=== PATIENT | male | born 1940 | race Caucasian/White ===

== ENCOUNTER 2022-01-24 13:57 | Emergency (ER) | payer MEDICARE, SELFPAY ==
--- NOTE | ~2022-01-24 | XR_ITS ---
X EXAM: XR finger 2nd LT min 2V DATE: 01/24/2022 14:45 HISTORY: infection, SWELLING . COMPARISON: None available. FINDINGS: Decreased mineralization. No fracture or dislocation. No lytic or blastic lesion. Osteoart hritis. No erosion or periosteal change. Soft tissue swelling over the proximal second digit, with po ssible extension to dorsum of the hand. IMPRESSION: No radiographic evidence of osteomyelitis. Soft tissue swelling of the hand/fingers. Reviewed, dictated and finalized at location K.
[2022-01-24 14:15] VITALS: BP 115/60; PULSE 67; RESP 18; O2SAT 98
--- NOTE | 2022-01-24 14:36 | ED.WOUNDLAC ---
HPI - Wound/Laceration General Chief Complaint: Wound/Laceration Stated Complaint: Infection to finger Time Seen by Provider: 01/24/22 14:17 History of Present Illness HPI narrative: Patient is an 81-year-old male who presents ER with concerns for finger infection. Patient had a fall at his intermediate about a week ago. Developed cellulitis of his hand and forearm. He has been on oral antibiotics. Took his last antibiotics today. He has been taking Keflex. No fevers or chills or sweats. He went from being unable to make a fist or close his hand due to swelling and redness to now he can make a full fist with the exception of his second digit but she is able to slightly flex at the MCP/DIP and PIP. The index finger is swollen and red and continues. Proximally there is some skin sloughing off. There are 2 areas where it appears there may have been purulent discharge earlier that now only serous fluid can be expressed from. Related Data Allergies Allergy/AdvReac Type Severity Reaction Status Date / Time No Known Drug Allergies Allergy Other Verified 01/24/22 14:21 [facility] Past Medical History Medical History (Updated 01/24/22 @ 21:51 by Luis Arndt MD) Diabetes Hypertension Surgical History Surgical History (Updated 01/24/22 @ 21:51 by Luis Arndt MD) Fingertip amputation Social History Social History (Updated 01/24/22 @ 21:51 by Luis Arndt MD) Social History: Lives in [place]. Exam Narrative: GENERAL: Well-appearing, well-nourished, and in no acute distress. HEAD: Normocephalic, atraumatic. EYES: PERRL and EOMI. EXTREMITIES: Focused exam left hand shows a swollen index finger from the MCP to the tip. Mainly over the proximal middle phalanx. There is some sloughing of the skin. There is minimal warmth. No purulent drainage but there are 2 circular areas about 5 mm in width with serous fluid coming out. There are some areas of contusion noted. The other digits in the hand and forearm are without any swelling or tenderness or cellulitis. SKIN: Warm, dry. NEURO: No focal deficits. Alert and oriented x3. PSYCH: Normal mood and affect. Course Course Emergency Course: Patient's history consistent with improving infection. We will continue antibiotics. Recommend follow-up with hand surgery for further evaluation. Wound culture sent. Vital Signs Vital signs: Vital Signs Pulse Rate 67 01/24/22 14:15 Respiratory Rate 18 01/24/22 14:15 Blood Pressure 115/60 01/24/22 14:15 Pulse Oximetry 98 01/24/22 14:15 Pulse Rate 67 01/24/22 14:15 Respiratory Rate 18 01/24/22 14:15 Blood Pressure 115/60 01/24/22 14:15 Pulse Oximetry 98 01/24/22 14:15 MDM - Wound/Laceration Lab Data Result diagrams: 01/24/22 16:04 01/24/22 15:14 Labs: Lab Results 01/24/22 01/24/22 01/24/22 Range/Units 15:14 16:04 17:21 WBC 8.8 (4.5-10.0) K/mm3 RBC 2.62 L (4.6-6.20) M/mm3 Hgb 8.9 L (14.0-18.0) g/dL Hct 28.0 L (42.0-52.0) % MCV 106.9 H (80-100) fl MCH 34.0 (26-34) pg MCHC 31.8 L (32-36) g/dl RDW 13.0 (11.5-14.5) % Plt Count 190 (150-375) k/mm3 MPV 9.1 (7.4-10.4) fl Immature Gran % (Auto) 1.0 H (0-0.5) % Neut % (Auto) 62.8 (45.5-73.1) % Lymph % (Auto) 27.7 (18.3-44.2) % [place] % (Auto) 6.4 (2.6-8.5) % Eos % (Auto) 1.6 (0-4.4) % Baso % (Auto) 0.5 (0.2-1.2) % Lymph # (Auto) 2.45 (0.9-3.2) K/mm3 [place] # (Auto) 0.6 (0.1-0.6) K/mm3 Eos # (Auto) 0.1 (0-0.3) K/mm3 Baso # (Auto) 0.0 (0.0-0.1) K/mm3 Abs Immat Gran (auto) 0.09 H (0.00-0.031) K/mm3 Absolute Neuts (auto) 5.6 (1.3-6.7) K/mm3 Absolute Nucleated RBC 0.0 (0.0-0.012) K/mm3 Nucleated RBC % 0.0 (0.0-0.2) % Sodium 136 L (137-145) mmol/L Potassium 5.1 H (3.4-5.0) mmol/L Chloride 105 (98-107) mmol/L Carbon Dioxide 22 (22-30) mmol/L Anion Gap 9 (
[2022-01-24 15:40] LABS: Anion Gap 9 mmol/L (8-16); Blood Urea Nitrogen 43 mg/dL (9-20); Calcium 8.3 mg/dL (8.4-10.2); Carbon Dioxide 22 mmol/L (22-30); Chloride 105 mmol/L (98-107); Estimated CRCL calculation 49 ml/min; Estimated Glomerular Filt Rate 53; Glucose 85 mg/dL (65-110); Potassium 5.1 mmol/L (3.4-5.0); Sodium 136 mmol/L (137-145)
[2022-01-24 16:09] LABS: Basophils Percent Auto 0.5 % (0.2-1.2); Eosinophils Absolute Auto 0.1 K/mm3 (0-0.3); Eosinophils Percent Auto 1.6 % (0-4.4); Hemoglobin 8.9 g/dL (14.0-18.0); Immature Granulocyte Absolute 0.09 K/mm3 (0.00-0.031); Lymphocytes Absolute Auto 2.45 K/mm3 (0.9-3.2); Lymphocytes Percent Auto 27.7 % (18.3-44.2); Mean Corpuscular HGB Conc 31.8 g/dl (32-36); Mean Corpuscular Volume 106.9 fl (80-100); Mean Platelet Volume 9.1 fl (7.4-10.4); Monocytes Absolute Auto 0.6 K/mm3 (0.1-0.6); Monocytes Percent Auto 6.4 % (2.6-8.5); Neutrophils Absolute Auto 5.6 K/mm3 (1.3-6.7); Neutrophils Percent Auto 62.8 % (45.5-73.1); Platelet Count Result 190 k/mm3 (150-375); Red Blood Count 2.62 M/mm3 (4.6-6.20); White Blood Count 8.8 K/mm3 (4.5-10.0)
[2022-01-24 17:24] LABS: Glucose Point of Care 113 mg/dl (65-105)
== END 2022-01-24 17:51 ==
PROVIDERS: Emergency Provider Emergency Medicine; PCP Family Medicine
DX: L03.012 Cellulitis of left finger (principal); E11.9 Type 2 diabetes mellitus without complications; I10 Essential (primary) hypertension
CPT/HCPCS: 36415; 73140; 80048; 82948; 85025; 87070; 87205; 99283

== ENCOUNTER 2022-02-03 13:18 | Inpatient (IN) | payer MEDICARE, SELFPAY ==
[2022-02-03] VITALS (24 sets, daily range): BP systolic 108–134; BP diastolic 42–87; PULSE 33–47; RESP 11–20; TEMP 36.2–36.4; O2SAT 96–98; BMI 32.3
--- NOTE | ~2022-02-03 | XR_ITS ---
EXAMINATION: XR chest 1V portable DATE: 02/03/2022 13:49 INDICATION: Weakness. TECHNIQUE: A single frontal view of the chest was obtained. COMPARISON: None. FINDINGS: There is mild atelectasis in right lower lung zone. No pleural effusion or pneumothorax. Th e heart size is normal. IMPRESSION: 1. Mild atelectasis in right lower lung zone. Reviewed, dictated and finalized at location B.
--- NOTE | 2022-02-03 13:30 | ECG_ITS ---
Measurements Intervals Dexter Rate: 43 P: WV: 0 QRS: -17 QRSD: 104 T: 68 QT: 427 QTc: 361 Interpretive Statements JUNCTIONAL BRADYCARDIA ABNORMAL ECG NO PREVIOUS ECG AVAILABLE FOR COMPARISON Electronically Signed On 02-03-2022 14:50:43 CDT by Dean Walters M.D.
--- NOTE | 2022-02-03 13:43 | ED.RECABL ---
HPI - Recheck/Abnormal Lab/Rx General Chief Complaint: Recheck/Abnormal Lab/Rx Stated Complaint: low heart rate Time Seen by Provider: 02/03/22 13:21 Source: patient History of Present Illness HPI narrative: Patient presents with bradycardia. Patient ports he is feeling weaker than usual today and his breakfast was going about his usual routine. He has had physical therapy for lower extremity weakness but is having more difficult time than usual so they did a set of vital signs and noted his heart rate was in the 30s. EMS was called and patient was transferred to the ER for further evaluation. Patient's heart rate was in the 30s half a milligram of atropine and his heart rate up to the 50s. Patient reports he just feels weak denies any lightheadedness dizziness denies any chest pain recent cough, congestion, fevers. Related Data Home Medications Medication Instructions Recorded Confirmed amlodipine 10 mg-benazepril 40 mg cap 02/03/22 02/03/22 capsule ferrous sulfate 325 mg (65 mg tablet 02/03/22 02/03/22 iron) tablet (FeroSul) furosemide 20 mg tablet tablet 02/03/22 gabapentin 100 mg capsule cap 02/03/22 metformin 500 mg tablet tablet 02/03/22 sertraline 25 mg tablet tablet 02/03/22 simvastatin 5 mg tablet tablet 02/03/22 tramadol 50 mg tablet 50 mg PO Q6H PRN Pain 02/03/22 02/03/22 Allergies Allergy/AdvReac Type Severity Reaction Status Date / Time No Known Drug Allergies Allergy Other Verified 02/03/22 13:24 Review of Systems Review of Systems: CONSTITUTIONAL: Denies fever, chills, or sweats. EYES: Denies visual changes, redness, or discharge. ENT: Denies rhinorrhea, congestion, sore throat, or otalgia. CARDIOVASCULAR: Denies chest pain, palpitations, or edema. RESPIRATORY: Denies cough or dyspnea. GASTROINTESTINAL: Denies abdominal pain, nausea, vomiting, or diarrhea. GENITOURINARY: Denies dysuria or hematuria. SKIN: Denies rash or itching. MUSCULOSKELETAL: Denies back pain, joint pain, or myalgia. NEUROLOGIC: Denies headache, numbness, dizziness, or focal weakness. PSYCHIATRIC: Denies anxiety or depression. All systems reviewed & are unremarkable except as noted in HPI and below PMFSH Past Medical History Medical History Diabetes Hypertension Surgical History Surgical History Fingertip amputation Social History Social History Social History: Lives in [place]. Exam Narrative: GENERAL: Well-appearing, well-nourished, and in no acute distress. HEAD: Normocephalic, atraumatic. EYES: PERRLA and EOMI. ENT: Nares clear, no rhinorrhea or epistaxis. Mucous membranes moist. NECK: Supple. No masses. No JVD CHEST: Clear to auscultation. No respiratory distress. No wheezes rales or rhonchi HEART: Regular bradycardia. No murmur heard. Normal peripheral pulses. ABDOMEN: Soft, nontender, nondistended, normal active bowel sounds. EXTREMITIES: Normal range of motion. No edema. SKIN: Warm, dry, no rash. NEURO: No focal deficits. Alert and oriented x3. PSYCH: Normal mood and affect. Course Reevaluation(s) Reevaluation #1: Patient resting comfortably work-up thus far reviewed with patient. Patient is comfortable with the inpatient plan. Date: 02/03/22 Time: 14:57 Vital Signs Vital signs: Vital Signs Temperature 36.2 C L 02/03/22 13:17 Pulse Rate 43 L 02/03/22 13:17 Respiratory Rate 18 02/03/22 13:17 Blood Pressure 134/59 L 02/03/22 13:17 Pulse Oximetry 98 02/03/22 13:17 Temperature 36.2 C L 02/03/22 13:17 Pulse Rate 33 L 02/03/22 16:53 Respiratory Rate 16 02/03/22 16:53 Blood Pressure 113/53 L 02/03/22 16:53 Pulse Oximetry 98 02/03/22 16:53 MDM - Recheck/Abnormal Lab/Rx MDM Narrative Medical decision making narrative: Patient presents with bradycardia. Patient overall looks cl
[2022-02-03 13:52] LABS: Basophils Percent Auto 0.3 % (0.2-1.2); Eosinophils Absolute Auto 0.1 K/mm3 (0-0.3); Eosinophils Percent Auto 1.5 % (0-4.4); Hematocrit 30.7 % (42.0-52.0); Hemoglobin 9.6 g/dL (14.0-18.0); Immature Granulocyte Absolute 0.06 K/mm3 (0.00-0.031); Immature Granulocyte Percent A 0.8 % (0-0.5); Lymphocytes Absolute Auto 1.97 K/mm3 (0.9-3.2); Lymphocytes Percent Auto 26.6 % (18.3-44.2); Mean Corpuscular HGB Conc 31.3 g/dl (32-36); Mean Corpuscular Hemoglobin 33.7 pg (26-34); Mean Corpuscular Volume 107.7 fl (80-100); Mean Platelet Volume 9.3 fl (7.4-10.4); Monocytes Absolute Auto 0.5 K/mm3 (0.1-0.6); Monocytes Percent Auto 6.1 % (2.6-8.5); Neutrophils Absolute Auto 4.8 K/mm3 (1.3-6.7); Neutrophils Percent Auto 64.7 % (45.5-73.1); Platelet Count Result 261 k/mm3 (150-375); Red Blood Count 2.85 M/mm3 (4.6-6.20); Red Cell Distribution Width 13.6 % (11.5-14.5); White Blood Count 7.4 K/mm3 (4.5-10.0)
[2022-02-03 14:01] LABS: INR 1.1; Prothrombin Time 13.4 Seconds (11.1-14.7)
[2022-02-03 14:02] LABS: Partial Thromboplastin Time 26.7 SECONDS (22.3-36.8)
[2022-02-03 14:11] LABS: Alanine Aminotransferase 16 U/L (6-50); Albumin Level 4.1 g/dL (3.5-5.1); Alkaline Phosphatase 98 U/L (38-126); Anion Gap 9 mmol/L (8-16); Aspartate Amino Transferase 19 U/L (17-59); Bilirubin,Total 0.2 mg/dL (0.2-1.3); Blood Urea Nitrogen 63 mg/dL (9-20); Calcium 8.7 mg/dL (8.4-10.2); Carbon Dioxide 20 mmol/L (22-30); Chloride 104 mmol/L (98-107); Estimated CRCL calculation 52 ml/min; Estimated Glomerular Filt Rate 58; Glucose 86 mg/dL (65-110); Potassium 5.6 mmol/L (3.4-5.0); Sodium 133 mmol/L (137-145)
[2022-02-03 14:20] LABS: Troponin I 0.012 ng/mL (0.000-0.034)
--- NOTE | 2022-02-03 15:12 | PC.NURSE ---
called lab and added MG, TSH order to blood in lab. Spoke to Sue in lab.
[2022-02-03 15:19] LABS: Magnesium 2.2 mg/dL (1.6-2.3)
[2022-02-03 16:10] LABS: SARS-CoV-2 RNA PCR Negative
[2022-02-03 16:56] LABS: Anion Gap 7 mmol/L (8-16); Blood Urea Nitrogen 58 mg/dL (9-20); Calcium 8.5 mg/dL (8.4-10.2); Carbon Dioxide 20 mmol/L (22-30); Chloride 104 mmol/L (98-107); Estimated CRCL calculation 48 ml/min; Estimated Glomerular Filt Rate 53; Glucose 105 mg/dL (65-110); Potassium 5.5 mmol/L (3.4-5.0); Sodium 131 mmol/L (137-145)
[2022-02-03 17:07] LABS: Troponin I < 0.012 ng/mL (0.000-0.034)
--- NOTE | 2022-02-03 17:24 | ADMGEN ---
This patient, Dick Bobo, was admitted to IMU Room 206-01 at 1711 from the ED. Patient/family oriented to hospital policies and general routines including ID bracelet, bed and alarms, visiting hours, pain management, procedures, bathroom and other care routines, personal items, smoking policy, room service/diet, and visiting hours. Information on how to activate the Rapid Response Team has been discussed. Patient/Family are encouraged to report perceived risks to care and to ask questions if they do not understand what they are told or what they should do.
--- NOTE | 2022-02-03 19:53 | PM.IMHP ---
H&P: HPI History of Present Illness Date/Time: Patient was placed observation status for expected length of stay less than 23 hours for management, will plan to re-evaluate tomorrow for improvement. 02/03/22 19:53 Chief Complaint: Bradycardia Narrative: Mr. Bobo is an 81-year-old gentleman who presented to the emergency room for bradycardia. Patient states he woke up this morning he was feeling the same that he does every day and he went and got his hair cut and then went to physical therapy. Patient states that during physical therapy he told them he was not feeling very well at that point time and they took his vital signs and his heart rate was noted to be in the 30s. Patient states he did feel mildly lightheaded and dizzy off and on today with activity. Patient denies any chest pain, shortness a breath, palpitations, or syncopal episodes. Patient states he was recently diagnosed with cellulitis of his left 1st finger and was placed on Keflex. Patient was transferred to the emergency room via EMS and while patient was being transported he was given 0.5mg of atropine and his heart rate did go up to the 50s. Patient states he has a known history of hypertension and diabetes mellitus. Patient denies any history of cardiac issues and states that he has never seen a owner manager. Review of Systems Review of Systems: A 12 point review of systems was completed patient all pertinent positive and negative per HPI the remainder are unremarkable. [facility] Past Medical History Medical History (Updated 02/03/22 @ 20:15 by Yanci Guajardo APRN) Diabetes Hypertension Surgical History Surgical History Fingertip amputation Social History Social History Social History: Lives in [place]. Smoking status: Never smoker Second hand tobacco smoke exposure: No Alcohol intake: never Substance use: never Substance use type: does not use Spiritual care concerns: No Meds Home Medications and Allergies Home Medications Medication Instructions Recorded Confirmed Type B6 35 mg-B9 3 mg-B12 2 mg-D3 62.5 1 cap PO DAILY 02/03/22 02/03/22 History mcg-ALA 300 mg capsule,delay release (EB-N5 ) Eucerin See Rx Instructions .Route .COMPLEX 02/03/22 02/03/22 History acetaminophen 500 mg tablet 500 mg PO Q6H PRN Pain 02/03/22 02/03/22 History amino ac-protein hydro-whey 1 ea PO DAILY 02/03/22 02/03/22 History protein 10 gram-100 kcal/30 mL oral liquid (ProSource) amlodipine 10 mg-benazepril 40 mg 1 cap PO DAILY 02/03/22 02/03/22 History capsule arginine-vitamin C-vitamin E oral 4.5 g PO DAILY 02/03/22 02/03/22 History 4.5 gram-156 mg/9.2 gram powder pkt (Arginaid) aspirin 81 mg chewable tablet 81 mg PO DAILY 02/03/22 02/03/22 History cephalexin 500 mg capsule 500 mg PO QID 02/03/22 02/03/22 History collagenase clostridium histo. 250 1 applic topical DAILY 02/03/22 02/03/22 History unit/gram topical ointment (Santyl) ferrous sulfate 325 mg (65 mg 325 tablet PO DAILY 02/03/22 02/03/22 History iron) tablet (FeroSul) furosemide 20 mg tablet 20 tablet PO DAILY 02/03/22 02/03/22 History gabapentin 100 mg capsule 100 cap PO DAILY 02/03/22 02/03/22 History metformin 500 mg tablet 500 tablet PO DAILY 02/03/22 02/03/22 History sertraline 25 mg tablet 25 tablet PO DAILY 02/03/22 02/03/22 History simvastatin 5 mg tablet 5 tablet PO DAILY 02/03/22 02/03/22 History tramadol 50 mg tablet 50 mg PO Q6H PRN Pain 02/03/22 02/03/22 History Allergies Allergy/AdvReac Type Severity Reaction Status Date / Time No Known Drug Allergies Allergy Other Verified 02/03/22 13:24 Vital Signs Vital Signs - 24 hr 02/03/22 13:17 02/03/22 14:15 02/03/22 13:42 Temperature 36.2 C L Pulse Rate 43 L 39 L 40 L Respiratory Rate 18 16 18 Blood Pressure 134/59 L 125/51 L Pulse Oximetry 98 98 98
[2022-02-03 20:07] LABS: Troponin I < 0.012 ng/mL (0.000-0.034)
[2022-02-03] MEDS: CEPHALEXIN 500 MG CAPSULE PO (20:47)
[2022-02-03] MEDS: SODIUM CHLORIDE 0.9% IV 1,000 ML 100 ML IV CONT (20:47)
[2022-02-04] VITALS (18 sets, daily range): BP systolic 112–143; BP diastolic 46–76; PULSE 32–39; RESP 18–28; TEMP 36.7–37.8; O2SAT 97–100
--- NOTE | 2022-02-04 | ECHO_ITS ---
Patient Info Name: Dick Bobo Age: 81 years : 1940 Gender: Male Ht: 72 in Wt: 238 lbs BSA: 2.37 m2 HR: 37 bpm BP: 119 / 46 mmHg Heart Rhythm: Bradycardia Technical Quality: Good Exam Date: 02/04/2022 2:17 PM Exam Location: [facility] Patient Status: Inpatient Admit Date: 02/04/2022 Staff Ordering Physician: Dean Walters MD Payroll Secretary: Flor Gamez RDCS Attending Provider: Vijay Zarate MD Referring Physician: Romeo ROY; Exam Type: CA echo doppler color flow Study Info Indications - JUNCTIONAL BRADYCARDIA R00.1 - Bradycardia, unspecified Complete two-dimensional, color flow and Doppler transthoracic echocardiogram is performed. Summary 1. Complete two-dimensional, color flow and Doppler transthoracic echocardiogram is performed. 2. Left ventricular chamber dimension is normal. 3. Left ventricular systolic function is normal, estimated at 60-65%. 4. There is mildly increased left ventricular wall thickness. 5. The left ventricular diastolic function is indeterminate. 6. Right atrial chamber dimension is mildly enlarged. 7. Left atrial chamber dimension is mildly enlarged. 8. There is moderate aortic valve sclerosis. 9. There is mild aortic valve calcification. 10. There is mild mitral valve regurgitation. 11. There is mild tricuspid valve regurgitation. 12. Moderate pulmonary hypertension, estimated pulmonary arterial systolic pressure is 49 mmHg. 13. There is mild pulmonic regurgitation. Left Ventricle Left ventricular chamber dimension is normal. Left ventricular systolic function is normal, estimated at 60-65%. There is mildly increased left ventricular wall thickness. The left ventricular diastolic function is indeterminate. Right Ventricle Right ventricular chamber dimension is normal. Right ventricular systolic function is normal. Left Atria Left atrial chamber dimension is mildly enlarged. Right Atria Right atrial chamber dimension is mildly enlarged. Atrial Septum Intact interatrial septum visualized by color flow imaging. Aortic Valve The aortic valve is trileaflet. There is moderate aortic valve sclerosis. There is no aortic valve stenosis. There is trace aortic valve regurgitation. There is mild aortic valve calcification. Pulmonic Valve The pulmonic valve is normal. There is no pulmonic valve stenosis. There is mild pulmonic regurgitation. Mitral Valve The mitral valve has calcified annulus. There is no mitral valve stenosis. There is mild mitral valve regurgitation. Tricuspid Valve The tricuspid valve leaflets are normal. There is no significant tricuspid valve stenosis. There is mild tricuspid valve regurgitation. Moderate pulmonary hypertension, estimated pulmonary arterial systolic pressure is 49 mmHg. Pericardium/Pleural The pericardium appears normal. There is no pericardial effusion. Inferior Vena Cava Normal inferior vena cava with <50% collapse upon inspiration consistent with elevated right atrial pressure, 10 mmHg. Aorta The aortic root size at the sinus of Valsalva is normal. Left Ventricular Outflow Tract Name Value Normal LVOT 2D LVOT Diameter 2.0 cm
[2022-02-04 05:09] LABS: Basophils Percent Auto 0.3 % (0.2-1.2); Eosinophils Absolute Auto 0.1 K/mm3 (0-0.3); Eosinophils Percent Auto 1.6 % (0-4.4); Hematocrit 27.7 % (42.0-52.0); Hemoglobin 8.9 g/dL (14.0-18.0); Immature Granulocyte Absolute 0.02 K/mm3 (0.00-0.031); Immature Granulocyte Percent A 0.3 % (0-0.5); Lymphocytes Absolute Auto 1.98 K/mm3 (0.9-3.2); Lymphocytes Percent Auto 31.9 % (18.3-44.2); Mean Corpuscular HGB Conc 32.1 g/dl (32-36); Mean Corpuscular Hemoglobin 34.1 pg (26-34); Mean Corpuscular Volume 106.1 fl (80-100); Mean Platelet Volume 9.6 fl (7.4-10.4); Monocytes Absolute Auto 0.4 K/mm3 (0.1-0.6); Neutrophils Absolute Auto 3.7 K/mm3 (1.3-6.7); Neutrophils Percent Auto 59.9 % (45.5-73.1); Platelet Count Result 216 k/mm3 (150-375); Red Blood Count 2.61 M/mm3 (4.6-6.20); Red Cell Distribution Width 13.7 % (11.5-14.5); White Blood Count 6.2 K/mm3 (4.5-10.0)
[2022-02-04 05:33] LABS: Anion Gap 4 mmol/L (8-16); Blood Urea Nitrogen 55 mg/dL (9-20); Calcium 8.3 mg/dL (8.4-10.2); Carbon Dioxide 23 mmol/L (22-30); Chloride 108 mmol/L (98-107); Estimated CRCL calculation 53 ml/min; Estimated Glomerular Filt Rate 58; Glucose 98 mg/dL (65-110); Magnesium 2.2 mg/dL (1.6-2.3); Potassium 5.3 mmol/L (3.4-5.0); Sodium 135 mmol/L (137-145)
[2022-02-04] MEDS: SODIUM CHLORIDE 0.9% IV 1,000 ML 100 ML IV CONT ×2 (05:40→16:39)
[2022-02-04] MEDS: FERROUS SULFATE 324 MG TABLET PO (08:26)
[2022-02-04] MEDS: amLODIPine BESYLATE 5 MG TABLET 10 MG BY MOUTH (08:26)
[2022-02-04] MEDS: GABAPENTIN 100 MG CAPSULE PO (08:26)
[2022-02-04] MEDS: FUROSEMIDE 20 MG TABLET PO (08:26)
[2022-02-04] MEDS: COLLAGENASE OINT 30 GM TUBE 1 APPLIC TOPICAL (08:27)
[2022-02-04] MEDS: SERTRALINE HCL 25 MG TABLET PO (08:27)
[2022-02-04] MEDS: SIMVASTATIN 5 MG TABLET PO (08:27)
[2022-02-04] MEDS: ENOXAPARIN 40 MG/0.4 ML SYRINGE SUB-Q (08:27)
[2022-02-04] MEDS: lisinopriL 20 MG TABLET 40 MG PO (08:27)
[2022-02-04] MEDS: ASPIRIN 81 MG CHEWABLE TABLET PO (08:27)
--- NOTE | 2022-02-04 10:52 | PM.CNCAR ---
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 He is symptomatic with fatigue, tiredness and decreased exercise tolerance. He will be kept NPO after midnight for dual chamber permanent pacemaker tomorrow. This is assuming there is no contraindication given his recent infection involving his left index finger. Will check a free T4 level. Will also check a 2D echo echocardiogram with Doppler. Avoid AV liss agents. He did receive enoxaparin today but will DC enoxaparin as he should not receive a tomorrow. (2) Hypertension: Code(s): I10 - Essential (primary) hypertension Status: Acute Assessment and Plan: At goal (3) Diabetes: Code(s): E11.9 - Type 2 diabetes mellitus without complications Status: Acute Assessment and Plan: Per hospitalist (4) Cellulitis: Code(s): L03.90 - Cellulitis, unspecified Status: Acute Assessment and Plan: Patient has completed a course of antibiotics for cellulitis involving left index finger. He had an appointment Dr. Larson Tuesday. I will consult Dr. Larson for an opinion regarding ? Active infection given need for dual chamber pacemaker History of Present Illness History of Present Illness Consult date/time: 02/04/22 10:52 Requesting physician: Efe Rudolph MD Consult reason: Other (Bradycardia) Reason For Visit: Bradycardia Narrative: Date of service 02/04/2022 Reason for consultation: Bradycardia History patient is an 81-year-old male. He states that he did see Dr. Huddleston remotely because of ?neuropathy?. He denies any cardiac issues. He currently resides at [facility]. He is an active man who participates in physical therapy routinely. He had some vitals drawn yesterday he was noted to be hypotensive and bradycardic. He did feel a lot more tired yesterday and during physical therapy his activity level is diminished and he did not have the energy that he typically does during that activity. He denies any chest pain, syncope, presyncope, paroxysmal nocturnal dyspnea, orthopnea, palpitations. He had been having this a little bit of swelling in his ankles following a hospitalization earlier this year but that swelling did improve. He was also recently diagnosed with cellulitis involving the 1st left index finger and was placed on Keflex which has greatly improved his symptoms. He is now off of antibiotics. EMS was called because his heart rate was in the 30s and he was given atropine. Heart rate did go up into the 50s with atropine but is now back down to the 30s. EKG shows a junctional bradycardia. Review of Systems Review of Systems: All systems reviewed & are unremarkable except as noted in HPI and below Constitutional: Constitutional: Denies body ache(s), Reports fatigue and Reports lethargy Eyes: Eyes: Denies blurry vision ENT: Denies epistaxis Cardiovascular: Cardiovascular: Denies chest pain and Denies diaphoresis Respiratory: Respiratory: Denies chest congestion and Denies cough Gastrointestinal: Gastrointestinal: Denies abdominal pain Genitourinary: Genitourinary: Denies hematuria Musculoskeletal: Musculoskeletal: Denies back pain Integumentary/Breasts: Skin/Breast: Denies breast pain and Denies dry skin Comments: Left index finger is wrapped Neurologic: Denies Abnormal speech present and Denies confusion Psychiatric: Psychiatric: Denies anxiety Endocrine: Endocrine: Reports fatigue Hematologic/Lymphatic: Hematologic/Lymphatic: Denies easy bleeding Allergic/Immunologic: Allergic/Immunologic: Denies GI upset with certain foods PMFSH Past Medical History Medical History Diabetes Hypertension Surgical History Surgical History (Reviewed 02/04/22 @ 10:55 by Sary
--- NOTE | 2022-02-04 13:10 | PCCCNOTE ---
On 02/04/22, the student, [Marjan Apodaca], provided care and completed [facility] documentation on this patient. I have reviewed the student's documentation and agree with the findings.
--- NOTE | 2022-02-04 16:09 | WPDCN ---
Assessment and Plan Assessment and plan (1) Cellulitis: Code(s): L03.90 - Cellulitis, unspecified Status: Acute Plan Patient's cellulitis has responded well to Cephalexin. There remains non viable tissue at the wound site in the subcutaneous tissue causing the serous drainage and swelling. Culture results do not indicate an causative organism. His clinical response indicates appropriate antibiotic choice. His diabetic status and the persistent induration suggests viable organisms may be present in the wound. Additional Plan If not urgent, I would suggest two more weeks of cephalexin with close follow up in my office and delaying the pacemaker decision until then. If urgent, the local site could be surgically debrided today or tomorrow and the pacemaker could be done sooner. Please don't hesitate to contact me directly. HPI Data of Consult Date/Time: 02/04/22 16:09 Requesting Physician: Vijay Zarate MD Primary Care Provider: Nick Guajardo MD Consult Narrative Narrative: Dick Bobo is a 81 year old male diabetic who lives in the [place]. He has been through our ER here on January 24 for for cellulitis of his left index finger and again on February 03 for symptoms of weakness with a heart rate of 30. He is diagnosed with the need for a pacemaker. I am consulting for evaluation of the cellulitis in the left index finger and whether his pacemaker placement should be delayed due to risk of seeding the pacemaker from his finger. The patient was apparently injured in his al[place] in a mechanical trauma related to a wheelchair. He is a poor historian. It seems that he had lacerated the finger and shortly thereafter developed evidence of cellulitis with swelling redness and local streaking. Seems that he was started on cephalexin 500 mg b.i.d. perhaps by his primary care physician. Apparently the cellulitis began to improve.. On his January 24 visit about 1 week post injury he was evaluated for the finger infection. x-ray was taken that showed no foreign material no fracture or dislocation. His WBC remained below 10. The finger was still quite swollen and he had trouble flexing it but the erythema apparently had diminished and there was serous drainage but no purulence. A surface swab was taken and this has grown skin samantha only. He was discharged on that visit to continue cephalexin 500 mg t.i.d. I believe . [facility] Past Medical History Medical History Diabetes Hypertension Surgical History Surgical History Fingertip amputation Family History Family History (Updated 02/04/22 @ 10:55 by Dean Walters MD) Father Heart disease Social History Social History Social History: Lives in [place]. Smoking status: Never smoker Second hand tobacco smoke exposure: No Alcohol intake: never Substance use: never Substance use type: does not use Spiritual care concerns: No Meds Home Medications and Allergies Home Medications Medication Instructions Recorded Confirmed Type B6 35 mg-B9 3 mg-B12 2 mg-D3 62.5 1 cap PO DAILY 02/03/22 02/03/22 History mcg-ALA 300 mg capsule,delay release (EB-N5 ) Eucerin See Rx Instructions .Route .COMPLEX 02/03/22 02/03/22 History acetaminophen 500 mg tablet 500 mg PO Q6H PRN Pain 02/03/22 02/03/22 History amino ac-protein hydro-whey 1 ea PO DAILY 02/03/22 02/03/22 History protein 10 gram-100 kcal/30 mL oral liquid (ProSource) amlodipine 10 mg-benazepril 40 mg 1 cap PO DAILY 02/03/22 02/03/22 History capsule arginine-vitamin C-vitamin E oral 4.5 g PO DAILY 02/03/22 02/03/22 History 4.5 gram-156 mg/9.2 gram powder pkt (Arginaid) aspirin 81 mg chewable tablet 81 mg PO DAILY 02/03/22 02/03/22 History cephalexin 500 mg capsule 500 mg PO QID 0
--- NOTE | 2022-02-04 16:23 | PM.IMPN ---
Progress Note: A&P Assessment and Plan (1) Bradycardia: Code(s): R00.1 - Bradycardia, unspecified Status: Acute Assessment and Plan: Patient's heart rate has remained in the 30s. Patient's blood pressure stable. Patient is not on any beta sebastián or rate lowering medications at home. TSH is within normal limits. It was discussed with patient that he may need a pacemaker. Patient states that he is willing to have this procedure done. Cardiology has been consult and do appreciate further recommendations. 02/04/2022 interval history: patient with weakness and fatigue is found to have symptomatic bradycardia seen by Cardiology recommended patient will need biventricular pacemaker is scheduled for tomorrow however patient has a infection left index finger will be seen by surgery service and further recommendation to follow, currently patient is feeling better while at rest, will continue to monitor and further recommendation to follow. (2) Hypertension: Code(s): I10 - Essential (primary) hypertension Status: Acute Assessment and Plan: Will resume patient's home medications once verified home medication list and adjust medications accordingly for optimal blood pressure control. Subjective Date/time seen: 02/04/22 16:23 Bradycardia Narrative: HPI-Mr. Bobo is an 81-year-old gentleman who presented to the emergency room for bradycardia.? Patient states he woke up this morning he was feeling the same that he does every day and he went and got his hair cut and then went to physical therapy.? Patient states that during physical therapy he told them he was not feeling very well at that point time and they took his vital signs and his heart rate was noted to be in the 30s.? Patient states he did feel mildly lightheaded and dizzy off and on today with activity.? Patient denies any chest pain, shortness a breath, palpitations, or syncopal episodes.? Patient states he was recently diagnosed with cellulitis of his left 1st finger and was placed on Keflex.? Patient was transferred to the emergency room via EMS and while patient was being transported he was given 0.5mg of atropine and his heart rate did go up to the 50s. Patient states he has a known history of hypertension and diabetes mellitus.? Patient denies any history of cardiac issues and states that he has never seen a photo journalist. 02/04/2022 interval history: patient with weakness and fatigue is found to have symptomatic bradycardia seen by Cardiology recommended patient will need biventricular pacemaker is scheduled for tomorrow however patient has a infection left index finger will be seen by surgery service and further recommendation to follow, currently patient is feeling better while at rest, will continue to monitor and further recommendation to follow. Review of Systems Review of Systems: All systems reviewed & are unremarkable except as noted in HPI and below Exam Narrative: Patient is comfortable, NAD HEENT: eyes are clear and none icteric LUNGS: normal respiratory effort ABD: distended Lower extremities: no edema SKIN: nonjaundiced Neuro: grossly intact. Objective Data Vital Signs Vital Signs: Vital Signs - 24 hr 02/03/22 16:53 02/03/22 16:34 02/03/22 17:23 Temperature Pulse Rate 33 L 34 L 39 L Respiratory Rate 16 20 Blood Pressure 113/53 L Pulse Oximetry 98 97 Oxygen Delivery 02/03/22 18:00 02/03/22 17:25 02/03/22 19:58 Temperature 97.6 F Pulse Rate 47 L 38 L Respiratory Rate 19 Blood Pressure 124/68 Pulse Oximetry 98 Oxygen Delivery Room Air 02/03/22 20:27 02/03/22 20:00 02/03/22 20:00 Temperature Pulse Rate 39 L 39 L Respiratory Rate 19 Blood Pressure Pulse Oximetry 97 97 Oxygen Delivery Room Air Room Air 02/03/22 22:00 02/03/22 23:49 02/04/22 00:00 Temperature 97.6 F Pulse Rate 37 L 40 L 35 L Respiratory Rate 18 Blood Pressure 108/42 L Pulse Oximetry 97 O
[2022-02-04] MEDS: CEPHALEXIN 500 MG CAPSULE PO (18:46)
[2022-02-05] VITALS: PULSE 32
[2022-02-05] MEDS: CEPHALEXIN 500 MG CAPSULE PO ×3 (00:17→12:07)
[2022-02-05 02:00] VITALS: PULSE 53
[2022-02-05] MEDS: SODIUM CHLORIDE 0.9% IV 1,000 ML 100 ML IV CONT (03:00)
[2022-02-05 04:00] VITALS: BP 148/59; PULSE 51; PULSE 55; RESP 18; TEMP 36.5; O2SAT 98
[2022-02-05 06:00] VITALS: PULSE 49
[2022-02-05 08:00] VITALS: BP 149/50; PULSE 54; PULSE 58; RESP 18; TEMP 36.4; O2SAT 99
[2022-02-05] MEDS: lisinopriL 20 MG TABLET 40 MG PO (08:46)
[2022-02-05] MEDS: SIMVASTATIN 5 MG TABLET PO (08:46)
[2022-02-05] MEDS: ASPIRIN 81 MG CHEWABLE TABLET PO (08:46)
[2022-02-05] MEDS: FUROSEMIDE 20 MG TABLET PO (08:46)
[2022-02-05] MEDS: amLODIPine BESYLATE 5 MG TABLET 10 MG BY MOUTH (08:46)
[2022-02-05] MEDS: SERTRALINE HCL 25 MG TABLET PO (08:46)
[2022-02-05] MEDS: FERROUS SULFATE 324 MG TABLET PO (08:47)
[2022-02-05] MEDS: ENOXAPARIN 40 MG/0.4 ML SYRINGE SUB-Q (08:47)
[2022-02-05] MEDS: GABAPENTIN 100 MG CAPSULE PO (08:47)
[2022-02-05] MEDS: COLLAGENASE OINT 30 GM TUBE 1 APPLIC TOPICAL (08:51)
[2022-02-05 10:00] VITALS: PULSE 55
--- NOTE | 2022-02-05 10:05 | PM.DS ---
DS: Admitting Diagnosis Discharge Date 02/05/2022 Admitting Diagnosis bradycardia DS: Discharge Diagnosis Discharge Diagnosis (1) Bradycardia: Code(s): R00.1 - Bradycardia, unspecified Status: Acute Assessment and Plan: Patient's heart rate has remained in the 30s. Patient's blood pressure stable. Patient is not on any beta sebastián or rate lowering medications at home. TSH is within normal limits. It was discussed with patient that he may need a pacemaker. Patient states that he is willing to have this procedure done. Cardiology has been consult and do appreciate further recommendations. 02/04/2022 interval history: patient with weakness and fatigue is found to have symptomatic bradycardia seen by Cardiology recommended patient will need biventricular pacemaker is scheduled for tomorrow however patient has a infection left index finger will be seen by surgery service and further recommendation to follow, currently patient is feeling better while at rest, will continue to monitor and further recommendation to follow. (2) Hypertension: Code(s): I10 - Essential (primary) hypertension Status: Acute Assessment and Plan: Will resume patient's home medications once verified home medication list and adjust medications accordingly for optimal blood pressure control. DS: Summary Hospital Course Reason for hospitalization: Chief Complaint: Bradycardia Narrative: Mr. Bobo is an 81-year-old gentleman who presented to the emergency room for bradycardia.? Patient states he woke up this morning he was feeling the same that he does every day and he went and got his hair cut and then went to physical therapy.? Patient states that during physical therapy he told them he was not feeling very well at that point time and they took his vital signs and his heart rate was noted to be in the 30s.? Patient states he did feel mildly lightheaded and dizzy off and on today with activity.? Patient denies any chest pain, shortness a breath, palpitations, or syncopal episodes.? Patient states he was recently diagnosed with cellulitis of his left 1st finger and was placed on Keflex.? Patient was transferred to the emergency room via EMS and while patient was being transported he was given 0.5mg of atropine and his heart rate did go up to the 50s. Patient states he has a known history of hypertension and diabetes mellitus.? Patient denies any history of cardiac issues and states that he has never seen a sed middle school teacher. Hospital Course: patient with? weakness and fatigue is found to have symptomatic bradycardia seen by Cardiology recommended patient will need biventricular pacemaker is scheduled for tomorrow however patient has a infection left index finger will be seen by surgery service and further recommendation to follow, currently patient is feeling better while at rest, will continue to monitor and further recommendation to follow. patient was seen by hand surgeon and stated patient does have infection on left index finger will require 2 weeks of antibiotic, and he cannot have surgery until after 2 weeks, patient remains clinically stable patient is a wheelchair-bound, will discharge the patient home today with Keflex 500 mg q.6 for 2 weeks, patient will follow-up with sed middle school teacher as scheduled. Time Spent with Patient Time attestation: Total time spent providing and/or coordinating discharge services: Exam Narrative: Patient is comfortable, NAD HEENT: eyes are clear and none icteric LUNGS: normal respiratory effort ABD: distended Lower extremities: no edema SKIN: nonjaundiced Neuro: grossly intact. DS: Data Data Completed and Pending Labs on day of discharge: Labs from last 24 hours 02/03/22 13:40 Thyroxine (T4) 6.90 Discharge Plan Discharge Attending physician on discharge: Dee Hernandez Consulting providers: Dean Walters ; Frank Peacock Discharging Clinician: Dee Hernandez
--- NOTE | 2022-02-05 11:00 | ECG_ITS ---
Measurements Intervals [place] Rate: 49 P: 191 MN: 243 QRS: -15 QRSD: 106 T: 87 QT: 466 QTc: 422 Interpretive Statements SINUS BRADYCARDIA WITH SINUS ARRHYTHMIA WITH FIRST DEGREE AV BLOCK NONSPECIFIC T-WAVE ABNORMALITY COMPARED TO ECG 02/03/2022 13:25:09 SINUS RHYTHM REPLACES JUNCTIONAL RHYTHM T Electronically Signed On 02-05-2022 14:42:14 CDT by Osmani Jimenez M.D.
--- NOTE | 2022-02-05 11:11 | PM.PNCARD ---
Progress Note: A&P Assessment and Plan (1) Bradycardia: Code(s): R00.1 - Bradycardia, unspecified Status: Acute Plan 81-year-old man with intermittent junctional bradycardia appears to be symptomatic of this with generalized weakness. His escape rhythm was a stable narrow QRS rhythm and pacemaker implantation while reasonable is certainly not urgent. As I mentioned in my addendum you to Dr. Walters is note yesterday this procedure should be delayed until we are absolutely certain that he we are done treating his infection in his finger to minimize any risk of pacemaker device infection. Wall this represents a low risk of seeding the pacemaker pocket pacemaker infection is a disastrous complication with high morbidity and needs to be avoided. I will see this patient in my office within several weeks after discharge and determine together with him when it is prudent/appropriate to schedule his device implantation. Disposition from this hospitalization is deferred to the primary team Osmani Jimenez MD [facility] Subjective Date/time seen: Date of service: 02/05/22 11:11 Interval history: Follow-up visit in this 81-year-old man with: Symptoms of generalized weakness and bradycardia found to be in a junctional rhythm the 1st couple of days he was in the hospital. Pacemaker implantation was recommended by my partner who saw the patient in consultation. He has no history of syncope and a stable narrow QRS junctional rhythm. This morning's telemetry appears to show sinus rhythm with heart rate 50-60. Patient is comfortable and asymptomatic this morning. Described to the patient the situation in detail and the recommendation to delay pacemaker implantation since he has an infection in his finger that could potentially increase infectious risks of device implantation. Exam Const: General: comfortable and no acute distress Other: Pleasant elderly man appears his stated age no distress HENMT: Mouth: Yes moist mucous membranes Eyes: Sclera: sclerae normal Pupils: Equal, round and reactive pupils present Neck: Neck: supple and no JVD Resp: Effort & Inspection: normal respiratory effort Auscultation: clear to auscultation bilaterally Cardio: Rate: regular rate Rhythm: regular rhythm GI: GI Palp: Yes Soft to palpation Auscultation: normal bowel sounds Skin: General skin exam: normal color Neuro: Other: Normal cognition Extrem: Other: No evidence of edema adequate perfusion Objective Data Vital Signs Vital Signs: Vital Signs - 24 hr 02/04/22 11:52 02/04/22 13:59 02/04/22 14:00 Temperature 36.7 C Pulse Rate 39 L 35 L Respiratory Rate 20 Blood Pressure 119/46 L Pulse Oximetry 97 97 Oxygen Delivery Room Air 02/04/22 12:00 02/04/22 12:00 02/04/22 15:45 Temperature Pulse Rate 36 L Respiratory Rate Blood Pressure Pulse Oximetry Oxygen Delivery Room Air Room Air 02/04/22 16:45 02/04/22 16:00 02/04/22 18:00 Temperature 37.8 C H 36.8 C Pulse Rate 38 L 38 L Respiratory Rate 28 H Blood Pressure 143/48 H Pulse Oximetry 98 Oxygen Delivery 02/04/22 18:00 02/04/22 20:00 02/04/22 20:00 Temperature 36.9 C Pulse Rate 34 L 35 L 36 L Respiratory Rate 20 Blood Pressure 112/48 L Pulse Oximetry 100 Oxygen Delivery 02/04/22 22:00 02/04/22 23:58 02/05/22 00:00 Temperature 37.3 C Pulse Rate 38 L 32 L 32 L Respiratory Rate 20 Blood Pressure 118/71 Pulse Oximetry 99 Oxygen Delivery 02/05/22 02:00 02/05/22 04:00 02/05/22 04:00 Temperature 36.5 C Pulse Rate 53 L 55 L 51 L Respiratory Rate 18 Blood Pressure 148/59 H Pulse Oximetry 98 Oxygen Delivery 02/05/22 06:00 02/05/22 04:00 02/05/22 08:00 Temperature 36.4 C L Pulse Rate 49 L 58 L Respiratory Rate 18 Blood Pressure 149/50 H Pulse Oximetry 99 Oxygen Delivery Room Air Intake/Output Intake/Output: Intake & Output 02/02/22 02/03/22
[2022-02-05 11:22] LABS: EDCOVIDSCREEN Negative (Negative)
== END 2022-02-05 12:41 | DRG 310 ==
LOC: ANHED 14:59 → ANHIMU 16:25
PROVIDERS: Internal Medicine Cardiovascular Disease; Nurse Practitioner Adult Health; Admitting Provider Internal Medicine; Emergency Provider Emergency Medicine; PCP Family Medicine; Visit Provider Family Medicine
DX: R00.1 Bradycardia, unspecified (principal); Z20.822 Contact with and (suspected) exposure to COVID-19; I95.9 Hypotension, unspecified; I10 Essential (primary) hypertension; E11.9 Type 2 diabetes mellitus without complications
CPT/HCPCS: 36415; 71045; 80048; 80053; 83735; 84436; 84443; 84484; 85025; 85610; 85730; 87426; 93005; 93306; 96360; 96361; 96372; 99285; A9270; C9803; G0378; J1650; J7030; U0003; U0005

== ENCOUNTER 2022-03-15 00:46 | Day surgery (SDC) | payer MEDICARE, SELFPAY ==
[2022-03-12 14:19] VITALS: BMI 31.1
[2022-03-15] VITALS (18 sets, daily range): BP systolic 105–154; BP diastolic 47–71; PULSE 36–64; RESP 12–22; TEMP 35.9–37; O2SAT 63–99; BMI 32.2
--- NOTE | ~2022-03-15 | XR_ITS ---
EXAMINATION: XR chest 1V portable 03/15/2022 13:46 INDICATION: Shortness of breath PROCEDURE: AP portable chest COMPARISON: 02/03/2022 FINDINGS: The lungs are clear. The cardiomediastinal silhouette is within normal limits. There are no pleural effusions. There is no pneumothorax suspected. Pacemaker leads are in expected position. IMPRESSION: 1: NO ACUTE CARDIOPULMONARY DISEASE. Reviewed, dictated and finalized at location A.
--- NOTE | ~2022-03-15 | XR_ITS ---
EXAMINATION: XR chest 2V Exam Date/Time: 03/16/2022 13:25 CDT HISTORY: 24 hours post pacemaker insertion Comparison: 03/15/2022. RESULT: Lines, tubes, and devices: Left chest pacer with intact leads. Lungs and pleura: Clear. Cardiomediastinal silhouette: Stable. Other: No acute osseous or upper abdominal finding. IMPRESSION: No acute cardiopulmonary process. Reviewed, dictated and finalized at location K.
--- NOTE | 2022-03-15 08:52 | ECG_ITS ---
Measurements Intervals [place] Rate: 39 P: [place]: 0 QRS: -24 QRSD: 114 T: 64 QT: 477 QTc: 386 Interpretive Statements SLOW JUNCTIONAL RHYTHM ATRIAL PREMATURE COMPLEX INTRAVENTRICULAR CONDUCTION DELAY BORDERLINE R WAVE PROGRESSION, ANTERIOR LEADS BASELINE ARTIFACT- I, III, AVL ABNORMAL ECG Electronically Signed On 03-15-2022 9:57:57 CDT by Keyshawn Coelho D.O.
--- NOTE | 2022-03-15 09:06 | WPDMODSED ---
Moderate Sedation Note-Pt Data Patient Data Diagnosis: Sick sinus syndrome with junctional escape rhythm and symptomatic bradycardia Present Complaint: No complaints today Procedure to be performed/Plan: Permanent pacemaker implantation Allergies Allergy/AdvReac Type Severity Reaction Status Date / Time No Known Drug Allergies Allergy Other Verified 03/12/22 14:44 Home Medications Medication Instructions Recorded Confirmed Type B6 35 mg-B9 3 mg-B12 2 mg-D3 62.5 2 cap PO DAILY 02/03/22 03/12/22 History mcg-ALA 300 mg capsule,delay release (EB-N5 ) Sarah See Rx Instructions .Route .COMPLEX 02/03/22 03/12/22 History acetaminophen 500 mg tablet 500 mg PO Q6H PRN Pain 02/03/22 03/12/22 History amino ac-protein hydro-whey 1 ea PO DAILY 02/03/22 03/12/22 History protein 10 gram-100 kcal/30 mL oral liquid (ProSource) amlodipine 10 mg-benazepril 40 mg 1 cap PO DAILY 02/03/22 03/12/22 History capsule ferrous sulfate 325 mg (65 mg 325 tablet PO DAILY 02/03/22 03/12/22 History iron) tablet (FeroSul) furosemide 20 mg tablet 20 tablet PO DAILY 02/03/22 03/12/22 History gabapentin 100 mg capsule 200 cap PO DAILY 02/03/22 03/12/22 History metformin 500 mg tablet 500 tablet PO DAILY 02/03/22 03/12/22 History sertraline 25 mg tablet 25 tablet PO DAILY 02/03/22 03/12/22 History simvastatin 5 mg tablet 5 tablet PO DAILY 02/03/22 03/12/22 History tramadol 50 mg tablet 50 mg PO Q6H PRN Pain 02/03/22 03/12/22 History Sedation/Anesthesia: No previous sedation/anesthesia problems (including family history). [facility] Past Medical History Medical History Diabetes Hypertension Surgical History Surgical History Fingertip amputation Family History Family History (Updated 02/04/22 @ 10:55 by Dean Walters MD) Father Heart disease Social History Social History Social History: Lives in [place]. Smoking status: Never smoker Second hand tobacco smoke exposure: No Alcohol intake: never Substance use: current Substance use type: does not use Living arrangements: [facility] Spiritual care concerns: No Mod Sed Physical Exam Physical Exam Pre Procedural Exam: Normal: Appearance, Nose, Neck, Throat, Airway, Lungs, Heart Size, Heart Rate, Heart Rhythm, Neuro Exam and Extremities Hours since solid foods: 12 Hours since liquid intake: 12 Mallampati Classification: class II ASA Classification/Sedation ASA Classification/Sedation ASA Class: II Emergent: No Risks: Risks, benefits and alternatives explained and patient/family accepted plan for sedation. Patient re-evaluated immediately prior to sedation.
[2022-03-15 09:24] LABS: Basophils Percent Auto 0.3 % (0.2-1.2); Eosinophils Absolute Auto 0.2 K/mm3 (0-0.3); Eosinophils Percent Auto 2.5 % (0-4.4); Hematocrit 32.4 % (42.0-52.0); Immature Granulocyte Absolute 0.05 K/mm3 (0.00-0.031); Immature Granulocyte Percent A 0.6 % (0-0.5); Lymphocytes Absolute Auto 2.67 K/mm3 (0.9-3.2); Lymphocytes Percent Auto 30.5 % (18.3-44.2); Mean Corpuscular Hemoglobin 34.3 pg (26-34); Mean Corpuscular Volume 100.9 fl (80-100); Mean Platelet Volume 10.6 fl (7.4-10.4); Monocytes Absolute Auto 0.5 K/mm3 (0.1-0.6); Monocytes Percent Auto 5.6 % (2.6-8.5); Neutrophils Absolute Auto 5.3 K/mm3 (1.3-6.7); Neutrophils Percent Auto 60.5 % (45.5-73.1); Platelet Count Result 271 k/mm3 (150-375); Red Blood Count 3.21 M/mm3 (4.6-6.20); Red Cell Distribution Width 13.6 % (11.5-14.5); White Blood Count 8.8 K/mm3 (4.5-10.0)
[2022-03-15 09:33] LABS: INR 1.1; Prothrombin Time 13.7 Seconds (11.1-14.7)
--- NOTE | 2022-03-15 13:11 | WPDCARDPROC ---
Cardiac Cath Procedure Note Date of procedure:: 03/15/22 Performing physician:: Osmani Jimenez MD Indication:: symptomatic bradycardia with sick sinus syndrome/junctional rhythm Brief clinical history:: this is an 81-year-old man without previous cardiac history who presented recently with symptomatic bradycardia he appears to have sick sinus syndrome with primarily a junctional escape rhythm with heart rate in the mid 30s. For treatment of this and implantation of a dual-chamber pacemaker has been recommended and scheduled for today. Procedure Procedure performed:: Permanent dual-chamber pacemaker implantation Sedation/Medication given:: fentanyl 25 mg Versed 1 mg Access site:: left subclavian vein Estimated blood loss:: 10 cc Procedure note:: patient was brought to the cardiac catheterization lab in the postabsorptive state where the left anterior chest wall was prepped and draped in the usual fashion. Anesthesia was given with 20 cc of lidocaine inferior to the clavicle. An incision was then made from the mid clavicular line to the deltopectoral groove. Following this sharp and blunt dissection was used to dissect the subcutaneous tissue down to the level of the prepectoral fascia. Electrocautery was used to provide hemostasis. Using blunt dissection pacemaker pocket was then created inferior to the incision. This was packed with an antibiotic soaked 4 x 4. Following this attention was turned to venous access using 2 separate punctures the left subclavian vein was punctured and J wires were advanced under fluoroscopic visualization to the level of the right atrium. Using 2 6 Wolof pacemaker safe sheaths the leads described below were placed into the venous circulation and advanced into the level of the right atrium. Following this attention was turned to the ventricular lead. The stylet was withdrawn and a 3 cc syringe was used to fashion a J-tip stylet which was used to steer the lead through the RV. This stylet was then removed and a straight stylet was placed into the lead lead was withdrawn and placed into the right ventricular apex. It under fluoroscopic dilatation the fixation Screw was deployed and the stylet was removed. The lead tested dialyzed with good pacing and for for Mets and with a 10 volts stimulus there was no sign of extracardiac stimulation. attention was then turned to the atrial lead. The straight stylet was removed the lead a preformed atrial J stylet was placed into the lead and it was positioned into the right atrial appendage. The fixation screw was then deployed and following this the pacing and sensing performance was demonstrated to be favorable. A again a 10 volts stimulation showed no evidence of extracardiac stimulation. Following this the leads were secured to the base of the pocket using the suture sleeves and 2-0 silk ties. The retained sponge was removed and the pocket was irrigated with Ancef infused saline. After this the pacemaker generator detailed below was connected to the leads using the torque wrench and the entire assembly was placed into the newly created pocket. The pocket was then closed in layers using 3-0 Vicryl in interrupted fashion for the subcutaneous tissue and 4-0 Vicryl in a running subcuticular fashion for the skin. Dressed with an Aquacel dressing the patient was take to the holding area in stable convert. The procedure was well to elevated there were no apparent complications. Postop x-ray ECG and antibiotics were ordered. Findings:: Patient received a Biotronik dual-chamber pacing system model Edora 8 [id number]. serial number [id number]. device is programmed in the DDDR mode lower rate in the 60 upper limit 120. The atrial is a Biotronik screw-in bipolar lead model Solia S53 serial number [id number]. the P-waves are sensed at 2.3 mV threshold 0 volt at 0.4 milliseconds impedance 448 Ohms. Ventricular lead is a Biotronik screw-in bipolar lead
--- NOTE | 2022-03-15 14:10 | SUR.PHASEII ---
covid swab obtained for imu transfer
[2022-03-15 14:31] LABS: EDCOVIDSCREEN Negative (Negative)
--- NOTE | 2022-03-15 14:43 | PC.NURSE ---
patient charting in estefania tracker phase two complete and will continue charting on patient in extended care
--- NOTE | 2022-03-15 14:44 | SUR.PHASEII ---
switching patient to extended care and will chart on patient as in law examiner room 4 until imu bed available
--- NOTE | 2022-03-15 15:25 | PC.NURSE ---
sbar sent to imu at 1503. patient resting with eyes close, does not wish to eat at this time. Daughter had me order him a dinner tray to be delivered to new room at 5pm. vss will continue to monitor
--- NOTE | 2022-03-15 15:32 | PC.NURSE ---
sbar faxes at [phone] attempted to call report at [phone], nurse on break. will call back in 10 min
--- NOTE | 2022-03-15 15:46 | PC.NURSE ---
attempted again to call report to nurse, shes on break, will try again in 10 min
--- NOTE | 2022-03-15 16:01 | PC.NURSE ---
attempted to call report again, nurse was busy, farzad moncada took report. Patient transferred on monitor. vss. c/o pain in left shoulder. Ice pack applied. daughter followed us to room 205. patient placed on tele box. Farzad moncada at bedside.
--- NOTE | 2022-03-15 16:16 | PC.NURSE ---
This patient, Dick Bobo, was received from [ ] on 03/15/22 at 1634. Patient/family oriented to unit policies and routines
--- NOTE | 2022-03-15 16:35 | PC.NURSE ---
This patient, Dick Bobo, was received from [facility] on 03/15/22 at 1616. Patient/family oriented to unit policies and routines.
[2022-03-15 19:09] LABS: Anion Gap 11 mmol/L (8-16); Blood Urea Nitrogen 26 mg/dL (9-20); Calcium 8.7 mg/dL (8.4-10.2); Carbon Dioxide 25 mmol/L (22-30); Chloride 104 mmol/L (98-107); Estimated CRCL calculation 69 ml/min; Estimated Glomerular Filt Rate > 60; Glucose 160 mg/dL (65-110); Potassium 4.9 mmol/L (3.4-5.0); Sodium 140 mmol/L (137-145)
[2022-03-15] MEDS: SODIUM CHLORIDE 0.9% IV 1,000 ML 50 ML IV CONT (19:56)
[2022-03-16] VITALS (10 sets, daily range): BP systolic 122–154; BP diastolic 46–75; PULSE 60–61; RESP 14–20; TEMP 36.2–36.6; O2SAT 98–99
[2022-03-16] MEDS: SIMVASTATIN 5 MG TABLET PO (09:16)
[2022-03-16] MEDS: GABAPENTIN 100 MG CAPSULE 200 MG PO (09:16)
[2022-03-16] MEDS: FERROUS SULFATE 324 MG TABLET PO (09:17)
[2022-03-16] MEDS: FUROSEMIDE 20 MG TABLET PO (09:17)
[2022-03-16] MEDS: metFORMIN HCL 500 MG TABLET PO (09:17)
[2022-03-16] MEDS: SERTRALINE HCL 25 MG TABLET PO (09:17)
[2022-03-16] MEDS: amLODIPine BESYLATE 5 MG TABLET 10 MG PO (09:18)
[2022-03-16] MEDS: lisinopriL 20 MG TABLET 40 MG PO (09:18)
--- NOTE | 2022-03-16 09:20 | PM.DS ---
DS: Admitting Diagnosis Discharge Date 03/16/2022 Admitting Diagnosis Junctional bradycardia s/p PPM implantation DS: Discharge Diagnosis Discharge Diagnosis (1) Bradycardia: Code(s): R00.1 - Bradycardia, unspecified Status: Acute Assessment and Plan: 81-year-old man without previous cardiac history who presented recently with symptomatic bradycardia he appears to have sick sinus syndrome with primarily a junctional escape rhythm with heart rate in the mid 30s. Underwent dual chamber PPM placement yesterday. 24 hour CXR stable, no pneumothorax. VSS overnight. DS: Summary Hospital Course Hospital Course: Presented with symptomatic bradycardia he appears to have sick sinus syndrome with primarily a junctional escape rhythm with heart rate in the mid 30s.? For treatment of this and implantation of a dual-chamber pacemaker has been recommended and was implanted on 03/15/2022. He was admitted overnight for observation. Stable overnight, chest xray does not show any pneumothorax. Feeling well this morning, mild tenderness at the site alleviated by application of ice. Stable and appropriate for discharge home today. Time Spent with Patient Time attestation: Total time spent providing and/or coordinating discharge services: Exam Const: General: comfortable, no acute distress, alert and awake Orientation/consciousness: patient oriented x3 HENMT: Head: normal to inspection Eyes: General: appearance normal, both eyes and all related structures Pupils: Equal, round and reactive pupils present Neck: Neck: normal visual inspection, supple and no JVD Carotids: normal carotid upstroke Resp: Effort & Inspection: normal respiratory effort Auscultation: clear to auscultation bilaterally Cardio: Rate: regular rate Rhythm: regular rhythm Heart sounds: S1 normal heart sound present, S2 normal heart sound present and no murmurs Other: Left upper chest PPM dressing clean, dry, intact. Mild ecchymosis surrounding dressing. Skin soft, nontender GI: Auscultation: normal bowel sounds Skin: General skin exam: normal color Neuro: General: patient oriented x3 Cranial nerves: Yes Equal, round and reactive pupils present Extrem: General: normal to inspection Psych: Appearance: grossly normal Mental Status: mental status grossly normal DS: Data Data Completed and Pending Labs on day of discharge: Labs from last 24 hours 03/15/22 03/15/22 03/15/22 18:55 14:14 09:17 WBC RBC Hgb Hct MCV MCH MCHC RDW Plt Count MPV Immature Gran % (Auto) Neut % (Auto) Lymph % (Auto) Parmer % (Auto) Eos % (Auto) Baso % (Auto) Lymph # (Auto) Parmer # (Auto) Eos # (Auto) Baso # (Auto) Abs Immat Gran (auto) Absolute Neuts (auto) Absolute Nucleated RBC Nucleated RBC % PT 13.7 INR 1.1 Sodium 140 Potassium 4.9 Chloride 104 Carbon Dioxide 25 Anion Gap 11 BUN 26 H D Creatinine 0.90 Estim Creat Clear Calc 69 Estimated GFR > 60 Glucose 160 H Calcium 8.7 SARS-CoV-2 IgG/IgM Ag?Rapid Negative 03/15/22 09:17 WBC 8.8 RBC 3.21 L Hgb 11.0 L Hct 32.4 L MCV 100.9 H MCH 34.3 H MCHC 34.0 RDW 13.6 Plt Count 271 MPV 10.6 H Immature Gran % (Auto) 0.6 H Neut % (Auto) 60.5 Lymph % (Auto) 30.5 Parmer % (Auto) 5.6 Eos % (Auto) 2.5 Baso % (Auto) 0.3 Lymph # (Auto) 2.67 Parmer # (Auto) 0.5 Eos # (Auto) 0.2 Baso # (Auto) 0.0 Abs Immat Gran (auto) 0.05 H Absolute Neuts (auto) 5.3 Absolute Nucleated RBC 0.0 Nucleated RBC % 0.0 PT INR Sodium Potassium Chloride Carbon Dioxide Anion Gap BUN Creatinine Estim Creat Clear Calc Estimated GFR Glucose Calcium SARS-CoV-2 IgG/IgM Ag?Rapid Discharge Plan Discharge Patient Disposition: NH Correction/Asst Living Discharge Instructions:
== END 2022-03-16 15:38 ==
LOC: ANHCATHLAB 08:33 → ANHCPC 14:39 → ANHIMU 16:19
PROVIDERS: PCP Family Medicine; Visit Provider Specialist
PROC: 0JH606Z Insertion of Pacemaker, Dual Chamber into Chest Subcutaneous Tissue and Fascia, Open Approach (ICD-10-PCS; CPT 33208; principal; 2022-03-15 10:00)
DX: I49.5 Sick sinus syndrome (principal); E11.9 Type 2 diabetes mellitus without complications; I10 Essential (primary) hypertension; Z79.84 Long term (current) use of oral hypoglycemic drugs; Z20.822 Contact with and (suspected) exposure to COVID-19
CPT/HCPCS: 33208; 36415; 71045; 71046; 80048; 85025; 85610; 87426; 93005; A9270; C1779; C1785; C9803; J0690; J2250; J3010; J7030; J7040

== ENCOUNTER 2024-04-01 13:19 | Emergency (ER) | payer MEDICARE, SELFPAY ==
--- NOTE | ~2024-04-01 | XR_ITS ---
EXAMINATION: XR foot LT min 3V DATE: 04/01/2024 17:06 INDICATION: Left great toe diabetic ulcer. TECHNIQUE: 3 views of left foot were obtained. COMPARISON: None. FINDINGS: There is mild hallux valgus. No fracture. There is severe osteoarthritis of first metatarso phalangeal joint and mild osteoarthritis of some of the midfoot joints and interphalangeal joints. Th ere are enthesophytes at the posterior and plantar aspects of calcaneal tuberosity. IMPRESSION: 1. No evidence of osteomyelitis. 2. Polyarticular osteoarthritis. 3. Mild hallux valgus. Reviewed, dictated and finalized at location E.
[2024-04-01 13:20] VITALS: BP 155/52; PULSE 68; RESP 18; TEMP 36.4; O2SAT 99
[2024-04-01 17:05] LABS: Basophils Percent Auto 0.3 % (0.2-1.2); Eosinophils Absolute Auto 0.1 K/mm3 (0-0.3); Eosinophils Percent Auto 1.4 % (0-4.4); Hematocrit 34.7 % (42.0-52.0); Hemoglobin 11.5 g/dL (14.0-18.0); Immature Granulocyte Absolute 0.03 K/mm3 (0.00-0.031); Immature Granulocyte Percent A 0.4 % (0-0.5); Lymphocytes Absolute Auto 1.74 K/mm3 (0.9-3.2); Lymphocytes Percent Auto 22.4 % (18.3-44.2); Mean Corpuscular HGB Conc 33.1 g/dl (32-36); Mean Corpuscular Hemoglobin 36.1 pg (26-34); Mean Corpuscular Volume 108.8 fl (80-100); Mean Platelet Volume 9.3 fl (7.4-10.4); Monocytes Absolute Auto 0.4 K/mm3 (0.1-0.6); Neutrophils Absolute Auto 5.5 K/mm3 (1.3-6.7); Neutrophils Percent Auto 70.5 % (45.5-73.1); Platelet Count Result 207 k/mm3 (150-375); Red Blood Count 3.19 M/mm3 (4.6-6.20); White Blood Count 7.8 K/mm3 (4.5-10.0)
[2024-04-01 17:12] VITALS: BP 129/49; PULSE 60; RESP 20; O2SAT 99
--- NOTE | 2024-04-01 17:17 | ED.EXTPRO ---
HPI - Extremity Problem General Chief complaint: Extremity Problem,Nontraumatic Stated complaint: Bun on my foot Time Seen by Provider: 04/01/24 16:38 History of Present Illness HPI Narrative: This is an 83-year-old male with a past medical history significant for diabetes, hypertension, previous symptomatic bradycardia status post pacemaker. 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 Patient states he has been having an ulceration on the top of his left foot near the great toe. He has knows that on Tuesday and denies any trauma, injuries, bug bites or any other potential source of the injury. Patient states there was some drainage from that site. He denies any pain, new or worsening swelling, fever, chills, systemic features of infection. He states this feels similar to the last time he had a diabetic foot infection that required amputation. He was referred to us for x-ray and wound culture on the transfer documentation. Patient was otherwise in his normal state of health. Patient was started on Bactrim yesterday and has only had 1 dose so far. Related Data Home Medications Medication Instructions Recorded Confirmed B6 35 mg-B9 3 mg-B12 2 mg-D3 62.5 2 cap PO DAILY 02/03/22 03/15/22 mcg-ALA 300 mg capsule,delay release (EB-N5 ) Sarah See Rx Instructions .Route .COMPLEX 02/03/22 03/12/22 acetaminophen 500 mg tablet 500 mg PO Q6H PRN Pain 02/03/22 03/12/22 amino ac-protein hydro-whey 1 ea PO DAILY 02/03/22 03/12/22 protein 10 gram-100 kcal/30 mL oral liquid (ProSource) amlodipine 10 mg-benazepril 40 mg 1 cap PO DAILY 02/03/22 03/15/22 capsule ferrous sulfate 325 mg (65 mg 325 tablet PO DAILY 02/03/22 03/15/22 iron) tablet (FeroSul) furosemide 20 mg tablet 20 tablet PO DAILY 02/03/22 03/15/22 gabapentin 100 mg capsule 200 cap PO DAILY 02/03/22 03/12/22 metformin 500 mg tablet 500 tablet PO DAILY 02/03/22 03/15/22 sertraline 25 mg tablet 25 tablet PO DAILY 02/03/22 03/15/22 simvastatin 5 mg tablet 5 tablet PO DAILY 02/03/22 03/12/22 tramadol 50 mg tablet 50 mg PO Q6H PRN Pain 02/03/22 03/12/22 Allergies Allergy/AdvReac Type Severity Reaction Status Date / Time No Known Drug Allergies Allergy Other Verified 04/01/24 17:12 Review of Systems Review of Systems: As reviewed above in the [facility] Past Medical History Medical History Diabetes Hypertension Surgical History Surgical History Fingertip amputation Family History Family History Father Heart disease Social History Social History Social History: Lives in [place]. Smoking status: Never smoker Second hand tobacco smoke exposure: No Alcohol intake: never Substance use: current Substance use type: does not use Living arrangements: [facility] Spiritual care concerns: No Exam Narrative: GENERAL: [Well-appearing, well-nourished, and in no acute distress.] HEAD: [Normocephalic, atraumatic.] EYES: [PERRLA and EOMI.] ENT: Nares clear, no rhinorrhea or epistaxis. Mucous membranes moist. NECK: Supple. CHEST: [Clear to auscultation. No respiratory distress.] HEART: [Regular rate and rhythm]. No murmur heard. [Normal peripheral pulses.] ABDOMEN: [Soft, nondistended], [nontender], [No rigidity or guarding] EXTREMITIES: Normal range of motion. 2+ pitting edema that is chronic per patient. On the dorsal aspect of the left foot at the hallux there is a 1 x 1 cm ulceration without any purulent drainage. There is surrounding erythema and edema with warmth, but no tenderness or discharge. Nothing on the plantar surface or between the toes. Able to plantar and dorsiflex and moves extremities equally. SKIN: Warm, dry
[2024-04-01 17:28] LABS: Anion Gap 11 mmol/L (4-12); Blood Urea Nitrogen 20 mg/dL (9-20); CRP 2.4 mg/dL (<1.0); Carbon Dioxide 29 mmol/L (22-30); Chloride 97 mmol/L (98-107); Estimated CRCL calculation 62 ml/min; Estimated Glomerular Filt Rate > 60; Glucose 195 mg/dL (65-110); Potassium 4.7 mmol/L (3.4-5.0); Sodium 137 mmol/L (137-145)
[2024-04-01 17:30] LABS: Platelet Estimate Adequate (Adequate)
[2024-04-01 17:31] LABS: Macrocytosis 1+ (NORMAL); Schistocytes None Seen
[2024-04-01 17:39] LABS: Erythrocyte Sedimentation Rate 79 mm/hr (0-20)
[2024-04-01 17:45] VITALS: BP 132/59; PULSE 62; RESP 20; O2SAT 100
== END 2024-04-01 18:42 | disposition home or self-care (01) ==
PROVIDERS: Emergency Provider Student in an Organized Health Care Education/Training Program; PCP Family Medicine
DX: E11.621 Type 2 diabetes mellitus with foot ulcer (principal); L97.529 Non-pressure chronic ulcer of other part of left foot with unspecified severity; I10 Essential (primary) hypertension; Z89.421 Acquired absence of other right toe(s); Z79.84 Long term (current) use of oral hypoglycemic drugs; Z79.899 Other long term (current) drug therapy
CPT/HCPCS: 36415; 73630; 80048; 85025; 85652; 86140; 87070; 87081; 87181; 87205; 96365; 99284; J0696

== ENCOUNTER 2024-10-03 11:06 | Emergency (ER) | payer MEDICARE, SELFPAY ==
--- NOTE | ~2024-10-03 | US_ITS ---
EXAMINATION: US venous doppler LE RT DATE: 10/03/2024 12:59 INDICATION: Right calf pain. TECHNIQUE: Grayscale ultrasound images without and with compression and Doppler ultrasound images of the right lower extremity veins were obtained. COMPARISON: None. FINDINGS: The visualized portions of right common femoral vein, profunda (deep) femoral vein, femoral vein, pop liteal vein, peroneal veins, posterior tibial veins, and greater saphenous vein outflow are patent. IMPRESSION: 1. No deep venous thrombosis. Reviewed, dictated and finalized at location A. T CLERK
[2024-10-03 11:10] VITALS: BP 127/52; PULSE 66; RESP 20; TEMP 36.8; O2SAT 97
--- OUTSIDE RECORDS SUMMARY | 2024-10-03 11:57 | XMS_ITS | Clinical Summary ---
Author Organization [facility] Address [address] [place] [address] Care Team Providers Care Uptwist Spinner Name Role Phone Srini Portillo MD Unavailable [phone] Zafar Alejo MD Unavailable Gabe Schneider MD Unavailable [phone] Beny Jc DPM Unavailable [phone] Nick Guajardo MD Primary Care Provider [phone] Allergies No known active allergies Medications simvastatin (ZOCOR) 5 mg tablet TAKE ONE BY MOUTH ONE TIME PER DAY AT BEDTIME 30 0 0 Active Additional Information Patient not taking.Reported on 08/24/2022 metFORMIN XR (GLUCOPHAGE XR) 500 mg 24 hr tabletIndicatio ns:Multiple myeloma not having achieved remission (CMS/HCC) (HCC) TK 1 T PO D 1 8 Active acetaminophen (TYLENOL) 500 mg tablet Take 500 mg by mouth every 6 (six) hours as needed 6 Active amlodipine-israel zepril (LOTREL) 10-40 mg per capsule Take 1 capsule by mouth daily 6 Active furosemide (LASIX) 20 mg tablet Take 1 tablet (20 mg total) by mouth daily 6 Active B6/levomefolate /B12/D3/ALA (EB-N5 DR ORAL) Take 2 tablets by mouth daily Active ferrous sulfate ER 324 mg (65 mg iron) EC tabletIndicatio ns:Iron Deficiency Anemia Take 65 mg by mouth daily Active sertraline (ZOLOFT) 25 mg tablet Take 1 tablet (25 mg total) by mouth nightly Active gabapentin (NEURONTIN) 100 mg capsule 2 Active traMADoL (ULTRAM) 50 mg tablet 2 Active nystatin powder 2 Active white petrolatum-mine ral oiL (EUCERIN) creamIndication s:skin irritation Active pravastatin (PRAVACHOL) 10 mg tablet 2 Active [id number]-idcq -Lmfolate-algal 27 mg iron-1.13 mg-581.92 mg capsule Take by mouth Active mecobal-levomef olat Ca-B6 phos (FOLTANX) 3-35-2 mg tablet 1 tablet Active peg 400-propylene glycol, PF, (Systane Hydration, PF,) 0.4-0.3 % drops Administer into affected eye(s) Active Active Problems Problem Noted Date Diagnosed Date Cardiac pacemaker in situ 03/16/2022 Overview (03/16/2022): Biotronik Edora Dual Pacemaker. Dx; Bradycardia, Junctional. DOI 03/15/2022- Tony. Biotronik remote home monitoring. 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 Multiple myeloma not having achieved remission ( CMS/HCC) 07/19/2018 Hypertension Type 2 diabetes mellitus, wi out long-term current use of insulin Encounters Date Type Department Care Team Description 08/31/2024 Orders Only [facility] Cardiology [address] [place] [address] MARTINA Solares [phone] Osmani Jimenez MD Cardiac pacemaker in situ (Primary Dx); Junctional bradycardia 08/27/2024 7:30 AM YEAST PUMPER Ancillary Procedure [facility] Cardiology [address] [place] [address] MARTINA Solares [phone] Status post placement of implantable loop recorder (Primary Dx); Junctional bradycardia from Last 3 Months Immunizations Name Administration Dates Next Due Influenza, Unspecified 05/27/2020 Surgical History Surgery Date Site/Laterality Comments OTHER SURGICAL HISTORY HTN, DM, DLD, vit D deficiency: OTHER SURGICAL HISTORY Vasectomy, lumbar diskectomy COLONOSCOPY BACK SURGERY CARPAL TUNNEL RELEASE Medical History Medical History Date Comments Hx Other Medical HTN, DM, DLD, v it D deficiency Calculus of kidney 2011 Kidney Stones Diabetes mellitus (HCC) Hypertension Family History Medical History Relation Name Comments Coronary artery disease Father Tyesha nary Artery Disease; Cause of : Coronary Artery Disease Leukemia Mother Leukemia; Cause of : Leukemia Relation Name Status Comments Father (Age 76) Mother (Age 73) Social History Tobacco Use Types Packs/Day Years Used Date Smoking Tobacco: Never Smokeless Tobacco: Never Tobacco Cessation:Counseling Given: Not Answered Alcohol Use Standard Drinks/Week Comments Yes 0 (1 standard drink = 0.6 oz pur e alcohol) AUDIT-C Answer Date Recorded Q1: How often do you have a drink containing alc ohol? Never 12/20/2021 Average Number of Drinks Not on file 022 Frequency of Binge Drinking Not on file 08/2021 PHQ-2 Answer Date Recorded PHQ-2 Total Score (If total score is 3 or more points, staff should administer the PHQ-9) 1 12/20/2021 Sex and Gender Information Value Date Recorded Sex Assigned at Not on file Legal Sex Male 11:01 AM YEAST PUMPER Gender Identity Not on file Sexual Orientation Not on file Obstetrics History Last Filed Vital Signs Vital Sign Reading Time Taken Comments Blood Pressure 160/66 10/19/2023 10:21 AM YEAST PUMPER Pulse 73 10/19/2023 10:21 AM YEAST PUMPER Temperature 36.7 C (98.1 F) 12/24/2021 3:04 PM CDT Respiratory Rate 22 12/24/2021 3:04 PM CDT Oxygen Saturation 95% 10/19/2023 10:21 AM YEAST PUMPER Inhaled Oxygen Concentration - - Weight 136.1 kg (300 lb) 10/19/2023 10:21 AM YEAST PUMPER per pt Height 182.9 cm (6') 10/19/2023 10:21 AM YEAST PUMPER Body Mass Index 40.69 10/19/2023 10:21 AM YEAST PUMPER Plan of Treatment Health Maintenance Due Date Last Done Comments Albumin Creatinine Ratio, Urine 1938 Hemoglobin A1C 1938 Dilated Eye Exam 1938 Foot Exam 1938 Lipid Panel 1938 Hepatitis B Screening 1956 Well Visit 65+ 2003 Zoster Vaccine (1 of 2) 02/17/2015 12/23/2014 Pneumococcal vaccine 65+ (2 of 2 - PPSV23 or PCV20) 07/28/2020 06/02/2020, 09/15/2010 Covid-19 Vaccine (3 - Modern a risk series) 11/28/2020 10/31/2020, 10/03/2020 Depression Screening 12/20/2022 12/20/2021 Fall Risk Assessment 12/24/2022 12/24/2021 eGFR 01/18/2023 01/18/2022, 12/2021, 12/23/2021, Additional history exists DTaP/Tdap/Td Vaccine (2 - Tdap) 01/28/2024 4 Influenza Vaccine (#1) 2024 , 06/02/2020, 05/27/2020, Additional history exists Procedures Procedure Name Priority Date/Time Associated Diagnosis Comments DEVICE CHECK - REMOTE Routine 08/31/2024 11:03 AM YEAST PUMPER Junctional bradycardia EGFR STAT 01/18/2022 1:37 PM CDT from Last 3 Months or Most Recently Relevant to Health Maintenance Results * DEVICE CHECK - REMOTE (08/31/2024 11:03 AM YEAST PUMPER) Anatomical Region Laterality Modality Other Narrative 09/21/2024 11:17 AM YEAST PUMPER Biotronik lllm implanted on March 15, 2022 for bradycardia and junctional. Patient had a routine remote transmission on August 27 2024 Medications: None Interrogation of the patients device demonstrates appropriate loop function (0) Symptom events Auto Device detected events of, (0)Pause, (0)Bradycardia, (0)Tachy, (0)AT, (0)AF, Presenting Rhythm: Sinus bradycardia Battery: OK at 85% Plan: 1) Scheduled routine remote with no new episode. 2) Continue to monitor remotely. Gonzalo McAlexnder Device Bicycle Ii Assembler [phone] us Osmani Jimenez MD [facility] Final Result * eGFR (01/18/2022 1:37 PM CDT) eGFR 58 mL/min/1. 73 m2 MICHEAL GARRETT Comment: Interpretive Data Reference Interval Normal >/= 90 mL/min/1.73m2 Mildly decreased* 60 - 89 mL/min/1.73m2 Mildly to moderately decreased 45 - 59 mL/min/1.73m2 Moderately to severely decreased 30 - 44 mL/min/1.73m2 Severely decreased 15 - 29 mL/min/1.73m2 Kidney Failure < 15 mL/min/1.73m2 *Relative to young adult level Estimated glomerular filtration rate is determined by the 2020 CKD-EPI equation recommended by the National Kidney Foundation (A Unifying Approach to GFR Estimation: Recommendations of the NKF-ASK Task Force on Reassessing the Inclusion of Race in Diagnosing Kidney Disease, JASN 2020). The CKD-EPI equation should not be used for patients with unstable renal function and has not been validated in children and those over 70. Current interpretive data was last reviewed 2021. Blood 01/18/2022 1:37 PM CDT 01/18/2022 2:40 PM CDT us Notinfile Unknown LAB BLOOD ORDERABLES Final Res ult MICHEAL [address] Far[address] Bradley Department of Laboratories [place], [place] [id number] from Last 3 Months or Most Recently Relevant to Health Maintenance Insurance [employer] MEDICARE [facility] MEDICARE Address: [address] [address] [place] [address] [employer] MEDICARE Advance Directives For more information, please contact: [phone] * Full Code (Latest Code Status on File) Date Activated Date Inactivated Comments 12/20/2021 9:55 PM 12/24/2021 8:10 PM Healthcare Agents on File Name Relationship Healthcare Agent [facility] Communication Fadumo Randolph Daughter First Alternate Health Car e Agent Care Teams Uptwist Spinner Relationship Specialty Start Date End Date Nick Guajardo MD [address] [place] [address] PCP - General Family Medicine 10/19/23 Srini Portillo MD Consulting Physician Medical Oncology 10/16/20 Zafar Alejo MD [address] [place] [address] Referring Physician Family Practice 12/24/21 Gabe Schneider MD [address] [place] [address] Consulting Physician Infectious Diseases 12/24/21 Beny Jc DPM [facility] [place] [address] Consulting Physician Foot and Ankle Surg 12/24/21
--- OUTSIDE RECORDS SUMMARY | 2024-10-03 11:57 | XMS_ITS | Referral Summary ---
Author Organization [facility] Address [address] [place] [address] Care Team Providers Care Replenishment Analyst Name Role Phone Srini Portillo MD Unavailable [phone] Zafar Alejo MD Unavailable Gabe Schneider MD Unavailable [phone] Beny Jc DPM Unavailable [phone] Nick Guajardo MD Primary Care Provider Encounters Date Type Department Care Team Description 08/31/2024 Orders Only [facility] Cardiology [address] [place] [phone] Osmani Jimenez MD Cardiac pacemaker in situ (Primary Dx); Junctional bradycardia 08/27/2024 7: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 Ancillary Procedure [facility] Cardiology [address] [place] [phone] Status post placement of implantable loop recorder (Primary Dx); Junctional bradycardia from Last 3 Months Allergies No known active allergies Medications simvastatin (ZOCOR) 5 mg tablet TAKE ONE BY MOUTH ONE TIME PER DAY AT BEDTIME 30 0 0 Active Additional Information Patient not taking.Reported on 08/24/2022 metFORMIN XR (GLUCOPHAGE XR) 500 mg 24 hr tabletIndicatio ns:Multiple myeloma not having achieved remission (CMS/HCC) ([facility]) TK 1 T PO D 1 8 [...] pravastatin (PRAVACHOL) 10 mg tablet 2 Active hmusrafc58-knzb -Lmfolate-algal 27 mg iron-1.13 mg-581.92 mg capsule Take by mouth Active mecobal-levomef olat Ca-B6 phos (FOLTANX) 3-35-2 mg tablet 1 tablet Active peg 400-propylene glycol, PF, (Systane Hydration, PF,) 0.4-0.3 % drops Administer into affected eye(s) Active Active Problems Problem Noted Date Diagnosed Date Cardiac pacemaker in situ 03/16/2022 Overview (03/16/2022): Biotronik Edora Dual Pacemaker. Dx; Bradycardia, Junctional. DOI 03/15/2022- Biotronik remote home monitoring. 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 Gender Identity Not on file Sexual Orientation Not on file Last Filed Vital Signs Vital Sign Reading Time Taken Comments Blood Pressure 160/66 10/19/2023 10:21 AM MECHANIC WELDER TRUCK DRIVER Pulse 73 10/19/2023 10:21 AM MECHANIC WELDER TRUCK DRIVER Temperature 36.7 C (98.1 F) 12/24/2021 3:04 PM CDT Respiratory Rate 22 12/24/2021 3:04 PM CDT Oxygen Saturation 95% 10/19/2023 10:21 AM MECHANIC WELDER TRUCK DRIVER Inhaled Oxygen Concentration - - Weight 136.1 kg (300 lb) 10/19/2023 10:21 AM MECHANIC WELDER TRUCK DRIVER per pt Height 182.9 cm (6') 10/19/2023 10:21 AM MECHANIC WELDER TRUCK DRIVER Body Mass Index 40.69 10/19/2023 10:21 AM MECHANIC WELDER TRUCK DRIVER Plan of Treatment Not on file Procedures Procedure Name Priority Date/Time Associated Diagnosis Comments DEVICE CHECK - REMOTE Routine 08/31/2024 11:03 AM MECHANIC WELDER TRUCK DRIVER Junctional bradycardia EGFR STAT 01/18/2022 1:37 PM CDT from Last 3 Months or Most Recently Relevant to Health Maintenance Results * DEVICE CHECK - REMOTE (08/31/2024 11:03 AM MECHANIC WELDER TRUCK DRIVER) Anatomical Region Laterality Modality Other Narrative 09/21/2024 11:17 AM MECHANIC WELDER TRUCK DRIVER Biotronik lllm implanted on March 15, 2022 [...] episode. 2) Continue to monitor remotely. Gonzalo Byrne Device Manager [employer] [phone] us Osmani Jimenez MD CV CARDIAC SERVICES PROC EDURES Final Result * eGFR (01/18/2022 1:37 PM [...] LAB BLOOD ORDERABLES Final Res ult MICHEAL GARRETT [address] [address] [place] [address] from Last 3 Months or Most Recently Relevant to Health Maintenance Insurance [facility] MEDICARE [facility] MEDICARE [facility] Address: [address] [place] [address] Advance Directives For more information, please contact: [phone] * Full Code (Latest Code Status on File) Date Activated Date Inactivated Comments 12/20/2021 9:55 PM 12/24/2021 8:10 PM Healthcare Agents on File Name Relationship Healthcare Agent Meme menendez Communication Fadumo Randolph Daughter First Alternate Health Car e Agent Care Teams Replenishment Analyst Relationship Specialty Start Date End Date Nick Guajardo MD [address] [place] [address] PCP - General Family Medicine 10/19/23 Srini Portillo MD Consulting Physician Medical Oncology 10/16/20 Zafar Alejo MD [address] [place] [address] Referring Physician Family Practice 12/24/21 Gabe Schneider MD [address] [place] [address] Consulting Physician Infectious Diseases 12/24/21 Beny Jc DPM [address] [place] [address] Consulting Physician Foot and Ankle Surg 12/24/21
--- OUTSIDE RECORDS SUMMARY | 2024-10-03 12:29 | XMS_ITS | Referral Summary ---
Author Organization [facility] Address [address] [place] [address] Care Team Providers Care Envelope Maker Name Role Phone Srini Portillo MD Unavailable [phone] Zafar Alejo MD Unavailable [phone] Gabe Schneider MD Unavailable [phone] Beny Jc DPM Unavailable [phone] Nick Guajardo MD Primary Care Provider [phone] Encounters Date Type Department Care Team Description 08/31/2024 Orders Only [facility] Cardiology [address] [place] [phone] Osmani Jimenez MD Cardiac pacemaker in situ (Primary Dx); Junctional bradycardia 08/27/2024 7:30 AM NURSE CLINICAL Ancillary Procedure [facility] Card[facility] [address] [place] [phone] Status post placement of implantable loop [...] ns:Multiple myeloma not having achieved remission (CMS/HCC) ([facility]) TK 1 T PO D 1 8 [...] pravastatin (PRAVACHOL) 10 mg tablet 2 Active [id number] -Lmfolate-algal 27 mg iron-1.13 mg-581.92 mg capsule [...] on file Legal Sex Male 11:01 AM NURSE CLINICAL Gender Identity Not on file Sexual Orientation Not on file Last Filed Vital Signs Vital Sign Reading Time Taken Comments Blood Pressure 160/66 10/19/2023 10:21 AM NURSE CLINICAL Pulse 73 10/19/2023 10:21 AM NURSE CLINICAL Temperature 36.7 C (98.1 F) 12/24/2021 3:04 PM CDT Respiratory Rate 22 12/24/2021 3:04 PM CDT Oxygen Saturation 95% 10/19/2023 10:21 AM NURSE CLINICAL Inhaled Oxygen Concentration - - Weight 136.1 kg (300 lb) 10/19/2023 10:21 AM NURSE CLINICAL per pt Height 182.9 cm (6') 10/19/2023 10:21 AM NURSE CLINICAL Body Mass Index 40.69 10/19/2023 10:21 AM NURSE CLINICAL Plan of Treatment Not on file Procedures Procedure Name Priority Date/Time Associated Diagnosis Comments DEVICE CHECK - REMOTE Routine 08/31/2024 11:03 AM NURSE CLINICAL Junctional bradycardia EGFR STAT 01/18/2022 1:37 PM CDT from Last 3 Months or Most Recently Relevant to Health Maintenance Results * DEVICE CHECK - REMOTE (08/31/2024 11:03 AM NURSE CLINICAL) Anatomical Region Laterality Modality Other Narrative 09/21/2024 11:17 AM NURSE CLINICAL Biotronik lllm implanted on March 15, 2022 [...] Continue to monitor remotely. Gonzalo Byrne Device Dog Warden [phone] us Osmani Jimenez MD CV CARDIAC SERVICES [...] BLOOD ORDERABLES Final Res ult MICHEAL GARRETT [address] [address] [place] [address] from Last 3 Months or Most Recently Relevant to Health Maintenance Insurance [facility] MEDICARE [facility] MEDICARE Address: [address] [address] [place] [address] [facility] MEDICARE [facility] Address: [address] [place] [address] Advance Directives For more information, please contact: [phone] * Full Code (Latest Code Status on File) Date Activated Date Inactivated Comments 12/20/2021 9:55 PM 12/24/2021 8:10 PM Healthcare Agents on File Name Relationship Healthcare Agent Meme menendez Communication Fadumo Randolph Daughter First Alternate Health Car e Agent Care Teams Envelope Maker Relationship Specialty Start Date End Date Nick Guajardo MD [address] [place] [address] PCP - General Family Medicine 10/19/23 Srini Portillo MD Consulting Physician Medical Oncology 10/16/20 Zafar Alejo MD [address] [place] [address] Referring Physician Family Practice 12/24/21 Gabe Schneider MD [address] [place] [address] Consulting Physician Infectious Diseases 12/24/21 Beny Jc DPM [address] [place] [address] Consulting Physician Foot and Ankle Surg 12/24/21
--- OUTSIDE RECORDS SUMMARY | 2024-10-03 12:29 | XMS_ITS | Clinical Summary ---
Author Organization [facility] Address [address] [place] [address] Care Team Providers Care Traffic Control Officer Name Role Phone Srini Portillo MD Unavailable [phone] Zafar Alejo MD Unavailable Gabe Schneider MD Unavailable [phone] Beny Jc DPM Unavailable [phone] Nick Guajardo MD Primary Care Provider [phone] Allergies No known active allergies Medications simvastatin [...] pravastatin (PRAVACHOL) 10 mg tablet 2 Active [id number]-dwst -Lmfolate-algal 27 mg iron-1.13 mg-581.92 mg capsule [...] Department Care Team Description 08/31/2024 Orders Only [facility] [address] [place] [address] MARTINA Solares [phone] Osmani Jimenez MD Cardiac pacemaker in situ (Primary Dx); Junctional bradycardia 08/27/2024 7:30 AM E COMMERCE DIRECTOR Ancillary Procedure [facility] [address] [place] [address] MARTINA Solares [phone] Status post placement of implantable loop recorder [...] on file Legal Sex Male 11:01 AM E COMMERCE DIRECTOR Gender Identity Not on file Sexual Orientation Not on file Obstetrics History Last Filed Vital Signs Vital Sign Reading Time Taken Comments Blood Pressure 160/66 10/19/2023 10:21 AM E COMMERCE DIRECTOR Pulse 73 10/19/2023 10:21 AM E COMMERCE DIRECTOR Temperature 36.7 C (98.1 F) 12/24/2021 3:04 PM CDT Respiratory Rate 22 12/24/2021 3:04 PM CDT Oxygen Saturation 95% 10/19/2023 10:21 AM E COMMERCE DIRECTOR Inhaled Oxygen Concentration - - Weight 136.1 kg (300 lb) 10/19/2023 10:21 AM E COMMERCE DIRECTOR per pt Height 182.9 cm (6') 10/19/2023 10:21 AM E COMMERCE DIRECTOR Body Mass Index 40.69 10/19/2023 10:21 AM E COMMERCE DIRECTOR Plan of Treatment Health Maintenance Due Date [...] CHECK - REMOTE Routine 08/31/2024 11:03 AM E COMMERCE DIRECTOR Junctional bradycardia EGFR STAT 01/18/2022 1:37 PM CDT from Last 3 Months or Most Recently Relevant to Health Maintenance Results * DEVICE CHECK - REMOTE (08/31/2024 11:03 AM E COMMERCE DIRECTOR) Anatomical Region Laterality Modality Other Narrative 09/21/2024 11:17 AM E COMMERCE DIRECTOR Biotronik lllm implanted on March 15, 2022 [...] Continue to monitor remotely. Gonzalo McAlexnder Device Switch Repairer [phone] us Osmani Jimenez MD CV CARDIAC SERVICES [facility] Final Result * eGFR (01/18/2022 1:37 PM [...] LAB BLOOD ORDERABLES Final Res ult MICHEAL [address] [address] Department of Laboratories [place], [place] [id number] from Last 3 Months or Most Recently Relevant to Health Maintenance Insurance [employer] MEDICARE [employer] MEDICARE Advance Directives For more information, please contact: [phone] * Full Code (Latest Code Status on File) Date Activated Date Inactivated Comments 12/20/2021 9:55 PM 12/24/2021 8:10 PM Healthcare Agents on File Name Relationship Healthcare Agent [facility] Communication Fadumo Randolph Daughter First Alternate Health Car e Agent Care Teams Traffic Control Officer Relationship Specialty Start Date End Date Nick Guajardo MD [address] [place] [address] PCP - General Family Medicine 10/19/23 Srini Portillo MD Consulting Physician Medical Oncology 10/16/20 Zafar Alejo MD [address] [place] [address] Referring Physician Family Practice 12/24/21 Gabe Schneider MD [address] [place] [address] Consulting Physician Infectious Diseases 12/24/21 Beny Jc DPM [facility] [address] Consulting Physician Foot and Ankle Surg 12/24/21
--- NOTE | 2024-10-03 12:42 | ED.LOWEXIN ---
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 He does also have neuropathy Related Data Home Medications ?Medication ?Instructions ?Recorded ?Confirmed ?Last Taken ?Type B6 35 mg-B9 3 mg-B12 2 mg-D3 62.5 2 cap PO DAILY 02/03/22 03/15/22 03/15/22 07:00 History mcg-ALA 300 mg capsule,delay release (EB-N5 ) Sarah See Rx Instructions .Route .COMPLEX 02/03/22 03/12/22 03/12/22 History acetaminophen 500 mg tablet 500 mg PO Q6H PRN Pain 02/03/22 03/12/22 Unknown History amino ac-protein hydro-whey 1 ea PO DAILY 02/03/22 03/12/22 03/12/22 History protein 10 gram-100 kcal/30 mL oral liquid (ProSource) amlodipine 10 mg-benazepril 40 mg 1 cap PO DAILY 02/03/22 03/15/22 03/15/22 07:00 History capsule ferrous sulfate 325 mg (65 mg 325 tablet PO DAILY 02/03/22 03/15/22 03/15/22 07:00 History iron) tablet (FeroSul) furosemide 20 mg tablet 20 tablet PO DAILY 02/03/22 03/15/22 03/14/22 07:00 History gabapentin 100 mg capsule 200 cap PO DAILY 02/03/22 03/12/22 03/12/22 History metformin 500 mg tablet 500 tablet PO DAILY 02/03/22 03/15/22 03/14/22 07:00 History sertraline 25 mg tablet 25 tablet PO DAILY 02/03/22 03/15/22 03/15/22 07:00 History simvastatin 5 mg tablet 5 tablet PO DAILY 02/03/22 03/12/22 03/12/22 History tramadol 50 mg tablet 50 mg PO Q6H PRN Pain 02/03/22 03/12/22 Unknown History Allergies Allergy/AdvReac Type Severity Reaction Status Date / Time No Known Drug Allergies Allergy Other Verified 04/01/24 17:12 Review of Systems Review of Systems: All systems reviewed & are unremarkable except as noted in HPI and below PMFSH Past Medical History Medical History Diabetes Hypertension Surgical History Surgical History Fingertip amputation Family History Family History Father Heart disease Social History Social History Social History: Lives in [place]. Smoking status: Never smoker Second hand tobacco smoke exposure: No Alcohol intake: never Substance use: current Substance use type: does not use Living arrangements: [facility] Spiritual care concerns: No Exam Narrative: EXAMINATION OF ORGAN SYSTEMS/BODY AREAS: Constitutional: Vital signs per nursing GENERAL:[No acute distress, non-toxic appearing.] HEAD: Normal with no signs of head trauma. EYES: EOMI, conjunctiva normal ENT: Hearing grossly intact LUNGS: Nonlabored breathing. HEART: [Regular rate and rhythm]; warm well-perfused foot, normal DP pulse ABD: [Soft], [nontender to palpation] EXT: Normal range of motion; no significant tenderness to either leg, chronic deformity to ankle and foot SKIN: Some excoriations over the lower leg, deep bruising to posterior R thigh NEURO: [Alert and oriented x 3. No gross focal sensory or strength deficits.] PSYCH: Normal affect Course Vital Signs Vital signs: Vital Signs Temperature 98.2 F 10/03/24 11:10 Pulse Rate 66 10/03/24 11:10 Respiratory Rate 20 10/03/24 11:10 Blood Pressure 127/52 L 10/03/24 11:10 Pulse Oximetry 97 10/03/24 11:10 Oxygen Delivery Room Air 10/03/24 11:10 Temperature 98.1 F 10/03/24 13:56 Pulse Rate 84 10/03/24 13:56 Respiratory Rate 20 10/03/24 13:56 Blood Pressure 146/76 H 10/03/24 13:56 Pulse Oximetry 96 10/03/24 13:56 Oxygen Delivery Room Air 10/03/24 11:10 MDM - Extremity Injury (Lower) MDM Narrative Medical decision making narrative: Patient presents with pain to his right lower leg, on evaluation he has no obvious deformity other than chronic deformity to his right ankle/foot, the missing toe, he does have normal perfusion and good pulses, and bruising to his legs, denies any recent injury so I did not feel was necessary to obtain x-rays since there is low concern for acute fracture without deformity or injury, I did obtain a DVT ultrasound to rule out DVT in this was thankfully negative. Discussed with patient he should follow up with Podiatry for further evaluation as needed. Patient agreeable to plan with return precautions Discharge Plan Discharge Clinical Impression: Leg pain Patient Disposition: Home, Self-Care Condition: Stable Instructions: Leg Pain (ED) Additional Instructions: Please follow up with the ankle surgeon. You can continue the tylenol as needed for pain and come back if symptoms get worse. Patient Language: Citizen Of [place] Prescriptions: No Action metformin 500 mg tablet 500 tablet PO DAILY tramadol 50 mg Tablet 50 mg PO Q6H PRN (Reason: Pain) simvastatin 5 mg tablet 5 tablet PO DAILY ferrous sulfate [FeroSul] 325 mg (65 mg iron) tablet 325 tablet PO DAILY sertraline 25 mg tablet 25 tablet PO DAILY furosemide 20 mg tablet 20 tablet PO DAILY gabapentin 100 mg capsule 200 cap PO DAILY amlodipine-benazepril 10-40 mg capsule 1 cap PO DAILY acetaminophen 500 mg Tablet 500 mg PO Q6H PRN (Reason: Pain) ProSource 10-100 gram-kcal/30 mL Liquid 1 ea PO DAILY EB-N5 DR 35 mg-3 mg- 2 mg-62.5 mcg Capsule,Delayed Release(Dr/Ec) 2 cap PO DAILY Eucerin See Rx Instructions .ROUTE .COMPLEX Rx Instructions: Apply two times daily Follow-up/Referrals: Wally Swartz Jr., DPM [Physician] - 2 Days Nick Guajardo MD [Primary Care Provider] -
--- NOTE | 2024-10-03 13:30 | PC.NURSE ---
Attempted to call report back to [place] [place], unable to reach the nurse.
--- NOTE | 2024-10-03 13:40 | PC.NURSE ---
Spoke with pt daughter and Casie at [facility] about d/c & f/u instructions.
[2024-10-03 13:56] VITALS: BP 146/76; PULSE 84; RESP 20; TEMP 36.7; O2SAT 96
== END 2024-10-03 13:58 ==
PROVIDERS: Emergency Provider Emergency Medicine; PCP Family Medicine
DX: M79.661 Pain in right lower leg (principal); I10 Essential (primary) hypertension; E11.40 Type 2 diabetes mellitus with diabetic neuropathy, unspecified; Z89.421 Acquired absence of other right toe(s); Z79.84 Long term (current) use of oral hypoglycemic drugs; Z79.899 Other long term (current) drug therapy; Z99.3 Dependence on wheelchair
CPT/HCPCS: 93971; 99284

== ENCOUNTER 2025-05-18 11:44 | Inpatient (IN) | payer MEDICARE, SELFPAY ==
[2025-05-18] VITALS (13 sets, daily range): BP systolic 102–125; BP diastolic 54–78; PULSE 60–91; RESP 16–20; TEMP 36.4–37; O2SAT 94–100; BMI 33.5
--- NOTE | ~2025-05-18 | XR_ITS ---
Examination: XR chest 1V portable Clinical History: Pneumonia? Comparison: 1 day prior Technique: Portable AP Findings: Left pacemaker. Cardiomegaly. Persistent diffuse interstitial markings, slightly worsened. Pleural effusions. No acute bony abnormality. IMPRESSION: 1. Worsening interstitial pulmonary edema and/or multifocal airspace disease, with pleural effusions. Reviewed, dictated and finalized at location R.
--- NOTE | ~2025-05-18 | XR_ITS ---
Examination: XR chest 1V portable Clinical History: hypoxia Comparison: 05/19/2025 Technique: Portable AP Findings: Left pacemaker. Cardiomegaly. Worsening right and persistent left pleural effusions. Persistent diffuse interstitial markings. No acute bony abnormality. IMPRESSION: 1. Enlarging right and persistent left pleural effusions, with associated basilar atelectasis and/or airspace disease. 2. Persistent interstitial pulmonary edema and/or pneumonitis. Reviewed, dictated and finalized at location R. IMPRESSION: 1. Enlarging right and persistent left pleural effusions, with associated basi lar atelectasis and/or airspace disease. 2. Persistent interstitial pulmonary edema and/or pneumonitis.
--- NOTE | ~2025-05-18 | XR_ITS ---
EXAMINATION: XR chest 1V portable COMPARISON: No comparisons available. HISTORY: Shortness of breath FINDINGS: Moderate pulmonary venous congestion. Small basilar infiltrates and effusions. No pneumothorax. Moderate cardiomegaly. Mediastinal and hilar contours are within normal limits. Bony thorax no acute abnormality. Miscellaneous: Left pacemaker. Impression: CHF. Superimposed probable pneumonia Reviewed, dictated and finalized at location P. Impression: CHF. Superimposed probable pneumonia
--- NOTE | ~2025-05-18 | US_ITS ---
EXAMINATION: US renal BI, 05/19/2025 16:03 CDT HISTORY: MOHSEN Comparison: None Technique: Hammonds-scale and color Doppler images were obtained. Findings: KIDNEYS: The renal cortices are intact with no solid masses, cysts or calculi, no hydronephrosis. Right Kidney: Right kidney 11.5 x 5.9 x 4.6 cm. Left Kidney: Left kidney 10.1 x 5.4 x 4.7 cm. Bladder: The bladder is unremarkable. .Incidental small left pleural effusion. Impression: No acute abnormality. Reviewed, dictated and finalized at location P. Impression: No acute abnormality.
--- NOTE | 2025-05-18 13:46 | ECG_ITS ---
Test Date: 2025-05-18 14:51:08 Measurements Intervals [place] Rate: 60 P: 0 MO: 278 QRS: -40 QRSD: 137 T: 135 QT: 440 QTc: 440 Interpretive Statements ??ATRIAL PACED RHYTHM LEFT BUNDLE BRANCH BLOCK Electronically Signed On 05-19-2025 20:43:33 CDT by Brian Brandon D.O
--- NOTE | 2025-05-18 13:46 | ED.GENADULT ---
HPI - General Adult General Chief complaint: Weakness Stated complaint: weakness Time Seen by Provider: 05/18/25 13:24 Source: patient, family and EMS Mode of arrival: EMS Limitations: no limitations History of Present Illness HPI narrative: 85 years old white male came from assisting living by ambulance with chief complaint of general weakness for the last few days got worse today. Patient was treated with antibiotic for pneumonia, for 10 days. Last antibiotic use 4 days ago Patient denies any fever, chills, nausea, vomiting, Patient reports intermittent dry coughing. Related Data Home Medications ?Medication ?Instructions ?Recorded ?Confirmed ?Last Taken ?Type B6 35 mg-B9 3 mg-B12 2 mg-D3 62.5 2 cap PO DAILY 02/03/22 03/15/22 03/15/22 07:00 History mcg-ALA 300 mg capsule,delay release (EB-N5 ) Eucerin See Rx Instructions .Route .COMPLEX 02/03/22 03/12/22 03/12/22 History acetaminophen 500 mg tablet 500 mg PO Q6H PRN Pain 02/03/22 03/12/22 Unknown History amino ac-protein hydro-whey 1 ea PO DAILY 02/03/22 03/12/22 03/12/22 History protein 10 gram-100 kcal/30 mL oral liquid (ProSource) amlodipine 10 mg-benazepril 40 mg 1 cap PO DAILY 02/03/22 03/15/22 03/15/22 07:00 History capsule ferrous sulfate 325 mg (65 mg 325 tablet PO DAILY 02/03/22 03/15/22 03/15/22 07:00 History iron) tablet (FeroSul) furosemide 20 mg tablet 20 tablet PO DAILY 02/03/22 03/15/22 03/14/22 07:00 History gabapentin 100 mg capsule 200 cap PO DAILY 02/03/22 03/12/22 03/12/22 History metformin 500 mg tablet 500 tablet PO DAILY 02/03/22 03/15/22 03/14/22 07:00 History sertraline 25 mg tablet 25 tablet PO DAILY 02/03/22 03/15/22 03/15/22 07:00 History simvastatin 5 mg tablet 5 tablet PO DAILY 02/03/22 03/12/22 03/12/22 History tramadol 50 mg tablet 50 mg PO Q6H PRN Pain 02/03/22 03/12/22 Unknown History Allergies Allergy/AdvReac Type Severity Reaction Status Date / Time No Known Drug Allergies Allergy Other Verified 05/18/25 14:54 Review of Systems Review of Systems: All systems reviewed & are unremarkable except as noted in HPI and below PMFSH Past Medical History Medical History Hypertension Diabetes Surgical History Surgical History Fingertip amputation Family History Family History Father Heart disease Social History Social History Social History: Lives in [place]. Smoking status: Never smoker Second hand tobacco smoke exposure: No Alcohol intake: never Substance use: current Substance use type: does not use Living arrangements: senior living Spiritual care concerns: No Exam Narrative: General appearance: Well-developed, well-nourished, mild upper breathing Skin: Normal color, 3+ edema lower extremity bilaterally Head: Normocephalic, nontraumatic Eyes: Clear conjunctiva ENT: Oropharynx normal, ears normal, nose normal Neck: Supple, nontender Chest and respiratory: Airway patent, no respiratory distress, no accessory muscle use diminution of air entry bilaterally mainly at the bases bilaterally Heart: Regular rate/rhythm Abdomen: Soft, nontender, no organomegaly, quiet bowel sounds Vascular: Normal peripheral pulses, normal capillary refill. Musculoskeletal: Normal range of motion, nontender back Neurologic: Alert and oriented ?3, CLINICAL TEAM LEAD is normal as tested, no gross motor deficit Course Vital Signs Vital signs: Vital Signs Temperature 37.0 C 05/18/25 11:47 Pulse Rate 87 05/18/25 11:47 Respiratory Rate 16 05/18/25 11:47 Blood Pressure 105/77 05/18/25 11:47 Pulse Oximetry 95 05/18/25 11:47 Temperature 37.0 C 05/18/25 11:47 Pulse Rate 60 05/18/25 14:54 Respiratory Rate 20 05/18/25 14:54 Blood Pressure 116/72 05/18/25 14:54 Pulse Oximetry 94 05/18/25 14:54 Medical Decision Making MDM Narrative Medical decision making narrative: Patient came with weakness Vital signs are stable Physical examination showing mild liver breathing, diminution of air entry bilaterally at the bases, 3+ edema lower extremity up to the knees bilaterally Differential diagnosis: Pneumonia, CHF, coronary artery disease, urinary tract infection, electrolyte imbalance, dehydration Blood workup includes CBC, CMP, blood culture normal, lactic acid, CRP, troponin showed hemoglobin 9.4, BUN 50, creatinine 1.4, troponin 0.106 C-reactive protein 2.4 Chest x-ray showed CHF probably superimposed with pneumonia ABG on room air showed Admit to hospitalist, Diagnosis: CHF, pneumonia, MOHSEN, elevated troponin Differential Diagnosis Differential Diagnosis: As above Vital Signs Vital Signs: Vital Signs Temperature 37.0 C 05/18/25 11:47 Pulse Rate 87 05/18/25 11:47 Respiratory Rate 16 05/18/25 11:47 Blood Pressure 105/77 05/18/25 11:47 Pulse Oximetry 95 05/18/25 11:47 Temperature 37.0 C 05/18/25 11:47 Pulse Rate 60 05/18/25 14:54 Respiratory Rate 20 05/18/25 14:54 Blood Pressure 116/72 05/18/25 14:54 Pulse Oximetry 94 05/18/25 14:54 Lab Data 05/18/25 14:16 05/18/25 14:16 Labs: Lab Results 05/18/25 05/18/25 Range/Units 14:16 14:16 WBC 7.3 (4.5-10.0) K/mm3 RBC 2.71 L (4.6-6.20) M/mm3 Hgb 9.4 L (14.0-18.0) g/dL Hct 30.7 L (42.0-52.0) % MCV 113.3 H (80-100) fl MCH 34.7 H (26-34) pg MCHC 30.6 L (32-36) g/dl RDW 14.5 (11.5-14.5) % Plt Count 260 (150-375) k/mm3 MPV 9.9 (7.4-10.4) fl Immature Gran % (Auto) Not Reportable Neut % (Auto) Not Reportable Lymph % (Auto) Not Reportable [place] % (Auto) Not Reportable Eos % (Auto) Not Reportable Baso % (Auto) Not Reportable Lymph # (Auto) Not Reportable [place] # (Auto) Not Reportable Eos # (Auto) Not Reportable Baso # (Auto) Not Reportable Abs Immat Gran (auto) Not Reportable Absolute Neuts (auto) Not Reportable Absolute Nucleated RBC Not Reportable Total Counted 100 Neutrophils % (Manual) 82 H (46-73) % Band Neutrophils % 3 (0-6) % Lymphocytes % (Manual) 9.0 L (18-44) % Monocytes % (Manual) 6 (3-9) % Nucleated RBC % Not Reportable Abs Neuts (Manual) 6.20 (1.3-6.7) K/mm3 Abs Lymphs (Manual) 0.65 L (1.1-4.5) K/mm3 Abs Monocytes (Manual) 0.43 (0.1-0.90) K/mm3 Platelet Estimate Adequate (Adequate) Hypochromasia 1+ Anisocytosis 1+ Macrocytosis 1+ (NORMAL) Schistocytes None seen PT 14.4 (11.1-14.7) Seconds INR 1.1 APTT 30.9 (22.3-36.8) Seconds Sodium 136 L (137-145) mmol/L Potassium 5.0 (3.4-5.0) mmol/L Chloride 105 (98-107) mmol/L Carbon Dioxide 23 (22-30) mmol/L Anion Gap 8 (4-12) mmol/L BUN 50 H D (9-20) mg/dL Creatinine 1.45 H (0.7-1.3) mg/dL Estim Creat Clear Calc 42 ml/min Estimated GFR 46 L (59 - ) Glucose 124 H (65-110) mg/dL Lactic Acid 1.6 (0.7-2.0) mmol/L Calcium 8.6 (8.4-10.2) mg/dL Total Bilirubin 0.6 (0.2-1.3) mg/dL AST 24 (17-59) U/L ALT 44 (6-50) U/L Alkaline Phosphatase 93 (38-126) U/L Troponin I 0.106 H* Cancelled (0.000-0.034) ng/mL C-Reactive Protein 2.4 H (<1.0) mg/dL Total Protein 7.7 (6.3-8.2) g/dL Albumin 4.0 (3.5-5.1) g/dL ABG Data ABG results: 05/18/25 14:22 Puncture Site Left radial ABG pH 7.358 ABG pCO2 37.9 ABG pO2 65.0 L ABG PO2/FiO2 Ratio 3.10 ABG HCO3 20.8 L ABG O2 Saturation 92.1 L ABG O2 Content 12.5 L ABG Base Excess -4.2 A-a Gradient 39.3 Oxyhemoglobin 89.7 L Total Hemoglobin 9.9 L O2 Delivery Device Room air O2 Liters/Min 0.0 FiO2 21 Imaging Data Radiologist's impression: Impressions Chest X-Ray 05/18/25 14:22 Impression: CHF. Superimposed probable pneumonia ECG Data EKG #1: Attestation: I personally reviewed and interpreted this ECG as follows: ECG completion date: 05/18/25 Prior ECG tracings: available for review Interpretation: Normal sinus rhythm with first-degree heart block at 60 beats per minute, left axis deviation, poor R-wave progression, left bundle-branch block, no previous EKG available for comparison Critical Care Time Critical Care Time Critical Care Time: Yes Total Critical Care Time: 30 Discharge Plan Discharge Clinical Impression: MOHSEN (acute kidney injury), Pneumonia, CHF (congestive heart failure), Elevated troponin Patient Disposition: Still a Patient Condition: Guarded Prognosis Patient Language: Rw[place] Prescriptions: No Action metformin 500 mg tablet 500 tablet PO DAILY tramadol 50 mg Tablet 50 mg PO Q6H PRN (Reason: Pain) simvastatin 5 mg tablet 5 tablet PO DAILY ferrous sulfate [FeroSul] 325 mg (65 mg iron) tablet 325 tablet PO DAILY sertraline 25 mg tablet 25 tablet PO DAILY furosemide 20 mg tablet 20 tablet PO DAILY gabapentin 100 mg capsule 200 cap PO DAILY amlodipine-benazepril 10-40 mg capsule 1 cap PO DAILY acetaminophen 500 mg Tablet 500 mg PO Q6H PRN (Reason: Pain) ProSource 10-100 gram-kcal/30 mL Liquid 1 ea PO DAILY EB-N5 DR 35 mg-3 mg- 2 mg-62.5 mcg Capsule,Delayed Release(Dr/Ec) 2 cap PO DAILY Eucerin See Rx Instructions .ROUTE .COMPLEX Rx Instructions: Apply two times daily Follow-up/Referrals: Nick Guajardo MD [Primary Care Provider, [facility]]
--- OUTSIDE RECORDS SUMMARY | 2025-05-18 13:50 | XMS_ITS | Clinical Summary ---
Author Organization [facility] Address [address] [place] [address] Care Team Providers Care Hoisting Engineer Pile Driving Name Role Phone Srini Portillo MD Unavailable Zafar Alejo MD Unavailable Gabe Schneider MD Unavailable [phone] Beny Jc DPM Unavailable [phone] Nick Guajardo MD Primary Care Provider Allergies No known active allergies Medications metFORMIN XR (GLUCOPHAGE XR) 500 mg 24 hr tabletIndicatio ns:Multiple myeloma not having achieved remission (HCC) TK 1 T PO D 1 8 Active acetaminophen (TYLENOL) 500 mg tablet Take 1 tablet (500 mg total) by mouth every 6 (six) hours as needed 6 Active amlodipine-israel zepril (LOTREL) 10-40 mg per capsule Take 1 capsule by mouth daily 6 Active FUROSEMIDE ORAL Take 40 mg by mouth daily 6 Active ferrous sulfate ER 324 mg (65 mg iron) EC tabletIndicatio ns:Iron Deficiency Anemia Take 65 mg by mouth daily Active sertraline (ZOLOFT) 25 mg tablet Take 1 tablet (25 mg total) by mouth nightly Active gabapentin (NEURONTIN) 100 mg capsule 2 Active traMADoL (ULTRAM) 50 mg tablet 2 Active white petrolatum-mine ral oiL (EUCERIN) creamIndication s:skin irritation Active mexehjyu20-thte -Lmfolate-algal 27 mg iron-1.13 mg-581.92 mg capsule [...] monitoring. 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 Multiple myeloma not having achieved remission 1 09/18/2017 Hypertension Type 2 diabetes mellitus, wi thout long-term current use of insulin Encounters Date Type Department Care Team Description 03/05/2025 8:30 AM CDT Ancillary Procedure [facility] Card[facility] [address] [place] [id number] Cardiac pacemaker in situ [Z95.0] (Primary Dx); Junctional bradycardia from Last 3 Months Immunizations Immunization Administration Dates Next Due Influenza, Unspecified 05/27/2020 Surgical History Surgery Date Site/Laterality Comments OTHER SURGICAL HISTORY HTN, DM, DLD, vit D deficiency: OTHER SURGICAL HISTORY Vasectomy, lumbar diskectomy COLONOSCOPY BACK SURGERY CARPAL TUNNEL RELEASE Medical History Medical History Date Comments Hx Other Medical HTN, DM, DLD, v it D deficiency Calculus of kidney 2011 Kidney Stones Diabetes mellitus Hypertension Family History Medical History Relation Name [...] on file 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 Gender Identity Not on file Sexual Orientation Not on file Obstetrics History Last Filed Vital Signs Vital Sign Reading Time Taken Comments Blood Pressure 112/50 12/19/2024 8:22 AM CDT Pulse 70 12/19/2024 8:22 AM CDT Temperature 36.7 C (98.1 F) 12/24/2021 3:04 PM CDT Respiratory Rate 22 12/24/2021 3:04 PM CDT Oxygen Saturation 95% 12/19/2024 8:22 AM CDT Inhaled Oxygen Concentration - - Weight 117.9 kg (260 lb) 12/19/2024 8:22 AM CDT per pt Height 182.9 cm (6') 12/19/2024 8:22 AM CDT Body Mass Index 35.26 12/19/2024 8:22 AM CDT Plan of Treatment Health Maintenance Due Date Last Done Comments Albumin Creatinine Ratio, Urine 1938 Hemoglobin A1C 1938 Dilated Eye Exam 1938 Foot Exam 1938 Lipid Panel 1938 Hepatitis B Screening 1956 Well Visit 65+ 2003 Zoster Vaccine (1 of 2) 02/17/2015 12/23/2014 Pneumococcal vaccine 65+ (2 of 2 - PPSV23, PCV20, or PCV21) 07/28/2020 06/02/2020, 09/15/2010 Depression Screening 12/20/2022 12/20/2021 Fall Risk Assessment 12/24/2022 12/24/2021 eGFR 01/18/2023 01/18/2022, 05/0 12/2021, 12/23/2021, Additional history exists DTaP/Tdap/Td Vaccine (2 - Tdap) 01/28/2024 4 Covid-19 Vaccine (3 - 2024-2 6 season) 2025 10/31/2020, 10/03/2020 Influenza Vaccine (#1) 2025 4, 05/26/2021, 06/02/2020, Additional history exists Procedures Procedure Name Priority Date/Time Associated Diagnosis Comments DEVICE CHECK - REMOTE Routine 03/05/2025 8:43 AM CDT Junctional bradycardia EGFR STAT 01/18/2022 1:37 PM CDT from Last 3 Months or Most Recently Relevant to Health Maintenance Results * DEVICE CHECK - REMOTE (03/05/2025 8:43 AM CDT) Anatomical Region Laterality Modality Other Narrative 03/15/2025 12:17 PM CDT Biotronik Edora Dual Pacemaker. Dx; Bradycardia, Junctional. DOI 03/15/2022-Tony. Biotronik remote home monitoring. Routine DDDR Pacemaker remote. Normal device function. Battery function-Ok, 80% remaining battery life to STACY. Appropriate lead measurements noted. Presenting rhythm: -REGIONAL WILDLIFE AGENT. AP-65%, REGIONAL WILDLIFE AGENT-6%. No Atrial high rate episode noted. 1 Ventricular high rate episode noted, iegm suggestive of SVT @ 160 bpm for 22 seconds. Medications; Pravastatin, Lasix. See scanned report. Office pacemaker f/u 08/28/2025. Biotronik remote f/u 06/11/2025. Trisha Robin, NIMA Osmani Jimenez MD [facility] PROC [...] Unknown LAB BLOOD ORDERABLES Final Res ult [facility] [address] [place] [address] from Last 3 Months or Most Recently Relevant to Health Maintenance Insurance [facility], [facility] MEDICARE [facility] MEDICARE ADVANTAGE [employer] MEDICARE Advance Directives For more information, please contact: [phone] * Full Code (Latest Code Status on File) Date Activated Date Inactivated Comments 12/20/2021 9:55 PM 12/24/2021 8:10 PM Healthcare Agents on File Name Relationship Healthcare Agent Relationshi p Communication Fadumo Randolph Daughter First Alternate Health Car e Agent Care Teams Hoisting Engineer Pile Driving Relationship Specialty Start Date End Date Nick Guajardo MD [address] [place] [id number] PCP - General Family Medicine 10/19/23 Srini Portillo MD Consulting Physician Medical Oncology 10/16/20 Zafar Alejo MD [address] [address] Referring Physician Family Practice 12/24/21 Gabe Schneider MD [address] [address] Consulting Physician Infectious Diseases 12/24/21 Beny Jc DPM [address] [place] [address] Consulting Physician Foot and Ankle Surg 12/24/21
[2025-05-18 14:24] LABS: Hematocrit 30.7 % (42.0-52.0); Hemoglobin 9.4 g/dL (14.0-18.0); Mean Corpuscular HGB Conc 30.6 g/dl (32-36); Mean Corpuscular Hemoglobin 34.7 pg (26-34); Mean Corpuscular Volume 113.3 fl (80-100); Platelet Count Result 260 k/mm3 (150-375); Red Blood Count 2.71 M/mm3 (4.6-6.20); White Blood Count 7.3 K/mm3 (4.5-10.0)
[2025-05-18 14:35] LABS: INR 1.1; Partial Thromboplastin Time 30.9 Seconds (22.3-36.8); Prothrombin Time 14.4 Seconds (11.1-14.7)
[2025-05-18 14:43] LABS: Alanine Aminotransferase 44 U/L (6-50); Albumin Level 4.0 g/dL (3.5-5.1); Alkaline Phosphatase 93 U/L (38-126); Anion Gap 8 mmol/L (4-12); Aspartate Amino Transferase 24 U/L (17-59); Bilirubin,Total 0.6 mg/dL (0.2-1.3); Blood Urea Nitrogen 50 mg/dL (9-20); CRP 2.4 mg/dL (<1.0); Calcium 8.6 mg/dL (8.4-10.2); Carbon Dioxide 23 mmol/L (22-30); Chloride 105 mmol/L (98-107); Estimated CRCL calculation 42 ml/min; Estimated Glomerular Filt Rate 46; Glucose 124 mg/dL (65-110); Potassium 5.0 mmol/L (3.4-5.0); Sodium 136 mmol/L (137-145); Total Protein 7.7 g/dL (6.3-8.2)
[2025-05-18 14:54] LABS: Band Neutrophils Percent 3 % (0-6); Lymphocytes Absolute Manual 0.65 K/mm3 (1.1-4.5); Lymphocytes Percent Manual 9.0 % (18-44); Monocytes Absolute Manual 0.43 K/mm3 (0.1-0.90); Monocytes Percent Manual 6 % (3-9); Neutrophils Absolute Manual 6.20 K/mm3 (1.3-6.7); Neutrophils Percent Manual 82 % (46-73); Total Cells Counted 100; Troponin I 0.106 ng/mL (0.000-0.034)
[2025-05-18 14:56] LABS: Anisocytosis 1+; Macrocytosis 1+ (NORMAL); Schistocytes None Seen
[2025-05-18 14:57] LABS: Hypochromasia 1+
[2025-05-18 15:11] LABS: Alveolar/Arterial O2 Gradient 39.3 mmHg; Fractional Inspired Oxygen 21 %; HCO3 ABG 20.8 mEq/l (22.0-26.0); Oxygen Content ABG 12.5 %vol (16.0-22.0); Oxygen Saturation ABG 92.1 % (95.0-100.0); PCO2 ABG 37.9 mmHg (35.0-45.0); PO2 ABG 65.0 mmHg (80.0-100.0); PO2 FiO2 Ratio Arterial Blood 3.10 %
[2025-05-18 15:12] LABS: Modified Allen's Test Pass; Site Drawn LEFT RADIAL
[2025-05-18 15:13] LABS: Liters per Minute 0.0 LPM
[2025-05-18] MEDS: levoFLOXacin 750 MG/D5W 150 ML 750 MG/150 ML BAG 100 MG IVPB (15:54)
--- NOTE | 2025-05-18 16:37 | P.HP_ITS ---
H&P: HPI History of Present Illness Date/Time: 05/18/25 16:37 Chief Complaint: Weakness and Shortness of breath Narrative: 85-year-old male with past medical history of pacemaker, hypertension and diabetes presents the hospital with weakness and increased shortness of breath. He states that he was diagnosed with pneumonia and was 10 days worth of oral antibiotics. However today he states that he gets severely worse causing acute shortness of breath so he presented to the emergency room. Patient denies history of CHF, he also does not know why he is on Lasix. Patient is on 3 L nasal cannula. Patient states that over the last month or so he has noticed his activity tolerance is gotten less and he is more short of breath. He has also noticed edema in his legs and his arms increasing. Patient has an indention from his watch on his wrist. Patient denies fevers chills. Lab work in the ED shows anemia of 9.4, ABG 7.35, pCO2 37, PO2 65, bicarb 20, sodium 136, BUN 50, creatinine 1.5 no history of CKD, glucose 124, 1st troponin 0.106, CRP 2.4, x-ray shows CHF superimposed with probable pneumonia. EKG shows sinus rhythm with first-degree AV block. Patient was started on Levaquin in the emergency room. [facility] Past Medical History Medical History Hypertension Diabetes Surgical History Surgical History Fingertip amputation Family History Family History Father Heart disease Social History Social History Social History: Lives in [place]. Smoking status: Never smoker Second hand tobacco smoke exposure: No Alcohol intake: never Substance use: current Substance use type: does not use Lack of Transportation: No Lack of Food: Never True Current Housing: I Have Housing Concerned About Future Housing: No Difficulty Paying Gas/Electric Bills: No Difficulty Paying for Meds: No Currently Unemployed: No Education: Decline to Answer Difficulty w/ Childcare or Family Care: No Living arrangements: longterm Spiritual care concerns: No Meds Home Medications and Allergies Home Medications ?Medication ?Instructions ?Recorded ?Confirmed ?Type B6 35 mg-B9 3 mg-B12 2 mg-D3 62.5 2 cap PO DAILY 02/0305/18/25 History mcg-ALA 300 mg capsule,delay release (EB-N5 ) Sarah See Rx Instructions .Route . COMPLEX 02/03/22 05/18/25 History acetaminophen 500 mg tablet 500 mg PO .q12hr Pain 01/2005/18/25 History amino ac-protein hydro-whey 1 ea PO DAILY 02/03/22 History protein 10 gram-100 kcal/30 mL oral liquid (ProSource) amlodipine 10 mg-benazepril 40 mg 1 cap PO DAILY 02/0305/18/25 History capsule ferrous sulfate 325 mg (65 mg 325 tablet PO DAILY 01/2005/18/25 History iron) tablet (FeroSul) furosemide 20 mg tablet 40 mg PO DAILY 02/03/2204/23 History gabapentin 100 mg capsule 100 mg PO Q12H 02/03/2204/23 History metformin 500 mg tablet 500 tablet PO DAILY 02/03/22 05/18/25 History sertraline 25 mg tablet 25 tablet PO DAILY 02/03/22 05/18/25 History tramadol 50 mg tablet 50 mg PO Q6H PRN Pain 05/18/25 History Lactobacillus acidophilus 1 cap PO BID 05/18/25 History ibuprofen 200 mg capsule 400 mg PO Q6H PRN fever or p ain 05/18/25 05/18/25 History mecobalamin-levomefolate 2 tablet PO DAILY 05/18/25 0 05/18/25 History calcium-pyridoxal phos 2 mg-3 mg-35 mg tablet (Foltanx) multivitamin (Daily Multi-Vitamin 1 tablet PO DAILY 05/18/25 History tablet) peg 400-propylene glycol 0.4 %-0.3 1 drp EACH EYE BID 05/18/25 05/18/25 History % eye drops tacrolimus 0.1 % topical ointment 1 applic topical .CO MPLEX 05/18/25 05/18/25 History (Protopic) Allergies Allergy/AdvReac Type Severity Reaction Status Date / Time No Known Drug Allergies Allergy Other Verified 05/18/25 14:54 Vital Signs Vital Signs - 24 hr 05/18/25 11:47 05/18/25 14:53 05/18/25 14:54 Temperature 98.6 F Pulse Rate 87 61 60 Respiratory Rate 16 20 Blood Pressure 105/77 116/72 Pulse Oximetry 95 94 05/18/25 15:56 Temperature Pulse Rate 60 Respiratory Rate 20 Blood Pressure 125/72 Pulse Oximetry 100 Exam Narrative: General: well appearing, appears stated age. No acute distress HEENT: normocephalic, atraumatic. Mucous membranes moist. EOMI, PERRLA, bilateral sclera anicteric, no conjunctival injection. Neck supple without JVD, lymphadenopathy, or bruit. Respiratory: Diminished and coarse Cardiovascular: Regular rate and rhythm, normal S1-S2 upon ascultation. No murmurs, rubs, or clicks. PMI is nondisplaced, capillary refill less than 3 second. Abdomen: Soft, round, no pulsatile masses, nondistended and nontender. No rebound, no guarding. No CVA tenderness, no hepatosplenomegaly. Bowel sounds present to all four quadrants. No high pitch or tinkling sounds, resonant to p ercussion. Extremities: No cyanosis, clubbing, . Pulses are palpable 2/2. Active ROM to all four extremities. Plus three edema to the shins, +1 edema to the arms Neuro: Alert and orientated x 4. PERRLA. Cranial nerves 2-12 intact without focal deficit. Skin: Warm, dry, and intact, without rash, erythema, or lesion. Psych: pleasant, cooperative, normal speech, normal affect, no hallucinations, no dysarthia H&P: Results Labs Labs: Short CBC 05/18/25 Range/Units 14:16 WBC 7.3 (4.5-10.0) K/mm3 Hgb 9.4 L (14.0-18.0) g/dL Hct 30.7 L (42.0-52.0) % Plt Count 260 (150-375) k/mm3 [facility] 05/18/25 14:16 Sodium 136 L Potassium 5.0 Chloride 105 Carbon Dioxide 23 BUN 50 H D Creatinine 1.45 H Glucose 124 H Calcium 8.6 Cardiac Enzymes 05/18/25 05/18/25 Range/Units 14:16 14:16 Troponin I 0.106 H* Cancelled (0.000-0.034) ng/mL Liver Function 05/18/25 Range/Units 14:16 Total Bilirubin 0.6 (0.2-1.3) mg/dL AST 24 (17-59) U/L ALT 44 (6-50) U/L Alkaline Phosphatase 93 (38-126) U/L Albumin 4.0 (3.5-5.1) g/dL Assessment and Plan Assessment and plan (1) Pneumonia: Code(s): J18.9 - Pneumonia, unspecified organism Status: Acute Assessment and Plan: Levofloxacin Guaifenesin DuoNebs Repeat chest x-ray in the morning (2) CHF (congestive heart failure): Code(s): I50.9 - Heart failure, unspecified Status: Acute Assessment and Plan: B.i.d. Lasix Echocardiogram pending Cardiology cardiology Daily weights (3) Elevated troponin: Code(s): R79.89 - Other specified abnormal findings of blood chemistry Status: Acute Assessment and Plan: Could be from hypoxia versus cardiac Troponins flat EKG p.r.n. Aspirin ordered Denies chest pain (4) Hypertension: Code(s): I10 - Essential (primary) hypertension Status: Acute Assessment and Plan: Hold antihypertensive while diuresing patient (5) MOHSEN (acute kidney injury): Code(s): N17.9 - Acute kidney failure, unspecified Status: Acute Assessment and Plan: No IV fluids due to severe CHF Patient being aggressively diuresed at this time BMP in the morning (6) Diabetes: Code(s): E11.9 - Type 2 diabetes mellitus without complications Status: Acute Assessment and Plan: Inga MALLOY SSI Hold metformin while in hospital Quality VTE Prophylaxis VTE prophylaxis: mechanical ordered and pharmacologic ordered Hospitalist [facility] Advance Care Plan I have confirmed that the patient's Advanced Care Plan is present, code status is documented, or surrogate decision maker is listed in patient medical record.: Yes Medication Reconciliation I have utilized all available resources to obtain, update and review the patients current medications (includes all prescriptions, OTC, herbals, cannabis, and nutritional supplements).: Yes
--- NOTE | 2025-05-18 17:09 | ADMGEN ---
This patient, Dick Bobo, was admitted to IMU Room 202-01 @ 1709. Patient/family oriented to hospital policies and general routines including ID bracelet, bed and alarms, visiting hours, pain management, procedures, bathroom and other care routines, personal items, smoking policy, room service/diet, and visiting hours. Information on how to activate the Rapid Response Team has been discussed. Patient/Family are encouraged to report perceived risks to care and to ask questions if they do not understand what they are told or what they should do.
--- NOTE | 2025-05-18 17:31 | WNDPHOTO ---
PHOTO ONLY - See Nursing Notes and/ or assessments for documentation.
--- NOTE | 2025-05-18 17:33 | WNDPHOTO ---
PHOTO ONLY - See Nursing Notes and/ or assessments for documentation.
[2025-05-18 18:17] LABS: NT Pro B Type Natriuretic Pept 11500 pg/mL (19.9-100)
[2025-05-18 19:00] LABS: Add Urine Microscopic? YES; Appearance Urine Clear (Clear); Glucose Urine UA Negative (Negative); Leukocyte Esterase Ur Negative LEU/UL (Negative); Nitrate Urine Negative (Negative); Specific Grav Ur 1.017 (1.001-1.035)
[2025-05-18 19:51] LABS: Troponin I 0.107 ng/mL (0.000-0.034)
[2025-05-18] MEDS: FUROSEMIDE INJ 40 MG/4 ML VIAL 20 MG IV PUSH ×2 (21:00)
[2025-05-18] MEDS: ASPIRIN 81 MG CHEWABLE TABLET 324 MG PO (21:01)
[2025-05-18] MEDS: GABAPENTIN 100 MG CAPSULE PO (21:02)
[2025-05-18] MEDS: ALBUMIN HUMAN 25% 25 GM/100 ML 200 ML IVPB (23:14)
[2025-05-18 23:56] LABS: Troponin I 0.103 ng/mL (0.000-0.034)
[2025-05-19] VITALS (24 sets, daily range): BP systolic 99–119; BP diastolic 53–61; PULSE 60–82; RESP 15–22; TEMP 36.4–36.9; O2SAT 91–100
[2025-05-19] MEDS: IPRATROPIUM 0.5 MG/ALBUTEROL SULFATE 2.5 MG AMPUL.NEB 3 ML INHALATION ×4 (02:02→18:10)
[2025-05-19 04:53] LABS: Hematocrit 27.2 % (42.0-52.0); Hemoglobin 8.3 g/dL (14.0-18.0); Immature Granulocyte Percent A 0.5 % (0-0.5); Lymphocytes Absolute Auto 0.85 K/mm3 (0.9-3.2); Mean Corpuscular HGB Conc 30.5 g/dl (32-36); Mean Corpuscular Hemoglobin 35.5 pg (26-34); Mean Corpuscular Volume 116.2 fl (80-100); Nucleated Red Blood Cells Absolute Auto 0.000 K/mm3 (0.0-0.012); Nucleated Red Blood Cells Perc 0.0 % (0.0-0.2); Platelet Count Result 183 k/mm3 (150-375); Red Blood Count 2.34 M/mm3 (4.6-6.20); White Blood Count 4.3 K/mm3 (4.5-10.0)
[2025-05-19 05:13] LABS: Anion Gap 8 mmol/L (4-12); Blood Urea Nitrogen 53 mg/dL (9-20); Calcium 8.2 mg/dL (8.4-10.2); Carbon Dioxide 24 mmol/L (22-30); Chloride 104 mmol/L (98-107); Estimated CRCL calculation 42 ml/min; Estimated Glomerular Filt Rate 46; Glucose 109 mg/dL (65-110); Potassium 5.1 mmol/L (3.4-5.0); Sodium 136 mmol/L (137-145)
[2025-05-19 05:18] LABS: Anisocytosis 1+
[2025-05-19 05:23] LABS: Schistocytes None Seen
[2025-05-19] MEDS: DOCUSATE SODIUM 100 MG CAPSULE PO ×2 (09:33→17:01)
[2025-05-19] MEDS: SERTRALINE HCL 25 MG TABLET PO (09:33)
[2025-05-19] MEDS: GABAPENTIN 100 MG CAPSULE PO (09:33)
[2025-05-19] MEDS: FUROSEMIDE INJ 40 MG/4 ML VIAL IV PUSH ×2 (09:33→16:59)
[2025-05-19] MEDS: ACETAMINOPHEN 325 MG TABLET 650 MG PO ×2 (09:33→17:01)
--- NOTE | 2025-05-19 11:56 | PM.CNCAR ---
Assessment and Plan Assessment and plan (1) CHF (congestive heart failure): Code(s): I50.9 - Heart failure, unspecified Status: Acute Plan Acute on chronic diastolic heart failure Elevated troponin likely demand ischemia setting of CHF and Teddy Acute hypoxemic respiratory failure Pneumonia TEDDY Diabetes mellitus type 2 Hypertension controlled Plan Lasix 40 mg IV b.i.d. new Watch for kidney function electrolytes Aspirin 81 mg daily Treatment of pneumonia per primary team History of Present Illness History of Present Illness Consult date/time: 05/19/25 11:56 Reason For Visit: CHF Pneumonia, elevaed troponin TEDDY Narrative: 85-year-old male patient presents to the hospital with weakness. He has been complaining of shortness of breath since yesterday. Shortness of breath severe present at rest worse with mild activity. Patient has been having bilateral extremity swelling. Patient has been on diuretic before and has been on hold in the custodial because of his recent worsening kidney function. Patient was recently diagnosed with pneumonia started on antibiotic therapy. Review of Systems Review of Systems: All systems reviewed & are unremarkable except as noted in HPI and below PMFSH Past Medical History Medical History Hypertension Diabetes Surgical History Surgical History Fingertip amputation Family History Family History Father Heart disease Social History Social History Social History: Lives in [place]. Smoking status: Never smoker Second hand tobacco smoke exposure: No Alcohol intake: never Substance use: current Substance use type: does not use Lack of Transportation: No Lack of Food: Never True Current Housing: I Have Housing Concerned About Future Housing: No Difficulty Paying Gas/Electric Bills: No Difficulty Paying for Meds: No Currently Unemployed: No Education: Decline to Answer Difficulty w/ Childcare or Family Care: No Living arrangements: custodial Spiritual care concerns: No Meds Home Medications and Allergies Home Medications ?Medication ?Instructions ?Recorded ?Confirmed ?Type B6 35 mg-B9 3 mg-B12 2 mg-D3 62.5 2 cap PO DAILY 02/03/22 05/18/25 History mcg-ALA 300 mg capsule,delay release (EB-N5 ) Eucerin See Rx Instructions .Route .COMPLEX 02/03/22 05/18/25 History acetaminophen 500 mg tablet 500 mg PO .q12hr Pain 02/03/22 05/18/25 History amino ac-protein hydro-whey 1 ea PO DAILY 02/03/22 05/18/25 History protein 10 gram-100 kcal/30 mL oral liquid (ProSource) amlodipine 10 mg-benazepril 40 mg 1 cap PO DAILY 02/03/22 05/18/25 History capsule ferrous sulfate 325 mg (65 mg 325 tablet PO DAILY 02/03/22 05/18/25 History iron) tablet (FeroSul) furosemide 20 mg tablet 40 mg PO DAILY 02/03/22 05/18/25 History gabapentin 100 mg capsule 100 mg PO Q12H 02/03/22 05/18/25 History metformin 500 mg tablet 500 tablet PO DAILY 02/03/22 05/18/25 History sertraline 25 mg tablet 25 tablet PO DAILY 02/03/22 05/18/25 History tramadol 50 mg tablet 50 mg PO Q6H PRN Pain 02/03/22 05/18/25 History Lactobacillus acidophilus 1 cap PO BID 05/18/25 05/18/25 History ibuprofen 200 mg capsule 400 mg PO Q6H PRN fever or pain 05/18/25 05/18/25 History mecobalamin-levomefolate 2 tablet PO DAILY 05/18/25 05/18/25 History calcium-pyridoxal phos 2 mg-3 mg-35 mg tablet (Foltanx) multivitamin (Daily Multi-Vitamin 1 tablet PO DAILY 05/18/25 05/18/25 History tablet) peg 400-propylene glycol 0.4 %-0.3 1 drp EACH EYE BID 05/18/25 05/18/25 History % eye drops tacrolimus 0.1 % topical ointment 1 applic topical .COMPLEX 05/18/25 05/18/25 History (Protopic) Allergies Allergy/AdvReac Type Severity Reaction Status Date / Time No Known Drug Allergies Allergy Other Verified 05/18/25 14:54 Vital Signs Vital Signs - 24 hr 05/18/25 14:53 05/18/25 14:54 05/18/25 15:56 Temperature Pulse Rate 61 60 60 Respiratory Rate 20 20 Blood Pressure 116/72 125/72 Pulse Oximetry 94 100 Oxygen Delivery Oxygen Flow Rate 05/18/25 16:59 05/18/25 17:10 05/18/25 18:00 Temperature 36.6 C Pulse Rate 91 69 64 Respiratory Rate 20 18 Blood Pressure 110/66 115/78 Pulse Oximetry 100 96 Oxygen Delivery Oxygen Flow Rate 05/18/25 20:00 05/18/25 20:00 05/18/25 20:14 Temperature 36.4 C L Pulse Rate 72 72 72 Respiratory Rate 20 20 Blood Pressure 103/55 L Pulse Oximetry 95 95 Oxygen Delivery Room Air Oxygen Flow Rate 05/18/25 21:21 05/18/25 22:00 05/18/25 23:12 Temperature Pulse Rate 60 60 Respiratory Rate 20 Blood Pressure Pulse Oximetry 95 97 Oxygen Delivery Room Air Nasal Cannula Oxygen Flow Rate 2 05/18/25 23:34 05/19/25 00:00 05/19/25 02:00 Temperature 36.4 C L Pulse Rate 60 67 74 Respiratory Rate 20 Blood Pressure 102/54 L Pulse Oximetry 97 Oxygen Delivery Oxygen Flow Rate 05/19/25 02:05 05/19/25 02:08 05/19/25 04:00 Temperature 36.7 C Pulse Rate 68 68 60 Respiratory Rate 20 20 20 Blood Pressure 104/57 L Pulse Oximetry 96 Oxygen Delivery Oxygen Flow Rate 05/19/25 04:00 05/19/25 04:06 05/19/25 06:00 Temperature Pulse Rate 75 60 65 Respiratory Rate 20 Blood Pressure Pulse Oximetry 96 Oxygen Delivery Nasal Cannula Oxygen Flow Rate 2 05/19/25 07:45 05/19/25 07:45 05/19/25 07:53 Temperature Pulse Rate 70 76 Respiratory Rate 20 20 Blood Pressure Pulse Oximetry 92 Oxygen Delivery Nasal Cannula Oxygen Flow Rate 2 05/19/25 07:57 05/19/25 11:52 Temperature 36.4 C 36.4 C Pulse Rate 60 72 Respiratory Rate 20 22 H Blood Pressure 119/61 99/55 L Pulse Oximetry 91 96 Oxygen Delivery Oxygen Flow Rate Exam Const: General: comfortable and no acute distress Other: Able to lie flat HENMT: Face/Nose/Sinus: Normal nares present and no epistaxis Mouth: Yes moist mucous membranes Eyes: Sclera: sclerae normal Pupils: Equal, round and reactive pupils present Neck: Neck: supple and no JVD Carotids: no bruits Resp: Auscultation: rales bilateral and lung sounds not diminished Other: No chest wall tenderness Cardio: Rate: regular rate Rhythm: regular rhythm Heart sounds: no gallops, no murmurs and no rubs GI: GI Palp: Yes Soft to palpation and No Tenderness to palpation present (GI) Auscultation: normal bowel sounds Skin: General skin exam: normal color, rashes and/or lesions noted and no erythema Other: Warm Neuro: Cranial nerves: Yes Equal, round and reactive pupils present Speech: normal speech Other: No obvious focal deficit or facial asymmetry Extrem: General: edema bilateral Other: Normal capillary refills Intact distal pulses. Results Labs and Meds 05/19/25 04:39 05/19/25 04:39 Lab results: Cardiac Enzymes 05/18/25 05/18/25 05/18/25 Range/Units 14:16 14:16 19:02 AST 24 (17-59) U/L Troponin I 0.106 H* Cancelled 0.107 H* (0.000-0.034) ng/mL 05/18/25 Range/Units 22:44 AST (17-59) U/L Troponin I 0.103 H* (0.000-0.034) ng/mL Coagulation 05/18/25 Range/Units 14:16 PT 14.4 (11.1-14.7) Seconds APTT 30.9 (22.3-36.8) Seconds CBC 05/18/25 05/19/25 Range/Units 14:16 04:39 WBC 7.3 4.3 L (4.5-10.0) K/mm3 RBC 2.71 L 2.34 L (4.6-6.20) M/mm3 Hgb 9.4 L 8.3 L (14.0-18.0) g/dL Hct 30.7 L 27.2 L (42.0-52.0) % Plt Count 260 183 (150-375) k/mm3 Lymph # (Auto) Not Reportable 0.85 L Saline # (Auto) Not Reportable 0.3 Eos # (Auto) Not Reportable 0.1 Baso # (Auto) Not Reportable 0.0 Comprehensive Metabolic Panel 05/18/25 05/19/25 Range/Units 14:16 04:39 Sodium 136 L 136 L (137-145) mmol/L Potassium 5.0 5.1 H (3.4-5.0) mmol/L Chloride 105 104 (98-107) mmol/L Carbon Dioxide 23 24 (22-30) mmol/L BUN 50 H D 53 H (9-20) mg/dL Creatinine 1.45 H 1.44 H (0.7-1.3) mg/dL Glucose 124 H 109 (65-110) mg/dL Calcium 8.6 8.2 L (8.4-10.2) mg/dL AST 24 (17-59) U/L ALT 44 (6-50) U/L Alkaline Phosphatase 93 (38-126) U/L Total Protein 7.7 (6.3-8.2) g/dL Albumin 4.0 (3.5-5.1) g/dL Intake and Output 05/18/25 05/19/25 05/19/25 23:59 07:59 15:59 Intake Total 510 650 240 Output Total 100 500 Balance 410 150 240 Intake: IV 150 200 Albumin Human 25% 25 gm/100 ml 200 200 ml @ 60 mls/hr IVPB ONCE ONE Rx#:[id number] levoFLOXacin 750 MG/D5W 150 ML 150 750 mg In 150 ml @ 100 mls/hr IVPB Q48H [facility] Rx#:[id number] Oral 360 450 240 Output: Urine 100 500 Catheter Urine 0 External/Condom 0 Other: Number of Bowel Movements Today 0 0 Patient Weight 05/19/25 23:59 Weight 113.3 kg
--- NOTE | 2025-05-19 15:31 | PM.IMPN ---
Progress Note: A&P Assessment and Plan (1) CHF (congestive heart failure): Code(s): I50.9 - Heart failure, unspecified Status: Acute Assessment and Plan: Patient presents with SOB. Was on diuretics but held recently due to renal insufficiency. CXR showing CHF with possible superimposed PNA. WBC normal. BNP 03683. Troponin elevated to 0.107 EKG personally reviewed showing atrial sensed with LAD and Lt BBB. Lasix IV 40mg Q12h started. Echo ordered. Cardiology consulted Monitor daily weights, fluid balance, I/Os and renal function (2) Pneumonia: Code(s): J18.9 - Pneumonia, unspecified organism Status: Acute Assessment and Plan: As above. Levofloxacin started BCx pending Continue Duonebs. Add Mucinex Wean O2 as toelrated (3) Elevated troponin: Code(s): R79.89 - Other specified abnormal findings of blood chemistry Status: Acute Assessment and Plan: Troponins elevated but flat EKG as above Probably demand ischemia Schedule ASA (4) MOHSEN (acute kidney injury): Code(s): N17.9 - Acute kidney failure, unspecified Status: Acute Assessment and Plan: Cr 1.45 on admission. Baseline Cr 1.1. No IV fluids due to severe CHF Started on IV Lasix Cr unchanged today. Noted to have urine retention of at least 800mL. Villegas was placed. Cr may improve with resolution of retention Potasium mildly elevated. Repeat to ensure this trends down Continue to monitor. Hold off on Flomax since BP soft Monitor renal function, electrlytes and UOP. Check renal US (5) Hypertension: Code(s): I10 - Essential (primary) hypertension Status: Acute Assessment and Plan: Patient's blood pressure was reviewed on 05/19 Blood pressure soft at times. Will continue to monitor (6) Diabetes: Code(s): E11.9 - Type 2 diabetes mellitus without complications Status: Acute Assessment and Plan: The patient's blood glucose was reviewed on 05/19 Glucose remains well controlled. Metformin on hold Continue AccuCheks covering with sliding scale. Hypoglycemia protocol available as needed. Continue to monitor Subjective Date/time seen: 05/19/25 15:31 Interval history: 85yo male with pacemaker, hypertension and diabetes presents the hospital with weakness and increased shortness of breath. Still feels SOB. Hx of urine retention many years ago. No hx of BPH. He was found to have 600+mL urine retnetion. Cough is nonproductive. Not on oxygen at home. Mostly in wheelchair at the facilty. Flu going around [place]. He has not had his flu vaccine. Exam Narrative: AF 97.6 99/55 72 20 96% 2L Gen - NARD Chest - decrease BS in the left mid and lower lung field and right base. nml RR. PM in the left upper chest CV - RRR S1/S2; Tele showing first degree AVB Abd - soft, NT/ND - Villegas secured and already had 800mL from recent placement. Ext - 1+ pedal edema. Upper extremity edema noted Neuro - alert and appropriate Psych - pleasant and cooperative. Skin - warm and dry Objective Data Vital Signs Vital Signs: Vital Signs - 24 hr 05/18/25 15:56 05/18/25 16:59 05/18/25 17:10 Temperature 97.9 F Pulse Rate 60 91 69 Respiratory Rate 20 20 18 Blood Pressure 125/72 110/66 115/78 Pulse Oximetry 100 100 96 Oxygen Delivery Oxygen Flow Rate 05/18/25 18:00 05/18/25 20:00 05/18/25 20:00 Temperature 97.5 F L Pulse Rate 64 72 72 Respiratory Rate 20 Blood Pressure 103/55 L Pulse Oximetry 95 Oxygen Delivery Oxygen Flow Rate 05/18/25 20:14 05/18/25 21:21 05/18/25 22:00 Temperature Pulse Rate 72 60 Respiratory Rate 20 Blood Pressure Pulse Oximetry 95 95 Oxygen Delivery Room Air Room Air Oxygen Flow Rate 05/18/25 23:12 05/18/25 23:34 05/19/25 00:00 Temperature 97.5 F L Pulse Rate 60 60 67 Respiratory Rate 20 20 Blood Pressure 102/54 L Pulse Oximetry 97 97 Oxygen Delivery Nasal Cannula Oxygen Flow Rate 2 05/19/25 02:00 05/19/25 02:05 05/19/25 02:08 Temperature Pulse Rate 74 68 68 Respiratory Rate 20 20 Blood Pressure Pulse Oximetry Oxygen Delivery Oxygen Flow Rate 05/19/25 04:00 05/19/25 04:00 05/19/25 04:06 Temperature 98.1 F Pulse Rate 60 75 60 Respiratory Rate 20 20 Blood Pressure 104/57 L Pulse Oximetry 96 96 Oxygen Delivery Nasal Cannula Oxygen Flow Rate 2 05/19/25 06:00 05/19/25 07:45 05/19/25 07:45 Temperature Pulse Rate 65 70 Respiratory Rate 20 Blood Pressure Pulse Oximetry 92 Oxygen Delivery Nasal Cannula Oxygen Flow Rate 2 05/19/25 07:53 05/19/25 07:57 05/19/25 08:00 Temperature 97.6 F Pulse Rate 76 60 75 Respiratory Rate 20 20 Blood Pressure 119/61 Pulse Oximetry 91 Oxygen Delivery Oxygen Flow Rate 05/19/25 10:00 05/19/25 11:52 05/19/25 12:00 Temperature 97.6 F Pulse Rate 79 72 79 Respiratory Rate 22 H Blood Pressure 99/55 L Pulse Oximetry 96 Oxygen Delivery Oxygen Flow Rate 05/19/25 13:53 05/19/25 14:00 05/19/25 14:00 Temperature Pulse Rate 60 72 72 Respiratory Rate 20 20 Blood Pressure Pulse Oximetry Oxygen Delivery Oxygen Flow Rate Intake/Output Intake/Output: Intake & Output 05/16/25 05/17/25 05/18/25 05/19/25 23:59 23:59 23:59 23:59 Intake Total 510 1130 Output Total 100 750 Balance 410 380 Meds/Results Medications: Active Medications Generic Name Dose Route Start Last Admin Trade Name Freq PRN Reason Stop Dose Admin Acetaminophen 650 mg 05/18/25 15:40 05/19/25 09:33 Acetaminophen 325 Mg Tablet PO 650 mg Q4H PRN Administration Mild Pain (1-3) or Fever Albuterol/Ipratropium 3 ml 05/19/25 02:00 05/19/25 13:50 Ipratropium 0.5 Mg/Albuterol Sulfate 2.5 Mg Ampul.Neb 3 Ml INHALATION 3 ml Q6HRT ENID Administration Dextrose 12.5 gm 05/18/25 19:52 Dextrose 50% 25 Gm/50 Ml Syringe IV PUSH PRN PRN Hypoglycemia Protocol Docusate Sodium 100 mg 05/18/25 19:50 05/19/25 09:33 Docusate Sodium 100 Mg Capsule PO 100 mg BID PRN Administration Constipation Furosemide 40 mg 05/19/25 09:00 05/19/25 09:33 Furosemide Inj 40 Mg/4 Ml Vial IV PUSH 40 mg BID ENID Administration Gabapentin 100 mg 05/18/25 21:00 05/19/25 09:33 Gabapentin 100 Mg Capsule PO 100 mg Q12HR ENID Administration Glucagon 1 mg 05/18/25 19:52 Glucagon For Inj 1 Mg Vial IM PRN PRN Hypoglycemia Protocol Glucose 15 gm 05/18/25 19:52 Glucose Oral Gel 15 Gm Of Glucse In 37.5 Gm Tube PO PRN PRN Hypoglycemia Protocol Guaifenesin/Dextromethorphan 10 ml 05/18/25 21:00 05/19/25 12:39 Guaifenesin/Dextromethorphan 10 Ml Udc PO 10 ml Q4HR ENID Administration Levofloxacin/Dextrose 750 mg in 150 mls @ 100 mls/hr 05/18/25 15:00 05/18/25 17:25 Levaquin 750 Mg/D5w 150 Ml IVPB Infused Q48H ENID Infusion Dextrose 1,000 mls @ 100 mls/hr 05/18/25 19:52 Dextrose 5% 1,000 Ml IVPB PRN PRN Hypoglycemia Protocol Insulin Aspart 2 - 5 units 05/19/25 08:00 05/19/25 12:22 Insulin Aspart (*Bkc) 100 Units/Ml SUB-Q Not Given TIDWM ENID Protocol Insulin Aspart 1 - 2 units 05/18/25 21:00 05/18/25 21:09 Insulin Aspart (*Bkc) 100 Units/Ml SUB-Q Not Given HS ENID Protocol Perflutren Lipid Microsphere 0 ml 05/18/25 19:54 Perflutren Lipid Microspheres 1.5 Ml Vial Diluted To 10 Ml Total Volume IV PUSH 05/21/25 19:54 ONCE PRN adequate visualization Protocol Sertraline HCl 25 mg 05/19/25 09:00 05/19/25 09:33 Sertraline Hcl 25 Mg Tablet PO 25 mg DAILY ENID Administration Tramadol HCl 50 mg 05/18/25 19:51 Tramadol Hcl (*Crx) 50 Mg Tablet PO Q6H PRN PAIN RATED 4-6 Radiology Results: ITS Impressions Chest X-Ray 05/19/25 10:23 IMPRESSION: 1. Worsening interstitial pulmonary edema and/or multifocal airspace disease, with pleural effusions. Labs Labs: Laboratory Results - last 24 hr 05/18/25 05/18/25 05/18/25 14:16 18:14 19:02 WBC RBC Hgb Hct MCV MCH MCHC RDW Plt Count MPV Immature Gran % (Auto) Neut % (Auto) Lymph % (Auto) Andrews % (Auto) Eos % (Auto) Baso % (Auto) Lymph # (Auto) Andrews # (Auto) Eos # (Auto) Baso # (Auto) Abs Immat Gran (auto) Absolute Neuts (auto) Absolute Nucleated RBC Band Neutrophils % Nucleated RBC % Platelet Estimate Anisocytosis Schistocytes Sodium Potassium Chloride Carbon Dioxide Anion Gap BUN Creatinine Estim Creat Clear Calc Estimated GFR Glucose POC Capillary Glucose Calcium Troponin I 0.107 H* NT-Pro-B Natriuret Pep 87004 H Urine Color Yellow Urine Appearance Clear Urine pH 5.0 Ur Specific [place] 1.017 Urine Protein Trace Urine Glucose (UA) Negative Urine Ketones Negative Ur Blood (Man) Negative Urine Nitrate Negative Urine Bilirubin Negative Urine Urobilinogen 0.2 Leukocyte Esterase Rfl Negative Urine RBC 0-2 Urine WBC 0-5 Ur Squamous Epith Cells None seen Urine Bacteria None seen Urine Casts 3-5 05/18/25 05/18/25 05/19/25 20:57 22:44 04:39 WBC 4.3 L RBC 2.34 L Hgb 8.3 L Hct 27.2 L MCV 116.2 H MCH 35.5 H MCHC 30.5 L RDW 14.5 Plt Count 183 MPV 10.1 Immature Gran % (Auto) 0.5 Neut % (Auto) 71.7 Lymph % (Auto) 19.9 Andrews % (Auto) 6.3 Eos % (Auto) 1.4 Baso % (Auto) 0.2 Lymph # (Auto) 0.85 L Andrews # (Auto) 0.3 Eos # (Auto) 0.1 Baso # (Auto) 0.0 Abs Immat Gran (auto) 0.02 Absolute Neuts (auto) 3.1 Absolute Nucleated RBC 0.000 Band Neutrophils % Not Reportable Nucleated RBC % 0.0 Platelet Estimate Adequate Anisocytosis 1+ Schistocytes None seen Sodium 136 L Potassium 5.1 H Chloride 104 Carbon Dioxide 24 Anion Gap 8 BUN 53 H Creatinine 1.44 H Estim Creat Clear Calc 42 Estimated GFR 46 L Glucose 109 POC Capillary Glucose 103 Calcium 8.2 L Troponin I 0.103 H* NT-Pro-B Natriuret Pep Urine Color Urine Appearance Urine pH Ur Specific [place] Urine Protein Urine Glucose (UA) Urine Ketones Ur Blood (Man) Urine Nitrate Urine Bilirubin Urine Urobilinogen Leukocyte Esterase Rfl Urine RBC Urine WBC Ur Squamous Epith Cells Urine Bacteria Urine Casts 05/19/25 05/19/25 07:17 11:23 WBC RBC Hgb Hct MCV MCH MCHC RDW Plt Count MPV Immature Gran % (Auto) Neut % (Auto) Lymph % (Auto) Andrews % (Auto) Eos % (Auto) Baso % (Auto) Lymph # (Auto) Andrews # (Auto) Eos # (Auto) Baso # (Auto) Abs Immat Gran (auto) Absolute Neuts (auto) Absolute Nucleated RBC Band Neutrophils % Nucleated RBC % Platelet Estimate Anisocytosis Schistocytes Sodium Potassium Chloride Carbon Dioxide Anion Gap BUN Creatinine Estim Creat Clear Calc Estimated GFR Glucose POC Capillary Glucose 108 H 139 H Calcium Troponin I NT-Pro-B Natriuret Pep Urine Color Urine Appearance Urine pH Ur Specific [place] Urine Protein Urine Glucose (UA) Urine Ketones Ur Blood (Man) Urine Nitrate Urine Bilirubin Urine Urobilinogen Leukocyte Esterase Rfl Urine RBC Urine WBC Ur Squamous Epith Cells Urine Bacteria Urine Casts
[2025-05-19 16:54] LABS: Anion Gap 9 mmol/L (4-12); Blood Urea Nitrogen 54 mg/dL (9-20); Calcium 8.4 mg/dL (8.4-10.2); Carbon Dioxide 23 mmol/L (22-30); Chloride 102 mmol/L (98-107); Creatine Kinase < 20 U/L (55-170); Estimated CRCL calculation 40 ml/min; Estimated Glomerular Filt Rate 44; Glucose 114 mg/dL (65-110); Potassium 5.3 mmol/L (3.4-5.0); Sodium 134 mmol/L (137-145)
[2025-05-19] MEDS: ASPIRIN 81 MG CHEWABLE TABLET PO (17:01)
[2025-05-19] MEDS: SALINE 0.65% NAS SOLN 44 ML BTL 1 SPRAY NASAL (17:02)
[2025-05-19 18:33] LABS: Alveolar/Arterial O2 Gradient 188.6 mmHg; Fractional Inspired Oxygen 40 %; HCO3 ABG 21.3 mEq/l (22.0-26.0); Oxygen Content ABG 11.5 %vol (16.0-22.0); PCO2 ABG 45.0 mmHg (35.0-45.0); PO2 FiO2 Ratio Arterial Blood 1.12 %
[2025-05-19 18:36] LABS: PO2 ABG 44.9 mmHg (80.0-100.0)
[2025-05-19 18:37] LABS: Oxygen Saturation ABG 75.8 % (95.0-100.0)
[2025-05-19 18:38] LABS: Modified Allen's Test Pass; Site Drawn RIGHT RADIAL
[2025-05-19 20:23] LABS: Alveolar/Arterial O2 Gradient 369.0 mmHg; Fractional Inspired Oxygen 100 %; HCO3 ABG 21.9 mEq/l (22.0-26.0); Oxygen Content ABG 13.7 %vol (16.0-22.0); Oxygen Saturation ABG 99.6 % (95.0-100.0); PCO2 ABG 47.3 mmHg (35.0-45.0); PO2 ABG 296.7 mmHg (80.0-100.0); PO2 FiO2 Ratio Arterial Blood 2.97 %
[2025-05-19 20:30] LABS: Modified Allen's Test Pass; Site Drawn RIGHT RADIAL
[2025-05-19 21:08] LABS: Influenza A QL RT-PCR Negative (Negative); Influenza B QL RT-PCR Negative (Negative); RSV RNA, RT-PCR Negative (Negative); SARS-CoV-2 RNA PCR Negative (Negative)
[2025-05-20] VITALS (27 sets, daily range): BP systolic 90–125; BP diastolic 58–74; PULSE 60–85; RESP 16–22; TEMP 36.3–36.8; O2SAT 94–100
--- NOTE | 2025-05-20 | ECHO_ITS ---
Patient Info Name: Dikc Bobo Age: 85 years : 1940 Gender: Male Ht: 72 in Wt: 247 lbs BSA: 2.42 m2 HR: 77 bpm BP: 112 / 58 mmHg Heart Rhythm: Sinus Rhythm Technical Quality: Fair Exam Date: 05/20/2025 9:06 AM Patient Status: I Admit Date: 05/19/2025 Exam Type: CA echo dop color flow w con Complete two-dimensional, color flow and Doppler transthoracic echocardiogram is performed with contrast to opacify the left ventricle and to improve the deliniation of the left ventricle endocardial borders. Staff Referring Physician: Justus Page MD Special Events Director: Ellie Gilbert Attending Provider: Justus Page MD Contrast/Agitated Saline Contrast/Ag. Saline: Definity Amount: 2.00 ml Administered By: Ellie Gilbert Existing IV Access: Yes IV Access Condition: patent with no signs of infiltration Summary 1. Left ventricular chamber dimension is moderately enlarged. 2. Left ventricular systolic function is normal, estimated at 25-30. 3. Right ventricular chamber dimension is mildly enlarged. 4. Right ventricular systolic function is normal. 5. Linear artifact in right ventricle suggestive of catheter(s), pacemaker lead(s), or ICD lead(s). 6. Left atrial chamber dimension is mildly enlarged. 7. There is mild to moderate mitral valve regurgitation. 8. There is mild tricuspid valve regurgitation. 9. Severe pulmonary hypertension, estimated pulmonary arterial systolic pressure is 71 mmHg. 10. There is mild pulmonic regurgitation. 11. Pleural effusion. Left Ventricle Left ventricular chamber dimension is moderately enlarged. Left ventricular systolic function is normal, estimated at 25-30. There is no increased left ventricular wall thickness. The left ventricular diastolic function is abnormal. Right Ventricle Right ventricular chamber dimension is mildly enlarged. Right ventricular systolic function is normal. Linear artifact in right ventricle suggestive of catheter(s), pacemaker lead(s), or ICD lead(s). Left Atria Left atrial chamber dimension is mildly enlarged. Right Atria Right atrial chamber dimension is normal. Aortic Valve The aortic valve is trileaflet. There is no aortic valve sclerosis. There is no aortic valve stenosis. There is no aortic valve regurgitation. There is mild aortic valve calcification. Pulmonic Valve The pulmonic valve is normal. There is no pulmonic valve stenosis. There is mild pulmonic regurgitation. Mitral Valve The mitral valve has normal leaflets. There is no mitral valve stenosis. There is mild to moderate mitral valve regurgitation. Tricuspid Valve The tricuspid valve leaflets are normal. There is no significant tricuspid valve stenosis. There is mild tricuspid valve regurgitation. Severe pulmonary hypertension, estimated pulmonary arterial systolic pressure is 71 mmHg. Pericardium/Pleural The pericardium appears normal. There is no pericardial effusion. Inferior Vena Cava Normal inferior vena cava with <50% collapse upon inspiration consistent with elevated right atrial pressure, 10 mmHg. Aorta The aortic root size at the sinus of Valsalva is normal. The prox ascending aorta size is normal. Left Ventricular Outflow Tract Name Value Normal LVOT 2D LVOT Diameter 2.0 cm LVOT Doppler LVOT Peak Velocity 94 cm/s LVOT Peak Gradient 4 mmHg LVOT Mean Gradient 2 mmHg LVOT VTI 15 cm LVOT VTI/AV VTI Ratio 0.7 LVOT Stroke Volume 49 ml LVOT CO 4.0 l/min LVOT CI 1.7 l/min/m2 Pulmonic Valve Name Value Normal RVOT Doppler RVOT Peak Velocity 79 cm/s RVOT Peak Gradient 2 mmHg PV Doppler PV Peak Velocity 116 cm/s PV Peak Gradient 5 mmHg Mitral Valve Name Value Normal MV Doppler MV Peak Gradient 7 mmHg MV Mean Gradient 3 mmHg MV Area (Cont Eq VTI) 3.0 cm2 MV Regurgitation Doppler MR Peak Gradient 64 mmHg MV Diastolic Function MV E Peak Velocity 113 cm/s MV A Peak Velocity 74 cm/s MV E/A 1.5 MV Decel Time (PW) 116 ms MV Annular TDI MV E/e' (Septal) 31.7 MV E/e' (Lateral) 9.2 MV E/e' (Average) 20.4 Tricuspid Valve Name Value Normal TV Regurgitation Doppler TR Peak Velocity 392 cm/s TR Peak Gradient 61 mmHg Estimated PAP/RSVP RA Pressure 10 mmHg <=5 PA Systolic Pressure 71 mmHg <36 RV Systolic Pressure 71 mmHg <36 TV Annular TDI TV Lateral Lucero s' Velocity 14.2 cm/s >=9.5 Aorta Name Value Normal Ascending Aorta Ao Root Diameter (MM) 3.8 cm Ao Root Diam Index (MM) 1.6 cm/m2 Aortic Valve Name Value Normal AV Doppler AV Peak Velocity 132 cm/s AV Peak Gradient 7 mmHg AV Mean Gradient 3 mmHg AV VTI 23 cm AV Area (Cont Eq VTI) 2.1 cm2 >=3.0 AV Area (Cont Eq Matt) 2.3 cm2 AV DI (Matt) 0.71 AV Regurgitation 2D LVOT Area 3.2 cm2 Ventricles Name Value Normal LV Dimensions 2D/MM IVS Diastolic Thickness (2D) 1.0 cm 0.6-1.0 LVID Diastole (2D) 5.8 cm 4.2-5.8 LVIW Diastolic Thickness (2D) 1.0 cm 0.6-1.0 LVID Systole (2D) 5.3 cm 2.5-4.0 LVOT Diameter 2.0 cm LV Mass (2D Cubed) 230.32 g 88.00-224.00 LV Mass Index (2D Cubed) 95 g/m2 49-115 Relative Wall Thickness (2D) 0.33 <=0.42 LV Fractional Shortening/Ejection Fraction 2D/MM LV Fractional Shortening (2D) 10 % 25-43 LV EF (2D Teichholz) 21 % LV Diastolic Volume (4C MOD) 203 ml LV EF (4C MOD) 23 % LV Diastolic Volume (2C MOD) 208 ml LV EF (2C MOD) 16 % LV Diastolic Volume (BP MOD) 207 ml 62-150 LV Diastolic Volume Index (BP MOD) 86 ml/m2 34-74 LV Systolic Volume (BP MOD) 166 ml 21-61 LV Systolic Volume Index (BP MOD) 69 ml/m2 11-31 LV EF (BP MOD) 20 % 52-72 LV Diastolic Length (4C) 9.6 cm LV Systolic Length (4C) 8.7 cm LV Stroke Volume (4C MOD) 46 ml Atria Name Value Normal LA Dimensions LA Dimension (MM) 4.9 cm 3.0-4.0 LA Volume (4C A-L) 114 ml LA Volume (BP A-L) 111 ml Report Signatures
[2025-05-20 01:41] LABS: MRSA (PCR) NOT DETECTED (NOT DETECTE)
[2025-05-20] MEDS: IPRATROPIUM 0.5 MG/ALBUTEROL SULFATE 2.5 MG AMPUL.NEB 3 ML INHALATION ×4 (02:16→20:45)
[2025-05-20 04:17] LABS: Hematocrit 28.5 % (42.0-52.0); Hemoglobin 8.6 g/dL (14.0-18.0); Immature Granulocyte Percent A 0.6 % (0-0.5); Lymphocytes Absolute Auto 1.21 K/mm3 (0.9-3.2); Mean Corpuscular HGB Conc 30.2 g/dl (32-36); Mean Corpuscular Hemoglobin 35.4 pg (26-34); Mean Corpuscular Volume 117.3 fl (80-100); Nucleated Red Blood Cells Absolute Auto 0.000 K/mm3 (0.0-0.012); Nucleated Red Blood Cells Perc 0.0 % (0.0-0.2); Platelet Count Result 202 k/mm3 (150-375); Red Blood Count 2.43 M/mm3 (4.6-6.20); White Blood Count 5.1 K/mm3 (4.5-10.0)
[2025-05-20 04:34] LABS: Albumin Level 4.0 g/dL (3.5-5.1); Anion Gap 10 mmol/L (4-12); Blood Urea Nitrogen 56 mg/dL (9-20); Calcium 8.3 mg/dL (8.4-10.2); Carbon Dioxide 22 mmol/L (22-30); Chloride 103 mmol/L (98-107); Cholesterol 71 mg/dL (0-200); Estimated CRCL calculation 40 ml/min; Estimated Glomerular Filt Rate 44; Glucose 117 mg/dL (65-110); HDL Direct 30 mg/dL; Magnesium 2.4 mg/dL (1.6-2.3); Potassium 5.1 mmol/L (3.4-5.0); Sodium 135 mmol/L (137-145); Triglycerides 51 mg/dL (<150)
[2025-05-20 05:24] LABS: Alveolar/Arterial O2 Gradient 141.5 mmHg; HCO3 ABG 22.6 mEq/l (22.0-26.0); Oxygen Saturation ABG 96.6 % (95.0-100.0); PCO2 ABG 43.8 mmHg (35.0-45.0); PO2 ABG 93.3 mmHg (80.0-100.0)
[2025-05-20 05:26] LABS: Fractional Inspired Oxygen 40 %; Modified Allen's Test Pass; PO2 FiO2 Ratio Arterial Blood 2.33 %; Site Drawn RIGHT RADIAL
[2025-05-20] MEDS: guaiFENesin 12 HR 600 MG TABCR PO ×2 (08:33→20:15)
[2025-05-20] MEDS: GABAPENTIN 100 MG CAPSULE PO ×2 (08:33→20:15)
[2025-05-20] MEDS: FUROSEMIDE INJ 40 MG/4 ML VIAL IV PUSH ×2 (08:33→18:18)
[2025-05-20] MEDS: SERTRALINE HCL 25 MG TABLET PO (08:33)
[2025-05-20] MEDS: ASPIRIN 81 MG CHEWABLE TABLET PO (08:34)
--- NOTE | 2025-05-20 09:18 | P.PNCA_ITS ---
Progress Note: A&P Assessment and Plan (1) CHF (congestive heart failure): Code(s): I50.9 - Heart failure, unspecified Status: Acute Plan Acute on chronic diastolic heart failure Elevated troponin likely demand ischemia setting of CHF and Teddy Acute hypoxemic respiratory failure Pneumonia TEDDY Diabetes mellitus type 2 Hypertension controlled Plan Lasix 40 mg IV b.i.d. for today - perhaps shift to p.o. tomorrow Renal function stable today. Continue with daily BMP Aspirin 81 mg daily Treatment of pneumonia per primary team Subjective Date/time seen: 05/20/25 09:18 Interval history: Cardiology follow-up visit Date of service 05/20/2025: States his breathing is 100% better compared to yesterday. Swelling is improving. No chest pain. Review of Systems Review of Systems: All systems reviewed & are unremarkable except as noted in HPI and below Exam Const: General: comfortable and no acute distress Other: Able to lie flat HENMT: Face/Nose/Sinus: Normal nares present and no epistaxis Mouth: Yes moist mucous membranes Eyes: Sclera: sclerae normal Pupils: Equal, round and reactive pupils p resent Neck: Neck: supple and no JVD Carotids: no bruits Resp: Auscultation: rales bilateral and lung sounds not diminished Other: No chest wall tenderness Cardio: Rate: regular rate Rhythm: regular rhythm Heart sounds: no gallops, no murmurs and no rubs GI: Auscultation: normal bowel sounds Skin: General skin exam: normal color, rashes and/or lesions noted and no erythema Other: Warm Neuro: Cranial nerves: Yes Equal, round and reactive pupils present Speech: normal speech Other: No obvious focal deficit or facial asymmetry Extrem: General: edema bilateral Other: Normal capillary refills Intact distal pulses. Objective Data Vital Signs Vital Signs: Vital Signs - 24 hr 05/19/25 10:00 05/19/25 11:52 05/19/25 12:00 Temperature 36.4 C Pulse Rate 79 72 79 Respiratory Rate 22 H Blood Pressure 99/55 L Pulse Oximetry 96 Oxygen Delivery Oxygen Flow Rate Fraction of Inspired Oxygen 05/19/25 12:00 05/19/25 13:53 05/19/25 14:00 Temperature Pulse Rate 60 72 Respiratory Rate 20 20 Blood Pressure Pulse Oximetry 96 Oxygen Delivery Nasal Cannula Oxygen Flow Rate 2 Fraction of Inspired Oxygen 05/19/25 14:00 05/19/25 16:00 05/19/25 16:00 Temperature Pulse Rate 72 67 Respiratory Rate Blood Pressure Pulse Oximetry 94 Oxygen Delivery Nasal Cannula Oxygen Flow Rate 4 Fraction of Inspired Oxygen 05/19/25 16:00 05/19/25 18:00 05/19/25 18:10 Temperature 36.4 C Pulse Rate 76 80 82 Respiratory Rate 20 22 H Blood Pressure 104/53 L Pulse Oximetry 94 Oxygen Delivery Oxygen Flow Rate Fraction of Inspired Oxygen 05/19/25 18:16 05/19/25 19:04 05/19/25 20:00 Temperature 36.9 C Pulse Rate 81 72 75 Respiratory Rate 22 H 15 16 Blood Pressure 108/53 L Pulse Oximetry 100 100 Oxygen Delivery BiPAP Oxygen Flow Rate Fraction of Inspired Oxygen 05/19/25 20:00 05/19/25 20:00 05/19/25 22:00 Temperature Pulse Rate 60 60 Respiratory Rate Blood Pressure Pulse Oximetry 98 Oxygen Delivery BiPAP Oxygen Flow Rate Fraction of Inspired Oxygen 50 05/19/25 22:09 05/20/25 00:00 05/20/25 00:00 Temperature Pulse Rate 77 60 Respiratory Rate 20 Blood Pressure Pulse Oximetry 98 99 Oxygen Delivery BiPAP BiPAP Oxygen Flow Rate Fraction of Inspired Oxygen 40 05/20/25 00:00 05/20/25 02:00 05/20/25 02:17 Temperature 36.5 C Pulse Rate 60 60 68 Respiratory Rate 16 17 Blood Pressure 97/64 L Pulse Oximetry 99 Oxygen Delivery Oxygen Flow Rate Fraction of Inspired Oxygen 05/20/25 02:18 05/20/25 04:00 05/20/25 04:00 Temperature Pulse Rate 68 72 Respiratory Rate 18 Blood Pressure Pulse Oximetry 98 96 Oxygen Delivery BiPAP BiPAP Oxygen Flow Rate Fraction of Inspired Oxygen 40 05/20/25 04:00 05/20/25 06:00 05/20/25 07:37 Temperature 36.6 C Pulse Rate 71 77 74 Respiratory Rate 18 17 Blood Pressure 112/58 L Pulse Oximetry 100 Oxygen Delivery Oxygen Flow Rate Fraction of Inspired Oxygen 05/20/25 07:39 05/20/25 07:42 05/20/25 08:00 Temperature 36.3 C L Pulse Rate 64 70 Respiratory Rate 19 16 Blood Pressure 108/59 L Pulse Oximetry 99 98 99 Oxygen Delivery BiPAP BiPAP Oxygen Flow Rate Fraction of Inspired Oxygen Intake/Output Intake/Output: Intake & Output 05/17/25 05/18/25 05/19/25 05/20/25 23:59 23:59 23:59 23:59 Intake Total 510 1870 240 Output Total 100 1750 800 Balance 410 120 -560 Meds/Results Medications: Active Medications Generic Name Dose Route Start Last Admin Trade Name Freq PRN Reason Stop Dose Admin Acetaminophen 650 mg 05/18/25 15:40 05/19/25 17:01 Acetaminophen 325 Mg Tablet PO 650 mg Q4H PRN Administration Mild Pain (1-3) or Fever Albuterol/Ipratropium 3 ml 05/19/25 02:00 05/20/25 07:37 Ipratropium 0.5 Mg/Albuterol Sulfate 2.5 Mg Ampul.Neb 3 Ml INHALATION 3 ml Q6HRT ENID Administration Aspirin 81 mg 05/19/25 16:00 05/20/25 08:34 Aspirin 81 Mg Chewable Tablet PO 81 mg DAILY@0800 ENID Administration Dextrose 12.5 gm 05/18/25 19:52 Dextrose 50% 25 Gm/50 Ml Syringe IV PUSH PRN PRN Hypoglycemia Protocol Docusate Sodium 100 mg 05/18/25 19:50 05/19/25 17:01 Docusate Sodium 100 Mg Capsule PO 100 mg BID PRN Administration Constipation Furosemide 40 mg 05/19/25 09:00 05/20/25 08:33 Furosemide Inj 40 Mg/4 Ml Vial IV PUSH 40 mg BID ENID Administration Gabapentin 100 mg 05/18/25 21:00 05/20/25 08:33 Gabapentin 100 Mg Capsule PO 100 mg Q12HR ENID Administration Glucagon 1 mg 05/18/25 19:52 Glucagon For Inj 1 Mg Vial IM PRN PRN Hypoglycemia Protocol Glucose 15 gm 05/18/25 19:52 Glucose Oral Gel 15 Gm Of Glucse In 37.5 Gm Tube PO PRN PRN Hypoglycemia Protocol Guaifenesin 600 mg 05/19/25 21:00 05/20/25 08:33 Guaifenesin 12 Hr 600 Mg Tabcr PO 600 mg Q12HR ENID Administration Guaifenesin/Dextromethorphan 10 ml 05/19/25 16:01 Guaifenesin/Dextromethorphan 10 Ml Udc PO Q4HR PRN Cough Levofloxacin/Dextrose 750 mg in 150 mls @ 100 mls/hr 05/18/25 15:00 05/18/25 17:25 Levaquin 750 Mg/D5w 150 Ml IVPB Infused Q48H ENID Infusion Dextrose 1,000 mls @ 100 mls/hr 05/18/25 19:52 Dextrose 5% 1,000 Ml IVPB PRN PRN Hypoglycemia Protocol Insulin Aspart 2 - 5 units 05/19/25 08:00 05/20/25 08:35 Insulin Aspart (*Bkc) 100 Units/Ml SUB-Q Not Given TIDWM ENID Protocol Insulin Aspart 1 - 2 units 05/18/25 21:00 05/19/25 21:00 Insulin Aspart (*Bkc) 100 Units/Ml SUB-Q Not Given HS ENID Protocol Perflutren Lipid Microsphere 0 ml 05/18/25 19:54 Perflutren Lipid Microspheres 1.5 Ml Vial Diluted To 10 Ml Total Volume IV PUSH 05/21/25 19:54 ONCE PRN adequate visualization Protocol Sertraline HCl 25 mg 05/19/25 09:00 05/20/25 08:33 Sertraline Hcl 25 Mg Tablet PO 25 mg DAILY ENID Administration Sodium Chloride 1 spray 05/19/25 15:57 05/19/25 17:02 Saline 0.65% Bora Soln 44 Ml Btl NASAL 1 spray Q6HR PRN Administration Congestion Tramadol HCl 50 mg 05/18/25 19:51 Tramadol Hcl (*Crx) 50 Mg Tablet PO Q6H PRN PAIN RATED 4-6 Radiology Results: ITS Impressions Chest X-Ray 05/19/25 10:23 IMPRESSION: 1. Worsening interstitial pulmonary edema and/or multifocal airspace disease, with pleural effusions. Renal Ultrasound 05/19/25 17:43 Impression: No acute abnormality. Labs Labs: Laboratory Results - last 24 hr 05/19/25 05/19/25 05/19/25 11:23 15:44 16:09 WBC RBC Hgb Hct MCV MCH MCHC RDW Plt Count MPV Immature Gran % (Auto) Neut % (Auto) Lymph % (Auto) Nicholas % (Auto) Eos % (Auto) Baso % (Auto) Lymph # (Auto) Nicholas # (Auto) Eos # (Auto) Baso # (Auto) Abs Immat Gran (auto) Absolute Neuts (auto) Absolute Nucleated RBC Nucleated RBC % Puncture Site ABG pH ABG pCO2 ABG pO2 ABG PO2/FiO2 Ratio ABG HCO3 ABG O2 Saturation ABG O2 Content ABG Base Excess A-a Gradient Oxyhemoglobin Total Hemoglobin O2 Delivery Device O2 Liters/Min FiO2 Expiratory Pressure Inspiratory Pressure Sodium 134 L Potassium 5.3 H Chloride 102 Carbon Dioxide 23 Anion Gap 9 BUN 54 H Creatinine 1.51 H Estim Creat Clear Calc 40 Estimated GFR 44 L Glucose 114 H POC Capillary Glucose 139 H 120 H Calcium 8.4 Phosphorus Magnesium Total Creatine Kinase < 20 L Albumin Triglycerides Cholesterol LDL Cholesterol Direct HDL Direct Nasal MRSA (PCR) Influenza A (RT-PCR) Influenza B (RT-PCR) RSV (RT-PCR) SARS-CoV-2 RNA (RT-PCR) 05/19/25 05/19/25 05/19/25 18:14 18:17 20:11 WBC RBC Hgb Hct MCV MCH MCHC RDW Plt Count MPV Immature Gran % (Auto) Neut % (Auto) Lymph % (Auto) Nicholas % (Auto) Eos % (Auto) Baso % (Auto) Lymph # (Auto) Nicholas # (Auto) Eos # (Auto) Baso # (Auto) Abs Immat Gran (auto) Absolute Neuts (auto) Absolute Nucleated RBC Nucleated RBC % Puncture Site Right radial Right radial ABG pH 7.293 L* 7.283 L* ABG pCO2 45.0 47.3 H ABG pO2 44.9 L* 296.7 H ABG PO2/FiO2 Ratio 1.12 2.97 ABG HCO3 21.3 L 21.9 L ABG O2 Saturation 75.8 L* 99.6 ABG O2 Content 11.5 L 13.7 L ABG Base Excess -5.1 -4.7 A-a Gradient 188.6 369.0 Oxyhemoglobin 73.8 L* 98.9 Total Hemoglobin 11.1 L 9.3 L O2 Delivery Device Nasal cannula Bipap O2 Liters/Min Not Reportable Not Reportable FiO2 40 100 Expiratory Pressure 5 Inspiratory Pressure 12 Sodium Potassium Chloride Carbon Dioxide Anion Gap BUN Creatinine Estim Creat Clear Calc Estimated GFR Glucose POC Capillary Glucose Calcium Phosphorus Magnesium Total Creatine Kinase Albumin Triglycerides Cholesterol LDL Cholesterol Direct HDL Direct Nasal MRSA (PCR) Influenza A (RT-PCR) Negative Influenza B (RT-PCR) Negative RSV (RT-PCR) Negative SARS-CoV-2 RNA (RT-PCR) Negative 09/28/25 09/29/25 09/29/25 20:30 00:20 03:56 WBC 5.1 RBC 2.43 L Hgb 8.6 L Hct 28.5 L MCV 117.3 H MCH 35.4 H MCHC 30.2 L RDW 14.2 Plt Count 202 MPV 10.2 Immature Gran % (Auto) 0.6 H Neut % (Auto) 67.3 Lymph % (Auto) 23.7 Nicholas % (Auto) 7.6 Eos % (Auto) 0.6 Baso % (Auto) 0.2 Lymph # (Auto) 1.21 Nicholas # (Auto) 0.4 Eos # (Auto) 0.0 Baso # (Auto) 0.0 Abs Immat Gran (auto) 0.03 Absolute Neuts (auto) 3.4 Absolute Nucleated RBC 0.000 Nucleated RBC % 0.0 Puncture Site ABG pH ABG pCO2 ABG pO2 ABG PO2/FiO2 Ratio ABG HCO3 ABG O2 Saturation ABG O2 Content ABG Base Excess A-a Gradient Oxyhemoglobin Total Hemoglobin O2 Delivery Device O2 Liters/Min FiO2 Expiratory Pressure Inspiratory Pressure Sodium 135 L Potassium 5.1 H Chloride 103 Carbon Dioxide 22 Anion Gap 10 BUN 56 H Creatinine 1.52 H Estim Creat Clear Calc 40 Estimated GFR 44 L Glucose 117 H POC Capillary Glucose 132 H Calcium 8.3 L Phosphorus 5.1 H Magnesium 2.4 H Total Creatine Kinase Albumin 4.0 Triglycerides 51 Cholesterol 71 LDL Cholesterol Direct < 30 HDL Direct 30 Nasal MRSA (PCR) Not detected Influenza A (RT-PCR) Influenza B (RT-PCR) RSV (RT-PCR) SARS-CoV-2 RNA (RT-PCR) 05/20/25 05/20/25 05:01 07:17 WBC RBC Hgb Hct MCV MCH MCHC RDW Plt Count MPV Immature Gran % (Auto) Neut % (Auto) Lymph % (Auto) Nicholas % (Auto) Eos % (Auto) Baso % (Auto) Lymph # (Auto) Nicholas # (Auto) Eos # (Auto) Baso # (Auto) Abs Immat Gran (auto) Absolute Neuts (auto) Absolute Nucleated RBC Nucleated RBC % Puncture Site Right radial ABG pH 7.331 L ABG pCO2 43.8 ABG pO2 93.3 ABG PO2/FiO2 Ratio 2.33 ABG HCO3 22.6 ABG O2 Saturation 96.6 ABG O2 Content ABG Base Excess -3.2 A-a Gradient 141.5 Oxyhemoglobin 95.1 Total Hemoglobin 9.8 L O2 Delivery Device Bipap O2 Liters/Min Not Reportable FiO2 40 Expiratory Pressure 5 Inspiratory Pressure 12 Sodium Potassium Chloride Carbon Dioxide Anion Gap BUN Creatinine Estim Creat Clear Calc Estimated GFR Glucose POC Capillary Glucose 114 H Calcium Phosphorus Magnesium Total Creatine Kinase Albumin Triglycerides Cholesterol LDL Cholesterol Direct HDL Direct Nasal MRSA (PCR) Influenza A (RT-PCR) Influenza B (RT-PCR) RSV (RT-PCR) SARS-CoV-2 RNA (RT-PCR) Quality VTE Prophylaxis VTE prophylaxis: mechanical ordered and pharmacologic ordered
[2025-05-20] MEDS: PERFLUTREN LIPID MICROSPHERES 1.5 ML VIAL DILUTED TO 10 ML TOTAL VOLUME IV PUSH (09:40)
--- NOTE | 2025-05-20 12:45 | IVDEFINITY ---
Prior to administration of IV Definity the patient was educated on the risks and benefits of the imaging enhancing agent including potential adverse side effects. The patient verbalized understanding. Allergies were verified. No exclusion criteria were identified and at least one of the following inclusion criteria were met: 1) physician request, 2) patient technically difficult to image (per the [place] [employer] guidelines of two or more segments not discernable within the apical view), or 3) questionable left ventricular function. ?
--- NOTE | 2025-05-20 13:14 | P.PNIM_ITS ---
Progress Note: A&P Assessment and Plan (1) Acute respiratory failure: Code(s): J96.00 - Acute respiratory failure, unspecified whether with hypoxia or hypercapnia Status: Acute Assessment and Plan: Patient had increasing WOB in the evening of 05/19. Audible wheezing with grunting respirations, tachypneic and hypoxic. AB.29/45/45 but may be a mixed gas. BiPAP started. ABG this morning 7.33/44/93 on bipap Able to come off bipap. Continue Neb treatments Wean O2 as tolerated. (2) CHF (congestive heart failure): Code(s): I50.9 - Heart failure, unspecified Status: Acute Assessment and Plan: Patient presents with SOB. Was on diuretics but held recently due to renal insufficiency. CXR showing CHF with possible superimposed PNA. WBC normal. BNP 45576. Troponin peaked at 0.107 EKG personally reviewed showing possible atrial paced rhythm and Lt BBB. Lasix IV 40mg Q12h started. Echo pending Cardiology consulted Renal function remaining stable. Monitor daily weights, fluid balance, I/Os and renal function. repeat CXR in the morning (3) Pneumonia: Code(s): J18.9 - Pneumonia, unspecified organism Status: Acute Assessment and Plan: As above. Levofloxacin renally dosed and started MRSA nasal screen negative. COVID, RSV and influenza PCR negative. BCx NGTD Continue Duonebs. Continue Mucinex Wean O2 as tolerated (4) Elevated troponin: Code(s): R79.89 - Other specified abnormal findings of blood chemistry Status: Acute Assessment and Plan: Troponins elevated but flat EKG as above Probably demand ischemia Continue ASA (5) MOHSEN (acute kidney injury): Code(s): N17.9 - Acute kidney failure, unspecified Status: Acute Assessment and Plan: Cr 1.45 on admission. Baseline Cr 1.1. No IV fluids due to severe CHF Started on IV Lasix. Noted to have urine retention of at least 800mL and Villegas placed. Cr may improve with resolution of retention Potasium mildly elevated but stable. Continue low potassium diet Renal US showing no acute abnormalities Cr stable 1.4-1.5. Continue to monitor. Hold off on Flomax since BP soft Monitor renal function, electrlytes and UOP. (6) Hypertension: Code(s): I10 - Essential (primary) hypertension Status: Acute Assessment and Plan: Patient's blood pressure was reviewed on 05/20 Blood pressure soft at times. Will continue to monitor. Consider midodrine if needed (7) Diabetes: Code(s): E11.9 - Type 2 diabetes mellitus without complications Status: Acute Assessment and Plan: The patient's blood glucose was reviewed on 05/20 Glucose remains well controlled. Metformin on hold Continue AccuCheks covering with sliding scale. Hypoglycemia protocol available as needed. Continue to monitor Plan DVT Prophylaxis - SCDs Code status - DNR Start PT/OT tomorrow Subjective Date/time seen: 05/20/25 13:14 Interval history: 85yo male with pacemaker, hypertension and diabetes presents the hospital with weakness and increased shortness of breath. Shortness of breath is much better. No chest pain. No cough. No nausea or vomiting. Eating well. Exam Narrative: AF97.6 90/74 80 20 95% bipap Gen - NARD Chest - egophony in the left lower lobe. Expiratory wheezes. CV - RRR S1/S2; Tele showing first degree AVB Abd - soft, NT/ND - urinary catheter in place draining clear yellow urine Ext - 1+ pedal edema. Neuro - alert and appropriate Psych - pleasant and cooperative. Skin - warm and dry Objective Data Vital Signs Vital Signs: Vital Signs - 24 hr 05/19/25 13:53 05/19/25 14:00 05/19/25 14:00 Temperature Pulse Rate 60 72 72 Respiratory Rate 20 20 Blood Pressure Pulse Oximetry Oxygen Delivery Oxygen Flow Rate Fraction of Inspired Oxygen 05/19/25 16:00 05/19/25 16:00 05/19/25 16:00 Temperature 97.6 F Pulse Rate 67 76 Respiratory Rate 20 Blood Pressure 104/53 L Pulse Oximetry 94 94 Oxygen Delivery Nasal Cannula Oxygen Flow Rate 4 Fraction of Inspired Oxygen 05/19/25 18:00 05/19/25 18:10 05/19/25 18:16 Temperature Pulse Rate 80 82 81 Respiratory Rate 22 H 22 H Blood Pressure Pulse Oximetry Oxygen Delivery Oxygen Flow Rate Fraction of Inspired Oxygen 05/19/25 19:04 05/19/25 20:00 05/19/25 20:00 Temperature 98.4 F Pulse Rate 72 75 60 Respiratory Rate 15 16 Blood Pressure 108/53 L Pulse Oximetry 100 100 Oxygen Delivery BiPAP Oxygen Flow Rate Fraction of Inspired Oxygen 05/19/25 20:00 05/19/25 22:00 05/19/25 22:09 Temperature Pulse Rate 60 77 Respiratory Rate 20 Blood Pressure Pulse Oximetry 98 98 Oxygen Delivery BiPAP BiPAP Oxygen Flow Rate Fraction of Inspired Oxygen 50 05/20/25 00:00 05/20/25 00:00 05/20/25 00:00 Temperature 97.7 F Pulse Rate 60 60 Respiratory Rate 16 Blood Pressure 97/64 L Pulse Oximetry 99 99 Oxygen Delivery BiPAP Oxygen Flow Rate Fraction of Inspired Oxygen 40 05/20/25 02:00 05/20/25 02:17 05/20/25 02:18 Temperature Pulse Rate 60 68 68 Respiratory Rate 17 18 Blood Pressure Pulse Oximetry 98 Oxygen Delivery BiPAP Oxygen Flow Rate Fraction of Inspired Oxygen 05/20/25 04:00 05/20/25 04:00 05/20/25 04:00 Temperature 97.9 F Pulse Rate 72 71 Respiratory Rate 18 Blood Pressure 112/58 L Pulse Oximetry 96 100 Oxygen Delivery BiPAP Oxygen Flow Rate Fraction of Inspired Oxygen 40 05/20/25 06:00 05/20/25 07:37 05/20/25 07:39 Temperature Pulse Rate 77 74 Respiratory Rate 17 Blood Pressure Pulse Oximetry 99 Oxygen Delivery BiPAP Oxygen Flow Rate Fraction of Inspired Oxygen 05/20/25 07:42 05/20/25 08:00 05/20/25 11:44 Temperature 97.4 F L 97.6 F Pulse Rate 64 70 80 Respiratory Rate 19 16 20 Blood Pressure 108/59 L 90/74 L Pulse Oximetry 98 99 95 Oxygen Delivery BiPAP Oxygen Flow Rate Fraction of Inspired Oxygen Intake/Output Intake/Output: Intake & Output 05/17/25 05/18/25 05/19/25 05/20/25 23:59 23:59 23:59 23:59 Intake Total 510 1870 480 Output Total 100 1750 800 Balance 410 120 -320 Meds/Results Medications: Active Medications Generic Name Dose Route Start Last Admin Trade Name Freq PRN Reason Stop Dose Admin Acetaminophen 650 mg 05/18/25 15:40 05/19/25 17:01 Acetaminophen 325 Mg Tablet PO 650 mg Q4H PRN Administration Mild Pain (1-3) or Fever Albuterol/Ipratropium 3 ml 05/19/25 02:00 05/20/25 07:37 Ipratropium 0.5 Mg/Albuterol Sulfate 2.5 Mg Ampul.Neb 3 Ml INHALATION 3 ml Q6HRT ENID Administration Aspirin 81 mg 05/19/25 16:00 05/20/25 08:34 Aspirin 81 Mg Chewable Tablet PO 81 mg DAILY@0800 ENID Administration Dextrose 12.5 gm 05/18/25 19:52 Dextrose 50% 25 Gm/50 Ml Syringe IV PUSH PRN PRN Hypoglycemia Protocol Docusate Sodium 100 mg 05/18/25 19:50 05/19/25 17:01 Docusate Sodium 100 Mg Capsule PO 100 mg BID PRN Administration Constipation Furosemide 40 mg 05/19/25 09:00 05/20/25 08:33 Furosemide Inj 40 Mg/4 Ml Vial IV PUSH 40 mg BID ENID Administration Gabapentin 100 mg 05/18/25 21:00 05/20/25 08:33 Gabapentin 100 Mg Capsule PO 100 mg Q12HR ENID Administration Glucagon 1 mg 05/18/25 19:52 Glucagon For Inj 1 Mg Vial IM PRN PRN Hypoglycemia Protocol Glucose 15 gm 05/18/25 19:52 Glucose Oral Gel 15 Gm Of Glucse In 37.5 Gm Tube PO PRN PRN Hypoglycemia Protocol Guaifenesin 600 mg 05/19/25 21:00 05/20/25 08:33 Guaifenesin 12 Hr 600 Mg Tabcr PO 600 mg Q12HR ENID Administration Guaifenesin/Dextromethorphan 10 ml 05/19/25 16:01 Guaifenesin/Dextromethorphan 10 Ml Udc PO Q4HR PRN Cough Levofloxacin/Dextrose 750 mg in 150 mls @ 100 mls/hr 05/18/25 15:00 05/18/25 17:25 Levaquin 750 Mg/D5w 150 Ml IVPB Infused Q48H ENID Infusion Dextrose 1,000 mls @ 100 mls/hr 05/18/25 19:52 Dextrose 5% 1,000 Ml IVPB PRN PRN Hypoglycemia Protocol Insulin Aspart 2 - 5 units 05/19/25 08:00 05/20/25 11:25 Insulin Aspart (*Bkc) 100 Units/Ml SUB-Q Not Given TIDWM ENID Protocol Insulin Aspart 1 - 2 units 05/18/25 21:00 05/19/25 21:00 Insulin Aspart (*Bkc) 100 Units/Ml SUB-Q Not Given [facility] Protocol Sertraline HCl 25 mg 05/19/25 09:00 05/20/25 08:33 Sertraline Hcl 25 Mg Tablet PO 25 mg DAILY ENID Administration Sodium Chloride 1 spray 05/19/25 15:57 05/19/25 17:02 Saline 0.65% Bora Soln 44 Ml Btl NASAL 1 spray Q6HR PRN Administration Congestion Tramadol HCl 50 mg 05/18/25 19:51 Tramadol Hcl (*Crx) 50 Mg Tablet PO Q6H PRN PAIN RATED 4-6 Radiology Results: ITS Impressions Chest X-Ray 05/19/25 10:23 IMPRESSION: 1. Worsening interstitial pulmonary edema and/or multifocal airspace disease, with pleural effusions. Renal Ultrasound 05/19/25 17:43 Impression: No acute abnormality. Labs Labs: Laboratory Results - last 24 hr 05/19/25 05/19/25 05/19/25 15:44 16:09 18:14 WBC RBC Hgb Hct MCV MCH MCHC RDW Plt Count MPV Immature Gran % (Auto) Neut % (Auto) Lymph % (Auto) [place] % (Auto) Eos % (Auto) Baso % (Auto) Lymph # (Auto) [place] # (Auto) Eos # (Auto) Baso # (Auto) Abs Immat Gran (auto) Absolute Neuts (auto) Absolute Nucleated RBC Nucleated RBC % Puncture Site Right radial ABG pH 7.293 L* ABG pCO2 45.0 ABG pO2 44.9 L* ABG PO2/FiO2 Ratio 1.12 ABG HCO3 21.3 L ABG O2 Saturation 75.8 L* ABG O2 Content 11.5 L ABG Base Excess -5.1 A-a Gradient 188.6 Oxyhemoglobin 73.8 L* Total Hemoglobin 11.1 L O2 Delivery Device Nasal cannula O2 Liters/Min Not Reportable FiO2 40 Expiratory Pressure Inspiratory Pressure Sodium 134 L Potassium 5.3 H Chloride 102 Carbon Dioxide 23 Anion Gap 9 BUN 54 H Creatinine 1.51 H Estim Creat Clear Calc 40 Estimated GFR 44 L Glucose 114 H POC Capillary Glucose 120 H Calcium 8.4 Phosphorus Magnesium Total Creatine Kinase < 20 L Albumin Triglycerides Cholesterol LDL Cholesterol Direct HDL Direct Nasal MRSA (PCR) Influenza A (RT-PCR) Influenza B (RT-PCR) RSV (RT-PCR) SARS-CoV-2 RNA (RT-PCR) 0905/19/25 05/19/25 18:17 20:11 20:30 WBC RBC Hgb Hct MCV MCH MCHC RDW Plt Count MPV Immature Gran % (Auto) Neut % (Auto) Lymph % (Auto) [place] % (Auto) Eos % (Auto) Baso % (Auto) Lymph # (Auto) [place] # (Auto) Eos # (Auto) Baso # (Auto) Abs Immat Gran (auto) Absolute Neuts (auto) Absolute Nucleated RBC Nucleated RBC % Puncture Site Right radial ABG pH 7.283 L* ABG pCO2 47.3 H ABG pO2 296.7 H ABG PO2/FiO2 Ratio 2.97 ABG HCO3 21.9 L ABG O2 Saturation 99.6 ABG O2 Content 13.7 L ABG Base Excess -4.7 A-a Gradient 369.0 Oxyhemoglobin 98.9 Total Hemoglobin 9.3 L O2 Delivery Device Bipap O2 Liters/Min Not Reportable FiO2 100 Expiratory Pressure 5 Inspiratory Pressure 12 Sodium Potassium Chloride Carbon Dioxide Anion Gap BUN Creatinine Estim Creat Clear Calc Estimated GFR Glucose POC Capillary Glucose 132 H Calcium Phosphorus Magnesium Total Creatine Kinase Albumin Triglycerides Cholesterol LDL Cholesterol Direct HDL Direct Nasal MRSA (PCR) Influenza A (RT-PCR) Negative Influenza B (RT-PCR) Negative RSV (RT-PCR) Negative SARS-CoV-2 RNA (RT-PCR) Negative 05/20/25 05/20/25 05/20/25 00:20 03:56 05:01 WBC 5.1 RBC 2.43 L Hgb 8.6 L Hct 28.5 L MCV 117.3 H MCH 35.4 H MCHC 30.2 L RDW 14.2 Plt Count 202 MPV 10.2 Immature Gran % (Auto) 0.6 H Neut % (Auto) 67.3 Lymph % (Auto) 23.7 [place] % (Auto) 7.6 Eos % (Auto) 0.6 Baso % (Auto) 0.2 Lymph # (Auto) 1.21 [place] # (Auto) 0.4 Eos # (Auto) 0.0 Baso # (Auto) 0.0 Abs Immat Gran (auto) 0.03 Absolute Neuts (auto) 3.4 Absolute Nucleated RBC 0.000 Nucleated RBC % 0.0 Puncture Site Right radial ABG pH 7.331 L ABG pCO2 43.8 ABG pO2 93.3 ABG PO2/FiO2 Ratio 2.33 ABG HCO3 22.6 ABG O2 Saturation 96.6 ABG O2 Content ABG Base Excess -3.2 A-a Gradient 141.5 Oxyhemoglobin 95.1 Total Hemoglobin 9.8 L O2 Delivery Device Bipap O2 Liters/Min Not Reportable FiO2 40 Expiratory Pressure 5 Inspiratory Pressure 12 Sodium 135 L Potassium 5.1 H Chloride 103 Carbon Dioxide 22 Anion Gap 10 BUN 56 H Creatinine 1.52 H Estim Creat Clear Calc 40 Estimated GFR 44 L Glucose 117 H POC Capillary Glucose Calcium 8.3 L Phosphorus 5.1 H Magnesium 2.4 H Total Creatine Kinase Albumin 4.0 Triglycerides 51 Cholesterol 71 LDL Cholesterol Direct < 30 HDL Direct 30 Nasal MRSA (PCR) Not detected Influenza A (RT-PCR) Influenza B (RT-PCR) RSV (RT-PCR) SARS-CoV-2 RNA (RT-PCR) 05/20/25 05/20/25 07:17 11:06 WBC RBC Hgb Hct MCV MCH MCHC RDW Plt Count MPV Immature Gran % (Auto) Neut % (Auto) Lymph % (Auto) [place] % (Auto) Eos % (Auto) Baso % (Auto) Lymph # (Auto) [place] # (Auto) Eos # (Auto) Baso # (Auto) Abs Immat Gran (auto) Absolute Neuts (auto) Absolute Nucleated RBC Nucleated RBC % Puncture Site ABG pH ABG pCO2 ABG pO2 ABG PO2/FiO2 Ratio ABG HCO3 ABG O2 Saturation ABG O2 Content ABG Base Excess A-a Gradient Oxyhemoglobin Total Hemoglobin O2 Delivery Device O2 Liters/Min FiO2 Expiratory Pressure Inspiratory Pressure Sodium Potassium Chloride Carbon Dioxide Anion Gap BUN Creatinine Estim Creat Clear Calc Estimated GFR Glucose POC Capillary Glucose 114 H 138 H Calcium Phosphorus Magnesium Total Creatine Kinase Albumin Triglycerides Cholesterol LDL Cholesterol Direct HDL Direct Nasal MRSA (PCR) Influenza A (RT-PCR) Influenza B (RT-PCR) RSV (RT-PCR) SARS-CoV-2 RNA (RT-PCR)
[2025-05-20] MEDS: levoFLOXacin 750 MG/D5W 150 ML 750 MG/150 ML BAG 100 MG IVPB (16:02)
[2025-05-21] VITALS (27 sets, daily range): BP systolic 99–113; BP diastolic 47–61; PULSE 60–91; RESP 16–23; TEMP 36.4–36.9; O2SAT 92–100
[2025-05-21] MEDS: IPRATROPIUM 0.5 MG/ALBUTEROL SULFATE 2.5 MG AMPUL.NEB 3 ML INHALATION ×4 (01:08→20:48)
[2025-05-21 04:35] LABS: Hematocrit 28.1 % (42.0-52.0); Hemoglobin 8.6 g/dL (14.0-18.0); Immature Granulocyte Percent A 0.2 % (0-0.5); Lymphocytes Absolute Auto 1.12 K/mm3 (0.9-3.2); Mean Corpuscular HGB Conc 30.6 g/dl (32-36); Mean Corpuscular Hemoglobin 35.4 pg (26-34); Mean Corpuscular Volume 115.6 fl (80-100); Nucleated Red Blood Cells Absolute Auto 0.000 K/mm3 (0.0-0.012); Nucleated Red Blood Cells Perc 0.0 % (0.0-0.2); Platelet Count Result 189 k/mm3 (150-375); Red Blood Count 2.43 M/mm3 (4.6-6.20); White Blood Count 4.2 K/mm3 (4.5-10.0)
[2025-05-21 04:41] LABS: Hemoglobin A1C 5.5 % (<5.7)
[2025-05-21 04:53] LABS: Alanine Aminotransferase 34 U/L (6-50); Albumin Level 3.7 g/dL (3.5-5.1); Alkaline Phosphatase 69 U/L (38-126); Anion Gap 6 mmol/L (4-12); Aspartate Amino Transferase 18 U/L (17-59); Bilirubin,Total 0.7 mg/dL (0.2-1.3); Blood Urea Nitrogen 56 mg/dL (9-20); Calcium 8.3 mg/dL (8.4-10.2); Carbon Dioxide 26 mmol/L (22-30); Chloride 102 mmol/L (98-107); Estimated CRCL calculation 44 ml/min; Estimated Glomerular Filt Rate 48; Glucose 104 mg/dL (65-110); Magnesium 2.4 mg/dL (1.6-2.3); Potassium 5.0 mmol/L (3.4-5.0); Sodium 134 mmol/L (137-145); Total Protein 7.0 g/dL (6.3-8.2)
[2025-05-21 05:15] LABS: Thyroid Stimulating Hormone Reflex 1.600 uIU/mL (0.465-4.68)
[2025-05-21 05:16] LABS: Anisocytosis 1+; Hypochromasia 1+; Macrocytosis 1+ (NORMAL); Ovalocytes Occasional
[2025-05-21 05:17] LABS: Schistocytes None Seen
[2025-05-21 06:32] LABS: Vitamin B12 > 1000.0 pg/mL (239-931)
[2025-05-21 09:18] LABS: CRP 5.4 mg/dL (<1.0)
[2025-05-21] MEDS: guaiFENesin 12 HR 600 MG TABCR PO ×2 (09:22→20:12)
[2025-05-21] MEDS: SERTRALINE HCL 25 MG TABLET PO (09:22)
[2025-05-21] MEDS: GABAPENTIN 100 MG CAPSULE PO ×2 (09:22→20:11)
[2025-05-21] MEDS: ASPIRIN 81 MG CHEWABLE TABLET PO (09:22)
[2025-05-21] MEDS: FUROSEMIDE INJ 40 MG/4 ML VIAL IV PUSH ×2 (09:22→17:52)
[2025-05-21] MEDS: CEFEPIME 2 GM in SODIUM CHLORIDE 0.9% IV 50 ML 100 ML IVPB ×2 (09:29→20:12)
[2025-05-21] MEDS: DOXYCYCLINE HYCLATE 100 MG TABLET PO ×2 (09:29→20:12)
--- NOTE | 2025-05-21 09:33 | PM.PNCARD ---
Progress Note: A&P Assessment and Plan (1) CHF (congestive heart failure): Code(s): I50.9 - Heart failure, unspecified Status: Acute (2) Elevated troponin: Code(s): R79.89 - Other specified abnormal findings of blood chemistry Status: Acute (3) Hypertension: Code(s): I10 - Essential (primary) hypertension Status: Acute (4) MOHSEN (acute kidney injury): Code(s): N17.9 - Acute kidney failure, unspecified Status: Acute (5) Pneumonia: Code(s): J18.9 - Pneumonia, unspecified organism Status: Acute Plan Acute decompensated Systolic HF-EF of 25-30% per echo this admission. His pBNP was elevated at 11,500. His CXR demonstrates pulmonary edema and pleural effusions. Would continue with IV diuretics at this time. Will need to monitor I&O closely. Had good UO overnight New Cardiomyopathy. Unclear if ischemic vs. non-ischemic. Patient is a DNR and does not wish for ischemic evalaution. Will plan for GDMT with BB, ARB/ARNI and SGLT-2 as BP tolerates Elevated troponin. Troponin flat and not consistent with ACS. EKG shows atrial paced rhythm with LBBB. He is currently chest pain free. No plans for further ischemic evaluation as patient is DNR and does not wish for invasive w/u as discussed with him today. Continue aspirin 81 mg daily Pneumonia. Continue antibiotics as per primary team Acute kidney injury. Has improved with diuresis. Will monitor closely. Hypertension. Currently hypotensive. Will introduce meds as BP tolerates. Mild to moderate MR. In setting of cardiomyopathy. 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 Subjective Date/time seen: 05/21/25 09:33 Interval history: Interval History 05/21/25: Patient is sitting up in bed, nurse is at the bedside. Patient admits to continued SOB, but states it is improved. No chest pain or pressure. Reports noted LE edema, which is improved per patient and nursing reports. Review of Systems Review of Systems: All systems reviewed & are unremarkable except as noted in HPI and below Exam Narrative: General: Sitting up in bed. Alert. NAD Neck: no JVD Resp: lungs with exp wheezes and crackles CV: S1, S2 GI: abdomen round non-tender Extremites: +2 bilateral LE edema Objective Data Vital Signs Vital Signs: Vital Signs - 24 hr 05/20/25 10:00 05/20/25 11:44 05/20/25 12:00 Temperature 36.4 C Pulse Rate 75 80 68 Respiratory Rate 20 Blood Pressure 90/74 L Pulse Oximetry 95 Oxygen Delivery Oxygen Flow Rate Fraction of Inspired Oxygen 05/20/25 14:00 05/20/25 14:02 05/20/25 14:08 Temperature Pulse Rate 85 78 78 Respiratory Rate 17 17 Blood Pressure Pulse Oximetry Oxygen Delivery Oxygen Flow Rate Fraction of Inspired Oxygen 05/20/25 16:00 05/20/25 16:35 05/20/25 18:00 Temperature 36.6 C Pulse Rate 84 84 73 Respiratory Rate 18 Blood Pressure 125/62 Pulse Oximetry 94 Oxygen Delivery Oxygen Flow Rate Fraction of Inspired Oxygen 05/20/25 20:00 05/20/25 20:00 05/20/25 20:45 Temperature 36.8 C Pulse Rate 84 83 78 Respiratory Rate 18 17 Blood Pressure 115/62 Pulse Oximetry 94 Oxygen Delivery Oxygen Flow Rate Fraction of Inspired Oxygen 05/20/25 20:46 05/20/25 20:52 05/20/25 20:54 Temperature Pulse Rate 78 77 77 Respiratory Rate 20 22 H 20 Blood Pressure Pulse Oximetry 94 99 Oxygen Delivery Nasal Cannula BiPAP Oxygen Flow Rate 2 Fraction of Inspired Oxygen 28 05/20/25 22:00 05/21/25 00:00 05/21/25 01:08 Temperature 36.9 C Pulse Rate 80 75 75 Respiratory Rate 16 20 Blood Pressure 108/59 L Pulse Oximetry 100 Oxygen Delivery Oxygen Flow Rate Fraction of Inspired Oxygen 05/21/25 01:09 05/21/25 01:18 05/21/25 02:00 Temperature Pulse Rate 74 76 60 Respiratory Rate 23 H 20 Blood Pressure Pulse Oximetry 100 Oxygen Delivery BiPAP Oxygen Flow Rate Fraction of Inspired Oxygen 05/21/25 03:46 05/21/25 04:00 05/21/25 04:00 Temperature 36.7 C Pulse Rate 67 68 62 Respiratory Rate 16 16 Blood Pressure 99/52 L Pulse Oximetry 98 99 Oxygen Delivery BiPAP Oxygen Flow Rate Fraction of Inspired Oxygen 05/21/25 06:00 05/21/25 07:08 05/21/25 08:03 Temperature 36.5 C Pulse Rate 69 78 87 Respiratory Rate 18 20 Blood Pressure 105/58 L Pulse Oximetry 94 92 Oxygen Delivery Nasal Cannula Oxygen Flow Rate 2 Fraction of Inspired Oxygen 05/21/25 08:03 05/21/25 08:08 Temperature Pulse Rate 87 85 Respiratory Rate 20 20 Blood Pressure Pulse Oximetry Oxygen Delivery Oxygen Flow Rate Fraction of Inspired Oxygen Intake/Output Intake/Output: Intake & Output 05/18/25 05/19/25 05/20/25 05/21/25 23:59 23:59 23:59 23:59 Intake Total 510 1870 1370 120 Output Total 100 1750 2350 1800 Balance 410 146 -461 -5119 Meds/Results Medications: Active Medications Generic Name Dose Route Start Last Admin Trade Name Freq PRN Reason Stop Dose Admin Acetaminophen 650 mg 05/18/25 15:40 05/19/25 17:01 Acetaminophen 325 Mg Tablet PO 650 mg Q4H PRN Administration Mild Pain (1-3) or Fever Albuterol/Ipratropium 3 ml 05/19/25 02:00 05/21/25 08:02 Ipratropium 0.5 Mg/Albuterol Sulfate 2.5 Mg Ampul.Neb 3 Ml INHALATION 3 ml Q6HRT ENID Administration Aspirin 81 mg 05/19/25 16:00 05/21/25 09:22 Aspirin 81 Mg Chewable Tablet PO 81 mg DAILY@0800 ENID Administration Dextrose 12.5 gm 05/18/25 19:52 Dextrose 50% 25 Gm/50 Ml Syringe IV PUSH PRN PRN Hypoglycemia Protocol Docusate Sodium 100 mg 05/18/25 19:50 05/19/25 17:01 Docusate Sodium 100 Mg Capsule PO 100 mg BID PRN Administration Constipation Doxycycline Hyclate 100 mg 05/21/25 09:00 05/21/25 09:29 Doxycycline Hyclate 100 Mg Tablet PO 05/26/25 08:59 100 mg Q12HR ENID Administration Furosemide 40 mg 05/19/25 09:00 05/21/25 09:22 Furosemide Inj 40 Mg/4 Ml Vial IV PUSH 40 mg BID ENID Administration Gabapentin 100 mg 05/18/25 21:00 05/21/25 09:22 Gabapentin 100 Mg Capsule PO 100 mg Q12HR ENID Administration Glucagon 1 mg 05/18/25 19:52 Glucagon For Inj 1 Mg Vial IM PRN PRN Hypoglycemia Protocol Glucose 15 gm 05/18/25 19:52 Glucose Oral Gel 15 Gm Of Glucse In 37.5 Gm Tube PO PRN PRN Hypoglycemia Protocol Guaifenesin 600 mg 05/19/25 21:00 05/21/25 09:22 Guaifenesin 12 Hr 600 Mg Tabcr PO 600 mg Q12HR ENID Administration Guaifenesin/Dextromethorphan 10 ml 05/19/25 16:01 Guaifenesin/Dextromethorphan 10 Ml Udc PO Q4HR PRN Cough Dextrose 1,000 mls @ 100 mls/hr 05/18/25 19:52 Dextrose 5% 1,000 Ml IVPB PRN PRN Hypoglycemia Protocol Cefepime HCl 2 gm/ Sodium 50 mls @ 100 mls/hr 05/21/25 09:00 05/21/25 09:29 Chloride IVPB 100 mls/hr Q12H ENID Administration Vancomycin HCl 1,750 mg in 500 mls @ 250 mls/hr 05/21/25 10:00 Vancomycin 1,750 Mg/Ns 500 Ml IVPB 05/21/25 11:59 ONCE ONE Insulin Aspart 2 - 5 units 05/19/25 08:00 05/21/25 09:22 Insulin Aspart (*Bkc) 100 Units/Ml SUB-Q Not Given TIDWM COUNTS INCLUDE 234 BEDS AT [facility] Protocol Insulin Aspart 1 - 2 units 05/18/25 21:00 05/20/25 23:09 Insulin Aspart (*Bkc) 100 Units/Ml SUB-Q Not Given HS COUNTS INCLUDE 234 BEDS AT [facility] Protocol Sertraline HCl 25 mg 05/19/25 09:00 05/21/25 09:22 Sertraline Hcl 25 Mg Tablet PO 25 mg DAILY ENID Administration Sodium Chloride 1 spray 05/19/25 15:57 05/19/25 17:02 Saline 0.65% Bora Soln 44 Ml Btl NASAL 1 spray Q6HR PRN Administration Congestion Tramadol HCl 50 mg 05/18/25 19:51 Tramadol Hcl (*Crx) 50 Mg Tablet PO Q6H PRN PAIN RATED 4-6 Vancomycin HCl 1 each 05/21/25 08:25 Vancomycin For Acute Kidney Injury IVPB PRN PRN Vancomycin Protocol Radiology Results: ITS Impressions Renal Ultrasound 05/19/25 17:43 Impression: No acute abnormality. Chest X-Ray 05/21/25 07:47 IMPRESSION: 1. Enlarging right and persistent left pleural effusions, with associated basilar atelectasis and/or airspace disease. 2. Persistent interstitial pulmonary edema and/or pneumonitis. Labs Labs: Laboratory Results - last 24 hr 05/20/25 05/20/25 05/20/25 11:06 15:38 21:07 WBC RBC Hgb Hct MCV MCH MCHC RDW Plt Count MPV Immature Gran % (Auto) Neut % (Auto) Lymph % (Auto) [place] % (Auto) Eos % (Auto) Baso % (Auto) Lymph # (Auto) [place] # (Auto) Eos # (Auto) Baso # (Auto) Abs Immat Gran (auto) Absolute Neuts (auto) Absolute Nucleated RBC Band Neutrophils % Nucleated RBC % Platelet Estimate Hypochromasia Anisocytosis Macrocytosis Ovalocytes Schistocytes Sodium Potassium Chloride Carbon Dioxide Anion Gap BUN Creatinine Estim Creat Clear Calc Estimated GFR Glucose POC Capillary Glucose 138 H 111 H 147 H Hemoglobin A1c Lactic Acid Calcium Phosphorus Magnesium Total Bilirubin AST ALT Alkaline Phosphatase C-Reactive Protein Total Protein Albumin Vitamin B12 Folate TSH (Reflex) 05/21/25 05/21/25 05/21/25 03:49 07:07 08:37 WBC 4.2 L RBC 2.43 L Hgb 8.6 L Hct 28.1 L MCV 115.6 H MCH 35.4 H MCHC 30.6 L RDW 14.0 Plt Count 189 MPV 10.9 H Immature Gran % (Auto) 0.2 Neut % (Auto) 61.9 Lymph % (Auto) 26.5 [place] % (Auto) 8.8 H Eos % (Auto) 2.4 Baso % (Auto) 0.2 Lymph # (Auto) 1.12 [place] # (Auto) 0.4 Eos # (Auto) 0.1 Baso # (Auto) 0.0 Abs Immat Gran (auto) 0.01 Absolute Neuts (auto) 2.6 Absolute Nucleated RBC 0.000 Band Neutrophils % Not Reportable Nucleated RBC % 0.0 Platelet Estimate Adequate Hypochromasia 1+ Anisocytosis 1+ Macrocytosis 1+ Ovalocytes Occasional Schistocytes None seen Sodium 134 L Potassium 5.0 Chloride 102 Carbon Dioxide 26 Anion Gap 6 BUN 56 H Creatinine 1.39 H Estim Creat Clear Calc 44 Estimated GFR 48 L Glucose 104 POC Capillary Glucose 94 Hemoglobin A1c 5.5 Lactic Acid 2.0 Calcium 8.3 L Phosphorus 4.3 Magnesium 2.4 H Total Bilirubin 0.7 AST 18 ALT 34 Alkaline Phosphatase 69 C-Reactive Protein 5.4 H Total Protein 7.0 Albumin 3.7 Vitamin B12 > 1000.0 H Folate > 20.0 H TSH (Reflex) 1.600
[2025-05-21 09:34] LABS: Procalcitonin 0.1 ng/mL
[2025-05-21] MEDS: VANCOMYCIN 1,750 MG/NS 500 ML 1,750 MG/500 ML BAG 250 MG IVPB (10:23)
--- NOTE | 2025-05-21 15:05 | P.PNIM_ITS ---
Progress Note: A&P Assessment and Plan (1) Acute respiratory failure: Code(s): J96.00 - Acute respiratory failure, unspecified whether with hypoxia or hypercapnia Status: Acute Assessment and Plan: Patient had increasing WOB in the evening of 05/19. Audible wheezing with grunting respirations, tachypneic and hypoxic. AB.29/45/45 but may be a mixed gas. BiPAP started. ABG better 7.33/44/93 on bipap Able to come off bipap during the day. [place] related to CHF and/or PNA. Continue Neb treatments. Continue Lasix. Adjust Abx. Wean O2 as tolerated. Add CPT (2) CHF (congestive heart failure): Code(s): I50.9 - Heart failure, unspecified Status: Acute Assessment and Plan: Patient presents with SOB. Was on diuretics but held recently due to renal insufficiency. CXR showing CHF with possible superimposed PNA. WBC normal. BNP 75703. Troponin peaked at 0.107 EKG showing possible atrial paced rhythm and Lt BBB. Lasix IV 40mg Q12h started. Echo showing EF 25-30%, abnormal diastolic function, mild-moderate MR, mild TR, severe pulm HTN (71mmHg). Cardiomyopathy is new (EF normal in 2021). Cardiology consulted Renal function remaining stable and he is tolerating diuresis. Negative fluid balance. Patient not interested in ischemic evaluation Monitor daily weights, fluid balance, I/Os and renal function. Add GDMT when able (3) Pneumonia: Code(s): J18.9 - Pneumonia, unspecified organism Status: Acute Assessment and Plan: As above. Levofloxacin renally dosed and started MRSA nasal screen negative. COVID, RSV and influenza PCR negative. BCx NGTD Repeat CXR reviewed and showing worsening effusions with associated airspace dz and persistent interstital edema and/or pneumonitis with almost a white out of right lung BCx NGTD Repeat lactic normal at 2.0 but higher then admission. CRP higher at 5.4. WBC low at 4200. PCT 0.1. Concern for worsening CXR findings despite negative fluid balance. Continue Duonebs. Continue Mucinex. Change Levaquin to broader spectrum with Vanco, Cefepime and Doxy. Check sputum. Check resp pathogen panel. Add CPT. Wean O2 as tolerated (4) Elevated troponin: Code(s): R79.89 - Other specified abnormal findings of blood chemistry Status: Acute Assessment and Plan: Troponins elevated but flat EKG as above Probably demand ischemia from resp failure, CHF and PNA Continue ASA (5) MOHSEN (acute kidney injury): Code(s): N17.9 - Acute kidney failure, unspecified Status: Acute Assessment and Plan: Cr 1.45 on admission. Baseline Cr 1.1. No IV fluids due to severe CHF Started on IV Lasix. Noted to have urine retention of at least 800mL and Villegas placed. Cr may improve with resolution of retention Potasium mildly elevated but stable. Continue low potassium diet Renal US showing no acute abnormalities Cr stable 1.4-1.5. Continue to monitor. Hold off on Flomax since BP soft Monitor renal function, electrolytes and UOP. (6) Hypertension: Code(s): I10 - Essential (primary) hypertension Status: Acute Assessment and Plan: Patient's blood pressure was reviewed on 05/21 Blood pressure soft at times. Will continue to monitor. Consider midodrine if needed (7) Diabetes: Code(s): E11.9 - Type 2 diabetes mellitus without complications Status: Acute Assessment and Plan: The patient's blood glucose was reviewed on 05/21 Glucose remains well controlled. Metformin on hold Continue AccuCheks covering with sliding scale. Hypoglycemia protocol available as needed. Continue to monitor Plan DVT Prophylaxis - SCDs Code status - DNR Start PT/OT Subjective Date/time seen: 05/21/25 15:05 Interval history: 85yo male with pacemaker, hypertension and diabetes presents the hospital with weakness and increased shortness of breath. Feels better. Was up to the chair for about 3hours. SOB about the same. No CP. No abd pain. Eating okay. Exam Narrative: AF 98.1 101/48 87 20 94% 2L Gen - NARD Chest - bibasilar crackles with inspiratory and expir wheezes. CV - RRR S1/S2; Tele showing no significant dysrhythmias Abd - soft, NT/ND - urinary catheter in place draining clear yellow urine Ext - trace-1+ pedal edema. Rodrick hose in place Psych - pleasant and cooperative. Skin - warm and dry Objective Data Vital Signs Vital Signs: Vital Signs - 24 hr 05/20/25 16:00 05/20/25 16:35 05/20/25 18:00 Temperature 97.8 F Pulse Rate 84 84 73 Respiratory Rate 18 Blood Pressure 125/62 Pulse Oximetry 94 Oxygen Delivery Oxygen Flow Rate Fraction of Inspired Oxygen 05/20/25 20:00 05/20/25 20:00 05/20/25 20:45 Temperature 98.2 F Pulse Rate 84 83 78 Respiratory Rate 18 17 Blood Pressure 115/62 Pulse Oximetry 94 Oxygen Delivery Oxygen Flow Rate Fraction of Inspired Oxygen 05/20/25 20:46 05/20/25 20:52 05/20/25 20:54 Temperature Pulse Rate 78 77 77 Respiratory Rate 20 22 H 20 Blood Pressure Pulse Oximetry 94 99 Oxygen Delivery Nasal Cannula BiPAP Oxygen Flow Rate 2 Fraction of Inspired Oxygen 05/20/25 22:00 05/21/25 00:00 05/21/25 01:08 Temperature 98.4 F Pulse Rate 80 75 75 Respiratory Rate 16 20 Blood Pressure 108/59 L Pulse Oximetry 100 Oxygen Delivery Oxygen Flow Rate Fraction of Inspired Oxygen 05/21/25 01:09 05/21/25 01:18 05/21/25 02:00 Temperature Pulse Rate 74 76 60 Respiratory Rate 23 H 20 Blood Pressure Pulse Oximetry 100 Oxygen Delivery BiPAP Oxygen Flow Rate Fraction of Inspired Oxygen 05/21/25 03:46 05/21/25 04:00 05/21/25 04:00 Temperature 98.0 F Pulse Rate 67 68 62 Respiratory Rate 16 16 Blood Pressure 99/52 L Pulse Oximetry 98 99 Oxygen Delivery BiPAP Oxygen Flow Rate Fraction of Inspired Oxygen 05/21/25 06:00 05/21/25 07:08 05/21/25 08:03 Temperature 97.7 F Pulse Rate 69 78 87 Respiratory Rate 18 20 Blood Pressure 105/58 L Pulse Oximetry 94 92 Oxygen Delivery Nasal Cannula Oxygen Flow Rate 2 Fraction of Inspired Oxygen 05/21/25 08:03 05/21/25 08:08 05/21/25 08:30 Temperature Pulse Rate 87 85 91 Respiratory Rate 20 20 Blood Pressure Pulse Oximetry Oxygen Delivery Oxygen Flow Rate Fraction of Inspired Oxygen 05/21/25 10:00 05/21/25 10:47 05/21/25 10:59 Temperature Pulse Rate 69 Respiratory Rate Blood Pressure Pulse Oximetry Oxygen Delivery Nasal Cannula Nasal Cannula Oxygen Flow Rate 1 2 Fraction of Inspired Oxygen 05/21/25 11:28 05/21/25 12:00 05/21/25 13:36 Temperature 98.1 F Pulse Rate 73 86 81 Respiratory Rate 20 20 Blood Pressure 101/48 L Pulse Oximetry 97 94 Oxygen Delivery Nasal Cannula Oxygen Flow Rate 2 Fraction of Inspired Oxygen 05/21/25 13:36 05/21/25 13:50 Temperature Pulse Rate 81 87 Respiratory Rate 20 20 Blood Pressure Pulse Oximetry Oxygen Delivery Oxygen Flow Rate Fraction of Inspired Oxygen Intake/Output Intake/Output: Intake & Output 05/18/25 05/19/25 05/20/25 05/21/25 23:59 23:59 23:59 23:59 Intake Total 510 1870 1370 410 Output Total 100 1750 2350 1800 Balance 410 176 -301 -[phone] Meds/Results Medications: Active Medications Generic Name Dose Route Start Last Admin Trade Name Freq PRN Reason Stop Dose Admin Acetaminophen 650 mg 05/18/25 15:40 05/19/25 17:01 Acetaminophen 325 Mg Tablet PO 650 mg Q4H PRN Administration Mild Pain (1-3) or Fever Albuterol/Ipratropium 3 ml 05/19/25 02:00 05/21/25 13:35 Ipratropium 0.5 Mg/Albuterol Sulfate 2.5 Mg Ampul.Neb 3 Ml INHALATION 3 ml Q6HRT ENID Administration Aspirin 81 mg 05/19/25 16:00 05/21/25 09:22 Aspirin 81 Mg Chewable Tablet PO 81 mg DAILY@0800 ENID Administration Dextrose 12.5 gm 05/18/25 19:52 Dextrose 50% 25 Gm/50 Ml Syringe IV PUSH PRN PRN Hypoglycemia Protocol Docusate Sodium 100 mg 05/18/25 19:50 05/19/25 17:01 Docusate Sodium 100 Mg Capsule PO 100 mg BID PRN Administration Constipation Doxycycline Hyclate 100 mg 05/21/25 09:00 05/21/25 09:29 Doxycycline Hyclate 100 Mg Tablet PO 05/26/25 08:59 100 mg Q12HR ENID Administration Furosemide 40 mg 05/19/25 09:00 05/21/25 09:22 Furosemide Inj 40 Mg/4 Ml Vial IV PUSH 40 mg BID ENID Administration Gabapentin 100 mg 05/18/25 21:00 05/21/25 09:22 Gabapentin 100 Mg Capsule PO 100 mg Q12HR ENID Administration Glucagon 1 mg 05/18/25 19:52 Glucagon For Inj 1 Mg Vial IM PRN PRN Hypoglycemia Protocol Glucose 15 gm 05/18/25 19:52 Glucose Oral Gel 15 Gm Of Glucse In 37.5 Gm Tube PO PRN PRN Hypoglycemia Protocol Guaifenesin 600 mg 05/19/25 21:00 05/21/25 09:22 Guaifenesin 12 Hr 600 Mg Tabcr PO 600 mg Q12HR ENID Administration Guaifenesin/Dextromethorphan 10 ml 05/19/25 16:01 Guaifenesin/Dextromethorphan 10 Ml Udc PO Q4HR PRN Cough Dextrose 1,000 mls @ 100 mls/hr 05/18/25 19:52 Dextrose 5% 1,000 Ml IVPB PRN PRN Hypoglycemia Protocol Cefepime HCl 2 gm/ Sodium 50 mls @ 100 mls/hr 05/21/25 09:00 05/21/25 10:00 Chloride IVPB Infused Q12H ENID Infusion Insulin Aspart 2 - 5 units 05/19/25 08:00 05/21/25 09:22 Insulin Aspart (*Bkc) 100 Units/Ml SUB-Q Not Given TIDWM [facility] Protocol Insulin Aspart 1 - 2 units 05/18/25 21:00 05/20/25 23:09 Insulin Aspart (*Bkc) 100 Units/Ml SUB-Q Not Given HS [facility] Protocol Sertraline HCl 25 mg 05/19/25 09:00 05/21/25 09:22 Sertraline Hcl 25 Mg Tablet PO 25 mg DAILY [place] Administration Sodium Chloride 1 spray 05/19/25 15:57 05/19/25 17:02 Saline 0.65% [place] Soln 44 Ml Btl NASAL 1 spray Q6HR PRN Administration Congestion Tramadol HCl 50 mg 05/18/25 19:51 Tramadol Hcl (*Crx) 50 Mg Tablet PO Q6H PRN PAIN RATED 4-6 Vancomycin HCl 1 each 05/21/25 08:25 Vancomycin For Acute Kidney Injury IVPB PRN PRN Vancomycin Protocol Radiology Results: ITS Impressions Renal Ultrasound 05/19/25 17:43 Impression: No acute abnormality. Chest X-Ray 05/21/25 07:47 IMPRESSION: 1. Enlarging right and persistent left pleural effusions, with associated basilar atelectasis and/or airspace disease. 2. Persistent interstitial pulmonary edema and/or pneumonitis. Labs Labs: Laboratory Results - last 24 hr 05/20/25 05/20/25 05/20/25 05:01 15:38 21:07 WBC RBC Hgb Hct MCV MCH MCHC RDW Plt Count MPV Immature Gran % (Auto) Neut % (Auto) Lymph % (Auto) [place] % (Auto) Eos % (Auto) Baso % (Auto) Lymph # (Auto) [place] # (Auto) Eos # (Auto) Baso # (Auto) Abs Immat Gran (auto) Absolute Neuts (auto) Absolute Nucleated RBC Band Neutrophils % Nucleated RBC % Platelet Estimate Hypochromasia Anisocytosis Macrocytosis Ovalocytes Schistocytes ABG O2 Content Not Reportable Sodium Potassium Chloride Carbon Dioxide Anion Gap BUN Creatinine Estim Creat Clear Calc Estimated GFR Glucose POC Capillary Glucose 111 H 147 H Hemoglobin A1c Lactic Acid Calcium Phosphorus Magnesium Total Bilirubin AST ALT Alkaline Phosphatase C-Reactive Protein Total Protein Albumin Vitamin B12 Folate Procalcitonin TSH (Reflex) Nasal RSV Type A (PCR) Nasal RSV Type B (PCR) Chlamy pneumoniae PCR Adenovirus DNA Human Bocavirus (JERO) Coronavirus Type OC43 Coronavirus Type HKU1 Coronavirus Type 229E Coronavirus Type NL63 Human Metapneumovir PCR Influenza A (PCR) Influenza A (H1) RNA Influenza A (H3) PCR M. pneumoniae DNA Parainfluenza PCR Parainfluenza 2 (PCR) Parainfluenza 3 RNA (PCR) Parainfluenza 4 (PCR) Rhino/Enterovirus (JERO) SARS-CoV-2 RNA (RT-PCR) Influenza Type B (PCR) Misc Test Comment 05/21/25 05/21/25 05/21/25 03:49 07:07 08:37 WBC 4.2 L RBC 2.43 L Hgb 8.6 L Hct 28.1 L MCV 115.6 H MCH 35.4 H MCHC 30.6 L RDW 14.0 Plt Count 189 MPV 10.9 H Immature Gran % (Auto) 0.2 Neut % (Auto) 61.9 Lymph % (Auto) 26.5 [place] % (Auto) 8.8 H Eos % (Auto) 2.4 Baso % (Auto) 0.2 Lymph # (Auto) 1.12 [place] # (Auto) 0.4 Eos # (Auto) 0.1 Baso # (Auto) 0.0 Abs Immat Gran (auto) 0.01 Absolute Neuts (auto) 2.6 Absolute Nucleated RBC 0.000 Band Neutrophils % Not Reportable Nucleated RBC % 0.0 Platelet Estimate Adequate Hypochromasia 1+ Anisocytosis 1+ Macrocytosis 1+ Ovalocytes Occasional Schistocytes None seen ABG O2 Content Sodium 134 L Potassium 5.0 Chloride 102 Carbon Dioxide 26 Anion Gap 6 BUN 56 H Creatinine 1.39 H Estim Creat Clear Calc 44 Estimated GFR 48 L Glucose 104 POC Capillary Glucose 94 Hemoglobin A1c 5.5 Lactic Acid 2.0 Calcium 8.3 L Phosphorus 4.3 Magnesium 2.4 H Total Bilirubin 0.7 AST 18 ALT 34 Alkaline Phosphatase 69 C-Reactive Protein 5.4 H Total Protein 7.0 Albumin 3.7 Vitamin B12 > 1000.0 H Folate > 20.0 H Procalcitonin 0.1 TSH (Reflex) 1.600 Nasal RSV Type A (PCR) Nasal RSV Type B (PCR) Chlamy pneumoniae PCR Adenovirus DNA Human Bocavirus (JERO) Coronavirus Type OC43 Coronavirus Type HKU1 Coronavirus Type 229E Coronavirus Type NL63 Human Metapneumovir PCR Influenza A (PCR) Influenza A (H1) RNA Influenza A (H3) PCR M. pneumoniae DNA Parainfluenza PCR Parainfluenza 2 (PCR) Parainfluenza 3 RNA (PCR) Parainfluenza 4 (PCR) Rhino/Enterovirus (JERO) SARS-CoV-2 RNA (RT-PCR) Influenza Type B (PCR) [facility] Test Comment 05/21/25 05/21/25 11:25 13:18 WBC RBC Hgb Hct MCV MCH MCHC RDW Plt Count MPV Immature Gran % (Auto) Neut % (Auto) Lymph % (Auto) [place] % (Auto) Eos % (Auto) Baso % (Auto) Lymph # (Auto) [place] # (Auto) Eos # (Auto) Baso # (Auto) Abs Immat Gran (auto) Absolute Neuts (auto) Absolute Nucleated RBC Band Neutrophils % Nucleated RBC % Platelet Estimate Hypochromasia Anisocytosis Macrocytosis Ovalocytes Schistocytes ABG O2 Content Sodium Potassium Chloride Carbon Dioxide Anion Gap BUN Creatinine Estim Creat Clear Calc Estimated GFR Glucose POC Capillary Glucose 145 H Hemoglobin A1c Lactic Acid Calcium Phosphorus Magnesium Total Bilirubin AST ALT Alkaline Phosphatase C-Reactive Protein Total Protein Albumin Vitamin B12 Folate Procalcitonin TSH (Reflex) Nasal RSV Type A (PCR) Cancelled Nasal RSV Type B (PCR) Cancelled Chlamy pneumoniae PCR Cancelled Adenovirus DNA Cancelled Human Bocavirus (JERO) Cancelled Coronavirus Type OC43 Cancelled Coronavirus Type HKU1 Cancelled Coronavirus Type 229E Cancelled Coronavirus Type NL63 Cancelled Human Metapneumovir PCR Cancelled Influenza A (PCR) Cancelled Influenza A (H1) RNA Cancelled Influenza A (H3) PCR Cancelled M. pneumoniae DNA Cancelled Parainfluenza PCR Cancelled Parainfluenza 2 (PCR) Cancelled Parainfluenza 3 RNA (PCR) Cancelled Parainfluenza 4 (PCR) Cancelled Rhino/Enterovirus (JERO) Cancelled SARS-CoV-2 RNA (RT-PCR) Cancelled Influenza Type B (PCR) Cancelled Misc Test Comment Cancelled
[2025-05-22] VITALS (29 sets, daily range): BP systolic 103–129; BP diastolic 40–63; PULSE 66–92; RESP 17–22; TEMP 36.6–36.8; O2SAT 93–100
[2025-05-22] MEDS: IPRATROPIUM 0.5 MG/ALBUTEROL SULFATE 2.5 MG AMPUL.NEB 3 ML INHALATION ×4 (02:25→20:01)
[2025-05-22 03:55] LABS: Hematocrit 27.7 % (42.0-52.0); Hemoglobin 8.6 g/dL (14.0-18.0); Immature Granulocyte Percent A 0.5 % (0-0.5); Lymphocytes Absolute Auto 1.68 K/mm3 (0.9-3.2); Mean Corpuscular HGB Conc 31.0 g/dl (32-36); Mean Corpuscular Hemoglobin 35.5 pg (26-34); Mean Corpuscular Volume 114.5 fl (80-100); Nucleated Red Blood Cells Absolute Auto 0.000 K/mm3 (0.0-0.012); Nucleated Red Blood Cells Perc 0.0 % (0.0-0.2); Platelet Count Result 218 k/mm3 (150-375); Red Blood Count 2.42 M/mm3 (4.6-6.20); White Blood Count 5.5 K/mm3 (4.5-10.0)
[2025-05-22 04:10] LABS: Anion Gap 6 mmol/L (4-12); Blood Urea Nitrogen 54 mg/dL (9-20); CRP 3.6 mg/dL (<1.0); Calcium 8.4 mg/dL (8.4-10.2); Carbon Dioxide 26 mmol/L (22-30); Chloride 104 mmol/L (98-107); Estimated CRCL calculation 49 ml/min; Estimated Glomerular Filt Rate 52; Glucose 112 mg/dL (65-110); Potassium 4.9 mmol/L (3.4-5.0); Sodium 136 mmol/L (137-145)
[2025-05-22 04:42] LABS: Anisocytosis 1+; Macrocytosis 1+ (NORMAL); Schistocytes None Seen
[2025-05-22] MEDS: GABAPENTIN 100 MG CAPSULE PO ×2 (09:05→20:53)
[2025-05-22] MEDS: DOXYCYCLINE HYCLATE 100 MG TABLET PO ×2 (09:05→20:52)
[2025-05-22] MEDS: guaiFENesin 12 HR 600 MG TABCR PO ×2 (09:05→20:52)
[2025-05-22] MEDS: SERTRALINE HCL 25 MG TABLET PO (09:05)
[2025-05-22] MEDS: FUROSEMIDE INJ 40 MG/4 ML VIAL IV PUSH (09:05)
[2025-05-22] MEDS: CEFEPIME 2 GM in SODIUM CHLORIDE 0.9% IV 50 ML 100 ML IVPB ×2 (09:05→20:56)
[2025-05-22] MEDS: ASPIRIN 81 MG CHEWABLE TABLET PO (09:05)
--- NOTE | 2025-05-22 11:32 | P.PNCA_ITS ---
Progress Note: A&P Assessment and Plan (1) CHF (congestive heart failure): Code(s): I50.9 - Heart failure, unspecified Status: Acute Plan 85-year-old man with newly diagnosed heart failure with reduced ejection fraction. Conservative treatment is being pursued because of his advanced age and DNR status. By exam he seems to be nearly euvolemic. I am going to place him back on his oral furosemide regimen and start Entresto this evening. Hopefully he will tolerate this hemodynamically. As stated in our notes there is no intention to conduct ischemia workup given his advanced age and DNR status. Osmani Jimenez MD [facility] Subjective Date/time seen: Date of service 05/22/25 11:32 Interval history: Interval History 05/21/25: Patient is sitting up in bed, nurse is at the bedside. Patient admits to continued SOB, but states it is improved. No chest pain or pressure. Reports noted LE edema, which is improved per patient and nursing reports. 05/22/2025: Patient appears comfortable watching the news on television says his breathing is better. Discussion with the patient regarding his heart failure with reduced ejection fraction Exam Narrative: General: Sitting up in bed. Alert. NAD Neck: no JVD Resp: lungs with exp wheezes and crackles CV: S1, S2 GI: abdomen round non-tender Extremites: +2 bilateral LE edema Const: General: comfortable and no acute distress Other: Able to lie flat HENMT: Face/Nose/Sinus: Normal nares present and no epistaxis Mouth: Yes moist mucous membranes Eyes: Sclera: sclerae normal Pupils: Equal, round and reactive pupils present Neck: Neck: supple and no JVD Carotids: no bruits Resp: Auscultation: lung sounds not diminished Other: Scant pulmonary rales Cardio: Rate: regular rate Rhythm: regular rhythm Heart sounds: no gallops, no murmurs and no rubs GI: Auscultation: normal bowel sounds Skin: General skin exam: normal color, rashes and/or lesions noted and no erythema Other: Warm Neuro: Cranial nerves: Yes Equal, round and reactive pupils present Speech: normal speech Other: No obvious focal deficit or facial asymmetry Extrem: General: edema bilateral Other: Normal capillary refills Intact distal pulses. Objective Data Vital Signs Vital Signs: Vital Signs - 24 hr 05/21/25 12:00 05/21/25 13:36 05/21/25 13:36 Temperature Pulse Rate 86 81 81 Respiratory Rate 20 20 Blood Pressure Pulse Oximetry 94 Oxygen Delivery Nasal Cannula Oxygen Flow Rate 2 Fraction of Inspired Oxygen 05/21/25 13:50 05/21/25 15:22 05/21/25 16:00 Temperature 36.5 C Pulse Rate 87 88 88 Respiratory Rate 20 22 H 22 H Blood Pressure 111/58 L Pulse Oximetry 95 95 Oxygen Delivery Nasal Cannula Oxygen Flow Rate 2 Fraction of Inspired Oxygen 05/21/25 16:00 05/21/25 16:00 05/21/25 18:00 Temperature Pulse Rate 88 80 86 Respiratory Rate Blood Pressure Pulse Oximetry Oxygen Delivery Oxygen Flow Rate Fraction of Inspired Oxygen 05/21/25 20:00 05/21/25 20:00 05/21/25 20:15 Temperature 36.4 C L Pulse Rate 82 87 Respiratory Rate 22 H Blood Pressure 113/61 Pulse Oximetry 94 95 Oxygen Delivery Nasal Cannula Oxygen Flow Rate 2 Fraction of Inspired Oxygen 05/21/25 20:48 05/21/25 20:49 05/21/25 22:00 Temperature Pulse Rate 84 69 76 Respiratory Rate 20 20 Blood Pressure Pulse Oximetry 97 Oxygen Delivery BiPAP Oxygen Flow Rate Fraction of Inspired Oxygen 05/21/25 23:43 05/21/25 23:49 05/22/25 00:00 Temperature 36.5 C Pulse Rate 71 78 77 Respiratory Rate 22 H 22 H Blood Pressure 110/47 L Pulse Oximetry 98 98 Oxygen Delivery BiPAP Oxygen Flow Rate Fraction of Inspired Oxygen 05/22/25 00:00 05/22/25 02:42 05/22/25 02:43 Temperature Pulse Rate 86 75 Respiratory Rate 20 Blood Pressure Pulse Oximetry 99 Oxygen Delivery BiPAP Oxygen Flow Rate Fraction of Inspired Oxygen 40 05/22/25 03:22 05/22/25 04:00 05/22/25 04:00 Temperature Pulse Rate 69 72 Respiratory Rate 20 Blood Pressure Pulse Oximetry 98 95 Oxygen Delivery BiPAP BiPAP Oxygen Flow Rate 2 Fraction of Inspired Oxygen 05/22/25 05:10 05/22/25 06:00 05/22/25 07:45 Temperature 36.6 C 36.8 C Pulse Rate 76 66 77 Respiratory Rate 22 H 22 H Blood Pressure 107/59 L 110/63 Pulse Oximetry 93 97 Oxygen Delivery Oxygen Flow Rate Fraction of Inspired Oxygen 05/22/25 08:00 05/22/25 08:00 05/22/25 08:26 Temperature Pulse Rate 80 Respiratory Rate Blood Pressure Pulse Oximetry 95 96 Oxygen Delivery Nasal Cannula Nasal Cannula Oxygen Flow Rate 2 2 Fraction of Inspired Oxygen 05/22/25 08:26 05/22/25 08:32 05/22/25 10:00 Temperature Pulse Rate 85 89 92 Respiratory Rate 20 20 Blood Pressure Pulse Oximetry Oxygen Delivery Oxygen Flow Rate Fraction of Inspired Oxygen 05/22/25 11:19 05/22/25 11:22 Temperature 36.8 C Pulse Rate 83 Respiratory Rate 21 H Blood Pressure 103/50 L Pulse Oximetry 96 97 Oxygen Delivery Nasal Cannula Oxygen Flow Rate 2 Fraction of Inspired Oxygen Intake/Output Intake/Output: Intake & Output 05/19/25 05/20/25 05/21/25 05/22/25 23:59 23:59 23:59 23:59 Intake Total 1870 1370 1200 240 Output Total 1750 2350 3825 1800 Balance 974 -272 -[phone] -7837 Meds/Results Medications: Active Medications Generic Name Dose Route Start Last Admin Trade Name Freq PRN Reason Stop Dose Admin Acetaminophen 650 mg 05/18/25 15:40 05/19/25 17:01 Acetaminophen 325 Mg Tablet PO 650 mg Q4H PRN Administration Mild Pain (1-3) or Fever Albuterol/Ipratropium 3 ml 05/19/25 02:00 05/22/25 08:24 Ipratropium 0.5 Mg/Albuterol Sulfate 2.5 Mg Ampul.Neb 3 Ml INHALATION 3 ml Q6HRT ENID Administration Aspirin 81 mg 05/19/25 16:00 05/22/25 09:05 Aspirin 81 Mg Chewable Tablet PO 81 mg DAILY@0800 ENID Administration Dextrose 12.5 gm 05/18/25 19:52 Dextrose 50% 25 Gm/50 Ml Syringe IV PUSH PRN PRN Hypoglycemia Protocol Docusate Sodium 100 mg 05/18/25 19:50 05/19/25 17:01 Docusate Sodium 100 Mg Capsule PO 100 mg BID PRN Administration Constipation Doxycycline Hyclate 100 mg 05/21/25 09:00 05/22/25 09:05 Doxycycline Hyclate 100 Mg Tablet PO 05/26/25 08:59 100 mg Q12HR ENID Administration Gabapentin 100 mg 05/18/25 21:00 05/22/25 09:05 Gabapentin 100 Mg Capsule PO 100 mg Q12HR ENID Administration Glucagon 1 mg 05/18/25 19:52 Glucagon For Inj 1 Mg Vial IM PRN PRN Hypoglycemia Protocol Glucose 15 gm 05/18/25 19:52 Glucose Oral Gel 15 Gm Of Glucse In 37.5 Gm Tube PO PRN PRN Hypoglycemia Protocol Guaifenesin 600 mg 05/19/25 21:00 05/22/25 09:05 Guaifenesin 12 Hr 600 Mg Tabcr PO 600 mg Q12HR ENID Administration Guaifenesin/Dextromethorphan 10 ml 05/19/25 16:01 Guaifenesin/Dextromethorphan 10 Ml Udc PO Q4HR PRN Cough Dextrose 1,000 mls @ 100 mls/hr 05/18/25 19:52 Dextrose 5% 1,000 Ml IVPB PRN PRN Hypoglycemia Protocol Cefepime HCl 2 gm/ Sodium 50 mls @ 100 mls/hr 05/21/25 09:00 05/22/25 09:05 Chloride IVPB 100 mls/hr Q12H ENID Administration Vancomycin HCl 1,750 mg in 500 mls @ 250 mls/hr 05/22/25 12:00 Vancomycin 1,750 Mg/Ns 500 Ml IVPB 05/22/25 13:59 ONCE ONE Insulin Aspart 2 - 5 units 05/19/25 08:00 05/22/25 11:27 Insulin Aspart (*Bkc) 100 Units/Ml SUB-Q Not Given TIDWM [facility] Protocol Insulin Aspart 1 - 2 units 05/18/25 21:00 05/21/25 21:03 Insulin Aspart (*Bkc) 100 Units/Ml SUB-Q Not Given HS [facility] Protocol Sertraline HCl 25 mg 05/19/25 09:00 05/22/25 09:05 Sertraline Hcl 25 Mg Tablet PO 25 mg DAILY ENID Administration Sodium Chloride 1 spray 05/19/25 15:57 05/19/25 17:02 Saline 0.65% Bora Soln 44 Ml Btl NASAL 1 spray Q6HR PRN Administration Congestion Tramadol HCl 50 mg 05/18/25 19:51 Tramadol Hcl (*Crx) 50 Mg Tablet PO Q6H PRN PAIN RATED 4-6 Vancomycin HCl 1 each 05/21/25 08:25 Vancomycin For Acute Kidney Injury IVPB PRN PRN Vancomycin Protocol Radiology Results: ITS Impressions Renal Ultrasound 05/19/25 17:43 Impression: No acute abnormality. Chest X-Ray 05/21/25 07:47 IMPRESSION: 1. Enlarging right and persistent left pleural effusions, with associated basilar atelectasis and/or airspace disease. 2. Persistent interstitial pulmonary edema and/or pneumonitis. Labs Labs: Laboratory Results - last 24 hr 05/21/25 05/21/25 05/21/25 11:25 13:18 15:29 WBC RBC Hgb Hct MCV MCH MCHC RDW Plt Count MPV Immature Gran % (Auto) Neut % (Auto) Lymph % (Auto) [place] % (Auto) Eos % (Auto) Baso % (Auto) Lymph # (Auto) [place] # (Auto) Eos # (Auto) Baso # (Auto) Abs Immat Gran (auto) Absolute Neuts (auto) Absolute Nucleated RBC Band Neutrophils % Nucleated RBC % Platelet Estimate Anisocytosis Macrocytosis Schistocytes Sodium Potassium Chloride Carbon Dioxide Anion Gap BUN Creatinine Estim Creat Clear Calc Estimated GFR Glucose POC Capillary Glucose 145 H 120 H Calcium C-Reactive Protein Nasal RSV Type A (PCR) Cancelled Nasal RSV Type B (PCR) Cancelled Random Vancomycin Chlamy pneumoniae PCR Cancelled Adenovirus DNA Cancelled Human Bocavirus (JERO) Cancelled Coronavirus Type OC43 Cancelled Coronavirus Type HKU1 Cancelled Coronavirus Type 229E Cancelled Coronavirus Type NL63 Cancelled Human Metapneumovir PCR Cancelled Influenza A (PCR) Cancelled Influenza A (H1) RNA Cancelled Influenza A (H3) PCR Cancelled M. pneumoniae DNA Cancelled Parainfluenza PCR Cancelled Parainfluenza 2 (PCR) Cancelled Parainfluenza 3 RNA (PCR) Cancelled Parainfluenza 4 (PCR) Cancelled Rhino/Enterovirus (JERO) Cancelled SARS-CoV-2 RNA (RT-PCR) Cancelled Influenza Type B (PCR) Cancelled Misc Test Comment Cancelled 05/21/25 05/22/25 05/22/25 20:20 03:45 07:18 WBC 5.5 RBC 2.42 L Hgb 8.6 L Hct 27.7 L MCV 114.5 H MCH 35.5 H MCHC 31.0 L RDW 13.9 Plt Count 218 MPV 9.8 Immature Gran % (Auto) 0.5 Neut % (Auto) 58.0 Lymph % (Auto) 30.4 [place] % (Auto) 8.0 Eos % (Auto) 2.9 Baso % (Auto) 0.2 Lymph # (Auto) 1.68 [place] # (Auto) 0.4 Eos # (Auto) 0.2 Baso # (Auto) 0.0 Abs Immat Gran (auto) 0.03 Absolute Neuts (auto) 3.2 Absolute Nucleated RBC 0.000 Band Neutrophils % Not Reportable Nucleated RBC % 0.0 Platelet Estimate Adequate Anisocytosis 1+ Macrocytosis 1+ Schistocytes None seen Sodium 136 L Potassium 4.9 Chloride 104 Carbon Dioxide 26 Anion Gap 6 BUN 54 H Creatinine 1.31 H Estim Creat Clear Calc 49 Estimated GFR 52 L Glucose 112 H POC Capillary Glucose 127 H 106 H Calcium 8.4 C-Reactive Protein 3.6 H Nasal RSV Type A (PCR) Nasal RSV Type B (PCR) Random Vancomycin Chlamy pneumoniae PCR Adenovirus DNA Human Bocavirus (JERO) Coronavirus Type OC43 Coronavirus Type HKU1 Coronavirus Type 229E Coronavirus Type NL63 Human Metapneumovir PCR Influenza A (PCR) Influenza A (H1) RNA Influenza A (H3) PCR M. pneumoniae DNA Parainfluenza PCR Parainfluenza 2 (PCR) Parainfluenza 3 RNA (PCR) Parainfluenza 4 (PCR) Rhino/Enterovirus (JERO) SARS-CoV-2 RNA (RT-PCR) Influenza Type B (PCR) [facility] Test Comment 05/22/25 05/22/25 09:55 11:16 WBC RBC Hgb Hct MCV MCH MCHC RDW Plt Count MPV Immature Gran % (Auto) Neut % (Auto) Lymph % (Auto) [place] % (Auto) Eos % (Auto) Baso % (Auto) Lymph # (Auto) [place] # (Auto) Eos # (Auto) Baso # (Auto) Abs Immat Gran (auto) Absolute Neuts (auto) Absolute Nucleated RBC Band Neutrophils % Nucleated RBC % Platelet Estimate Anisocytosis Macrocytosis Schistocytes Sodium Potassium Chloride Carbon Dioxide Anion Gap BUN Creatinine Estim Creat Clear Calc Estimated GFR Glucose POC Capillary Glucose 147 H Calcium C-Reactive Protein Nasal RSV Type A (PCR) Nasal RSV Type B (PCR) Random Vancomycin 8.4 L Chlamy pneumoniae PCR Adenovirus DNA Human Bocavirus (JERO) Coronavirus Type OC43 Coronavirus Type HKU1 Coronavirus Type 229E Coronavirus Type NL63 Human Metapneumovir PCR Influenza A (PCR) Influenza A (H1) RNA Influenza A (H3) PCR M. pneumoniae DNA Parainfluenza PCR Parainfluenza 2 (PCR) Parainfluenza 3 RNA (PCR) Parainfluenza 4 (PCR) Rhino/Enterovirus (JERO) SARS-CoV-2 RNA (RT-PCR) Influenza Type B (PCR) Misc Test Comment
[2025-05-22] MEDS: VANCOMYCIN 1,750 MG/NS 500 ML 1,750 MG/500 ML BAG 250 MG IVPB (12:00)
--- NOTE | 2025-05-22 12:26 | P.PNIM_ITS ---
Progress Note: A&P Assessment and Plan (1) Hypertension: Code(s): I10 - Essential (primary) hypertension Status: Acute (2) CHF (congestive heart failure): Code(s): I50.9 - Heart failure, unspecified Status: Acute (3) MOHSEN (acute kidney injury): Code(s): N17.9 - Acute kidney failure, unspecified Status: Acute Plan 85-year-old male with past medical history of pacemaker, hypertension and diabetes presents the hospital with weakness and increased shortness of breath. Lab work in the ED shows anemia of 9.4, ABG 7.35, pCO2 37, PO2 65, bicarb 20, sodium 136, BUN 50, creatinine 1.5 no history of CKD, glucose 124, 1st troponin 0.106, CRP 2.4, x-ray shows CHF superimposed with probable pneumonia. EKG shows sinus rhythm with first-degree AV block. Patient was started on Levaquin in the emergency room. (1) Acute respiratory failure: Multifactorial, pneumonia, newly diagnosed cardiomyopathy, pneumonia O2 support as needed, wean off as tolerated Cardiology following Was treated with IV diuresis, has been switched to oral this morning by Cardiology Echo shows EF of 25-30% which is new as compared to EF in 202 Plan to start on Entresto this evening Patient has declined any ischemic workup with advanced age and DNR status Elevated troponin likely probable demand ischemia from respiratory failure, CHF, pneumonia Continue with aspirin MRSA nasal screen was negative COVID, RSV, influenza were negative as well Blood cultures negative till date Continue with DuoNebs, Mucinex Initially was on levofloxacin, was broadened to vancomycin, cefepime, doxycycline (2) MOHSEN (acute kidney injury): Cr 1.45 on admission. Baseline Cr 1.1. Noted to have urine retention of at least 800mL and Villegas placed. Improving kidney function with Villegas Renal ultrasound with no acute abnormalities Holding off starting Flomax since blood pressure is soft Monitor renal function Avoid nephrotoxins Recheck BMP in a.m. (3) Hypertension: Blood pressure remains low normal (4) Diabetes: Blood glucose checked t.i.d. a.c. and HS Metformin on hold Continue with sliding scale Hypoglycemia treatment per protocol 5.DVT ppx: Heparin subQ 6. Code status: DNR 7. Disposition: Pending improvement Time Spent With Patient Time: 38 mins Subjective Date/time seen: 05/22/25 12:26 Interval history: No acute events overnight Review of Systems Review of Systems: All systems reviewed & are unremarkable except as noted in HPI and below Exam Narrative: Gen -no acute distress Chest -bibasilar crackles present, very few CV -regular rate and rhythm Abd - soft, NT/ND - urinary catheter in place draining clear yellow urine Ext - trace-1+ pedal edema. Rodrick hose in place Psych - pleasant and cooperative. Skin - warm and dry Objective Data Vital Signs Vital Signs: Vital Signs - 24 hr 05/21/25 13:36 05/21/25 13:36 05/21/25 13:50 Temperature Pulse Rate 81 81 87 Respiratory Rate 20 20 20 Blood Pressure Pulse Oximetry 94 Oxygen Delivery Nasal Cannula Oxygen Flow Rate 2 Fraction of Inspired Oxygen 05/21/25 15:22 05/21/25 16:00 05/21/25 16:00 Temperature 97.7 F Pulse Rate 88 88 88 Respiratory Rate 22 H 22 H Blood Pressure 111/58 L Pulse Oximetry 95 95 Oxygen Delivery Nasal Cannula Oxygen Flow Rate 2 Fraction of Inspired Oxygen 05/21/25 16:00 05/21/25 18:00 05/21/25 20:00 Temperature Pulse Rate 80 86 82 Respiratory Rate Blood Pressure Pulse Oximetry Oxygen Delivery Oxygen Flow Rate Fraction of Inspired Oxygen 05/21/25 20:00 05/21/25 20:15 05/21/25 20:48 Temperature 97.5 F L Pulse Rate 87 84 Respiratory Rate 22 H 20 Blood Pressure 113/61 Pulse Oximetry 94 95 Oxygen Delivery Nasal Cannula Oxygen Flow Rate 2 Fraction of Inspired Oxygen 05/21/25 20:49 05/21/25 22:00 05/21/25 23:43 Temperature Pulse Rate 69 76 71 Respiratory Rate 20 22 H Blood Pressure Pulse Oximetry 97 98 Oxygen Delivery BiPAP BiPAP Oxygen Flow Rate Fraction of Inspired Oxygen 05/21/25 23:49 05/22/25 00:00 05/22/25 00:00 Temperature 97.7 F Pulse Rate 78 77 Respiratory Rate 22 H Blood Pressure 110/47 L Pulse Oximetry 98 99 Oxygen Delivery BiPAP Oxygen Flow Rate Fraction of Inspired Oxygen 40 05/22/25 02:42 05/22/25 02:43 05/22/25 03:22 Temperature Pulse Rate 86 75 69 Respiratory Rate 20 20 Blood Pressure Pulse Oximetry 98 Oxygen Delivery BiPAP Oxygen Flow Rate Fraction of Inspired Oxygen 05/22/25 04:00 05/22/25 04:00 05/22/25 05:10 Temperature 97.8 F Pulse Rate 72 76 Respiratory Rate 22 H Blood Pressure 107/59 L Pulse Oximetry 95 93 Oxygen Delivery BiPAP Oxygen Flow Rate 2 Fraction of Inspired Oxygen 05/22/25 06:00 05/22/25 07:45 05/22/25 08:00 Temperature 98.3 F Pulse Rate 66 77 Respiratory Rate 22 H Blood Pressure 110/63 Pulse Oximetry 97 95 Oxygen Delivery Nasal Cannula Oxygen Flow Rate 2 Fraction of Inspired Oxygen 05/22/25 08:00 05/22/25 08:26 05/22/25 08:26 Temperature Pulse Rate 80 85 Respiratory Rate 20 Blood Pressure Pulse Oximetry 96 Oxygen Delivery Nasal Cannula Oxygen Flow Rate 2 Fraction of Inspired Oxygen 05/22/25 08:32 05/22/25 10:00 05/22/25 11:19 Temperature Pulse Rate 89 92 Respiratory Rate 20 Blood Pressure Pulse Oximetry 96 Oxygen Delivery Nasal Cannula Oxygen Flow Rate 2 Fraction of Inspired Oxygen 05/22/25 11:22 05/22/25 12:00 Temperature 98.2 F Pulse Rate 83 81 Respiratory Rate 21 H Blood Pressure 103/50 L Pulse Oximetry 97 Oxygen Delivery Oxygen Flow Rate Fraction of Inspired Oxygen Intake/Output Intake/Output: Intake & Output 05/19/25 05/20/25 05/21/25 05/22/25 23:59 23:59 23:59 23:59 Intake Total 1870 1370 1200 480 Output Total 1750 2350 3825 1800 Balance 902 -077 -9437 -0018 Meds/Results Medications: Active Medications Generic Name Dose Route Start Last Admin Trade Name Donnieq PRN Reason Stop Dose Admin Acetaminophen 650 mg 05/18/25 15:40 05/19/25 17:01 Acetaminophen 325 Mg Tablet PO 650 mg Q4H PRN Administration Mild Pain (1-3) or Fever Albuterol/Ipratropium 3 ml 05/19/25 02:00 05/22/25 08:24 Ipratropium 0.5 Mg/Albuterol Sulfate 2.5 Mg Ampul.Neb 3 Ml INHALATION 3 ml Q6HRT ENID Administration Aspirin 81 mg 05/19/25 16:00 05/22/25 09:05 Aspirin 81 Mg Chewable Tablet PO 81 mg DAILY@0800 ENID Administration Dextrose 12.5 gm 05/18/25 19:52 Dextrose 50% 25 Gm/50 Ml Syringe IV PUSH PRN PRN Hypoglycemia Protocol Docusate Sodium 100 mg 05/18/25 19:50 05/19/25 17:01 Docusate Sodium 100 Mg Capsule PO 100 mg BID PRN Administration Constipation Doxycycline Hyclate 100 mg 05/21/25 09:00 05/22/25 09:05 Doxycycline Hyclate 100 Mg Tablet PO 05/26/25 08:59 100 mg Q12HR ENID Administration Furosemide 40 mg 05/23/25 09:00 Furosemide 40 Mg Tablet PO DAILY ENID Gabapentin 100 mg 05/18/25 21:00 05/22/25 09:05 Gabapentin 100 Mg Capsule PO 100 mg Q12HR ENID Administration Glucagon 1 mg 05/18/25 19:52 Glucagon For Inj 1 Mg Vial IM PRN PRN Hypoglycemia Protocol Glucose 15 gm 05/18/25 19:52 Glucose Oral Gel 15 Gm Of Glucse In 37.5 Gm Tube PO PRN PRN Hypoglycemia Protocol Guaifenesin 600 mg 05/19/25 21:00 05/22/25 09:05 Guaifenesin 12 Hr 600 Mg Tabcr PO 600 mg Q12HR ENID Administration Guaifenesin/Dextromethorphan 10 ml 05/19/25 16:01 Guaifenesin/Dextromethorphan 10 Ml Udc PO Q4HR PRN Cough Dextrose 1,000 mls @ 100 mls/hr 05/18/25 19:52 Dextrose 5% 1,000 Ml IVPB PRN PRN Hypoglycemia Protocol Cefepime HCl 2 gm/ Sodium 50 mls @ 100 mls/hr 05/21/25 09:00 05/22/25 09:05 Chloride IVPB 100 mls/hr Q12H ENID Administration Vancomycin HCl 1,750 mg in 500 mls @ 250 mls/hr 05/22/25 12:00 05/22/25 12:00 Vancomycin 1,750 Mg/Ns 500 Ml IVPB 05/22/25 13:59 250 mls/hr ONCE ONE Administration Insulin Aspart 2 - 5 units 05/19/25 08:00 05/22/25 11:27 Insulin Aspart (*Bkc) 100 Units/Ml SUB-Q Not Given TIDWM [facility] Protocol Insulin Aspart 1 - 2 units 05/18/25 21:00 05/21/25 21:03 Insulin Aspart (*Bkc) 100 Units/Ml SUB-Q Not Given HS [facility] Protocol Sacubitril/Valsartan 1 tab 05/22/25 21:00 Sacubitril/Valsartan 24-26 Mg Tablet PO Q12HR ENID Sertraline HCl 25 mg 05/19/25 09:00 05/22/25 09:05 Sertraline Hcl 25 Mg Tablet PO 25 mg DAILY ENID Administration Sodium Chloride 1 spray 05/19/25 15:57 05/19/25 17:02 Saline 0.65% Bora Soln 44 Ml Btl NASAL 1 spray Q6HR PRN Administration Congestion Tramadol HCl 50 mg 05/18/25 19:51 Tramadol Hcl (*Crx) 50 Mg Tablet PO Q6H PRN PAIN RATED 4-6 Vancomycin HCl 1 each 05/21/25 08:25 Vancomycin For Acute Kidney Injury IVPB PRN PRN Vancomycin Protocol Radiology Results: ITS Impressions Renal Ultrasound 05/19/25 17:43 Impression: No acute abnormality. Chest X-Ray 05/21/25 07:47 IMPRESSION: 1. Enlarging right and persistent left pleural effusions, with associated basilar atelectasis and/or airspace disease. 2. Persistent interstitial pulmonary edema and/or pneumonitis. Labs Labs: Laboratory Results - last 24 hr 05/21/25 05/21/25 05/21/25 13:18 15:29 20:20 WBC RBC Hgb Hct MCV MCH MCHC RDW Plt Count MPV Immature Gran % (Auto) Neut % (Auto) Lymph % (Auto) [place] % (Auto) Eos % (Auto) Baso % (Auto) Lymph # (Auto) [place] # (Auto) Eos # (Auto) Baso # (Auto) Abs Immat Gran (auto) Absolute Neuts (auto) Absolute Nucleated RBC Band Neutrophils % Nucleated RBC % Platelet Estimate Anisocytosis Macrocytosis Schistocytes Sodium Potassium Chloride Carbon Dioxide Anion Gap BUN Creatinine Estim Creat Clear Calc Estimated GFR Glucose POC Capillary Glucose 120 H 127 H Calcium C-Reactive Protein Nasal RSV Type A (PCR) Cancelled Nasal RSV Type B (PCR) Cancelled Random Vancomycin Chlamy pneumoniae PCR Cancelled Adenovirus DNA Cancelled Human Bocavirus (JERO) Cancelled Coronavirus Type OC43 Cancelled Coronavirus Type HKU1 Cancelled Coronavirus Type 229E Cancelled Coronavirus Type NL63 Cancelled Human Metapneumovir PCR Cancelled Influenza A (PCR) Cancelled Influenza A (H1) RNA Cancelled Influenza A (H3) PCR Cancelled M. pneumoniae DNA Cancelled Parainfluenza PCR Cancelled Parainfluenza 2 (PCR) Cancelled Parainfluenza 3 RNA (PCR) Cancelled Parainfluenza 4 (PCR) Cancelled Rhino/Enterovirus (JERO) Cancelled SARS-CoV-2 RNA (RT-PCR) Cancelled Influenza Type B (PCR) Cancelled Misc Test Comment Cancelled 05/22/25 05/22/25 05/22/25 03:45 07:18 09:55 WBC 5.5 RBC 2.42 L Hgb 8.6 L Hct 27.7 L MCV 114.5 H MCH 35.5 H MCHC 31.0 L RDW 13.9 Plt Count 218 MPV 9.8 Immature Gran % (Auto) 0.5 Neut % (Auto) 58.0 Lymph % (Auto) 30.4 [place] % (Auto) 8.0 Eos % (Auto) 2.9 Baso % (Auto) 0.2 Lymph # (Auto) 1.68 [place] # (Auto) 0.4 Eos # (Auto) 0.2 Baso # (Auto) 0.0 Abs Immat Gran (auto) 0.03 Absolute Neuts (auto) 3.2 Absolute Nucleated RBC 0.000 Band Neutrophils % Not Reportable Nucleated RBC % 0.0 Platelet Estimate Adequate Anisocytosis 1+ Macrocytosis 1+ Schistocytes None seen Sodium 136 L Potassium 4.9 Chloride 104 Carbon Dioxide 26 Anion Gap 6 BUN 54 H Creatinine 1.31 H Estim Creat Clear Calc 49 Estimated GFR 52 L Glucose 112 H POC Capillary Glucose 106 H Calcium 8.4 C-Reactive Protein 3.6 H Nasal RSV Type A (PCR) Nasal RSV Type B (PCR) Random Vancomycin 8.4 L Chlamy pneumoniae PCR Adenovirus DNA Human Bocavirus (JERO) Coronavirus Type OC43 Coronavirus Type HKU1 Coronavirus Type 229E Coronavirus Type NL63 Human Metapneumovir PCR Influenza A (PCR) Influenza A (H1) RNA Influenza A (H3) PCR M. pneumoniae DNA Parainfluenza PCR Parainfluenza 2 (PCR) Parainfluenza 3 RNA (PCR) Parainfluenza 4 (PCR) Rhino/Enterovirus (JERO) SARS-CoV-2 RNA (RT-PCR) Influenza Type B (PCR) Misc Test Comment 05/22/25 11:16 WBC RBC Hgb Hct MCV MCH MCHC RDW Plt Count MPV Immature Gran % (Auto) Neut % (Auto) Lymph % (Auto) [place] % (Auto) Eos % (Auto) Baso % (Auto) Lymph # (Auto) [place] # (Auto) Eos # (Auto) Baso # (Auto) Abs Immat Gran (auto) Absolute Neuts (auto) Absolute Nucleated RBC Band Neutrophils % Nucleated RBC % Platelet Estimate Anisocytosis Macrocytosis Schistocytes Sodium Potassium Chloride Carbon Dioxide Anion Gap BUN Creatinine Estim Creat Clear Calc Estimated GFR Glucose POC Capillary Glucose 147 H Calcium C-Reactive Protein Nasal RSV Type A (PCR) Nasal RSV Type B (PCR) Random Vancomycin Chlamy pneumoniae PCR Adenovirus DNA Human Bocavirus (JERO) Coronavirus Type OC43 Coronavirus Type HKU1 Coronavirus Type 229E Coronavirus Type NL63 Human Metapneumovir PCR Influenza A (PCR) Influenza A (H1) RNA Influenza A (H3) PCR M. pneumoniae DNA Parainfluenza PCR Parainfluenza 2 (PCR) Parainfluenza 3 RNA (PCR) Parainfluenza 4 (PCR) Rhino/Enterovirus (JERO) SARS-CoV-2 RNA (RT-PCR) Influenza Type B (PCR) Misc Test Comment Quality VTE Prophylaxis VTE prophylaxis: pharmacologic ordered
--- NOTE | 2025-05-22 15:17 | PC.NURSE ---
On 05/22/25, the student, Isiah, provided care and completed [facility] documentation on this patient. I have reviewed the student's documentation and agree with the findings.
[2025-05-22] MEDS: SACUBITRIL/VALSARTAN 24-26 MG TABLET 1 TAB PO (20:52)
[2025-05-22] MEDS: traMADol HCL (*CRX) 50 MG TABLET PO (20:53)
[2025-05-23] VITALS (22 sets, daily range): BP systolic 92–130; BP diastolic 47–59; PULSE 60–77; RESP 17–20; TEMP 36.5–37; O2SAT 90–98
[2025-05-23] MEDS: IPRATROPIUM 0.5 MG/ALBUTEROL SULFATE 2.5 MG AMPUL.NEB 3 ML INHALATION ×2 (01:18→07:31)
[2025-05-23 04:28] LABS: Hematocrit 28.0 % (42.0-52.0); Hemoglobin 8.7 g/dL (14.0-18.0); Immature Granulocyte Percent A 0.4 % (0-0.5); Lymphocytes Absolute Auto 1.69 K/mm3 (0.9-3.2); Mean Corpuscular HGB Conc 31.1 g/dl (32-36); Mean Corpuscular Hemoglobin 35.4 pg (26-34); Mean Corpuscular Volume 113.8 fl (80-100); Nucleated Red Blood Cells Absolute Auto 0.000 K/mm3 (0.0-0.012); Nucleated Red Blood Cells Perc 0.0 % (0.0-0.2); Platelet Count Result 197 k/mm3 (150-375); Red Blood Count 2.46 M/mm3 (4.6-6.20); White Blood Count 5.4 K/mm3 (4.5-10.0)
[2025-05-23 04:42] LABS: Anion Gap 6 mmol/L (4-12); Blood Urea Nitrogen 50 mg/dL (9-20); Calcium 8.3 mg/dL (8.4-10.2); Carbon Dioxide 26 mmol/L (22-30); Chloride 104 mmol/L (98-107); Estimated CRCL calculation 53 ml/min; Estimated Glomerular Filt Rate 58; Glucose 116 mg/dL (65-110); Potassium 4.4 mmol/L (3.4-5.0); Sodium 136 mmol/L (137-145)
[2025-05-23 04:59] LABS: Anisocytosis Occasional; Hypochromasia 1+; Schistocytes None Seen
--- NOTE | 2025-05-23 08:49 | PM.PNCARD ---
Progress Note: A&P Assessment and Plan (1) CHF (congestive heart failure): Code(s): I50.9 - Heart failure, unspecified Status: Acute (2) Hypertension: Code(s): I10 - Essential (primary) hypertension Status: Acute (3) Acute respiratory failure: Code(s): J96.00 - Acute respiratory failure, unspecified whether with hypoxia or hypercapnia Status: Acute (4) Pneumonia: Code(s): J18.9 - Pneumonia, unspecified organism Status: Acute Plan Acute decompensated Systolic HF-EF of 25-30% per echo this admission. His pBNP was elevated at 11,500. His CXR demonstrated pulmonary edema and pleural effusions. He is s/p IV diuresis and now on lasix PO. Appears better compensated. New Cardiomyopathy. Unclear if ischemic vs. non-ischemic. Patient is a DNR and does not wish for ischemic evalaution. Will plan for GDMT as BP tolerates. Was started on Entresto 24-26 mg BID, cannot tolerate additional therapy at this time. Elevated troponin. Troponin flat and not consistent with ACS. EKG shows atrial paced rhythm with LBBB. He is currently chest pain free. No plans for further ischemic evaluation as patient is DNR and does not wish for invasive w/u as discussed with him. Continue aspirin 81 mg daily Pneumonia. Continue antibiotics as per primary team Acute kidney injury. Has improved with diuresis. Will monitor closely. Hypertension. BP remains low normal. Monitor with addition of Entresto Mild to moderate MR. In setting of cardiomyopathy. Will monitor History of symptomatic bradycardia. 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 Subjective Date/time seen: 05/23/25 08:49 Interval history: Interval History 05/21/25: Patient is sitting up in bed, nurse is at the bedside. Patient admits to continued SOB, but states it is improved. No chest pain or pressure. Reports noted LE edema, which is improved per patient and nursing reports. 05/22/2025: Patient appears comfortable watching the news on television says his breathing is better. Discussion with the patient regarding his heart failure with reduced ejection fraction 05/23/25: Patient is sitting up in bed. He states feeling better this am. Reports trouble wearing the bipap at night for sleep. Denies any chest pain or pressure. His shortness of breath is improved. Review of Systems Review of Systems: All systems reviewed & are unremarkable except as noted in HPI and below Exam Narrative: General: Sitting up in bed. Alert. NAD Neck: no JVD Resp: lungs decreased in bases CV: S1, S2 GI: abdomen round non-tender Extremites: +1 bilateral LE edema Objective Data Vital Signs Vital Signs: Vital Signs - 24 hr 05/22/25 10:00 05/22/25 11:19 05/22/25 11:22 Temperature 36.8 C Pulse Rate 92 83 Respiratory Rate 21 H Blood Pressure 103/50 L Pulse Oximetry 96 97 Oxygen Delivery Nasal Cannula Oxygen Flow Rate 2 Fraction of Inspired Oxygen 05/22/25 12:00 05/22/25 13:20 05/22/25 13:30 Temperature Pulse Rate 81 82 87 Respiratory Rate 20 20 Blood Pressure Pulse Oximetry Oxygen Delivery Oxygen Flow Rate Fraction of Inspired Oxygen 05/22/25 14:00 05/22/25 15:22 05/22/25 16:00 Temperature Pulse Rate 89 78 Respiratory Rate Blood Pressure Pulse Oximetry 96 Oxygen Delivery Nasal Cannula Oxygen Flow Rate 2 Fraction of Inspired Oxygen 05/22/25 16:00 05/22/25 18:00 05/22/25 20:00 Temperature 36.8 C Pulse Rate 75 75 79 Respiratory Rate 20 Blood Pressure 118/54 L Pulse Oximetry 99 Oxygen Delivery Oxygen Flow Rate Fraction of Inspired Oxygen 05/22/25 20:00 05/22/25 20:02 05/22/25 20:03 Temperature Pulse Rate 77 77 Respiratory Rate 20 20 Blood Pressure Pulse Oximetry 96 98 Oxygen Delivery Nasal Cannula Nasal Cannula Oxygen Flow Rate 2 2 Fraction of Inspired Oxygen 28 05/22/25 20:11 05/22/25 20:12 05/22/25 22:00 Temperature 36.7 C Pulse Rate 80 77 73 Respiratory Rate 20 20 Blood Pressure 129/54 L Pulse Oximetry 99 Oxygen Delivery Oxygen Flow Rate Fraction of Inspired Oxygen 05/22/25 22:06 05/22/25 23:19 05/23/25 00:00 Temperature 36.8 C Pulse Rate 73 66 Respiratory Rate 20 17 Blood Pressure 115/40 L Pulse Oximetry 94 100 97 Oxygen Delivery BiPAP Nasal Cannula Oxygen Flow Rate 2 Fraction of Inspired Oxygen 05/23/25 00:00 05/23/25 01:16 05/23/25 01:19 Temperature Pulse Rate 60 68 68 Respiratory Rate 20 Blood Pressure Pulse Oximetry 90 Oxygen Delivery Oxygen Flow Rate Fraction of Inspired Oxygen 05/23/25 01:39 05/23/25 02:20 05/23/25 03:33 Temperature 37.0 C Pulse Rate 67 60 62 Respiratory Rate 20 17 Blood Pressure 95/47 L Pulse Oximetry 94 Oxygen Delivery Oxygen Flow Rate Fraction of Inspired Oxygen 05/23/25 04:00 05/23/25 04:00 05/23/25 05:53 Temperature Pulse Rate 76 68 Respiratory Rate Blood Pressure Pulse Oximetry 90 Oxygen Delivery Nasal Cannula Oxygen Flow Rate 2 Fraction of Inspired Oxygen 05/23/25 07:32 05/23/25 07:34 05/23/25 07:37 Temperature Pulse Rate 72 72 69 Respiratory Rate 20 20 20 Blood Pressure Pulse Oximetry 94 Oxygen Delivery Nasal Cannula Oxygen Flow Rate 2 Fraction of Inspired Oxygen 05/23/25 07:47 Temperature 36.6 C Pulse Rate 75 Respiratory Rate 20 Blood Pressure 100/51 L Pulse Oximetry 96 Oxygen Delivery Oxygen Flow Rate Fraction of Inspired Oxygen Intake/Output Intake/Output: Intake & Output 05/20/25 05/21/25 05/22/25 05/23/25 23:59 23:59 23:59 23:59 Intake Total 1370 1200 1270 320 Output Total 2350 3825 5000 900 Balance -980 -2625 -3730 -580 Meds/Results Medications: Active Medications Generic Name Dose Route Start Last Admin Trade Name Freq PRN Reason Stop Dose Admin Acetaminophen 650 mg 05/18/25 15:40 05/19/25 17:01 Acetaminophen 325 Mg Tablet PO 650 mg Q4H PRN Administration Mild Pain (1-3) or Fever Albuterol/Ipratropium 3 ml 05/19/25 02:00 05/23/25 07:31 Ipratropium 0.5 Mg/Albuterol Sulfate 2.5 Mg Ampul.Neb 3 Ml INHALATION 3 ml Q6HRT ENID Administration Aspirin 81 mg 05/19/25 16:00 05/22/25 09:05 Aspirin 81 Mg Chewable Tablet PO 81 mg DAILY@0800 ENID Administration Dextrose 12.5 gm 05/18/25 19:52 Dextrose 50% 25 Gm/50 Ml Syringe IV PUSH PRN PRN Hypoglycemia Protocol Docusate Sodium 100 mg 05/18/25 19:50 05/19/25 17:01 Docusate Sodium 100 Mg Capsule PO 100 mg BID PRN Administration Constipation Doxycycline Hyclate 100 mg 05/21/25 09:00 05/22/25 20:52 Doxycycline Hyclate 100 Mg Tablet PO 05/26/25 08:59 100 mg Q12HR ENID Administration Furosemide 40 mg 05/23/25 09:00 Furosemide 40 Mg Tablet PO DAILY ENID Gabapentin 100 mg 05/18/25 21:00 05/22/25 20:53 Gabapentin 100 Mg Capsule PO 100 mg Q12HR ENID Administration Glucagon 1 mg 05/18/25 19:52 Glucagon For Inj 1 Mg Vial IM PRN PRN Hypoglycemia Protocol Glucose 15 gm 05/18/25 19:52 Glucose Oral Gel 15 Gm Of Glucse In 37.5 Gm Tube PO PRN PRN Hypoglycemia Protocol Guaifenesin 600 mg 05/19/25 21:00 05/22/25 20:52 Guaifenesin 12 Hr 600 Mg Tabcr PO 600 mg Q12HR ENID Administration Guaifenesin/Dextromethorphan 10 ml 05/19/25 16:01 Guaifenesin/Dextromethorphan 10 Ml Udc PO Q4HR PRN Cough Heparin Sodium (Porcine) 5,000 units 05/22/25 21:00 05/22/25 21:03 Heparin Sodium 5,000 Units/Ml Vial SUB-Q 5,000 units Q12HR ENID Administration Dextrose 1,000 mls @ 100 mls/hr 05/18/25 19:52 Dextrose 5% 1,000 Ml IVPB PRN PRN Hypoglycemia Protocol Cefepime HCl 2 gm/ Sodium 50 mls @ 100 mls/hr 05/21/25 09:00 05/22/25 20:56 Chloride IVPB 100 mls/hr Q12H ENID Administration Insulin Aspart 2 - 5 units 05/19/25 08:00 05/22/25 16:49 Insulin Aspart (*Bkc) 100 Units/Ml SUB-Q Not Given TIDWM ENID Protocol Insulin Aspart 1 - 2 units 05/18/25 21:00 05/22/25 21:01 Insulin Aspart (*Bkc) 100 Units/Ml SUB-Q Not Given HS ENID Protocol Sacubitril/Valsartan 1 tab 05/22/25 21:00 05/22/25 20:52 Sacubitril/Valsartan 24-26 Mg Tablet PO 1 tab Q12HR ENID Administration Sertraline HCl 25 mg 05/19/25 09:00 05/22/25 09:05 Sertraline Hcl 25 Mg Tablet PO 25 mg DAILY ENID Administration Sodium Chloride 1 spray 05/19/25 15:57 05/19/25 17:02 Saline 0.65% Bora Soln 44 Ml Btl NASAL 1 spray Q6HR PRN Administration Congestion Tramadol HCl 50 mg 05/18/25 19:51 05/22/25 20:53 Tramadol Hcl (*Crx) 50 Mg Tablet PO 50 mg Q6H PRN Administration PAIN RATED 4-6 Vancomycin HCl 1 each 05/21/25 08:25 Vancomycin For Acute Kidney Injury IVPB PRN PRN Vancomycin Protocol Radiology Results: ITS Impressions Renal Ultrasound 05/19/25 17:43 Impression: No acute abnormality. Chest X-Ray 05/21/25 07:47 IMPRESSION: 1. Enlarging right and persistent left pleural effusions, with associated basilar atelectasis and/or airspace disease. 2. Persistent interstitial pulmonary edema and/or pneumonitis. Labs Labs: Laboratory Results - last 24 hr 05/21/25 05/22/25 05/22/25 13:18 09:55 11:16 WBC RBC Hgb Hct MCV MCH MCHC RDW Plt Count MPV Immature Gran % (Auto) Neut % (Auto) Lymph % (Auto) [place] % (Auto) Eos % (Auto) Baso % (Auto) Lymph # (Auto) [place] # (Auto) Eos # (Auto) Baso # (Auto) Abs Immat Gran (auto) Absolute Neuts (auto) Absolute Nucleated RBC Band Neutrophils % Nucleated RBC % Platelet Estimate Hypochromasia Anisocytosis Schistocytes Sodium Potassium Chloride Carbon Dioxide Anion Gap BUN Creatinine Estim Creat Clear Calc Estimated GFR Glucose POC Capillary Glucose 147 H Calcium Random Vancomycin 8.4 L Chlamy pneumoniae PCR Not detected Adenovirus (PCR) Not detected B. pertussis DNA (PCR) Not detected B.parapertussis DNA PCR Not detected Coronavirus OC43 (PCR) Not detected Coronavirus HKU1 (PCR) Not detected Coronavirus 229E (PCR) Not detected Coronavirus NL63 (PCR) Not detected Human Metapneumovir PCR Not detected Influenza A (H1) PCR Not detected Influ A () PCR Not detected Influenza A (H3) PCR Not detected Influenza Type A (PCR) Not detected Influenza Type B (PCR) Not detected M. pneumoniae (PCR) Not detected Parainfluenza 1 (PCR) Not detected Parainfluenza 2 (PCR) Not detected Parainfluenza 3 (PCR) Not detected Parainfluenza 4 (PCR) Not detected RSV (PCR) Not detected Entero/Rhino (PCR) Not detected SARS-CoV-2 (PCR) Not detected 05/22/25 05/22/25 05/23/25 16:27 20:19 03:55 WBC 5.4 RBC 2.46 L Hgb 8.7 L Hct 28.0 L MCV 113.8 H MCH 35.4 H MCHC 31.1 L RDW 14.0 Plt Count 197 MPV 10.4 Immature Gran % (Auto) 0.4 Neut % (Auto) 59.3 Lymph % (Auto) 31.4 [place] % (Auto) 6.5 Eos % (Auto) 2.2 Baso % (Auto) 0.2 Lymph # (Auto) 1.69 [place] # (Auto) 0.4 Eos # (Auto) 0.1 Baso # (Auto) 0.0 Abs Immat Gran (auto) 0.02 Absolute Neuts (auto) 3.2 Absolute Nucleated RBC 0.000 Band Neutrophils % Not Reportable Nucleated RBC % 0.0 Platelet Estimate Adequate Hypochromasia 1+ Anisocytosis Occasional Schistocytes None seen Sodium 136 L Potassium 4.4 Chloride 104 Carbon Dioxide 26 Anion Gap 6 BUN 50 H Creatinine 1.19 Estim Creat Clear Calc 53 Estimated GFR 58 L Glucose 116 H POC Capillary Glucose 117 H 130 H Calcium 8.3 L Random Vancomycin Chlamy pneumoniae PCR Adenovirus (PCR) B. pertussis DNA (PCR) B.parapertussis DNA PCR Coronavirus OC43 (PCR) Coronavirus HKU1 (PCR) Coronavirus 229E (PCR) Coronavirus NL63 (PCR) Human Metapneumovir PCR Influenza A (H1) PCR Influ A () PCR Influenza A (H3) PCR Influenza Type A (PCR) Influenza Type B (PCR) M. pneumoniae (PCR) Parainfluenza 1 (PCR) Parainfluenza 2 (PCR) Parainfluenza 3 (PCR) Parainfluenza 4 (PCR) RSV (PCR) Entero/Rhino (PCR) SARS-CoV-2 (PCR) 05/23/25 07:22 WBC RBC Hgb Hct MCV MCH MCHC RDW Plt Count MPV Immature Gran % (Auto) Neut % (Auto) Lymph % (Auto) [place] % (Auto) Eos % (Auto) Baso % (Auto) Lymph # (Auto) [place] # (Auto) Eos # (Auto) Baso # (Auto) Abs Immat Gran (auto) Absolute Neuts (auto) Absolute Nucleated RBC Band Neutrophils % Nucleated RBC % Platelet Estimate Hypochromasia Anisocytosis Schistocytes Sodium Potassium Chloride Carbon Dioxide Anion Gap BUN Creatinine Estim Creat Clear Calc Estimated GFR Glucose POC Capillary Glucose 103 Calcium Random Vancomycin Chlamy pneumoniae PCR Adenovirus (PCR) B. pertussis DNA (PCR) B.parapertussis DNA PCR Coronavirus OC43 (PCR) Coronavirus HKU1 (PCR) Coronavirus 229E (PCR) Coronavirus NL63 (PCR) Human Metapneumovir PCR Influenza A (H1) PCR Influ A (H1/09) PCR Influenza A (H3) PCR Influenza Type A (PCR) Influenza Type B (PCR) M. pneumoniae (PCR) Parainfluenza 1 (PCR) Parainfluenza 2 (PCR) Parainfluenza 3 (PCR) Parainfluenza 4 (PCR) RSV (PCR) Entero/Rhino (PCR) SARS-CoV-2 (PCR)
[2025-05-23] MEDS: DOXYCYCLINE HYCLATE 100 MG TABLET PO (09:50)
[2025-05-23] MEDS: guaiFENesin 12 HR 600 MG TABCR PO (09:50)
[2025-05-23] MEDS: CEFEPIME 2 GM in SODIUM CHLORIDE 0.9% IV 50 ML 100 ML IVPB (09:50)
[2025-05-23] MEDS: MIDODRINE HCL 2.5 MG TABLET 5 MG PO ×3 (09:50→16:27)
[2025-05-23] MEDS: SERTRALINE HCL 25 MG TABLET PO (09:50)
[2025-05-23] MEDS: ASPIRIN 81 MG CHEWABLE TABLET PO (09:51)
[2025-05-23] MEDS: GABAPENTIN 100 MG CAPSULE PO (09:51)
[2025-05-23] MEDS: SACUBITRIL/VALSARTAN 24-26 MG TABLET 1 TAB PO (11:04)
[2025-05-23] MEDS: FUROSEMIDE 40 MG TABLET PO (11:04)
[2025-05-23] MEDS: VANCOMYCIN 1,750 MG/NS 500 ML 1,750 MG/500 ML BAG 250 MG IVPB (12:22)
--- NOTE | 2025-05-23 14:08 | PC.NURSE ---
patient bladder scanned at 1400 with highest reading at 398 and lowest reading at 204 mL. This was reported to Dr Mills who states she is not wanting to DC patient at this time and would like to wait until later to determine whether or not mooney will need placed back in for retention. Plan is to continue bladder scanning patient and checking to see if he has urinated. Care coordination called and updated with this information. I asked if there is a time limit that the facility will accept patient and care coordination states that as long as discharge would be prior to 9 pm that there should be no issues.
--- NOTE | 2025-05-23 15:14 | PM.DS ---
DS: Admitting Diagnosis Discharge Date 05/23/25 Admitting Diagnosis Acute respiratory failure Cardiomyopathy MOHSEN Diabetes mellitus DS: Discharge Diagnosis Discharge Diagnosis (1) CHF (congestive heart failure): Code(s): I50.9 - Heart failure, unspecified Status: Acute (2) Diabetes: Code(s): E11.9 - Type 2 diabetes mellitus without complications Status: Acute (3) MOHSEN (acute kidney injury): Code(s): N17.9 - Acute kidney failure, unspecified Status: Acute (4) Acute respiratory failure: Code(s): J96.00 - Acute respiratory failure, unspecified whether with hypoxia or hypercapnia Status: Acute (5) Pneumonia: Code(s): J18.9 - Pneumonia, unspecified organism Status: Acute DS: Summary Hospital Course Reason for hospitalization: Acute hypoxic respiratory failure CHF MOHSEN Hospital Course: 85-year-old male with past medical history of pacemaker, hypertension and diabetes presents the hospital with weakness and increased shortness of breath. Lab work in the ED shows anemia of 9.4, ABG 7.35, pCO2 37, PO2 65, bicarb 20, sodium 136, BUN 50, creatinine 1.5 no history of CKD, glucose 124, 1st troponin 0.106, CRP 2.4, x-ray shows CHF superimposed with probable pneumonia. EKG shows sinus rhythm with first-degree AV block. Patient was started on Levaquin in the emergency room. His acute distress respiratory failure seemed to be multifactorial, likely from pneumonia and newly diagnosed cardiomyopathy. Patient was treated with O2 support, IV diuresis. Echocardiogram showed EF of 25-30% which is new as compared to ECF in 202. Patient was started on Entresto. Patient declined any ischemic workup at advanced age and DNR status. Patient was treated with levofloxacin initially, later broadened to vancomycin, cefepime, doxycycline. COVID, RSV, influenza were negative. MRSA nasal screen was negative. Patient was discharged on Ceftin and doxycycline to complete a total 5 day course. Also presented with MOHSEN, was noted to have a urine retention of at least 800 cc. Kidney function improved with Villegas, renal ultrasound was negative for any acute abnormalities. Unable to start Flomax due to low blood pressure. Villegas was removed prior to discharge. Patient is being discharged to SNF in stable condition, outpatient follow-up with Cardiology. Status at Discharge Overall status at discharge: patient is progressing back to baseline Time Spent with Patient Time attestation: Total time spent providing and/or coordinating discharge services:33 mins Exam Narrative: Gen -no acute distress Chest -bibasilar crackles present, very few CV -regular rate and rhythm Abd - soft, NT/ND - urinary catheter in place draining clear yellow urine Ext - trace-1+ pedal edema. Rodrick hose in place Psych - pleasant and cooperative. Skin - warm and dry DS: Data Data Completed and Pending Labs on day of discharge: Labs from last 24 hours 05/23/25 05/23/25 05/23/25 11:22 10:41 07:22 WBC RBC Hgb Hct MCV MCH MCHC RDW Plt Count MPV Immature Gran % (Auto) Neut % (Auto) Lymph % (Auto) [place] % (Auto) Eos % (Auto) Baso % (Auto) Lymph # (Auto) [place] # (Auto) Eos # (Auto) Baso # (Auto) Abs Immat Gran (auto) Absolute Neuts (auto) Absolute Nucleated RBC Band Neutrophils % Nucleated RBC % Platelet Estimate Hypochromasia Anisocytosis Schistocytes Sodium Potassium Chloride Carbon Dioxide Anion Gap BUN Creatinine Estim Creat Clear Calc Estimated GFR Glucose POC Capillary Glucose 161 H 103 Calcium Random Vancomycin 12.3 Chlamy pneumoniae PCR Adenovirus (PCR) B. pertussis DNA (PCR) B.parapertussis DNA PCR Coronavirus OC43 (PCR) Coronavirus HKU1 (PCR) Coronavirus 229E (PCR) Coronavirus NL63 (PCR) Human Metapneumovir PCR Influenza A (H1) PCR Influ A (H1/09) PCR Influenza A (H3) PCR Influenza Type A (PCR) Influenza Type B (PCR) M. pneumoniae (PCR) Parainfluenza 1 (PCR) Parainfluenza 2 (PCR) Parainfluenza 3 (PCR) Parainfluenza 4 (PCR) RSV (PCR) Entero/Rhino (PCR) SARS-CoV-2 (PCR) 05/23/25 05/22/25 05/22/25 03:55 20:19 16:27 WBC 5.4 RBC 2.46 L Hgb 8.7 L Hct 28.0 L MCV 113.8 H MCH 35.4 H MCHC 31.1 L RDW 14.0 Plt Count 197 MPV 10.4 Immature Gran % (Auto) 0.4 Neut % (Auto) 59.3 Lymph % (Auto) 31.4 [place] % (Auto) 6.5 Eos % (Auto) 2.2 Baso % (Auto) 0.2 Lymph # (Auto) 1.69 [place] # (Auto) 0.4 Eos # (Auto) 0.1 Baso # (Auto) 0.0 Abs Immat Gran (auto) 0.02 Absolute Neuts (auto) 3.2 Absolute Nucleated RBC 0.000 Band Neutrophils % Not Reportable Nucleated RBC % 0.0 Platelet Estimate Adequate Hypochromasia 1+ Anisocytosis Occasional Schistocytes None seen Sodium 136 L Potassium 4.4 Chloride 104 Carbon Dioxide 26 Anion Gap 6 BUN 50 H Creatinine 1.19 Estim Creat Clear Calc 53 Estimated GFR 58 L Glucose 116 H POC Capillary Glucose 130 H 117 H Calcium 8.3 L Random Vancomycin Chlamy pneumoniae PCR Adenovirus (PCR) B. pertussis DNA (PCR) B.parapertussis DNA PCR Coronavirus OC43 (PCR) Coronavirus HKU1 (PCR) Coronavirus 229E (PCR) Coronavirus NL63 (PCR) Human Metapneumovir PCR Influenza A (H1) PCR Influ A (H1/09) PCR Influenza A (H3) PCR Influenza Type A (PCR) Influenza Type B (PCR) M. pneumoniae (PCR) Parainfluenza 1 (PCR) Parainfluenza 2 (PCR) Parainfluenza 3 (PCR) Parainfluenza 4 (PCR) RSV (PCR) Entero/Rhino (PCR) SARS-CoV-2 (PCR) 05/21/25 13:18 WBC RBC Hgb Hct MCV MCH MCHC RDW Plt Count MPV Immature Gran % (Auto) Neut % (Auto) Lymph % (Auto) [place] % (Auto) Eos % (Auto) Baso % (Auto) Lymph # (Auto) [place] # (Auto) Eos # (Auto) Baso # (Auto) Abs Immat Gran (auto) Absolute Neuts (auto) Absolute Nucleated RBC Band Neutrophils % Nucleated RBC % Platelet Estimate Hypochromasia Anisocytosis Schistocytes Sodium Potassium Chloride Carbon Dioxide Anion Gap BUN Creatinine Estim Creat Clear Calc Estimated GFR Glucose POC Capillary Glucose Calcium Random Vancomycin Chlamy pneumoniae PCR Not detected Adenovirus (PCR) Not detected B. pertussis DNA (PCR) Not detected B.parapertussis DNA PCR Not detected Coronavirus OC43 (PCR) Not detected Coronavirus HKU1 (PCR) Not detected Coronavirus 229E (PCR) Not detected Coronavirus NL63 (PCR) Not detected Human Metapneumovir PCR Not detected Influenza A (H1) PCR Not detected Influ A (H1/09) PCR Not detected Influenza A (H3) PCR Not detected Influenza Type A (PCR) Not detected Influenza Type B (PCR) Not detected M. pneumoniae (PCR) Not detected Parainfluenza 1 (PCR) Not detected Parainfluenza 2 (PCR) Not detected Parainfluenza 3 (PCR) Not detected Parainfluenza 4 (PCR) Not detected RSV (PCR) Not detected Entero/Rhino (PCR) Not detected SARS-CoV-2 (PCR) Not detected Preliminary micro results at discharge 05/18/25 14:17 Blood Culture - Preliminary Blood 05/18/25 14:17 Blood Culture - Preliminary Blood Discharge Plan Discharge Attending physician on discharge: Lilian Mulligan Consulting providers: Miles Irving Discharging Clinician: Lilian Mulligan Anticipated Discharge Date/Time: 05/23/25 18:00 Patient Disposition: SNF Activity: as tolerated Diet: heart healthy Patient Instructions: Heart Failure (DC), Acute Kidney Injury (DC), Pneumonia (DC), High Troponin Levels (GEN) Patient Language: Pakistani Stand Alone Forms: General Discharge Information Follow-up/Referrals: Miles Irving MD [Physician, Cardiology] - 2 Weeks Nick Guajardo MD [Primary Care Provider, Family Practice] - 2 Weeks Discharge Medications: New aspirin [Children's Aspirin] 81 mg Tablet,Chewable 81 mg PO DAILY@0800 Qty: 30 0RF doxycycline hyclate 100 mg Tablet 100 mg PO Q12HR 3 Days Qty: 6 0RF sacubitril-valsartan [Entresto] 24-26 mg Tablet 1 tab PO Q12HR Qty: 60 0RF midodrine 2.5 mg Tablet 5 mg PO TID Qty: 90 0RF cefuroxime axetil 500 mg tablet 500 mg PO Q12HR 3 Days Qty: 6 0RF Continued metformin 500 mg tablet 500 tablet PO DAILY ferrous sulfate [FeroSul] 325 mg (65 mg iron) tablet 325 tablet PO DAILY sertraline 25 mg tablet 25 tablet PO DAILY furosemide 20 mg tablet 40 mg PO DAILY gabapentin 100 mg capsule 100 mg PO Q12H acetaminophen 500 mg Tablet 500 mg PO .q12hr ProSource 10-100 gram-kcal/30 mL Liquid 1 ea PO DAILY EB-N5 DR 35 mg-3 mg- 2 mg-62.5 mcg Capsule,Delayed Release(Dr/Ec) 2 cap PO DAILY Eucerin See Rx Instructions .ROUTE .COMPLEX Rx Instructions: Apply two times daily multivitamin [Daily Multi-Vitamin] Tablet 1 tablet PO DAILY mecobal-levomefolat Ca-B6 phos [Foltanx] 2-3-35 mg tablet 2 tablet PO DAILY peg 400-propylene glycol 0.4-0.3 % drops 1 drp EACH EYE BID tacrolimus [Protopic] 0.1 % ointment 1 applic topical .COMPLEX Rx Instructions: 1 applic topically BID 2-3 x week; Lactobacillus acidophilus [Acidophilus] 1 cap PO BID tramadol 50 mg Tablet 50 mg PO Q6H PRN (Reason: Pain) Qty: 10 0RF Discontinued amlodipine-benazepril 10-40 mg capsule 1 cap PO DAILY ibuprofen 200 mg capsule 400 mg PO Q6H PRN (Reason: fever or pain) Date of admission: 05/19/25 14:46 Primary Care Provider: Nick Guajardo Admitting Provider: Justus Page Attending physician on admission: Justus Page Condition: Improved Hospitalist MIPS Heart Failure (Qualifier) Patient has current or prior documentation of LVEF less than or equal to 40%, or mod/servere depressed LVSF?: Yes IF NO, STOP HERE If Yes, Heart Failure (Qualifier) Patient was prescribed or already taking an Angiotensin-Converting Enzyme (ELMER) Inhibitor, or Antiotensin Receptor [place] (ARB): Yes Patient was prescribed or already taking bisoprolol, carvedilol, or sustained release metoprolol succinate: Yes
--- NOTE | 2025-05-23 16:18 | PC.NURSE ---
Notified that patient urinated
--- NOTE | 2025-05-23 17:10 | PC.NURSE ---
called report to facility and was transferred to the correct unit which went to voicemail. Will attempt to call back
--- NOTE | 2025-05-23 17:24 | PC.NURSE ---
attempted to call report a second time with no answer from the accepting unit
--- NOTE | 2025-05-23 18:07 | PC.NURSE ---
facility called back and report was given at 1800. instructed RN that all paperwork will be sent with the patient
== END 2025-05-23 18:25 | DRG 291 ==
LOC: ANHED 14:59 → ANHIMU 16:45
PROVIDERS: Nurse Practitioner Gerontology; Student in an Organized Health Care Education/Training Program; Admitting Provider Internal Medicine; Emergency Provider Emergency Medicine; PCP Family Medicine; Visit Provider Internal Medicine
DX: I11.0 Hypertensive heart disease with heart failure (principal); I50.33 Acute on chronic diastolic (congestive) heart failure; J18.9 Pneumonia, unspecified organism; J96.21 Acute and chronic respiratory failure with hypoxia; N17.9 Acute kidney failure, unspecified; I24.89 Other forms of acute ischemic heart disease; J81.1 Chronic pulmonary edema; J90 Pleural effusion, not elsewhere classified; I42.9 Cardiomyopathy, unspecified; I44.0 Atrioventricular block, first degree; E11.9 Type 2 diabetes mellitus without complications; R33.9 Retention of urine, unspecified; Z66 Do not resuscitate; Z20.822 Contact with and (suspected) exposure to COVID-19; Z95.0 Presence of cardiac pacemaker; Z79.84 Long term (current) use of oral hypoglycemic drugs; Z99.81 Dependence on supplemental oxygen
CPT/HCPCS: 36415; 36600; 71045; 76770; 80048; 80053; 80061; 80069; 80202; 81001; 82550; 82607; 82746; 82805; 82948; 83036; 83605; 83735; 83880; 84100; 84145; 84443; 84484; 85018; 85025; 85610; 85730; 86140; 87040; 87449; 87637; 87641; 87899; 93005; 93306; 94002; 94003; 94640; 94667; 96365; 96374; 96375; 96376; 97110; 97162; 97166; 97530; 97535; 99285; A9270; C8929; G0378; J0692; J1644; J1938; J1956; J3373; P9047; Q9957

== ENCOUNTER 2025-06-28 14:56 | Inpatient (IN) | payer MEDICARE, SELFPAY ==
--- OUTSIDE RECORDS SUMMARY | 2025-06-27 13:00 | XMS_ITS | Encounter Summary ---
Author Organization [facility] Healthcare Address [address] [place] [address] Care Team Providers Care [employer] Name Role Phone Srini Portillo MD Unavailable [phone] Zafar Alejo MD Unavailable [phone] Gabe Schneider MD Unavailable [phone] Beny Jc DPM Unavailable [phone] Nick Guajardo MD Primary Care Provider Reason for Visit * Reason Comments Hospital Follow Up Discharged 05/23/25 CHF, acute resp failure Encounter Details Date Type Department Care Team (Late st Contact Info) Description 06/27/2025 1:00 PM STEAM GIGGER Office Visit [facility] Cardiology [address] [phone] Osmani Jimenez MD [address] [facility] [address] [facility] [address] [place] [address] Cardiac pacemaker in situ (Primary Dx) Social History Tobacco Use Types Packs/Day Years Used Date Smoking Tobacco: Never Smokeless Tobacco: Never Alcohol Use Standard Drinks/Week Comments Yes 0 [...] on file Legal 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 Male 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 Gender Identity Not on file Sexual Orientation Not on file documented as of this encounter Last Filed Vital Signs Vital Sign Reading Time Taken Comments Blood Pressure 116/58 06/27/2025 1:09 PM STEAM GIGGER Pulse 51 06/27/2025 1:09 PM STEAM GIGGER Temperature - - Respiratory Rate - - Oxygen Saturation 97% 06/27/2025 1:09 PM STEAM GIGGER Inhaled Oxygen Concentration - - Weight 122.5 kg (270 lb) 06/27/2025 1:09 PM STEAM GIGGER per pt Height 182.9 cm (6') 06/27/2025 1:09 PM STEAM GIGGER Body Mass Index 36.62 06/27/2025 1:09 PM STEAM GIGGER documented in this encounter Functional Status * BP Location Answer Date of Assessment Author Right arm 06/27/2025 1:09 PM STEAM GIGGER Helena Montenegro MA * BP Location Answer Date of Assessment Author Right arm 06/27/2025 1:09 PM STEAM GIGGER Helena Montenegro MA documented as of this encounter Ordered Prescriptions Prescription Sig Dispense Quantity Refills Last Filled Start Date End Date metOLazone (ZAROXOLYN) 5 mg tablet Take 1 tablet (5 mg total) by mouth daily 30 tablet 11 06/27/2025 06/27/2026 documented in this encounter Progress Notes * Osmani Jimenez MD - 06/27/2025 1:00 PM CST [facility] FOLLOW UP 06/27/2025 Dick Bobo is a 85 y.o. 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 The patient was originally seen by me in the summer of 2021 when he washospitalized at [place] with symptomatic bradycardia and evidence of sick sinus syndrome. A pacemaker implant was recommended and performed uneventfully. He has a Biotronik dual-chamber device that is functioning well. He then presented to [facility] in April of 2025 with decompensated heart failure. He was not known to have heart failure in the past an echocardiogram demonstrated poor left ventricular systolic function with an ejection fraction of 20-25% which was a new diagnosis for him. He was diuresed with loop diuretics and felt better. His blood pressure was marginal and so he was placed both on midodrine as well as Entresto while he was in the hospital. He presents today for scheduled follow-up. He still has a lot of edema and is complaining of orthopnea that keeps him up at night. Had a lengthy conversation with the patient and his daughter about all of this. Becauseof his advanced age he did not wish aggressive measures nor any consideration of a catheterization to investigate his left ventricular failure. REVIEW OF SYSTEMS General ROS: negative for - chills, fatigue, fever, malaise, night sweats, weight gain or weight loss Psychological ROS: negative for - anxiety, depression, memory difficulties or sleep disturbances Ophthalmic ROS: negative for - blurry vision, decreased vision, loss of vision or scotomata ENT ROS: negative for - epistaxis, headaches, hearing change, nasal congestion, nasal discharge, sore throat, vertigo or visual changes Hematological and Lymphatic ROS: negative for - bleeding problems, blood clots, bruising, fatigue or weight loss Endocrine ROS: negative for - hot flashes, palpitations, polydipsia/polyuria or unexpected weight changes Respiratory ROS: negative for - cough, hemoptysis, orthopnea, shortness of breath, tachypnea or wheezing Cardiovascular ROS: negative for - chest pain, dyspnea on exertion, edema, irregular heartbeat, loss of consciousness, murmur, orthopnea, palpitations, paroxysmal nocturnal dyspnea, rapid heart rate or shortness of breath Gastrointestinal ROS: negative for - abdominal pain, appetite loss, blood in stools, constipation, diarrhea, gas/bloating, heartburn, hematemesis, melena or nausea/vomiting Genito-Urinary ROS: negative for - dysuria, erectile dysfunction or hematuria Musculoskeletal ROS: negative for - joint pain, muscle pain or muscular weakness Dermatological ROS: negative for dry skin, eczema, pruritus and rash HOME MEDICATIONS Current Outpatient Medications: acetaminophen (TYLENOL) 500 mg tablet, Take 1 tablet (500 mg total) by mouth every 6 (six) hours asneeded, Disp: , Rfl: amlodipine-benazepril (LOTREL) 10-40 mg per capsule, Take 1 capsule by mouth daily, Disp: , Rfl: ferrous sulfate ER 324 mg (65 mg iron) EC tablet, Take 65 mg by mouth daily, Disp: , Rfl: FUROSEMIDE ORAL, Take 40 mg by mouth daily, Disp: , Rfl: gabapentin (NEURONTIN) 100 mg capsule, , Disp: , Rfl: mecobal-levomefolat Ca-B6 phos (FOLTANX) 3-35-2 mg tablet, 1 tablet, Disp: , Rfl: metFORMIN XR (GLUCOPHAGE XR) 500 mg 24 hr tablet, TK 1 T PO D, Disp: , Rfl: 1 metOLazone (ZAROXOLYN) 5 mg tablet, Take 1 tablet (5 mg total) by mouth daily, Disp: 30 tablet, Rfl: 11 lgmkorxl99-tnmt-Hpcjopwp-gpnml 27 mg iron-1.13 mg-581.92 mg capsule, Take by mouth, Disp: , Rfl: peg 400-propylene glycol, PF, (Systane Hydration, PF,) 0.4-0.3 % drops, Administer into affected eye(s), Disp: , Rfl: sertraline (ZOLOFT) 25 mg tablet, Take 1 tablet (25 mg total) by mouth nightly, Disp: , Rfl: traMADoL (ULTRAM) 50 mg tablet, , Disp: , Rfl: white petrolatum-mineral oiL (EUCERIN) cream, , Disp: , Rfl: LABS AND OTHER DIAGNOSTIC TESTS No results found for: CHOL No results found for: HDL No results found for: LDLCALC No results found for: TRIG No results found for: CHOLHDL Lab Results Component Value Date WBC 17.2 (H) 01/18/2022 HGB 9.8 (L) 01/18/2022 HCT 31.2 (L) 01/18/2022 MCV 111.0 (H) 01/18/2022 No lab exists for component: LABALBU PHYSICAL EXAM Vitals BP 116/58 (BP Location: Right arm, Patient Position: Sitting) Pulse 51 Ht 182.9 cm (6') Wt 122.5 kg (270 lb) SpO2 97% BMI 36.62 kg/m?? Physical Examination: General appearance - alert, elderly gentleman appearing his stated age in thewheelchair. and in no distress, oriented to person, place, and time and acyanotic, in no respiratory distress Mental status - affect appropriate to mood Eyes - extraocular eye movements intact, sclera anicteric, no pallor Ears - external earsappear normal, hearing grossly normal bilaterally Nose - normal and patent, no erythema or discharge Mouth - mucous membranes moist, pharynx appears normal, dental hygiene good and tongue normal Neck - supple, no significant neck masses, carotids upstroke normal bilaterally, no bruits, moderate JVD Chest - clear to auscultation, no wheezes, rales or rhonchi, symmetric air entry, no tachypnea, retractions or cyanosis Heart - normal rate, regular rhythm, normal S1, S2, no murmurs, rubs, clicks or gallops, no JVD Abdomen - soft, nontender, nondistended, no masses or organomegaly bowel sounds normal Neurological - alert, oriented, normal speech, no focal findings or movement disorder noted Musculoskeletal - no joint tenderness, deformity or swelling, no muscular tenderness noted Extremities - peripheral pulses normal, moderate to severe chronic appearing bipedal edema no clubbing or cyanosis Skin - normal coloration and turgor, no rashes, no suspicious skin lesions noted ASSESSMENT Dick was seen today for hospital follow up. Diagnoses and all orders for this visit: Cardiac pacemaker in situ Other orders - metOLazone (ZAROXOLYN) 5 mg tablet; Take 1 tablet (5 mg total) by mouth daily Sick sinus syndrome Cardiomyopathy PLAN/RECOMMENDATIONS Discontinue midodrine Start Xarelto 5 mg daily Practice elevation of the head of the bed so he can sleep at night Follow-up in 3 weeks when I am back in this office. He can present to the hospital for inpatient treatment again if he has difficulty breathing right now he is on room air and oxygenating fine so I do not believe we hospitalization is necessary at this time Osmani Jimenez MD M GIGGER documented in this encounter Plan of Treatment Not on file documented as of this encounter Visit Diagnoses Diagnosis Cardiac pacemaker in situ- Primary documented in this encounter Care Teams [employer] Relationship Specialty Start Date End Date Nick Guajardo MD [address] [place] [address] PCP - General Family Medicine 10/19/23 Srini Portillo MD Consulting Physician Medical Oncology 10/16/20 Zafar Alejo MD [address] [place], [place] [id number] Referring Physician Family Practice 12/24/21 Gabe Schneider MD [address] [address] [place] [address] Consulting Physician Infectious Diseases 12/24/21 Beny Jc DPM [address] [place] [address] Consulting Physician Foot and Ankle Surg 12/24/21 documented as of this encounter
--- NOTE | ~2025-06-28 | XR_ITS ---
EXAMINATION: XR chest 2V, 06/28/2025 15:20 PHARMACEUTICAL OFFICER HISTORY: SOB COMPARISON: No comparisons available. Technique: 2 views obtained. Findings: Moderate pulmonary venous congestion. Small basilar infiltrates and effusions. No pneumothorax. Moderate cardiomegaly. Mediastinal and hilar contours are within normal limits. Bony thorax no acute abnormality. Left pacemaker. Impression: CHF. Superimposed probable pneumonia Reviewed, dictated and finalized at location P. MACEUTICAL OFFICER Impression: CHF. Superimposed probable pneumonia
--- NOTE | ~2025-06-28 | XR_ITS ---
Examination: XR chest port-a-cath/central Clinical History: Central Line Insertion Comparison: Chest x-rays 06/28/2025 Technique: Portable AP Findings: Right neck central line catheter tip upper SVC. Left pacemaker. Cardiomegaly. No pneumothorax. Worsening right pleural effusion, basilar atelectasis, and diffuse airspace disease. Worsening interstitial markings right lung, with small effusion. No acute bony abnormality. IMPRESSION: 1. No pneumothorax. 2. Right neck central line tip upper SVC. 3. Worsening right pleural effusion and diffuse lobar airspace disease. 4. Worsening right lung interstitial pulmonary edema and/or pneumonitis, with pleural effusion. Reviewed, dictated and finalized at location R. CH THERAPIST
--- NOTE | ~2025-06-28 | US_ITS ---
EXAMINATION: US renal BI, 06/30/2025 13:30 GRAIN MIXER HISTORY: elevated creatinine Comparison: None Technique: Hammonds-scale and color Doppler images were obtained. Findings: KIDNEYS: Renal cortices are thinned and echogenic, no solid masses, cysts or calculi, no hydronephrosis. Right Kidney: Right kidney 11.8 x 5.5 x 5.2 cm. Left Kidney: Left kidney 11.8 x 6.1 x 4.9 cm. Bladder: The bladder is unremarkable. . Impression: Medical renal disease. No obstruction Reviewed, dictated and finalized at location P. N MIXER Impression: Medical renal disease. No obstruction
--- NOTE | ~2025-06-28 | XR_ITS ---
Examination: XR chest 1V portable Clinical History: Congestive heart failure Comparison: 1 day prior Technique: Portable AP Findings: Right neck central line catheter tip at cavoatrial junction. Left pacemaker. Cardiomegaly. No pneumothorax. Further worsening left pleural effusion and diffuse atelectasis and/or airspace disease. Worsening right lung interstitial markings, with effusion. No acute bony abnormality. IMPRESSION: 1. Right neck central line catheter tip actually at cavoatrial junction, not upper SVC as previously reported. 2. Near complete whiteout of left hemithorax likely further worsening of pleural effusion, atelectasis, and airspace disease. 3. Mild worsening interstitial pulmonary edema. Reviewed, dictated and finalized at location R. N FIXER IMPRESSION: 1. Right neck central line catheter tip actually at cavoatrial junction, not u pper SVC as previously reported. 2. Near complete whiteout of left hemithorax likely further worsening of pleur al effusion, atelectasis, and airspace disease. 3. Mild worsening interstitial pulmonary edema.
--- NOTE | 2025-06-28 14:59 | ECG_ITS ---
Test Date: 2025-06-28 15:05:21 Measurements Intervals [place] Rate: 85 P: 10 MS: 303 QRS: -30 QRSD: 109 T: 104 QT: 398 QTc: 474 Interpretive Statements SINUS RHYTHM WITH FIRST DEGREE AV BLOCK WITH OCCASIONAL VENTRICULAR PREMATURE COMPLEXES ANTEROSEPTAL MYOCARDIAL INFARCTION , OF INDETERMINATE AGE Electronically Signed On 06-28-2025 15:23:58 DIRECTOR OF DESIGN by Brian Brandon D.O
[2025-06-28 15:00] VITALS: BP 118/78; PULSE 87; RESP 30; TEMP 36.4; O2SAT 100
[2025-06-28 15:15] VITALS: O2SAT 98
--- OUTSIDE RECORDS SUMMARY | 2025-06-28 15:22 | XMS_ITS | Encounter Summary ---
Author Organization [facility] Healthcare Address [address] [place] [address] Care Team Providers Care Ingot Weigher Name Role Phone Srini Portillo MD Unavailable Zafar Alejo MD Unavailable Gabe Schneider MD Unavailable [phone] Beny JcM Unavailable [phone] Nick Guajardo MD Primary Care Provider Encounter Details Date Type Department Care Team (Late st Contact Info) Description 06/28/2025 Telephone [facility] Cardiology [address] [facility] [address] [facility] [address] [place] [address] Osmani Jimenez MD [address] [facility] [address] [place] [address] Social History Tobacco Use Types Packs/Day Years [...] on file 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 Due to increased fluid, low BP, and shortness of breath. Just an FYI N PERFORMANCE TECHNOLOGIST documented in this encounter Plan of Treatment Not on file documented as of this encounter Visit Diagnoses Not on filedocumented in this encounter Care Teams Ingot Weigher Relationship Specialty Start Date End Date Nick Guajardo MD [address] [facility] [address] [place] [address] [place] [address] PCP - General Family Medicine 10/19/23 Srini Portillo MD Consulting Physician Medical Oncology 10/16/20 Zafar Alejo MD [address] [place] [address] Referring Physician Family Practice 12/24/21 Gabe Schneider MD [address] [place] [address] Consulting Physician Infectious Diseases 12/24/21 Beny Jc DPM [address] [place] [address] Consulting Physician Foot and Ankle Surg 12/24/21 documented as of this encounter
--- OUTSIDE RECORDS SUMMARY | 2025-06-28 15:22 | XMS_ITS | Encounter Summary ---
Author Organization [facility] Healthcare Address [address] [place] [address] Care Team Providers Care Registration Scheduling Specialist Name Role Phone Srini Portillo MD Unavailable [phone] Zafar Alejo MD Unavailable [phone] Gabe Schneider MD Unavailable [phone] Beny JcM Unavailable [phone] Nick Guajardo MD Primary Care Provider [phone] Encounter Details Date Type Department Care Team (Late st Contact Info) Description 06/13/2025 Telephone [facility] Cardiology [address] [place] [address] Osmani Jimenez MD [address] [address] Social History Tobacco Use Types Packs/Day [...] on file 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 She faxed over pts most recent labs/bps/weights. She states that she wanted to update MJF on the pt since pt was recently hospitalized for CHF and elevated troponins and medications were changed. Advised that pt should be scheduled for a hospital follow up appt. She will have pts family call to schedule. * Telephone Encounter - Trisha Robin RN - 06/13/2025 11:13 AM CDT Biotronik Edora Dual Pacemaker. Dx; Bradycardia, Junctional. DOI 03/15/2022- Tony. Biotronik remote home monitoring. Routine DDDR Pacemaker remote. Normal device function. Battery function-Ok, 80% remaining battery life to STACY. Appropriate lead measurements noted. Presenting rhythm: -VS. AP-62%, DRY CHAIN WORKER-8%. 3 Atrial high rate episode noted, max duration of 1 hour noted on 05/01/25, iegm's Atach. 1 Ventricular high rate episode noted on 05/11/25, iegm suggestive of SVT initially for 3 minutes, episode ended with NSVT @ 190 bpm for 6 beat duration. Medications; Pravastatin, Lasix, ASA 81 mg. See scanned report. Office pacemaker f/u 08/28/2025. Biotronik remote f/u in 6 months. Trisha Robin RN FYI Dr Jimenez regarding the above noted Atach and NSVT episodes. Review of chart shows patient was admitted to [facility] on 05/19/25. Consult note revealed Acute CHF, Acute Respiratory Failure, Pneumonia, MOHSEN, New CM. Patient is a DNR. Progress note from 05/22/25 indicates conservative treatment being pursued d/t advance age and DNR status. Patient has appointment with Dr Jimenez on 12/31/2025 (1 yr f/u). Dr Jimenez this patient is not scheduled for a hospital f/u. Do you want him seen sooner than December2025 or continue to monitor? Please advise. documented in this encounter Plan of Treatment Not on file documented as of this encounter Visit Diagnoses Not on filedocumented in this encounter Care Teams Registration Scheduling Specialist Relationship Specialty Start Date End Date Nick Guajardo MD [address] [place] [address] PCP - General Family Medicine 10/19/23 Srini Portillo MD Consulting Physician Medical Oncology 10/16/20 Zafar Alejo MD [address] [place] [address] Referring Physician Family Practice 12/24/21 Gabe Schneider MD [address] [place] [address] Consulting Physician Infectious Diseases 12/24/21 Beny Jc DPM [address] [facility] [place] [address] Consulting Physician Foot and Ankle Surg 12/24/21 documented as of this encounter
--- OUTSIDE RECORDS SUMMARY | 2025-06-28 15:22 | XMS_ITS | Clinical Summary ---
Author Organization [facility] Address [address] [place] [address] Care Team Providers Care Roll Inspector Name Role Phone Srini Portillo MD Unavailable [phone] Zafar Alejo MD Unavailable [phone] Gabe Schneider MD Unavailable [phone] Beny Jc DPM Unavailable [phone] Nick Guajardo MD Primary Care Provider [...] ral oiL (EUCERIN) creamIndication s:skin irritation Active -qdus -Lmfolate-algal 27 mg iron-1.13 mg-581.92 mg capsule Take by mouth Active mecobal-levomef olat Ca-B6 phos (FOLTANX) 3-35-2 mg tablet 1 tablet Active peg 400-propylene glycol, PF, (Systane Hydration, PF,) 0.4-0.3 % drops Administer into affected eye(s) Active metOLazone (ZAROXOLYN) 5 mg tablet Take 1 tablet (5 mg total) by mouth daily 30 tablet 11 5 06/27/20 Active Active Problems Problem Noted Date Diagnosed Date Chronic systolic congestive heart failure 2024 Cardiac pacemaker in situ 03/16/2022 Overview (03/16/2022): [...] Encounters Date Type Department Care Team Description 06/28/2025 Telephone [facility] Cardiology [address] [place] [phone] Osmani Jimenez MD 06/27/2025 1:00 PM SCANNER OPERATOR Office Visit [facility] Cardiology [address] [facility] [address] [place] [phone] Osmani Jimenez MD Cardiac pacemaker in situ (Primary Dx) 06/13/2025 Telephone [facility] Cardiology [facility] [address] [place] [phone] Osmani Jimenez MD 06/13/2025 Telephone [facility] Cardiology [address] [address] [address] [place] [address] Osmani Jimenez MD 06/11/2025 8:30 AM CDT Ancillary Procedure [facility] Cardiology [address] [facility] [address] [place] [address] Cardiac pacemaker in situ; Junctional bradycardia 05/24/2025 Orders Only [facility] Cardiology [address] [place] [address] Christiane Wade NP 05/20/2025 Orders Only [facility] Cardiology [address] [place] [address] Miles Irving MD from Last 3 Months Immunizations Immunization Administration [...] on file 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 Gender Identity Not on file Sexual Orientation Not on file Last Filed Vital Signs Vital Sign Reading Time Taken Comments Blood Pressure 116/58 06/27/2025 1:09 PM SCANNER OPERATOR Pulse 51 06/27/2025 1:09 PM SCANNER OPERATOR Temperature 36.7 C (98.1 F) 12/24/2021 3:04 PM CDT Respiratory Rate 22 12/24/2021 3:04 PM CDT Oxygen Saturation 97% 06/27/2025 1:09 PM SCANNER OPERATOR Inhaled Oxygen Concentration - - Weight 122.5 kg (270 lb) 06/27/2025 1:09 PM SCANNER OPERATOR per pt Height 182.9 cm (6') 06/27/2025 1:09 PM SCANNER OPERATOR Body Mass Index 36.62 06/27/2025 1:09 PM SCANNER OPERATOR Plan of Treatment Health Maintenance Due Date [...] Risk Assessment 12/24/2022 12/24/2021 eGFR 01/18/2023 01/18/2022, 0512/2021, 12/23/2021, Additional history exists DTaP/Tdap/Td Vaccine (2 - Tdap) 01/28/2024 4 Covid-19 Vaccine (4 - 2024-2 6 season) 2025 09/04/2021, 10/31/2020, 10/03/2020 Influenza Vaccine (#1) 2025 4, 05/26/2021, 06/02/2020, Additional history exists Procedures Procedure Name Priority Date/Time Associated Diagnosis Comments DEVICE CHECK - REMOTE Routine 06/12/2025 9:13 AM CDT Cardiac pacemaker in situ Junctional bradycardia CARDIOLOGY DOCUMENT SCAN Routine 05/23/2025 2:50 PM CDT CARDIOLOGY DOCUMENT SCAN Routine 05/22/2025 12:05 PM CDT CARDIOLOGY DOCUMENT SCAN Routine 05/21/2025 2:24 PM CDT CARDIOLOGY DOCUMENT SCAN Routine 05/20/2025 12:01 PM CDT CARDIOLOGY DOCUMENT SCAN Routine 05/19/2025 3:42 PM CDT EGFR STAT 01/18/2022 1:37 PM CDT from Last 3 Months or Most Recently Relevant to Health Maintenance Results * DEVICE CHECK - REMOTE (06/12/2025 9:13 AM CDT) Anatomical Region Laterality Modality Other Narrative 06/14/2025 12:33 PM CDT Biotronik Edora Dual Pacemaker. Dx; Bradycardia, Junctional. DOI 03/15/2022-Tony. Biotronik remote home monitoring. Routine DDDR Pacemaker remote. Normal device function. Battery function-Ok, 80% remaining battery life to STACY. Appropriate lead measurements noted. Presenting rhythm: -VS. 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 3 Atrial high rate episode noted, max duration of 1 hour noted on 05/01/25, iegm's Atach. 1 Ventricular high rate episode noted on 05/11/25, iegm suggestive of SVT initially for 3 minutes, episode ended with NSVT @ 190 bpm for 6 beat duration. Medications; Pravastatin, Lasix. See scanned report. Office pacemaker f/u 08/28/2025. Biotronik remote f/u in 6 months. Trisha Robin, RN us Osmani Jimenez MD CV CARDIAC SERVICES PROC EDURES Final Result * Cardiology Document Scan (05/23/2025 2:50 PM CDT) Anatomical Region Laterality Modality Other us Ann Meneses NP CV CARDIAC SERVICE S PROCEDURES Final Result * Cardiology Document Scan (05/22/2025 12:05 PM CDT) Anatomical Region Laterality Modality Other us Osmani Jimenez MD CV CARDIAC SERVICES PROC EDURES Final Result * Cardiology Document Scan (05/21/2025 2:24 PM CDT) Anatomical Region Laterality Modality Other us Ann Sharma Rosalvaemely DIRECTOR OF PUBLIC HEALTH CV CARDIAC SERVICE S PROCEDURES Final Result * Cardiology Document Scan (05/20/2025 12:01 PM CDT) Anatomical Region Laterality Modality Other us Christiane Wade DIRECTOR OF PUBLIC HEALTH CV CARDIAC SERVICES PROCEDUR ES Final Result * Cardiology Document Scan (05/19/2025 3:42 PM CDT) Anatomical Region Laterality Modality Other us Miles Irving MD CV CARDIAC SERVICES PROCEDU RES Final Result * eGFR (01/18/2022 1:37 PM [...] BLOOD ORDERABLES Final Res ult MICHEAL GARRETT [address] Department [place] [address] from Last 3 Months or Most Recently Relevant to Health Maintenance [place] [address] [place] [address] MEDICARE UHC MEDICARE ADVANTAGE [facility] MED[facility] Address: [address] [address] [place] [address] [employer] MEDICARE Advance Directives For more information, please contact: [phone] * Full Code (Latest Code Status on File) Date Activated Date Inactivated Comments 12/20/2021 9:55 PM 12/24/2021 8:10 PM Healthcare Agents on File Name Relationship Healthcare Agent Meme menendez Communication Fadumo Randolph Daughter First Alternate Health Car e Agent Care Teams Roll Inspector Relationship Specialty Start Date End Date Nick Guajardo MD [address] [place] [address] PCP - General Family Medicine 10/19/23 Srini Portillo MD Consulting Physician Medical Oncology 10/16/20 Zafar Alejo MD [address] [place] [id number] Referring Physician Family Practice 12/24/21 Gabe Schneider MD [address] [place] [address] Consulting Physician Infectious Diseases 12/24/21 Beny Jc DPM [address] [place] [address] Consulting Physician Foot and Ankle Surg 12/24/21
--- OUTSIDE RECORDS SUMMARY | 2025-06-28 15:23 | XMS_ITS | Data Portability ---
Author Organization [employer] [facility], Main Office Address [address] [place] [address] Care Team Providers Care Manager Apple Name Role Phone [facility] FAX OTHER Assessment Encounter Date Assessment Date Assessment LastModified by Organization Details LastModified Time 06/17/2025 06/17/2025 Labs in AM. Nursing is scheduling f/u appt with Dr. Jimenez -- faxed labs, BPs, and weights and their recommendation was to be-seen in office. May need to escalate Bumex further. Would likely need to reduce Entresto or increase Midodrine to avoid hypotension. [email or web address] Not available 06/17/2025 20:10:35 06/19/2025 06/19/2025 Increase Bumex t o 2 mg PO BID. Labs (BMP & BNP) on 06/21. Labs (CBC, CMP, BNP) on 06/24. Nursing still working on scheduling f/u appt with Dr. Jimenez -- faxed labs, BPs, and weights. Not available 06/19/2025 17:06:02 06/21/2025 06/21/2025 BMP & BNP pendin g from this AM. Labs (CBC, CMP, BNP) on 06/24. Depending on results, may need to carefully add Metolazone. If hypotension worsens, may need to increase Midodrine to allow diuresis. Nursing faxing labs, BPs, and weights to Dr. Jimenez -- has an appt next week. Monitor for continued need for Lactobacillus and PRN Tacrolimus. Not available 06/22/2025 10:23:20 06/24/2025 06/24/2025 D/C Lactobacillu s & PRN Tacrolimus. Labs (CBC, CMP, BNP) pending from this AM. Depending on results, may need to carefully add Metolazone. If hypotension worsens, may need to increase Midodrine to allow diuresis. Nursing faxing labs, BPs, and weights to Dr. Jimenez -- has an appt this week. Not available 06/24/2025 18:24:51 06/26/2025 06/26/2025 Labs (BMP, BNP) on 06/27. Cannot increase diuretics further at this time due to hyponatremia. If hypotension worsens, may need to increase Midodrine to allow diuresis. Nursing faxing labs, BPs, and weights to Dr. Jimenez -- has an appt 06/27. [email or web address] Not available 06/26/2025 15:11:25 Plan of Treatment Reminders Order Date Submit Date Provider Last Modified By Organization Details Last Modified Time Details Appointments None record ed. Lab None record ed. Referral None record ed. Procedures None record ed. Surgeries None record ed. Imaging None record ed. Medication Orders None record ed. Patient TargetsNo targets recorded. Patient Instructions Encounter Date Encounter Id Patient Instructions Last Modified By Organization Details Last Modified Time 06/17/2025 [id number] I spent 36 minutes providing care to the patient today. More than 50% of that time was spent in discussing the expected course of the disease, discussing prognosis, coordinating care and counseling of the patient/family. Not available 06/17/2025 20:10:56 06/19/2025 [id number] I spent 37 minutes providing care to the patient today. More than 50% of that time was spent in discussing the expected course of the disease, discussing prognosis, coordinating care and counseling of the patient/family. Not available 06/19/2025 17:07:02 06/21/2025 [id number] I spent 37 minutes providing care to the patient today. More than 50% of that time was spent in discussing the expected course of the disease, discussing prognosis, coordinating care and counseling of the patient/family. Not available 06/22/2025 10:23:43 06/24/2025 [id number] I spent 38 minutes providing care to the patient today. More than 50% of that time was spent in discussing the expected course of the disease, discussing prognosis, coordinating care and counseling of the patient/family. [email or web address] Not available 06/24/2025 18:30:15 06/26/2025 [id number] I spent 36 minutes providing care to the patient today. More than 50% of that time was spent in discussing the expected course of the disease, discussing prognosis, coordinating care and counseling of the patient/family. [email or web address] Not available 06/26/2025 15:11:59 Reason for Referral None Reported. Results Created Date Observation Date Name Description Value Unit Range Abnormal Flag Note LastModifiedBy Organization Detail LastModifiedTime 06/04/2006/04/2025 XR, chest , 2 view No observ ation record ed. [place] [facility] [address], [place], [address], 06/04/2025 16:25:55 Result Notes None recorded. Procedures Surgical History Date Name Laterality Status Provider Name and Address Organization Details Recorded Time 02/20/20 22 implantation of cardiac pacemaker completed ANDREA Marie, [place], [address], [facility] 05/24/2025 15:12:47 amputation of finger tip completed ANDREA Marie, [place], [address], [facility] 05/24/2025 14:33:40 amputation of toe completed ANDREA Marie, [place], [address], [facility] 05/24/2025 14:53:29 [place], [address], [facility] 05/24/2025 14:55:57 endoscopic carpal tunnel release completed ANDREA Marie, [place], [address], [facility] 05/24/2025 14:56:21 Imaging Results None recorded. Procedure Notes None recorded. Medical Equipment None Reported. Medications Name Sig Start Date Stop Date Status Note LastModified by Organization Details LastModified Time Miralax 17 gram oral powder packet Take 1 packet twice a day by oral route. active Not Available Not Available No t Available metformin 500 mg tablet Take 1 tablet every day by oral route. 05/24 completed Not Available Not Available Not Available doxycycline hyclate 100 mg capsule Take 1 capsule twice a day by oral route for 3 days. 05/28 completed Stop Date: 05/26 Not Available Not Available Not Available ipratropium 0.5 mg-albutero l 3 mg (2.5 mg base)/3 mL nebulizatio n soln Inhale 3 mL 4 times a day by nebulizat ion route as needed. active Not Available Not Available No t Available bumetanide 2 mg tablet Take 1 tablet twice a day by oral route. active Not Available Not Available No t Available Milk of Magnesia 400 mg/5 mL oral suspension Take 30 mL every day by oral route as needed. active Not Available Not Available No t Available midodrine 5 mg tablet Take 1 tablet every 8 hours by oral route. active Not Available Not Available No t Available Eucerin topical cream Apply 1 applicati on twice a day by topical route. 06/12 completed Not Available Not Available Not Available tramadol 50 mg tablet Take 1 tablet every 6 hours by oral route as needed. active Not Available Not Available No t Available acetaminoph en 500 mg tablet Take 1 tablet every 12 hours by oral route. active Not Available Not Available No t Available Dulcolax (bisacodyl) 10 mg rectal suppository Insert 1 supposito ry every day by rectal route as needed. active Not Available Not Available No t Available tacrolimus 0.1 % topical ointment Apply 1 applicati on by topical route as needed. 06/24 completed Not Available Not Available Not Available sertraline 25 mg tablet Take 1 tablet every day by oral route. 05/28 completed Not Available Not Available Not Available aspirin 81 mg chewable tablet Chew 1 tablet every day by oral route. active Not Available Not Available No t Available bumetanide 1 mg tablet Take 1.5 tablets twice a day by oral route. 06/19 completed Not Available Not Available Not Available furosemide 20 mg tablet Take 2 tablets every day by oral route. 06/03 completed Not Available Not Available Not Available gabapentin 100 mg capsule Take 1 capsule every 12 hours by oral route. active Not Available Not Available No t Available cefuroxime axetil 500 mg tablet Take 1 tablet twice a day by oral route for 3 days. 05/28 completed Stop Date: 05/26 Not Available Not Available Not Available doxycycline hyclate 100 mg tablet Take 1 tablet twice a day by oral route for 3 days. 05/24 completed Not Available Not Available Not Available One Daily Multivitami n tablet Take 1 tablet every day by oral route. active Not Available Not Available No t Available Systane (propylene glycol) 0.4 %-0.3 % eye drops Apply 1 drop twice a day by ophthalmi c route. active Not Available Not Available No t Available gabapentin 100 mg tablet Take 1 tablet twice a day by oral route. 05/24 completed Not Available Not Available Not Available FeroSul 325 mg (65 mg iron) tablet Take 1 tablet every day by oral route. active Not Available Not Available No t Available melatonin 5 mg tablet Take 1 tablet every day by oral route at bedtime. active Not Available Not Available No t Available ProSource 10 gram-100 kcal/30 mL oral liquid Take 30 mL every day by oral route. 06/03 completed Not Available Not Available Not Available Foltanx 2 mg-3 mg-35 mg tablet Take 2 tablets every day by oral route. active Not Available Not Available No t Available sacubitril 24 mg-valsarta n 26 mg tablet Take 0.5 tablets twice a day by oral route. active Not Available Not Available No t Available Lactobacill us acidophilus 100 mg (1 billion cell) capsule Take 1 capsule twice a day by oral route. 06/24 completed Not Available Not Available Not Available Vitals Date Recorded Body height Heart rate Body temperature Respiratory rate Oxygen saturation Oxygen saturation in Arterial blood by Pulse oximetry Body mass index (BMI) Body weight Systolic And Diastolic Provider Name and Address Organization Details Last Updated DateTime 182.88 cm 74 /min 97.3 [degF] 20 /min 98 % 98 % 34 kg/m2 042966. 25 g 96/47 mm[Hg] [place] [address] [facility], [place], [address], [place] [facility] 10:59:50 Date Recorded Body height Heart rate Body temperature Respiratory rate Oxygen saturation Oxygen saturation in Arterial blood by Pulse oximetry Body mass index (BMI) Body weight Systolic And Diastolic Provider Name and Address Organization Details Last Updated DateTime 5 182.88 cm 84 /min 98 [degF] 18 /min 99 % 99 % 34.8 kg/m2 662048. 08 g 126/66 mm[Hg] [place] [address] [place], [address], [place] - [facility] 09:23:42 Date Recorded Heart rate Body temperature Respiratory rate Oxygen saturation Oxygen saturation in Arterial blood by Pulse oximetry Body weight Systolic And Diastolic Provider Name and Address Organization Details Last Updated DateTime 5 78 /min 97.3 [degF] 18 /min 99 % 99 % 753452. 48 g 99/52 mm[Hg] [place] [address] [place], [address], [facility] 5 10:08:32 Date Recorded Body height Heart rate Body temperature Respiratory rate Oxygen saturation Oxygen saturation in Arterial blood by Pulse oximetry Body mass index (BMI) Body weight Systolic And Diastolic Provider Name and Address Organization Details Last Updated DateTime 5 182.88 cm 71 /min 98 [degF] 18 /min 98 % 98 % 35.8 kg/m2 975591. 1 g 106/52 mm[Hg] [place] [address] [place], [address], [place] - [facility] 5 18:22:49 Date Recorded Body height Heart rate Body temperature Respiratory rate Oxygen saturation Oxygen saturation in Arterial blood by Pulse oximetry Body mass index (BMI) Body weight Systolic And Diastolic Provider Name and Address Organization Details Last Updated DateTime 5 182.88 cm 82 /min 97.8 [degF] 16 /min 94 % 94 % 36.8 kg/m2 040764. 53 g 144/85 mm[Hg] [place] [address] [place], [address], [facility] 5 15:00:57 Social History Question Answer Notes LastModified by Organizat ion Details LastModified Time Tobacco Smoking Status Never Smoker Kenny Pizano null, [place] - [facility] 05/24/2025 10:26:50 What Is Your Code Status? DNR Information not available 05/24/2025 What Was The Date Of Your Most Recent Tobacco Screening? 05/24/2025 Information not available 05/24/2025 What Is Your Relationship Status? Information not available 05/24/2025 Sex: Unknown Functional Status Question Answer Note LastModified by Organizat ion Details LastModified Time Do you use any illicit or recreational drugs? No Information not available 05/24/2025 What is your level of alcohol consumption? None Information not available 05/24/2025 Mental Status None recorded. Family History Relationship Description Onset Age of this Age Resolved Age Notes LastModified by Organization Details LastModified Time Father Heart disease Not available 2024 10:26:15 Medical History Condition Response Diabetic Neuropathy Y Diabetes Y Psychiatric -- Anxiety Disorder Y Pulmonary Hypertension Y Vitamin D Deficiency Y Osteoarthritis / DJD Y Anemia Y Cancer -- Multiple Myeloma Y Chronic Kidney Disease (CKD) Y Congestive Heart Failure (CHF) Y Hyperlipidemia Y Psychiatric -- Depression Y Hypertension Y Past Encounters Encounter ID Performer Location Encounter Start Date Encounter Closed Date Diagnosis/Indication Diagnosis SNOMED-CT Code Diagnosis ICD10 Code Diagnosis IMO Codes Diagnosis Note [id number] Citlali Skinner [address] [address] 05/24/2025 10:16:44 05/26/2025 21:57:23 Hypertensive heart AND chronic kidney disease with congestive heart failure 6554194437 9107 I13.0 I50.21 N18.2 [id number] Acute on chronic CHF. Echo while inpatient = LV moderately enlarged, EF 25-30%. RV mildly enlarged, systolic function is normal. LA mildly enlarged. Mild-mod mitral valve regurg. Mild tricuspid valve regurg. Severe pulmonary HTN, estimated PASP 71 mmHg. Mild pulmonic regurg. Pleural effusion. Diuresed while inpatient, discharged on usual dosing of Lasix 40 mg daily. Hypotensio n resulted in addition of Midodrine. Fluid status appears improved. Continue baby ASA, Entresto (new), and Furosemide .BPs remain low. May need to either reduce Entresto dosing or increase Midodrine dosing.Con tinue to trend blood pressures, weights, edema, monitor lytes and renal function, and adjust meds as clinically indicated. Weight at last cards appt in November 2024 was 260 lbs. His weight fluctuated in [place] 237-244 lbs from January to Apr 2025.F/U with Dr. Miles Irving (cards) in 2 weeks, however he has historical ly been followed by Dr. Osmani Jimenez -- nursing to schedule F/U appt. 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 Mixed hyperlipidemia 267 037827 E78.2 11954 Per history. Recent FLP while inpatient was well below normal limits and pt is not on medication s. Neuropathy due to type 2 diabetes mellitus [id number] 92600 E11.40 303953 D/C Metformin -- HgA1c was 5.5% while inpatient. Continue routine APAP, Gabapentin & PRN Tramadol for neuropathy pain.Sayra nue LCS diet and monitor blood sugars for a time but can likely change to PRN. Moderate r ecurrent major depression 13742715 F33.1 9178655 No recent concerns per pt. Mood is stable and pleasant. Continue low-dose Sertraline . Generalize d anxiety disorder 11114421 F41.1 608478 SEE ABOVE... History of multiple myeloma 7866012264 33608 Z85.79 923695 Followed historical ly by Dr. Srini Portillo (oncology) with last appt in 2020. Now following PRN as treatment was supportive monitoring . Vitamin D deficiency 347 40370 E55.9 51825 Stable. Level was 39 in January 2025. Continue supplement . Recurrent falls 60591531 2 R29.6 8843119 SEE ABOVE... Physical deconditioning 3212710289 9102 R53.81 029205 Related to age, recent inpatient stay, and multiple comorbidit ies. Continue PT/OT and monitor progress. Goal is for pt to return to [facility]. Acute resp iratory failure 40309869 J96.01 4039429 SEE ABOVE... Recurrent pneumonia 6990 74699 J18.9 768224 Pneumonia first dx on 05/08, treated with 7 day course of Levaquin. Pt became progressiv aquilino weaker, ultimately admitted to hospital with CXR on 05/18 noting CHF with superimpos ed pneumonia. He was treated with oxygen, IV diuresis, and broad-spec trum antibiotic s (Vanc, Cefepime, Doxycyclin e). He has been discharged on Ceftin and Doxycyclin e to complete a total 5 day course (05/26).Igor k on RA without concerns. Monitor oxygen status closely and utilize oxygen PRN.Practi ce and reinforce good pulmonary hygiene. Acute kidney injury 1466 9001 N17.9 N18.9 76098294 Reviewed historic labs, appears baseline Cr is 1.2-1.4. Cr peaked at 1.51-1.52 while inpatient, improved to 1.19 by hospital discharge. Monitor labs closely and avoid additonal nephrotoxi ns. Retention of urine 70403 4002 R33.9 40123 Required mooney catheter placement while inpatient. UA was negative in ER, not repeated afterwards . Mooney successful ly removed. Flomax was not started due to hypotensio n. Monitor closely for recurrence . Pt notes he is voiding without concerns at present. Pulmonary hypertension 82585610 I27.20 009862 SEE ABOVE... Not for resuscitation 30 3565143 Z66 696943 Pt is a DNR with selective measures. Confirmed today with pt. Dry eyes 315605143 H04.1 23 1966698 Stable. Continue Systane eye drops and f/u with ophthalmol ogy as directed. Polypharmacy 406881332 Z 79.899 236634 Monitor for continued need for Lactobacil kayli, Prosource, and Tacrolimus . Anemia of chronic disease 978475672 D63.8 750075 Hgb baseline appears to be 8-9s, likely more of chronic disease. Iron, Vit b12 and Folate WNL. Continue Iron supplement , MVI, & Foltanx and trend Hgb. Monoclonal gammopathy of uncertain significance 129585984 D47.2 826761 SEE ABOVE... Left foot drop 431366622 1 47673 M21.372 399520 Cause unclear -- possibly sec to neuropathy ? Pt thinks it may have been from a stroke but this is not documented in his history.Co ntinue AFO and therapies. Acute constipation 9006 K59.00 615574 Reports he hasn't had a BM since prior to his hospitaliz ation. GI exam unconcerni ng.Add Miralax BID until successful BM, then can reduce.Add itional cathartics available per standing orders. [id number] Citlali Skinner, [place] [address] [place] [address] 05/26/2025 11:32:57 06/02/2025 12:09:21 Hypertensive heart AND chronic kidney disease with congestive heart failure 5908536878 9107 I13.0 I50.21 N18.2 6420838412 Acute on chronic CHF. Echo while inpatient = LV moderately enlarged, EF 25-30%. RV mildly enlarged, systolic function is normal. LA mildly enlarged. Mild-mod mitral valve regurg. Mild tricuspid valve regurg. Severe pulmonary HTN, estimated PASP 71 mmHg. Mild pulmonic regurg. Pleural effusion. Diuresed while inpatient, discharged on usual dosing of Lasix 40 mg daily. Hypotensio n resulted in addition of Midodrine. Fluid status appears improved. Continue baby ASA, Entresto (new), and Furosemide .BPs have, at times, been low - monitor for need to either reduce Entresto or increase MidodrineC ontinue to trend blood pressures, weights, edema and labsWeight at last cards appt in November 2024 was 260 lbs. His weight fluctuated in [place] 237-244 lbs from January to Apr 2025.F/U with Dr. Miles Irving (cards) in 2 weeks, however he has historical ly been followed by Dr. Osmani Jimenez -- nursing to schedule F/U appt. Pulmonary hypertension 17354500 I27.20 106328 SEE ABOVE... Recurrent pneumonia 6990 11686 J18.9 222071 Pneumonia first dx on 05/08, treated with 7 day course of Levaquin. Pt became progressiv aquilino weaker, ultimately admitted to hospital with CXR on 05/18 noting CHF with superimpos ed pneumonia. He was treated with oxygen, IV diuresis, and broad-spec trum antibiotic s (Vanc, Cefepime, Doxycyclin e). He has been discharged on Ceftin and Doxycyclin e to complete a total 5 day course (05/26).Igor k on RA without concerns. Monitor oxygen status closely and utilize oxygen PRN. Acute resp iratory failure 86118372 J96.01 8360819 SEE ABOVE... Acute kidney injury 1466 9001 N17.9 N18.9 30120045 Reviewed historic labs, appears baseline Cr is 1.2-1.4. Cr peaked at 1.51-1.52 while inpatient, improved to 1.19 by hospital discharge. Monitor labs closely and avoid additional nephrotoxi ns. Retention of urine 42252 4002 R33.9 39949 Required mooney catheter placement while inpatient. UA was negative in ER, not repeated afterwards . Mooney successful ly removed. Flomax was not started due to hypotensio n. Monitor closely for recurrence . Pt notes he is voiding without concerns at present. Acute constipation 9006 K59.00 929412 Reports he hasn't had a BM since prior to his hospitaliz ation. GI exam remains unconcerni ng.continu e Miralax BID until successful BM, then can reduce.Add itional cathartics available per standing orders Bradycardia 13281634 R00 .1 08752 with junctional rhythm s/p PPM in 2021.Sayra nue supportive measures and f/u with cards as above. Mixed hyperlipidemia 267 030005 E78.2 88273 Per history. Recent FLP while inpatient was well below normal limits and pt is not on medication s. Neuropathy due to type 2 diabetes mellitus 0648062699 09871 E11.40 718483 D/C'd Metformin -- HgA1c was 5.5% while inpatient. Continue routine APAP, Gabapentin & PRN Tramadol for neuropathy pain.Sayra nue LCS diet and monitor blood sugars for a time but can likely change to PRN. Anemia of chronic disease 693139983 D63.8 987340 Hgb baseline appears to be 8-9s, likely more of chronic disease. Iron, Vit b12 and Folate WNL. Continue Iron supplement , MVI, & Foltanx and trend Hgb. Moderate r ecurrent major depression 25901676 F33.1 1713844 No recent concerns per pt. Mood is stable and pleasant. Continue low-dose Sertraline . Generalize d anxiety disorder 90882522 F41.1 518596 SEE ABOVE... Dry eyes 897999012 H04.1 23 5478304 Stable. Continue Systane eye drops and f/u with ophthalmol ogy as directed. Vitamin D deficiency 347 50117 E55.9 97346 Stable. Level was 39 in January 2025. Continue supplement . Left foot drop 202160916 1 25483 M21.372 203864 Cause unclear -- possibly sec to neuropathy ? Pt thinks it may have been from a stroke but this is not documented in his history.Co ntinue AFO and therapies. History of multiple myeloma 6601941236 61984 Z85.79 780708 Followed historical ly by Dr. Srini Portillo (oncology) with last appt in 2020. Now following PRN as treatment was supportive monitoring . Monoclonal gammopathy of uncertain significance 757079705 D47.2 922331 SEE ABOVE... Polypharmacy 651251751 Z 79.899 403567 Monitor for continued need for Lactobacil kayli, Prosource, and Tacrolimus . Physical deconditioning 5534265335 9102 R53.81 883749 Related to age, recent inpatient stay, and multiple comorbidit ies. Continue PT/OT and monitor progress. Goal is for pt to return to [facility]. [id number] Citlali Skinner DO [facility] [address] [place] [address] 05/28/2025 10:21:49 06/02/2025 12:07:31 Hypertensive heart AND chronic kidney disease with congestive heart failure 9310382656 9107 I13.0 I50.21 N18.2 7643984002 Acute on chronic CHF. Echo while inpatient = LV moderately enlarged, EF 25-30%. RV mildly enlarged, systolic function is normal. LA mildly enlarged. Mild-mod mitral valve regurg. Mild tricuspid valve regurg. Severe pulmonary HTN, estimated PASP 71 mmHg. Mild pulmonic regurg. Pleural effusion. Diuresed while inpatient, discharged on usual dosing of Lasix 40 mg daily. Hypotensio n resulted in addition of Midodrine. Fluid status appears improved. Continue baby ASA, Entresto (new), and Furosemide .Continue to trend blood pressures, weights, edema and labsWeight at last cards appt in November 2024 was 260 lbs. His weight fluctuated in [place] 237-244 lbs from January to Apr 2025.F/U with Dr. Miles Abo-Chouteau (cards) in 2 weeks, however he has historical ly been followed by Dr. Osmani Jimenez -- nursing to schedule F/U appt. Pulmonary hypertension 32217650 I27.20 768998 SEE ABOVE... Recurrent pneumonia 6990 55444 J18.9 127567 Pneumonia first dx on 05/08, treated with 7 day course of Levaquin. Pt became progressiv aquilino weaker, ultimately admitted to hospital with CXR on 05/18 noting CHF with superimpos ed pneumonia. He was treated with oxygen, IV diuresis, and broad-spec trum antibiotic s (Vanc, Cefepime, Doxycyclin e). He has been discharged on Ceftin and Doxycyclin e to complete a total 5 day course (05/26).Igor k on RA without concerns. Monitor oxygen status closely and utilize oxygen PRN. Acute resp iratory failure [id number] J96.01 6649333 SEE ABOVE... Acute kidney injury 1466 9001 N17.9 N18.9 41570323 Reviewed historic labs, appears baseline Cr is 1.2-1.4. Cr peaked at 1.51-1.52 while inpatient, improved to 1.19 by hospital discharge. Monitor labs closely and avoid additional nephrotoxi ns. Retention of urine 59899 4002 R33.9 95608 Required mooney catheter placement while inpatient. UA was negative in ER, not repeated afterwards . Mooney successful ly removed. Flomax was not started due to hypotensio n. Monitor closely for recurrence . Pt notes he is voiding without concerns at present. Acute constipation 9006 K59.00 510234 Reports he hasn't had a BM since prior to his hospitaliz ation. 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 Mixed hyperlipidemia 267 073496 E78.2 42567 Per history. Recent FLP while inpatient was well below normal limits and pt is not on medication s. Neuropathy due to type 2 diabetes mellitus [id number] 11677 E11.40 152730 D/C'd Metformin -- HgA1c was 5.5% while inpatient. Continue routine APAP, Gabapentin & PRN Tramadol for neuropathy pain.Sayra nue LCS diet and monitor blood sugars for a time but can likely change to PRN. Anemia of chronic disease 378902727 D63.8 486590 Hgb baseline appears to be 8-9s, likely more of chronic disease. Iron, Vit b12 and Folate WNL. Continue Iron supplement , MVI, & Foltanx and trend Hgb. Moderate r ecurrent major depression 44264686 F33.1 9461337 No recent concerns per pt. Mood is stable and pleasant. Family/pt requested Sertraline be stopped. Generalize d anxiety disorder 44048094 F41.1 164343 SEE ABOVE... Dry eyes 407560648 H04.1 23 4486565 Stable. Continue Systane eye drops and f/u with ophthalmol ogy as directed. Vitamin D deficiency 347 10785 E55.9 24015 Stable. Level was 39 in January 2025. Continue supplement . Left foot drop 471609878 1 97016 M21.372 239409 Cause unclear -- possibly sec to neuropathy ? Pt thinks it may have been from a stroke but this is not documented in his history.Co ntinue AFO and therapies. History of multiple myeloma 0323174838 83195 Z85.79 451319 Followed historical ly by Dr. Srini Portillo (oncology) with last appt in 2020. Now following PRN as treatment was supportive monitoring . Monoclonal gammopathy of uncertain significance 423887518 D47.2 285830 SEE ABOVE... Polypharmacy 393235223 Z 79.899 587191 Monitor for continued need for Lactobacil kayli, Prosource, and Tacrolimus . Physical deconditioning 6780201855 9102 R53.81 222697 Related to age, recent inpatient stay, and multiple comorbidit ies. Continue PT/OT and monitor progress. Goal is for pt to return to [facility]. Primary insomnia 5132279 F51.01 72774 Add Melatonin qhs. [id number] Citlali Skinner, DO PAC [place] [address] [place] [address] 05/30/2025 10:21:16 06/02/2025 12:08:20 Hypertensive heart AND chronic kidney disease with congestive heart failure 7122126040 9107 I13.0 I50.21 N18.2 4572542261 Acute on chronic CHF. Echo while inpatient = LV moderately enlarged, EF 25-30%. RV mildly enlarged, systolic function is normal. LA mildly enlarged. Mild-mod mitral valve regurg. Mild tricuspid valve regurg. Severe pulmonary HTN, estimated PASP 71 mmHg. Mild pulmonic regurg. Pleural effusion. Diuresed while inpatient, discharged on usual dosing of Lasix 40 mg daily. Hypotensio n resulted in addition of Midodrine. Continue baby ASA, Entresto (new), and Furosemide .Continue to trend blood pressures, weights, edema and labsWeight at last cards appt in November 2024 was 260 lbs. His weight fluctuated in [place] 237-244 lbs from January to Apr 2025.F/U with Dr. Miles Irving ([facility]) in 2 weeks, however he has historical ly been followed by Dr. Osmani Jimenez -- nursing to schedule F/U appt. Pulmonary hypertension 78828375 I27.20 905811 SEE ABOVE... Recurrent pneumonia 6990 45702 J18.9 431766 Pneumonia first dx on 05/08, treated with 7 day course of Levaquin. Pt became progressiv aquilino weaker, ultimately admitted to hospital with CXR on 05/18 noting CHF with superimpos ed pneumonia. He was treated with oxygen, IV diuresis, and broad-spec trum antibiotic s (Vanc, Cefepime, Doxycyclin e). He has been discharged on Ceftin and Doxycyclin e to complete a total 5 day course (05/26).Igor k on RA without concerns. Monitor oxygen status closely and utilize oxygen PRN. Acute resp iratory failure 16836474 J96.01 6740249 SEE ABOVE... Acute kidney injury 1466 9001 N17.9 N18.9 43572567 Reviewed historic labs, appears baseline Cr is 1.2-1.4. Cr peaked at 1.51-1.52 while inpatient, improved to 1.19 by hospital discharge. Monitor labs closely and avoid additional nephrotoxi ns. Retention of urine 33848 4002 R33.9 77230 Required mooney catheter placement while inpatient. UA was negative in ER, not repeated afterwards . Mooney successful ly removed. Flomax was not started due to hypotensio n. Monitor closely for recurrence . Pt notes he is voiding without concerns at present. Acute constipation 9006 K59.00 748820 Reports he hasn't had a BM since prior to his hospitaliz ation. GI exam remains unconcerni ng.Continu e Miralax BID until successful BM, then can reduce.Add itional cathartics available per standing orders. Bradycardia 39427249 R00 .1 72921 with junctional rhythm s/p PPM in 2021.Sayra nue supportive measures and f/u with cards as above. Mixed hyperlipidemia 267 540323 E78.2 68738 Per history. Recent FLP while inpatient was well below normal limits and pt is not on medication s. Neuropathy due to type 2 diabetes mellitus 0662942139 00551 E11.40 707451 D/C'd Metformin -- HgA1c was 5.5% while inpatient. Continue routine APAP, Gabapentin , & PRN Tramadol for neuropathy pain.Sayra nue LCS diet and monitor blood sugars for a time but can likely change to PRN. Anemia of chronic disease 723378568 D63.8 404688 Hgb baseline appears to be 8-9s, likely more of chronic disease. Iron, Vit b12 and Folate WNL. Continue Iron supplement , MVI, & Foltanx and trend Hgb. Primary insomnia 1150770 F51.01 82204 Improved. Continue newly-adde d Melatonin qhs. Moderate r ecurrent major depression 96763574 F33.1 5130602 No recent concerns per pt. Mood is stable and pleasant. Family/pt requested Sertraline be stopped. Generalize d anxiety disorder 79582958 F41.1 496312 SEE ABOVE... Dry eyes 402808784 H04.1 23 4190316 Stable. Continue Systane eye drops and f/u with ophthalmol ogy as directed. Vitamin D deficiency 347 01499 E55.9 56980 Stable. Level was 39 in January 2025. Continue supplement . Left foot drop 925836413 1 50991 M21.372 863977 Cause unclear -- possibly sec to neuropathy ? Pt thinks it may have been from a stroke but this is not documented in his history.Co ntinue AFO and therapies. History of multiple myeloma 6391658583 61005 Z85.79 835633 Followed historical ly by Dr. Srini Portillo (oncology) with last appt in 2020. Now following PRN as treatment was supportive monitoring . Monoclonal gammopathy of uncertain significance 856469064 D47.2 057013 SEE ABOVE... Polypharmacy 956164617 Z 79.899 202616 Monitor for continued need for Lactobacil kayli, Prosource, and Tacrolimus . Physical deconditioning 6828802532 9102 R53.81 720221 Related to age, recent inpatient stay, and multiple comorbidit ies. Continue PT/OT and monitor progress. Goal is for pt to return to [facility]. [id number] Citlali Skinner, DO PAC [place] [address] [facility] [place] [address] 06/03/2025 10:45:50 06/07/2025 11:35:21 Hypertensive heart AND chronic kidney disease with congestive heart failure 0649420883 9107 I13.0 I50.21 N18.2 0822025281 Acute on chronic CHF. Echo while inpatient = LV moderately enlarged, EF 25-30%. RV mildly enlarged, systolic function is normal. LA mildly enlarged. Mild-mod mitral valve regurg. Mild tricuspid valve regurg. Severe pulmonary HTN, estimated PASP 71 mmHg. Mild pulmonic regurg. Pleural effusion. Diuresed while inpatient, discharged on usual dosing of Lasix 40 mg daily. Hypotensio n resulted in addition of Midodrine. Continue baby ASA and Entresto (new).Weig ht and edema are worsening. Appears baseline weight is 237-244 lbs.Change Lasix to Bumex 1.5 mg PO BID. Update Dr. Jimenez (cards) on this change.Con tinue to trend blood pressures, weights, edema and labs.F/U with Dr. Osmani Jimenez upon d/c back to [facility]. Pulmonary hypertension 59834609 I27.20 635475 SEE ABOVE... Recurrent pneumonia 6990 64608 J18.9 400439 Pneumonia first dx on 05/08, treated with 7 day course of Levaquin. Pt became progressiv aquilino weaker, ultimately admitted to hospital with CXR on 05/18 noting CHF with superimpos ed pneumonia. He was treated with oxygen, IV diuresis, and broad-spec trum antibiotic s (Vanc, Cefepime, Doxycyclin e). He has been discharged on Ceftin and Doxycyclin e to complete a total 5 day course (05/26).Igor k on RA without concerns. Monitor oxygen status closely and utilize oxygen PRN.CXR 2 view.Add duonebs QID PRN. Acute resp iratory failure 65937509 J96.01 5610123 SEE ABOVE... Acute kidney injury 1466 9001 N17.9 N18.9 73871784 Reviewed historic labs, appears baseline Cr is 1.2-1.4. Cr peaked at 1.51-1.52 while inpatient, improved to 1.19 by hospital discharge. Monitor labs closely and avoid additional nephrotoxi ns. Retention of urine 06131 4002 R33.9 57321 Required mooney catheter placement while inpatient. UA was negative in ER, not repeated afterwards . Mooney successful ly removed. Flomax was not started due to hypotensio n. Monitor closely for recurrence . Pt notes he is voiding without concerns at present. Acute constipation 17102 9006 K59.00 084561 Improved. Continue PRN Miralax. Additional cathartics available per standing orders. Bradycardia 95844035 R00 .1 90001 with junctional rhythm s/p PPM in 2021.Sayra nue supportive measures and f/u with cards as above. Mixed hyperlipidemia 267 265686 E78.2 11811 Per history. Recent FLP while inpatient was well below normal limits and pt is not on medication s. Neuropathy due to type 2 diabetes mellitus 7776425291 67046 E11.40 441546 D/C'd Metformin -- HgA1c was 5.5% while inpatient. Continue routine APAP, Gabapentin , & PRN Tramadol for neuropathy pain.Sayra nue LCS diet and monitor blood sugars for a time but can likely change to PRN. Anemia of chronic disease 729719404 D63.8 316629 Hgb baseline appears to be 8-9s, likely more of chronic disease. Iron, Vit b12 and Folate WNL. Continue Iron supplement , MVI, & Foltanx and trend Hgb. Primary insomnia 0677388 F51.01 09580 Improved. Continue newly-adde d Melatonin qhs. Moderate r ecurrent major depression 50545639 F33.1 7002101 No recent concerns per pt. Mood is stable and pleasant. Family/pt requested Sertraline be stopped. Generalize d anxiety disorder 47457335 F41.1 560253 SEE ABOVE... Dry eyes 497197726 H04.1 23 3144253 Stable. Continue Systane eye drops and f/u with ophthalmol ogy as directed. Vitamin D deficiency 347 58845 E55.9 25465 Stable. Level was 39 in January 2025. Continue supplement . Left foot drop 924506315 1 99592 M21.372 188505 Cause unclear -- possibly sec to neuropathy ? Pt thinks it may have been from a stroke but this is not documented in his history.Co ntinue AFO and therapies. History of multiple myeloma 7674170948 95233 Z85.79 453735 Followed historical ly by Dr. Srini Portillo (oncology) with last appt in 2020. Now following PRN as treatment was supportive monitoring . Monoclonal gammopathy of uncertain significance 935863401 D47.2 257718 SEE ABOVE... Polypharmacy 196340523 Z 79.899 478477 Monitor for continued need for Lactobacil kayli, Prosource, and Tacrolimus . Physical deconditioning 2150452560 9102 R53.81 206159 Related to age, recent inpatient stay, and multiple comorbidit ies. Continue PT/OT and monitor progress. Goal is for pt to return to [facility]. [id number] Citlali Skinner, DO [address] [address] 06/05/2025 09:38:52 06/07/2025 11:41:17 Hypertensive heart AND chronic kidney disease with congestive heart failure 2466218554 9107 I13.0 I50.21 N18.2 9591804424 Acute on chronic CHF. Echo while inpatient = LV moderately enlarged, EF 25-30%. RV mildly enlarged, systolic function is normal. LA mildly enlarged. Mild-mod mitral valve regurg. Mild tricuspid valve regurg. Severe pulmonary HTN, estimated PASP 71 mmHg. Mild pulmonic regurg. Pleural effusion. Diuresed while inpatient, discharged on usual dosing of Lasix 40 mg daily. Hypotensio n resulted in addition of Midodrine. Continue baby ASA and Entresto (new).Weig ht and edema were worsening. Escalated Lasix to Bumex 1.5 mg PO BID on 06/03. Nursing updated Dr. Jimenez (cards) on this change.Con tinue to trend blood pressures, weights, edema and labs. Appears baseline weight is 237-244 lbs.F/U with Dr. Osmani Jimenez upon d/c back to [facility]. Pulmonary hypertension 53567553 I27.20 512470 SEE ABOVE... Recurrent pneumonia 6990 90406 J18.9 915108 Pneumonia first dx on 05/08, treated with 7 day course of Levaquin. Pt became progressiv aquilino weaker, ultimately admitted to hospital with CXR on 05/18 noting CHF with superimpos ed pneumonia. He was treated with oxygen, IV diuresis, and broad-spec trum antibiotic s (Vanc, Cefepime, Doxycyclin e). He was discharged on Ceftin and Doxycyclin e, completed on 05/26.Back on RA without concerns. Monitor oxygen status closely and utilize oxygen PRN and Duonebs PRN. Acute resp iratory failure 70183404 J96.01 2430293 SEE ABOVE... Acute kidney injury 1466 9001 N17.9 N18.9 81453333 Reviewed historic labs, appears baseline Cr is 1.2-1.4. Cr peaked at 1.51-1.52 while inpatient, improved to 1.19 by hospital discharge. Monitor labs closely and avoid additional nephrotoxi ns. Retention of urine 72989 4002 R33.9 76196 Required mooney catheter placement while inpatient. UA was negative in ER, not repeated afterwards . Mooney successful ly removed. Flomax was not started due to hypotensio n. Monitor closely for recurrence . Pt notes he is voiding without concerns at present. Acute constipation 04002 9006 K59.00 109325 Improved. Continue PRN Miralax. Additional cathartics available per standing orders. Bradycardia 60434807 R00 .1 93664 with junctional rhythm s/p PPM in 2021.Sayra nue supportive measures and f/u with cards as above. Mixed hyperlipidemia 267 582567 E78.2 32447 Per history. Recent FLP while inpatient was well below normal limits and pt is not on medication s. Neuropathy due to type 2 diabetes mellitus 9022877491 49006 E11.40 726630 D/C'd Metformin -- HgA1c was 5.5% while inpatient. Continue routine APAP, Gabapentin , & PRN Tramadol for neuropathy pain.Sayra nue LCS diet.Check ing blood sugars PRN. Anemia of chronic disease 644765495 D63.8 514279 Hgb baseline appears to be 8-9s, likely more of chronic disease. Iron, Vit b12 and Folate WNL. Continue Iron supplement , MVI, & Foltanx and trend Hgb. Primary insomnia 4484392 F51.01 13976 Improved. Continue newly-adde d Melatonin qhs. Moderate r ecurrent major depression 30446470 F33.1 4260462 No recent concerns per pt. Mood is stable and pleasant. Family/pt requested Sertraline be stopped. Generalize d anxiety disorder 81891155 F41.1 168384 SEE ABOVE... Dry eyes 198706867 H04.1 23 1701260 Stable. Continue Systane eye drops and f/u with ophthalmol ogy as directed. Vitamin D deficiency 347 70813 E55.9 68887 Stable. Level was 39 in January 2025. Continue supplement . Left foot drop 733532882 1 93602 M21.372 498229 Cause unclear -- possibly sec to neuropathy ? Pt thinks it may have been from a stroke but this is not documented in his history.Co ntinue AFO and therapies. History of multiple myeloma 0611840407 25450 Z85.79 403011 Followed historical ly by Dr. Srini Portillo (oncology) with last appt in 2020. Now following PRN as treatment was supportive monitoring . Monoclonal gammopathy of uncertain significance 231699066 D47.2 808917 SEE ABOVE... Polypharmacy 381776442 Z 79.899 593604 Monitor for continued need for Lactobacil kayli and PRN Tacrolimus . Physical deconditioning 3439765704 9102 R53.81 754259 Related to age, recent inpatient stay, and multiple comorbidit ies. Continue PT/OT and monitor progress. Goal is for pt to return to [place] [facility]. [id number] Citlali Skinner, PAC [place] [address] [place] [address] 06/07/2025 09:31:44 06/16/2025 21:39:12 Hypertensive heart AND chronic kidney disease with congestive heart failure 5441886760 9107 I13.0 I50.21 N18.2 6598753636 Acute on chronic CHF. Echo while inpatient = LV moderately enlarged, EF 25-30%. RV mildly enlarged, systolic function is normal. LA mildly enlarged. Mild-mod mitral valve regurg. Mild tricuspid valve regurg. Severe pulmonary HTN, estimated PASP 71 mmHg. Mild pulmonic regurg. Pleural effusion. Diuresed while inpatient, discharged on usual dosing of Lasix 40 mg daily. Hypotensio n resulted in addition of Midodrine. Continue baby ASA and Entresto (new).Weig ht and edema were worsening. Escalated Lasix to Bumex 1.5 mg PO BID on 06/03. Nursing updated Dr. Jimenez (cards) on this change.Con tinue to trend blood pressures, weights, edema and labs. Appears baseline weight is 237-244 lbs.F/U with Dr. Osmani Jimenez upon d/c back to [facility]. Pulmonary hypertension 93673131 I27.20 465477 SEE ABOVE... Recurrent pneumonia 6990 66078 J18.9 373958 Pneumonia first dx on 05/08, treated with 7 day course of Levaquin. Pt became progressiv aquilino weaker, ultimately admitted to hospital with CXR on 05/18 noting CHF with superimpos ed pneumonia. He was treated with oxygen, IV diuresis, and broad-spec trum antibiotic s (Vanc, Cefepime, Doxycyclin e). He was discharged on Ceftin and Doxycyclin e, completed on 05/26.Back on RA without concerns. Monitor oxygen status closely and utilize oxygen PRN and Duonebs PRN. Acute resp iratory failure 40248289 J96.01 4876748 SEE ABOVE... Acute kidney injury 1466 9001 N17.9 N18.9 06417234 Reviewed historic labs, appears baseline Cr is 1.2-1.4. Cr peaked at 1.51-1.52 while inpatient, improved to 1.19 by hospital discharge. Monitor labs closely and avoid additional nephrotoxi ns. Retention of urine 72038 4002 R33.9 84462 Required mooney catheter placement while inpatient. UA was negative in ER, not repeated afterwards . Mooney successful ly removed. Flomax was not started due to hypotensio n. Monitor closely for recurrence . Pt notes he is voiding without concerns at present. Acute constipation 95739 9006 K59.00 878417 Improved. Continue PRN Miralax. Additional cathartics available per standing orders. Bradycardia 56194005 R00 .1 00250 with junctional rhythm s/p PPM in 2021.Sayra nue supportive measures and f/u with cards as above. Mixed hyperlipidemia 267 118790 E78.2 89794 Per history. Recent FLP while inpatient was well below normal limits and pt is not on medication s. Neuropathy due to type 2 diabetes mellitus 8772775824 56226 E11.40 370974 D/C'd Metformin -- HgA1c was 5.5% while inpatient. Continue routine APAP, Gabapentin , & PRN Tramadol for neuropathy pain.Sayra nue LCS diet.Check ing blood sugars PRN. Anemia of chronic disease 005277910 D63.8 811126 Hgb baseline appears to be 8-9s, likely more of chronic disease. Iron, Vit b12 and Folate WNL. Continue Iron supplement , MVI, & Foltanx and trend Hgb. Primary insomnia 9877965 F51.01 07382 Improved. Continue newly-adde d Melatonin qhs. Moderate r ecurrent major depression 32098080 F33.1 2798308 No recent concerns per pt. Mood is stable and pleasant. Family/pt requested Sertraline be stopped. Generalize d anxiety disorder 12062413 F41.1 095775 SEE ABOVE... Dry eyes 698884171 H04.1 23 7322958 Stable. Continue Systane eye drops and f/u with ophthalmol ogy as directed. Vitamin D deficiency 347 04994 E55.9 78938 Stable. Level was 39 in January 2025. Continue supplement . Left foot drop 418501715 1 61796 M21.372 402563 Cause unclear -- possibly sec to neuropathy ? Pt thinks it may have been from a stroke but this is not documented in his history.Co ntinue AFO and therapies. History of multiple myeloma 5361515035 52646 Z85.79 042256 Followed historical ly by Dr. Srini Portillo (oncology) with last appt in 2020. Now following PRN as treatment was supportive monitoring . Monoclonal gammopathy of uncertain significance 158339393 D47.2 622826 SEE ABOVE... Polypharmacy 079945290 Z 79.899 278355 Monitor for continued need for Lactobacil kayli and PRN Tacrolimus . Physical deconditioning 9993002486 9102 R53.81 334153 Related to age, recent inpatient stay, and multiple comorbidit ies. Continue PT/OT and monitor progress. Goal is for pt to return to [facility]. [id number] Citlali Skinner, DO PAC [place] [address] [place] [address] 06/10/2025 10:05:21 06/16/2025 21:39:50 Hypertensive heart AND chronic kidney disease with congestive heart failure 8352159663 9107 I13.0 I50.21 N18.2 5466536066 Acute on chronic CHF. Echo while inpatient = LV moderately enlarged, EF 25-30%. RV mildly enlarged, systolic function is normal. LA mildly enlarged. Mild-mod mitral valve regurg. Mild tricuspid valve regurg. Severe pulmonary HTN, estimated PASP 71 mmHg. Mild pulmonic regurg. Pleural effusion. Diuresed while inpatient, discharged on usual dosing of Lasix 40 mg daily. Hypotensio n resulted in addition of Midodrine. Continue baby ASA and Entresto (new).Weig ht and edema were worsening. Escalated Lasix to Bumex 1.5 mg PO BID on 06/03 (Dr. Jimenez made aware), improved for a time but has worsened once again.Labs in AM -- May need to escalate Bumex further if BUN/Cr can tolerate. If so, will likely need to halve Entresto or increase Midodrine to allow room for BP.Continu e to trend blood pressures, weights, edema and labs.Appea rs baseline weight is 237-244 lbs.F/U with Dr. Osmani Jimenez upon d/c back to [facility]. Pulmonary hypertension 17900918 I27.20 033966 SEE ABOVE... Recurrent pneumonia 6990 93035 J18.9 744212 Pneumonia first dx on 05/08, treated with 7 day course of Levaquin. Pt became progressiv aquilino weaker, ultimately admitted to hospital with CXR on 05/18 noting CHF with superimpos ed pneumonia. He was treated with oxygen, IV diuresis, and broad-spec trum antibiotic s (Vanc, Cefepime, Doxycyclin e). He was discharged on Ceftin and Doxycyclin e, completed on 05/26.Back on without concerns. Monitor oxygen status closely and utilize oxygen PRN and Duonebs PRN. Acute resp iratory failure 96432687 J96.01 4307714 SEE ABOVE... Acute kidney injury 1466 9001 N17.9 N18.9 36192992 Reviewed historic labs, appears baseline Cr is 1.2-1.4. Cr peaked at 1.51-1.52 while inpatient, improved to 1.19 by hospital discharge. Monitor labs closely and avoid additional nephrotoxi ns. Retention of urine 77371 4002 R33.9 29607 Required mooney catheter placement while inpatient. UA was negative in ER, not repeated afterwards . Mooney successful ly removed. Flomax was not started due to hypotensio n. Monitor closely for recurrence . Pt notes he is voiding without concerns at present. Acute constipation 72104 9006 K59.00 748047 Improved. Continue PRN Miralax. Additional cathartics available per standing orders. Bradycardia 16048565 R00 .1 46521 with junctional rhythm s/p PPM in 2021.Sayra nue supportive measures and f/u with cards as above. Mixed hyperlipidemia 267 918244 E78.2 94744 Per history. Recent FLP while inpatient was well below normal limits and pt is not on medication s. Neuropathy due to type 2 diabetes mellitus 7870761438 14467 E11.40 541984 D/C'd Metformin -- HgA1c was 5.5% while inpatient. Continue routine APAP, Gabapentin , & PRN Tramadol for neuropathy pain.Sayra nue LCS diet.Check ing blood sugars PRN. Anemia of chronic disease 174560714 D63.8 826409 Hgb baseline appears to be 8-9s, likely more of chronic disease. Iron, Vit b12 and Folate WNL. Continue Iron supplement , MVI, & Foltanx and trend Hgb. Primary insomnia 6080302 F51.01 13379 Improved. Continue newly-adde d Melatonin qhs. Moderate r ecurrent major depression 20239032 F33.1 6515526 No recent concerns per pt. Mood is stable and pleasant. Family/pt requested Sertraline be stopped. Generalize d anxiety disorder 89331374 F41.1 477193 SEE ABOVE... Dry eyes 514301183 H04.1 23 7066586 Stable. Continue Systane eye drops and f/u with ophthalmol ogy as directed. Vitamin D deficiency 347 47422 E55.9 81475 Stable. Level was 39 in January 2025. Continue supplement . Left foot drop 018393709 1 52994 M21.372 989740 Cause unclear -- possibly sec to neuropathy ? Pt thinks it may have been from a stroke but this is not documented in his history.Co ntinue AFO and therapies. History of multiple myeloma 2450926640 37621 Z85.79 994481 Followed historical ly by Dr. Srini Portillo (oncology) with last appt in 2020. Now following PRN as treatment was supportive monitoring . Monoclonal gammopathy of uncertain significance 230999608 D47.2 621278 SEE ABOVE... Polypharmacy 934218902 Z 79.899 959834 Monitor for continued need for Lactobacil kayli and PRN Tacrolimus . Physical deconditioning 9531182232 9102 R53.81 049119 Related to age, recent inpatient stay, and multiple comorbidit ies. Continue PT/OT and monitor progress. Goal is for pt to return to [facility]. [id number] Citlali Skinner, [facility] [address] [place] [address] 06/12/2025 11:34:32 06/16/2025 21:40:36 Hypertensive heart AND chronic kidney disease with congestive heart failure [id number] 9107 I13.0 I50.21 N18.2 3609981294 Acute on chronic CHF. Echo while inpatient = LV moderately enlarged, EF 25-30%. RV mildly enlarged, systolic function is normal. LA mildly enlarged. Mild-mod mitral valve regurg. Mild tricuspid valve regurg. Severe pulmonary HTN, estimated PASP 71 mmHg. Mild pulmonic regurg. Pleural effusion. Diuresed while inpatient, discharged on usual dosing of Lasix 40 mg daily. Hypotensio n resulted in addition of Midodrine. Continue baby ASA and Entresto (new).Weig ht and edema were worsening. Escalated Lasix to Bumex 1.5 mg PO BID on 06/03 (Dr. Jimenez made aware), improved for a time but has worsened once again.Labs , BPs, and weights to be sent/vega d to Dr. Jimenez for review. May need to escalate Bumex further. Does not appear he would tolerate Spironolac tone given his K+ trends high-jenny l. Would likely need to reduce Entresto or increase Midodrine to avoid hypotensio n.Continue to trend blood pressures, weights, edema and labs.Appea rs baseline weight is 237-244 lbs.F/U with Dr. Osmani Jimenez upon d/c back to [facility]. Pulmonary hypertension 42847339 I27.20 271599 SEE ABOVE... Recurrent pneumonia 6990 87982 J18.9 445112 Pneumonia first dx on 05/08, treated with 7 day course of Levaquin. Pt became progressiv aquilino weaker, ultimately admitted to hospital with CXR on 05/18 noting CHF with superimpos ed pneumonia. He was treated with oxygen, IV diuresis, and broad-spec trum antibiotic s (Vanc, Cefepime, Doxycyclin e). He was discharged on Ceftin and Doxycyclin e, completed on 05/26.Back on without concerns. Monitor oxygen status closely and utilize oxygen PRN and Duonebs PRN. Acute resp iratory failure 32709171 J96.01 0855905 SEE ABOVE... Acute kidney injury 1466 9001 N17.9 N18.9 90434798 Reviewed historic labs, appears baseline Cr is 1.2-1.4. Cr peaked at 1.51-1.52 while inpatient, improved to 1.19 by hospital discharge. Monitor labs closely and avoid additional nephrotoxi ns. Retention of urine 64193 4002 R33.9 43538 Required mooney catheter placement while inpatient. UA was negative in ER, not repeated afterwards . Mooney successful ly removed. Flomax was not started due to hypotensio n. Monitor closely for recurrence . Pt notes he is voiding without concerns at present. Acute constipation 9006 K59.00 928249 Improved. Continue PRN Miralax. Additional cathartics available per standing orders. 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 Mixed hyperlipidemia 267 527922 E78.2 67558 Per history. Recent FLP while inpatient was well below normal limits and pt is not on medication s. Neuropathy due to type 2 diabetes mellitus 3579324950 91192 E11.40 941924 D/C'd Metformin -- HgA1c was 5.5% while inpatient. Continue routine APAP, Gabapentin , & PRN Tramadol for neuropathy pain.Sayra nue LCS diet.Check ing blood sugars PRN. Anemia of chronic disease 192543770 D63.8 128488 Hgb baseline appears to be 8-9s, likely more of chronic disease. Iron, Vit b12 and Folate WNL. Continue Iron supplement , MVI, & Foltanx and trend Hgb. Primary insomnia 4072842 F51.01 23534 Improved. Continue newly-adde d Melatonin qhs. Moderate r ecurrent major depression 30059300 F33.1 7214394 No recent concerns per pt. Mood is stable and pleasant. Family/pt requested Sertraline be stopped. Generalize d anxiety disorder 58665727 F41.1 868843 SEE ABOVE... Dry eyes 943876967 H04.1 23 0550497 Stable. Continue Systane eye drops and f/u with ophthalmol ogy as directed. Vitamin D deficiency 347 46987 E55.9 09170 Stable. Level was 39 in January 2025. Continue supplement . Left foot drop 383869624 1 12312 M21.372 053293 Cause unclear -- possibly sec to neuropathy ? Pt thinks it may have been from a stroke but this is not documented in his history.Co ntinue AFO and therapies. History of multiple myeloma 9189256644 78973 Z85.79 814684 Followed historical ly by Dr. Srini Portillo (oncology) with last appt in 2020. Now following PRN as treatment was supportive monitoring . Monoclonal gammopathy of uncertain significance 845978141 D47.2 680601 SEE ABOVE... Polypharmacy 516677125 Z 79.899 050729 Monitor for continued need for Lactobacil kayli and PRN Tacrolimus . Physical deconditioning 1632787622 9102 R53.81 022250 Related to age, recent inpatient stay, and multiple comorbidit ies. Continue PT/OT and monitor progress. Goal is for pt to return to [facility]. [id number] Citlali Skinner, DO [facility] [address] [place] [address] 06/14/2025 13:19:08 06/16/2025 21:41:12 Hypertensive heart AND chronic kidney disease with congestive heart failure [id number] 9107 I13.0 I50.21 N18.2 2124267760 Acute on chronic CHF. Echo while inpatient = LV moderately enlarged, EF 25-30%. RV mildly enlarged, systolic function is normal. LA mildly enlarged. Mild-mod mitral valve regurg. Mild tricuspid valve regurg. Severe pulmonary HTN, estimated PASP 71 mmHg. Mild pulmonic regurg. Pleural effusion. Diuresed while inpatient, discharged on usual dosing of Lasix 40 mg daily. Hypotensio n resulted in addition of Midodrine. Continue baby ASA and Entresto (new).Weig ht and edema were worsening. Escalated Lasix to Bumex 1.5 mg PO BID on 06/03 (Dr. Jimenez made aware), improved for a time but has worsened once again.Nurs ing is scheduling f/u appt with Dr. Jimenez -- faxed labs, BPs, and weights and their recommenda tion was to be-seen in office.May need to escalate Bumex further. Does not appear he would tolerate Spironolac tone given his K+ trends high-jenny l. Would likely need to reduce Entresto or increase Midodrine to avoid hypotensio n.Continue to trend blood pressures, weights, edema and labs.Appea rs baseline weight is 237-244 lbs.F/U with Dr. Osmani Jimenez upon d/c back to [facility]. Pulmonary hypertension 36511453 I27.20 040405 SEE ABOVE... Recurrent pneumonia 6990 33533 J18.9 546546 Pneumonia first dx on 05/08, treated with 7 day course of Levaquin. Pt became progressiv aquilino weaker, ultimately admitted to hospital with CXR on 05/18 noting CHF with superimpos ed pneumonia. He was treated with oxygen, IV diuresis, and broad-spec trum antibiotic s (Vanc, Cefepime, Doxycyclin e). He was discharged on Ceftin and Doxycyclin e, completed on 05/26.Back on without concerns. Monitor oxygen status closely and utilize oxygen PRN and Duonebs PRN. Acute resp iratory failure 30581824 J96.01 9888408 SEE ABOVE... Acute kidney injury 1466 9001 N17.9 N18.9 36626583 Reviewed historic labs, appears baseline Cr is 1.2-1.4. Cr peaked at 1.51-1.52 while inpatient, improved to 1.19 by hospital discharge. Monitor labs closely and avoid additional nephrotoxi ns. Retention of urine 17052 4002 R33.9 90158 Required mooney catheter placement while inpatient. UA was negative in ER, not repeated afterwards . Mooney successful ly removed. Flomax was not started due to hypotensio n. Monitor closely for recurrence . Pt notes he is voiding without concerns at present. Acute constipation 89917 9006 K59.00 157528 Improved. Continue PRN Miralax. Additional cathartics available per standing orders. Bradycardia 26882877 R00 .1 10313 with junctional rhythm s/p PPM in 2021.Sayra nue supportive measures and f/u with cards as above. Mixed hyperlipidemia 267 643682 E78.2 94028 Per history. Recent FLP while inpatient was well below normal limits and pt is not on medication s. Neuropathy due to type 2 diabetes mellitus 1975253444 87210 E11.40 426990 D/C'd Metformin -- HgA1c was 5.5% while inpatient. Continue routine APAP, Gabapentin , & PRN Tramadol for neuropathy pain.Sayra nue LCS diet.Check ing blood sugars PRN. Anemia of chronic disease 834800131 D63.8 928366 Hgb baseline appears to be 8-9s, likely more of chronic disease. Iron, Vit b12 and Folate WNL. Continue Iron supplement , MVI, & Foltanx and trend Hgb. Primary insomnia 2324805 F51.01 56366 Improved. Continue newly-adde d Melatonin qhs. Moderate r ecurrent major depression 58501025 F33.1 8172200 No recent concerns per pt. Mood is stable and pleasant. Family/pt requested Sertraline be stopped. Generalize d anxiety disorder 85697594 F41.1 965239 SEE ABOVE... Dry eyes 330024293 H04.1 23 1893130 Stable. Continue Systane eye drops and f/u with ophthalmol ogy as directed. Vitamin D deficiency 347 63808 E55.9 14018 Stable. Level was 39 in January 2025. Continue supplement . Left foot drop 972172410 1 76421 M21.372 748511 Cause unclear -- possibly sec to neuropathy ? Pt thinks it may have been from a stroke but this is not documented in his history.Co ntinue AFO and therapies. History of multiple myeloma 8527856274 07869 Z85.79 495020 Followed historical ly by Dr. Srini Portillo (oncology) with last appt in 2020. Now following PRN as treatment was supportive monitoring . Monoclonal gammopathy of uncertain significance 754988791 D47.2 565440 SEE ABOVE... Polypharmacy 758662447 Z 79.899 184268 Monitor for continued need for Lactobacil kayli and PRN Tacrolimus . Physical deconditioning 8386602342 9102 R53.81 138697 Related to age, recent inpatient stay, and multiple comorbidit ies. Continue PT/OT and monitor progress. Goal is for pt to return to [facility]. [id number] Citlali Skinner, [facility] [place] [address] [place] [address] 06/17/2025 09:01:36 06/17/2025 20:11:53 Hypertensive heart AND chronic kidney disease with congestive heart failure 9303872305 9107 I13.0 I50.21 N18.2 5382336606 Acute on chronic CHF. Echo while inpatient = LV moderately enlarged, EF 25-30%. RV mildly enlarged, systolic function is normal. LA mildly enlarged. Mild-mod mitral valve regurg. Mild tricuspid valve regurg. Severe pulmonary HTN, estimated PASP 71 mmHg. Mild pulmonic regurg. Pleural effusion. Diuresed while inpatient, discharged on usual dosing of Lasix 40 mg daily. Hypotensio n resulted in addition of Midodrine. Continue baby ASA and Entresto (new).Weig ht and edema were worsening. Escalated Lasix to Bumex 1.5 mg PO BID on 06/03 (Dr. Jimenez made aware), improved for a time but has worsened once again.Nurs ing is scheduling f/u appt with Dr. Jimenez -- faxed labs, BPs, and weights and their recommenda tion was to be-seen in office.May need to escalate Bumex further. Does not appear he would tolerate Spironolac tone given his K+ trends high-jenny l. Would likely need to reduce Entresto or increase Midodrine to avoid hypotensio n.Continue to trend blood pressures, weights, edema and labs.Appea rs baseline weight is 237-244 lbs.F/U with Dr. Osmani Jimenez upon d/c back to [facility]. Pulmonary hypertension 97660775 I27.20 846379 SEE ABOVE... Recurrent pneumonia 6990 49775 J18.9 807968 Pneumonia first dx on 05/08, treated with 7 day course of Levaquin. Pt became progressiv aquilino weaker, ultimately admitted to hospital with CXR on 05/18 noting CHF with superimpos ed pneumonia. He was treated with oxygen, IV diuresis, and broad-spec trum antibiotic s (Vanc, Cefepime, Doxycyclin e). He was discharged on Ceftin and Doxycyclin e, completed on 05/26.Back on RA without concerns. Monitor oxygen status closely and utilize oxygen PRN and Duonebs PRN. Acute resp iratory failure 54966564 J96.01 4576358 SEE ABOVE... Acute kidney injury 1466 9001 N17.9 N18.9 01396622 Reviewed historic labs, appears baseline Cr is 1.2-1.4. Cr peaked at 1.51-1.52 while inpatient, improved to 1.19 by hospital discharge. Monitor labs closely and avoid additional nephrotoxi ns. Retention of urine 71504 4002 R33.9 91746 Required mooney catheter placement while inpatient. UA was negative in ER, not repeated afterwards . Mooney successful ly removed. Flomax was not started due to hypotensio n. Monitor closely for recurrence . Pt notes he is voiding without concerns at present. Acute constipation 19945 9006 K59.00 626751 Improved. Continue PRN Miralax. Additional cathartics available per standing orders. Bradycardia 68994112 R00 .1 40094 with junctional rhythm s/p PPM in 2021.Sayra nue supportive measures and f/u with cards as above. Mixed hyperlipidemia 267 045836 E78.2 55942 Per history. Recent FLP while inpatient was well below normal limits and pt is not on medication s. Neuropathy due to type 2 diabetes mellitus 2989500697 82805 E11.40 044382 D/C'd Metformin -- HgA1c was 5.5% while inpatient. Continue routine APAP, Gabapentin , & PRN Tramadol for neuropathy pain.Sayra nue LCS diet.Check ing blood sugars PRN. Anemia of chronic disease 973071834 D63.8 804154 Hgb baseline appears to be 8-9s, likely more of chronic disease. Iron, Vit b12 and Folate WNL. Continue Iron supplement , MVI, & Foltanx and trend Hgb. Primary insomnia 3531551 F51.01 82109 Improved. Continue newly-adde d Melatonin qhs. Moderate r ecurrent major depression 41348958 F33.1 8532319 No recent concerns per pt. Mood is stable and pleasant. Family/pt requested Sertraline be stopped. Generalize d anxiety disorder 37115035 F41.1 306698 SEE ABOVE... Dry eyes 349473145 H04.1 23 7760365 Stable. Continue Systane eye drops and f/u with ophthalmol ogy as directed. Vitamin D deficiency 347 77502 E55.9 87920 Stable. Level was 39 in January 2025. Continue supplement . Left foot drop 955049621 1 16096 M21.372 073122 Cause unclear -- possibly sec to neuropathy ? Pt thinks it may have been from a stroke but this is not documented in his history.Co ntinue AFO and therapies. History of multiple myeloma 8823503527 48661 Z85.79 509232 Followed historical ly by Dr. Srini Protillo (oncology) with last appt in 2020. Now following PRN as treatment was supportive monitoring . Monoclonal gammopathy of uncertain significance 233318403 D47.2 582611 SEE ABOVE... Polypharmacy 464855684 Z 79.899 610170 Monitor for continued need for Lactobacil kayli and PRN Tacrolimus . Physical deconditioning 4576491204 9102 R53.81 984485 Related to age, recent inpatient stay, and multiple comorbidit ies. Continue PT/OT and monitor progress. Goal is for pt to return to [place] [facility]. [id number] Citlali Skinner, [facility] [address] [place] [address] 06/19/2025 09:22:31 06/19/2025 17:07:16 Hypertensive heart AND chronic kidney disease with congestive heart failure 4495557161 9107 I13.0 I50.21 N18.2 5954696703 Acute on chronic CHF. Echo while inpatient = LV moderately enlarged, EF 25-30%. RV mildly enlarged, systolic function is normal. LA mildly enlarged. Mild-mod mitral valve regurg. Mild tricuspid valve regurg. Severe pulmonary HTN, estimated PASP 71 mmHg. Mild pulmonic regurg. Pleural effusion. Diuresed while inpatient, discharged on usual dosing of Lasix 40 mg daily. Hypotensio n resulted in addition of Midodrine. Continue baby ASA and Entresto (new).Weig ht and edema worsening. Escalated Lasix to Bumex 1.5 mg PO BID on 06/03 (Dr. Jimenez made aware), improved for a time but has worsened once again. Increase Bumex to 2 mg PO BID.Indy james is scheduling f/u appt with Dr. Jimenez -- faxed labs, BPs, and weights and their recommenda tion was to be-seen in office.May need to escalate Bumex further. Does not appear he would tolerate Spironolac tone given his K+ trends high-jenny l. Would likely need to reduce Entresto or increase Midodrine to avoid hypotensio n.Continue to trend blood pressures, weights, edema and labs.Appea rs baseline weight is 237-244 lbs.F/U with Dr. Osmani Jimenez upon d/c back to [facility]. Pulmonary hypertension 88022572 I27.20 864508 SEE ABOVE... Recurrent pneumonia 6990 93168 J18.9 720760 Pneumonia first dx on 05/08, treated with 7 day course of Levaquin. Pt became progressiv aquilino weaker, ultimately admitted to hospital with CXR on 05/18 noting CHF with superimpos ed pneumonia. He was treated with oxygen, IV diuresis, and broad-spec trum antibiotic s (Vanc, Cefepime, Doxycyclin e). He was discharged on Ceftin and Doxycyclin e, completed on 05/26.Back on RA without concerns. Monitor oxygen status closely and utilize oxygen PRN and Duonebs PRN. Acute resp iratory failure 48952688 J96.01 2365639 SEE ABOVE... Acute kidney injury 1466 9001 N17.9 N18.9 92030038 Reviewed historic labs, appears baseline Cr is 1.2-1.4. Cr peaked at 1.51-1.52 while inpatient, improved to 1.19 by hospital discharge. Monitor labs closely and avoid additional nephrotoxi ns. Retention of urine 19134 4002 R33.9 32380 Required mooney catheter placement while inpatient. UA was negative in ER, not repeated afterwards . Mooney successful ly removed. Flomax was not started due to hypotensio n. Monitor closely for recurrence . Pt notes he is voiding without concerns at present. Acute constipation 9006 K59.00 689431 Improved. Continue PRN Miralax. Additional cathartics available per standing orders. Bradycardia 74894938 R00 .1 86428 with junctional rhythm s/p PPM in 2021.Sayra nue supportive measures and f/u with cards as above. Mixed hyperlipidemia 267 432057 E78.2 89745 Per history. Recent FLP while inpatient was well below normal limits and pt is not on medication s. Neuropathy due to type 2 diabetes mellitus 6499571740 97053 E11.40 480492 D/C'd Metformin -- HgA1c was 5.5% while inpatient. Continue routine APAP, Gabapentin , & PRN Tramadol for neuropathy pain.Sayra nue LCS diet.Check ing blood sugars PRN. Anemia of chronic disease 557824887 D63.8 799458 Hgb baseline appears to be 8-9s, likely more of chronic disease. Iron, Vit b12 and Folate WNL. Continue Iron supplement , MVI, & Foltanx and trend Hgb. Primary insomnia 7455888 F51.01 79331 Improved. Continue newly-adde d Melatonin qhs. Moderate r ecurrent major depression 79316082 F33.1 9572436 No recent concerns per pt. Mood is stable and pleasant. Family/pt requested Sertraline be stopped. Generalize d anxiety disorder 18860544 F41.1 350726 SEE ABOVE... Dry eyes 889708591 H04.1 23 9731051 Stable. Continue Systane eye drops and f/u with ophthalmol ogy as directed. Vitamin D deficiency 347 95235 E55.9 00199 Stable. Level was 39 in January 2025. Continue supplement . Left foot drop 789298576 1 67780 M21.372 498727 Cause unclear -- possibly sec to neuropathy ? Pt thinks it may have been from a stroke but this is not documented in his history.Co ntinue AFO and therapies. History of multiple myeloma 1436190152 47010 Z85.79 657603 Followed historical ly by Dr. Srini Portillo (oncology) with last appt in 2020. Now following PRN as treatment was supportive monitoring . Monoclonal gammopathy of uncertain significance 598621360 D47.2 669380 SEE ABOVE... Polypharmacy 718910150 Z 79.899 581608 Monitor for continued need for Lactobacil kayli and PRN Tacrolimus . Physical deconditioning 6285281126 9102 R53.81 873424 Related to age, recent inpatient stay, and multiple comorbidit ies. Continue PT/OT and monitor progress. Goal is for pt to return to [facility]. [id number] Citlali Skinner, DO [facility] [place] [address] [place] [address] 06/21/2025 16:00:03 06/22/2025 10:24:03 Hypertensive heart AND chronic kidney disease with congestive heart failure 7773580407 9107 I13.0 I50.21 N18.2 3792334429 Acute on chronic CHF. Echo while inpatient = LV moderately enlarged, EF 25-30%. RV mildly enlarged, systolic function is normal. LA mildly enlarged. Mild-mod mitral valve regurg. Mild tricuspid valve regurg. Severe pulmonary HTN, estimated PASP 71 mmHg. Mild pulmonic regurg. Pleural effusion. Diuresed while inpatient, discharged on usual dosing of Lasix 40 mg daily. Hypotensio n resulted in addition of Midodrine. Continue baby ASA and Entresto (new, have reduced dosing due to low BPs).Weigh t and edema worsening. Pt has gained 23 lbs since arrival here at rehab. Appears baseline weight is 237-244 lbs. He is up 17 lbs from baseline[address] gradually escalated Lasix to Bumex 2 mg PO BID on 06/19 (Dr. Jimenez is aware), unfortunat britt pt has not responded and weight/jarad ma has not improved.D oes not appear he would tolerate Spironolac tone given his K+ trends high-jenny l.If low BP continues, may need to increase Midodrine. If labs on Tuesday are stable, may need to trial Metolazone with considerat ion to kidney function.N ursing faxing labs, BPs, and weights to Dr. Osmani Jimenez -- has an appt next week.Sayra nue to trend blood pressures, weights, edema and labs. Pulmonary hypertension 91285107 I27.20 656152 SEE ABOVE... Recurrent pneumonia 6990 46470 J18.9 835221 Pneumonia first dx on 05/08, treated with 7 day course of Levaquin. Pt became progressiv aquilino weaker, ultimately admitted to hospital with CXR on 05/18 noting CHF with superimpos ed pneumonia. He was treated with oxygen, IV diuresis, and broad-spec trum antibiotic s (Vanc, Cefepime, Doxycyclin e). He was discharged on Ceftin and Doxycyclin e, completed on 05/26.Back on RA without concerns. Monitor oxygen status closely and utilize oxygen PRN and Duonebs PRN. Acute resp iratory failure 54025239 J96.01 5576935 SEE ABOVE... Acute kidney injury 1466 9001 N17.9 N18.9 08831634 Reviewed historic labs, appears baseline Cr is 1.2-1.4. Cr peaked at 1.51-1.52 while inpatient, improved to 1.19 by hospital discharge. Has been 1.3-1.4 here so far, watching closely as escalating diuretics as above.Keeley tor labs closely and avoid additional nephrotoxi ns. Retention of urine 26089 4002 R33.9 13004 Required mooney catheter placement while inpatient. UA was negative in ER, not repeated afterwards . Mooney successful ly removed. Flomax was not started due to hypotensio n. Monitor closely for recurrence . Pt notes he is voiding without concerns at present. Acute constipation 72225 9006 K59.00 804309 Improved. Continue PRN Miralax. Additional cathartics available per standing orders. Bradycardia 35455253 R00 .1 93149 with junctional rhythm s/p PPM in 2021.Sayra nue supportive measures and f/u with cards as above. Mixed hyperlipidemia 267 539364 E78.2 81147 Per history. Recent FLP while inpatient was well below normal limits and pt is not on medication s. Neuropathy due to type 2 diabetes mellitus 7892525388 28761 E11.40 471562 D/C'd Metformin -- HgA1c was 5.5% while inpatient. Continue routine APAP, Gabapentin , & PRN Tramadol for neuropathy pain.Sayra nue LCS diet.Check ing blood sugars PRN. Anemia of chronic disease 755402873 D63.8 060169 Hgb baseline appears to be 8-9s, likely more of chronic disease. Iron, Vit b12 and Folate WNL. Continue Iron supplement , MVI, & Foltanx and trend Hgb. Primary insomnia 5258684 F51.01 12981 Improved. Continue newly-adde d Melatonin qhs. Moderate r ecurrent major depression 42193401 F33.1 4632320 No recent concerns per pt. Mood is stable and pleasant. Family/pt requested Sertraline be stopped. Generalize d anxiety disorder 48696729 F41.1 292582 SEE ABOVE... Dry eyes 633227252 H04.1 23 5172342 Stable. Continue Systane eye drops and f/u with ophthalmol ogy as directed. Vitamin D deficiency 347 33573 E55.9 68326 Stable. Level was 39 in January 2025. Continue supplement . Left foot drop [id number] 1 15243 M21.372 771825 Cause unclear -- possibly sec to neuropathy ? Pt thinks it may have been from a stroke but this is not documented in his history.Co ntinue AFO and therapies. History of multiple myeloma [id number] 31723 Z85.79 563960 Followed historical ly by Dr. Srini Portillo (oncology) with last appt in 2020. Now following PRN as treatment was supportive monitoring . Monoclonal gammopathy of uncertain significance 115902749 D47.2 391777 SEE ABOVE... Polypharmacy 313661656 Z 79.899 583199 Monitor for continued need for Lactobacil kayli and PRN Tacrolimus . Physical deconditioning [id number] 9102 R53.81 770073 Related to age, recent inpatient stay, and multiple comorbidit ies.Contin ue PT/OT and monitor progress. Goal is for pt to return to [facility], however it appears he may require transition to LTC. SW is in discussion s with pt/family. [id number] Citlali Skinner DO [facility] [address] [place] [address] 06/24/2025 09:53:21 06/24/2025 18:30:42 Hypertensive heart AND chronic kidney disease with congestive heart failure [id number] 9107 I13.0 I50.21 N18.2 0106010691 Acute on chronic CHF. Echo while inpatient = LV moderately enlarged, EF 25-30%. RV mildly enlarged, systolic function is normal. LA mildly enlarged. Mild-mod mitral valve regurg. Mild tricuspid valve regurg. Severe pulmonary HTN, estimated PASP 71 mmHg. Mild pulmonic regurg. Pleural effusion. Diuresed while inpatient, discharged on usual dosing of Lasix 40 mg daily. Hypotensio n resulted in addition of Midodrine. Continue baby ASA and Entresto (new, have reduced dosing due to low BPs).Weigh t and edema worsening. Pt has gained 23 lbs since arrival here at rehab. Appears baseline weight is 237-244 lbs. He is up 17 lbs from baseline[address]H [address] gradually escalated Lasix to Bumex 2 mg PO BID on 06/19 (Dr. Jimenez is aware), unfortunat britt pt has not responded and weight/jarad ma has not improved.D oes not appear he would tolerate Spironolac tone given his K+ trends high-jenny l.If low BP continues, may need to increase Midodrine. If labs on Tuesday are stable, may need to trial Metolazone with considerat ion to kidney function.N ursing faxing labs, BPs, and weights to Dr. Osmani Jimenez -- has an appt next week.Sayra nue to trend blood pressures, weights, edema and labs. Acute kidney injury 1466 9001 N17.9 N18.9 [id number] Reviewed historic labs, appears baseline Cr is 1.2-1.4. Cr peaked at 1.51-1.52 while inpatient, improved to 1.19 by hospital discharge. Has been 1.3-1.4 here so far, watching closely as escalating diuretics as above.Keeley tor labs closely and avoid additional nephrotoxi ns. Pulmonary hypertension 64584209 I27.20 406211 SEE ABOVE... Recurrent pneumonia 6990 70109 J18.9 193109 Pneumonia first dx on 05/08, treated with 7 day course of Levaquin. Pt became progressiv aquilino weaker, ultimately admitted to hospital with CXR on 05/18 noting CHF with superimpos ed pneumonia. He was treated with oxygen, IV diuresis, and broad-spec trum antibiotic s (Vanc, Cefepime, Doxycyclin e). He was discharged on Ceftin and Doxycyclin e, completed on 05/26.Back on RA without concerns. Monitor oxygen status closely and utilize oxygen PRN and Duonebs PRN. Acute resp iratory failure 26065373 J96.01 8668622 SEE ABOVE... Retention of urine 26589 4002 R33.9 44054 Required mooney catheter placement while inpatient. UA was negative in ER, not repeated afterwards . Mooney successful ly removed. Flomax was not started due to hypotensio n. Monitor closely for recurrence . Pt notes he is voiding without concerns at present. Acute constipation 83287 9006 K59.00 114931 Improved. Continue PRN Miralax. Additional cathartics available per standing orders. Bradycardia 32676618 R00 .1 27332 with junctional rhythm s/p PPM in 2021.Sayra nue supportive measures and f/u with cards as above. Mixed hyperlipidemia 267 567427 E78.2 53862 Per history. Recent FLP while inpatient was well below normal limits and pt is not on medication s. Neuropathy due to type 2 diabetes mellitus [id number] 18304 E11.40 096768 D/C'd Metformin -- HgA1c was 5.5% while inpatient. Continue routine APAP, Gabapentin , & PRN Tramadol for neuropathy pain.Sayra nue LCS diet.Check ing blood sugars PRN. Anemia of chronic disease 439717229 D63.8 515172 Hgb baseline appears to be 8-9s, likely more of chronic disease. Iron, Vit b12 and Folate WNL. Continue Iron supplement , MVI, & Foltanx and trend Hgb. Primary insomnia 8268789 F51.01 99085 Improved. Continue newly-adde d Melatonin qhs. Moderate r ecurrent major depression 23623031 F33.1 4193190 No recent concerns per pt. Mood is stable and pleasant. Family/pt requested Sertraline be stopped. Generalize d anxiety disorder 87510235 F41.1 231188 SEE ABOVE... Dry eyes 148984613 H04.1 23 1296214 Stable. Continue Systane eye drops and f/u with ophthalmol ogy as directed. Vitamin D deficiency 347 19200 E55.9 94152 Stable. Level was 39 in January 2025. Continue supplement . Left foot drop 557733944 1 19990 M21.372 026924 Cause unclear -- possibly sec to neuropathy ? Pt thinks it may have been from a stroke but this is not documented in his history.Co ntinue AFO and therapies. History of multiple myeloma [id number] 21595 Z85.79 598555 Followed historical ly by Dr. Srini Portillo (oncology) with last appt in 2020. Now following PRN as treatment was supportive monitoring . Monoclonal gammopathy of uncertain significance 612414211 D47.2 709381 SEE ABOVE... Polypharmacy 240168265 Z 79.899 727099 Monitor for continued need for Lactobacil kayli and PRN Tacrolimus . Physical deconditioning 7287720796 9102 R53.81 611589 Related to age, recent inpatient stay, and multiple comorbidit ies.Contin ue PT/OT and monitor progress. Goal is for pt to return to [facility], however it appears he may require transition to LTC. SW is in discussion s with pt/family. [id number] Citlali Skinner DO [place] [address] [place] [address] 06/26/2025 10:36:10 06/26/2025 15:12:54 Hypertensive heart AND chronic kidney disease with congestive heart failure [id number] 9107 I13.0 I50.21 N18.2 4652276053 Acute on chronic CHF. Echo while inpatient = LV moderately enlarged, EF 25-30%. RV mildly enlarged, systolic function is normal. LA mildly enlarged. Mild-mod mitral valve regurg. Mild tricuspid valve regurg. Severe pulmonary HTN, estimated PASP 71 mmHg. Mild pulmonic regurg. Pleural effusion. Diuresed while inpatient, discharged on usual dosing of Lasix 40 mg daily. Hypotensio n resulted in addition of Midodrine. Continue baby ASA and Entresto (new, have reduced dosing due to low BPs).Weigh t and edema worsening. Pt has gained 30 lbs since arrival here at rehab. Appears baseline weight is 237-244 lbs.Have gradually escalated Lasix to Bumex 2 mg PO BID on 06/19 (Dr. Jimenez is aware), unfortunat aquilino pt has not responded and weight/jarad ma has not improved.L abs (BMP, BNP) on 06/27. Cannot increase diuretics further at this time due to hyponatrem ia.Does not appear he would tolerate Spironolac tone given his K+ trends high-jenny l.If low BP continues, may need to increase Midodrine. Nursing faxing labs, BPs, and weights to Dr. Osmani Jimenez -- has an appt next week.Sayra nue to trend blood pressures, weights, edema and labs. Acute kidney injury 1466 9001 N17.9 N18.9 80085948 Reviewed historic labs, appears baseline Cr is 1.2-1.4. Cr peaked at 1.51-1.52 while inpatient, improved to 1.19 by hospital discharge. Has been 1.3-1.4 here so far, watching closely as escalating diuretics as above.Keeley tor labs closely and avoid additional nephrotoxi ns. Pulmonary hypertension 08351466 I27.20 143874 SEE ABOVE... Recurrent pneumonia 6990 03150 J18.9 984749 Pneumonia first dx on 05/08, treated with 7 day course of Levaquin. Pt became progressiv aquilino weaker, ultimately admitted to hospital with CXR on 05/18 noting CHF with superimpos ed pneumonia. He was treated with oxygen, IV diuresis, and broad-spec trum antibiotic s (Vanc, Cefepime, Doxycyclin e). He was discharged on Ceftin and Doxycyclin e, completed on 05/26.Back on RA without concerns. Monitor oxygen status closely and utilize oxygen PRN and Duonebs PRN. Acute resp iratory failure 54874248 J96.01 1694601 SEE ABOVE... Retention of urine 22305 4002 R33.9 04363 Required mooney catheter placement while inpatient. UA was negative in ER, not repeated afterwards . Mooney successful ly removed. Flomax was not started due to hypotensio n. Monitor closely for recurrence . Pt notes he is voiding without concerns at present. Acute constipation 9006 K59.00 774386 Improved. Continue PRN Miralax. Additional cathartics available per standing orders. Bradycardia 41720847 R00 .1 65007 with junctional rhythm s/p PPM in 2021.Sayra nue supportive measures and f/u with cards as above. Mixed hyperlipidemia 267 463932 E78.2 40741 Per history. Recent FLP while inpatient was well below normal limits and pt is not on medication s. Neuropathy due to type 2 diabetes mellitus 6005688464 73738 E11.40 663894 D/C'd Metformin -- HgA1c was 5.5% while inpatient. Continue routine APAP, Gabapentin , & PRN Tramadol for neuropathy pain.Sayra nue LCS diet.Check ing blood sugars PRN. Anemia of chronic disease 860955986 D63.8 206558 Hgb baseline appears to be 8-9s, likely more of chronic disease. Iron, Vit b12 and Folate WNL. Continue Iron supplement , MVI, & Foltanx and trend Hgb. Primary insomnia 1425061 F51.01 60481 Improved. Continue newly-adde d Melatonin qhs. Moderate r ecurrent major depression 80186701 F33.1 9270370 No recent concerns per pt. Mood is stable and pleasant. Family/pt requested Sertraline be stopped. Generalize d anxiety disorder 35053452 F41.1 610584 SEE ABOVE... Dry eyes 476032374 H04.1 23 5959082 Stable. Continue Systane eye drops and f/u with ophthalmol ogy as directed. Vitamin D deficiency 347 53182 E55.9 64152 Stable. Level was 39 in January 2025. Continue supplement . Left foot drop 787312742 1 76254 M21.372 882904 Cause unclear -- possibly sec to neuropathy ? Pt thinks it may have been from a stroke but this is not documented in his history.Co ntinue AFO and therapies. History of multiple myeloma 6186340850 97133 Z85.79 901783 Followed historical ly by Dr. Srini Portillo (oncology) with last appt in 2020. Now following PRN as treatment was supportive monitoring . Monoclonal gammopathy of uncertain significance 471266021 D47.2 924585 SEE ABOVE... Polypharmacy 784478358 Z 79.899 541034 Monitor for continued need for Lactobacil kayli and PRN Tacrolimus . Physical deconditioning 3884868394 9102 R53.81 436236 Related to age, recent inpatient stay, and multiple comorbidit ies.Contin ue PT/OT and monitor progress. Goal is for pt to return to [facility], however it appears he may require transition to LTC. SW is in discussion s with pt/family. Health Concerns Section Related Observation LastModified by Organization Detai ls LastModified Time None Recorded Concern Status LastModified by Organization Details LastModified Time None Recorded Advance Directives Directive None Recorded Payers Insurance Date Sequence Insurance Name Policy Number Policy Garcia Covered Member ID Garcia Member ID Guarantor Name 06/02/2025 1 [employer] (MEDICARE REPLACEMENT/ ADVANTAGE - HMO) [id number] Dick Bobo [id number] Dick Bobo 06/24/2025 1 [employer] (MEDICARE REPLACEMENT/ ADVANTAGE - PPO) [id number] Dick Bobo [id number] Dick Bobo Notes Date Note Type Note Provider Name and Address Organization Details Recorded Time 06/17/2025 text/html ROS as noted in the HPI F/U Acute Respiratory Failure sec to CHF exacerbation & Pneumonia, MOHSEN, Hypotension, Urinary Retention, weakness/deconditioni ng, and chronic medical conditions.---05/24/20 Rylan has been a resident of [facility] since March 2022. SEE ABOVE regarding recent course, of which he is able to report as a good historian. He reports a resolution in all of his symptoms, that his cough and SOB has resolved, and he feels he is doing much better. He is looking forward to working with therapy so he can return to his [facility] apartment. He tells me he has not been able to walk for many years, since before his admission to [facility] in 2021, and thinks this may have been due to a small stroke he had. 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 VSS -- BPs are soft still. He is voiding without concerns at this point. Staff is without concerns today.---05/26/2025Mr. Bobo is sitting up in his W/C this am. He is pleasant and a fairly good historian. He continues to feel much improved from his hospitalization. No new complaints or concerns today - no nursing concerns. He reports he has still not had a BM since admission to - is taking miralax twice daily. He does not want to take additional meds at this time for symptoms.---05/28/25Johanna denis is doing well today, seated in his w/c in his room, without complaints of pain. He thinks his therapy session this morning went well. He remains mildly confused with questionable insight. He does report he has not been sleeping well, that he falls asleep for a 1-2 hours and then is up off and on for the rest of the night. He reports he does not usually have this issue and that he has never taken any medications to help with it. He is open to trialling Melatonin. VSS. Staff is without concerns at this time but do note that he does not appear to participate much in transfers and are encouraging him to do-so if he wants to return to [facility]. Per therapy notes = Pt completed standing activity, CGA for STS x 2 attempts with cueing to push through hands for full stand once up. Pt tolerated standing x 45 secs to hit balloon to therapist supported. Pt required increased rest breaks throughout therapy session this date and reports he hasn't been sleeping well. Pt demoed good motivation to participate in therapy.---05/30/25Di adeel is doing well today, seated in his w/c, reports he slept better last night with the addition of Melatonin but does report the mattress is likely the cause of his poor sleep. He remains mildly confused but without concerns or pain to report. VSS. Staff is without concerns at this time. Per therapy notes = Standing at FWW CGA with tolerance up to 2 minutes x 3 reps. pt instructed on BLE exercises all planes of motion for strengthtening and stability.--- 5Ddonna is seated in his recliner in his room, reports he does not feel well today. He tells me he thinks he is back in heart failure again and that he has worsening BAUER and edema. We discuss plan to escalate diuretics and update cardiology on his status. His lungs are CTA and he remains off oxygen supplementation. VSS. Staff is without concerns today beyond aforementioned. Per therapy notes = facilitated blocked STS practice with max cues for safe UE support and max cues to reach back to chair to lower self for improved eccentric control 2x5. facilitated pivot transfer training to/from WC and standard chair with max cues for sequencing, complete turn prior to sitting, and safe AD management but modx1 physical assist with 2nd person SBA for safety.---06/05/25Di adeel is seated in his motorized w/c in the common area, doing well today, tells me he feels much better than at my last visit. He tells me he feels like he can take a deep breath now, that he participated in therapy today with good results (he refused yesterday), and that he plans to go back to sleeping in his bed tonight as he thinks he will be able to breath lying flatter. He continues to deny productive cough. Weight today is down 2 lbs from my previous visit but he still remains up about 11 lbs from his arrival weight (accuracy is of course in question but no doubt there has been some weight gain). VSS. Staff is without concerns today, also feel he is looking better today.---06/07/25Major is resting in his w/c in his room, reports he continues to improve and is doing much better. He tells me he feels stronger and that his edema has improved a lot in the last few days. His respiratory status appears improved. He tells me he slept in bed last night for the first time in awhile and did not struggle. He tells me he slept 8 hours altogether. He thinks he is back to making better progress with therapy, in response to all the aforementioned improvements. VSS. Staff is without concerns today. Per therapy notes = Bed mobility supine to sit EOB with MIN, LB dressing with MAX, UB dressing with MOD, toileting with MAX, functional transfers with MAX.---06/10/25Major is seated in his room in his recliner, reports that he is doing well today but he thinks his edema has worsened. It had improved for a time when diuretics were escalated from Lasix 40 mg BID to Bumex 1.5 mg BID but edema/weight have worsened once again. VSS. Staff is without concerns Per therapy notes = sit/stand pulling up CGA cues for controlled descent.---06/12/25 donna is fairing well today, seated in his recliner in his room, reports his breathing is at baseline and he continues to feel that he is improved since his hospitalization in regards to fluid & respiratory status. He is hopeful to return back to his [facility] apartment soon. I discuss his fluid balance and lab results and plan to contact Dr. Jimenez for further adjustment recommendations in regimen (if any). VSS. Staff is without concerns at this time.---06/14/25Major is fairing well today, tells me he is doing better today. Denies respiratory concerns. Note that his edema and weight are unchanged since escalation of diuretics from Furosemide to Bumex on 06/03. Nursing have been updating Dr. Jimenez (cards) with weights, labs, and vitals. VSS. Staff is without concerns at this time. Per therapy notes = Worked on standing using the grab bars. Performed 5 reps of sit to stands with a seated break between. Had pt also work on pushing up from the chair---06/17/25Major is seated in his room in his w/c, sleeping initially. He awakens to my voice, without concerns or pain to report today. We discuss his edema/fluid status at length. Weight has improved a little with escalation of diuretics, edema appears unchanged. VSS. Staff is without concerns today. Per therapy notes = pt seen for ue strengthening with dowel maite and tband ex. rickshaw 20lbs 3x15 reps . sit to stand to // bars min to cga .. 10 reps... transfers min asst from wc and chair with //bar to pull up to Shanta Layton, [address] [address] [place], [phone], [facility] - [facility] 06/17/2025 20:11:50 06/19/2025 text/html ROS as noted in the HPI F/U Acute Respiratory Failure sec to CHF exacerbation & Pneumonia, MOHSEN, Hypotension, Urinary Retention, weakness/deconditioni ng, and chronic medical conditions.---05/24/20 Rylan has been a resident of [facility] since March 2022. SEE ABOVE regarding recent course, of which he is able to report as a good historian. He reports a resolution in all of his symptoms, that his cough and SOB has resolved, and he feels he is doing much better. He is looking forward to working with therapy so he can return to his [facility] apartment. He tells me he has not been able to walk for many years, since before his admission to [facility] in 2021, and thinks this may have been due to a small stroke he had. 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 VSS -- BPs are soft still. He is voiding without concerns at this point. Staff is without concerns today.---05/26/2025Mr. Bobo is sitting up in his W/C this am. He is pleasant and a fairly good historian. He continues to feel much improved from his hospitalization. No new complaints or concerns today - no nursing concerns. He reports he has still not had a BM since admission to - is taking miralax twice daily. He does not want to take additional meds at this time for symptoms.---05/28/25Di adeel is doing well today, seated in his w/c in his room, without complaints of pain. He thinks his therapy session this morning went well. He remains mildly confused with questionable insight. He does report he has not been sleeping well, that he falls asleep for a 1-2 hours and then is up off and on for the rest of the night. He reports he does not usually have this issue and that he has never taken any medications to help with it. He is open to trialling Melatonin. VSS. Staff is without concerns at this time but do note that he does not appear to participate much in transfers and are encouraging him to do-so if he wants to return to [facility]. Per therapy notes = Pt completed standing activity, CGA for STS x 2 attempts with cueing to push through hands for full stand once up. Pt tolerated standing x 45 secs to hit balloon to therapist supported. Pt required increased rest breaks throughout therapy session this date and reports he hasn't been sleeping well. Pt demoed good motivation to participate in therapy.---05/30/25 adeel is doing well today, seated in his w/c, reports he slept better last night with the addition of Melatonin but does report the mattress is likely the cause of his poor sleep. He remains mildly confused but without concerns or pain to report. VSS. Staff is without concerns at this time. Per therapy notes = Standing at FWW CGA with tolerance up to 2 minutes x 3 reps. pt instructed on BLE exercises all planes of motion for strengthtening and stability.--- Latoya is seated in his recliner in his room, reports he does not feel well today. He tells me he thinks he is back in heart failure again and that he has worsening BAUER and edema. We discuss plan to escalate diuretics and update cardiology on his status. His lungs are CTA and he remains off oxygen supplementation. VSS. Staff is without concerns today beyond aforementioned. Per therapy notes = facilitated blocked STS practice with max cues for safe UE support and max cues to reach back to chair to lower self for improved eccentric control 2x5. facilitated pivot transfer training to/from WC and standard chair with max cues for sequencing, complete turn prior to sitting, and safe AD management but modx1 physical assist with 2nd person SBA for safety.---06/05/25Johanna denis is seated in his motorized w/c in the common area, doing well today, tells me he feels much better than at my last visit. He tells me he feels like he can take a deep breath now, that he participated in therapy today with good results (he refused yesterday), and that he plans to go back to sleeping in his bed tonight as he thinks he will be able to breath lying flatter. He continues to deny productive cough. Weight today is down 2 lbs from my previous visit but he still remains up about 11 lbs from his arrival weight (accuracy is of course in question but no doubt there has been some weight gain). VSS. Staff is without concerns today, also feel he is looking better today.---06/07/25Major is resting in his w/c in his room, reports he continues to improve and is doing much better. He tells me he feels stronger and that his edema has improved a lot in the last few days. His respiratory status appears improved. He tells me he slept in bed last night for the first time in awhile and did not struggle. He tells me he slept 8 hours altogether. He thinks he is back to making better progress with therapy, in response to all the aforementioned improvements. VSS. Staff is without concerns today. Per therapy notes = Bed mobility supine to sit EOB with MIN, LB dressing with MAX, UB dressing with MOD, toileting with MAX, functional transfers with MAX.---06/10/25Major is seated in his room in his recliner, reports that he is doing well today but he thinks his edema has worsened. It had improved for a time when diuretics were escalated from Lasix 40 mg BID to Bumex 1.5 mg BID but edema/weight have worsened once again. VSS. Staff is without concerns Per therapy notes = sit/stand pulling up CGA cues for controlled descent.---06/12/25D donna is fairing well today, seated in his recliner in his room, reports his breathing is at baseline and he continues to feel that he is improved since his hospitalization in regards to fluid & respiratory status. He is hopeful to return back to his [facility] apartment soon. I discuss his fluid balance and lab results and plan to contact Dr. Jimenez for further adjustment recommendations in regimen (if any). VSS. Staff is without concerns at this time.---06/14/25Major is fairing well today, tells me he is doing better today. Denies respiratory concerns. Note that his edema and weight are unchanged since escalation of diuretics from Furosemide to Bumex on 06/03. Nursing have been updating Dr. Jimenez (cards) with weights, labs, and vitals. VSS. Staff is without concerns at this time. Per therapy notes = Worked on standing using the grab bars. Performed 5 reps of sit to stands with a seated break between. Had pt also work on pushing up from the chair---06/17/25Major is seated in his room in his w/c, sleeping initially. He awakens to my voice, without concerns or pain to report today. We discuss his edema/fluid status at length. Weight has improved a little with escalation of diuretics, edema appears unchanged. VSS. Staff is without concerns today. Per therapy notes = pt seen for ue strengthening with gamal arora and sophie ex. ti 20lbs 3x15 reps . sit to stand to // bars min to cga .. 10 reps... transfers min asst from wc and chair with //bar to pull up to---06/19/25Major is seated in his w/c in his room, reports he is doing fairly well but continues to report BLE edema which he thinks is impeding his ability to progress with therapy. We discuss the plan to escalate his diuretics further today and that staff are scheduling a f/u appt with Dr. Jimenez but it is not scheduled for 06/29 and that transportation is an issue for that date, so it might need to be moved. He denies any respiratory concerns. VSS. Staff is without concerns today. Per therapy notes = sit/stand pulling up at sidebar SBA Standing balance techniques at sidebar with tolerance 1 minute x 3 Shanta Layton, ANDREA [id number] [facility], [place], [address], [place] [facility] [employer] [facility] 06/19/2025 17:07:13 06/21/2025 text/html ROS as noted in the HPI F/U Acute Respiratory Failure sec to CHF exacerbation & Pneumonia, MOHSEN, Hypotension, Urinary Retention, weakness/deconditioni ng, and chronic medical conditions.---05/24/20 Rylan has been a resident of [facility] since March 2022. SEE ABOVE regarding recent course, of which he is able to report as a good historian. He reports a resolution in all of his symptoms, that his cough and SOB has resolved, and he feels he is doing much better. He is looking forward to working with therapy so he can return to his [facility] apartment. He tells me he has not been able to walk for many years, since before his admission to [facility] in 2021, and thinks this may have been due to a small stroke he had. 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 VSS -- BPs are soft still. He is voiding without concerns at this point. Staff is without concerns today.---05/26/2025Mr. Bobo is sitting up in his W/C this am. He is pleasant and a fairly good historian. He continues to feel much improved from his hospitalization. No new complaints or concerns today - no nursing concerns. He reports he has still not had a BM since admission to - is taking miralax twice daily. He does not want to take additional meds at this time for symptoms.---05/28/25Johanna denis is doing well today, seated in his w/c in his room, without complaints of pain. He thinks his therapy session this morning went well. He remains mildly confused with questionable insight. He does report he has not been sleeping well, that he falls asleep for a 1-2 hours and then is up off and on for the rest of the night. He reports he does not usually have this issue and that he has never taken any medications to help with it. He is open to trialling Melatonin. VSS. Staff is without concerns at this time but do note that he does not appear to participate much in transfers and are encouraging him to do-so if he wants to return to [facility]. Per therapy notes = Pt completed standing activity, CGA for STS x 2 attempts with cueing to push through hands for full stand once up. Pt tolerated standing x 45 secs to hit balloon to therapist supported. Pt required increased rest breaks throughout therapy session this date and reports he hasn't been sleeping well. Pt demoed good motivation to participate in therapy.---05/30/25Di adeel is doing well today, seated in his w/c, reports he slept better last night with the addition of Melatonin but does report the mattress is likely the cause of his poor sleep. He remains mildly confused but without concerns or pain to report. VSS. Staff is without concerns at this time. Per therapy notes = Standing at FWW CGA with tolerance up to 2 minutes x 3 reps. pt instructed on BLE exercises all planes of motion for strengthtening and stability.--- 5Ddonna is seated in his recliner in his room, reports he does not feel well today. He tells me he thinks he is back in heart failure again and that he has worsening BAUER and edema. We discuss plan to escalate diuretics and update cardiology on his status. His lungs are CTA and he remains off oxygen supplementation. VSS. Staff is without concerns today beyond aforementioned. Per therapy notes = facilitated blocked STS practice with max cues for safe UE support and max cues to reach back to chair to lower self for improved eccentric control 2x5. facilitated pivot transfer training to/from WC and standard chair with max cues for sequencing, complete turn prior to sitting, and safe AD management but modx1 physical assist with 2nd person SBA for safety.---06/05/25Di adeel is seated in his motorized w/c in the common area, doing well today, tells me he feels much better than at my last visit. He tells me he feels like he can take a deep breath now, that he participated in therapy today with good results (he refused yesterday), and that he plans to go back to sleeping in his bed tonight as he thinks he will be able to breath lying flatter. He continues to deny productive cough. Weight today is down 2 lbs from my previous visit but he still remains up about 11 lbs from his arrival weight (accuracy is of course in question but no doubt there has been some weight gain). VSS. Staff is without concerns today, also feel he is looking better today.---06/07/25Major is resting in his w/c in his room, reports he continues to improve and is doing much better. He tells me he feels stronger and that his edema has improved a lot in the last few days. His respiratory status appears improved. He tells me he slept in bed last night for the first time in awhile and did not struggle. He tells me he slept 8 hours altogether. He thinks he is back to making better progress with therapy, in response to all the aforementioned improvements. VSS. Staff is without concerns today. Per therapy notes = Bed mobility supine to sit EOB with MIN, LB dressing with MAX, UB dressing with MOD, toileting with MAX, functional transfers with MAX.---06/10/25Major is seated in his room in his recliner, reports that he is doing well today but he thinks his edema has worsened. It had improved for a time when diuretics were escalated from Lasix 40 mg BID to Bumex 1.5 mg BID but edema/weight have worsened once again. VSS. Staff is without concerns Per therapy notes = sit/stand pulling up CGA cues for controlled descent.---06/12/25 donna is fairing well today, seated in his recliner in his room, reports his breathing is at baseline and he continues to feel that he is improved since his hospitalization in regards to fluid & respiratory status. He is hopeful to return back to his [facility] apartment soon. I discuss his fluid balance and lab results and plan to contact Dr. Jimenez for further adjustment recommendations in regimen (if any). VSS. Staff is without concerns at this time.---06/14/25Major is fairing well today, tells me he is doing better today. Denies respiratory concerns. Note that his edema and weight are unchanged since escalation of diuretics from Furosemide to Bumex on 06/03. Nursing have been updating Dr. Jimenez (cards) with weights, labs, and vitals. VSS. Staff is without concerns at this time. Per therapy notes = Worked on standing using the grab bars. Performed 5 reps of sit to stands with a seated break between. Had pt also work on pushing up from the chair---06/17/25Major is seated in his room in his w/c, sleeping initially. He awakens to my voice, without concerns or pain to report today. We discuss his edema/fluid status at length. Weight has improved a little with escalation of diuretics, edema appears unchanged. VSS. Staff is without concerns today. Per therapy notes = pt seen for ue strengthening with dowel maite and tband ex. ricktjaw 20lbs 3x15 reps . sit to stand to // bars min to cga .. 10 reps... transfers min asst from wc and chair with //bar to pull up to---06/19/25Major is seated in his w/c in his room, reports he is doing fairly well but continues to report BLE edema which he thinks is impeding his ability to progress with therapy. We discuss the plan to escalate his diuretics further today and that staff are scheduling a f/u appt with Dr. Jimenez but it is not scheduled for 06/28 and that transportation is an issue for that date, so it might need to be moved. He denies any respiratory concerns. VSS. Staff is without concerns today. Per therapy notes = sit/stand pulling up at sidebar SBA Standing balance techniques at sidebar with tolerance 1 minute x 3---06/21/25Major is seated in his w/c, tells me he is fairing well, reports his only concern remains his BLE edema. 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 He does have an appt with Dr. Jimenez schedule and will continue to treat as best as we can, but I encourage him to discuss this with cards at his visit. He expresses understanding and is not overly upset by this conversation, only wants to have his edema improve so he can work better with therapy and become stronger. VSS except BPs are soft at times, resulting in nursing occasionally holding his Entresto -- have halved the dose due to this. May need to increase Midodrine if persists. Staff is without concerns otherwise. Per therapy notes = pt instructed on BLE exercises all planes of motion for strengthening and stability. 20 reps x 2 sets with 2.5#cw sit/stand at sidebar CGA to SBA cues for safety. Standing tolerance at sidebar up to 1 minute Shanta Layton, [place]REA [address] [facility], [place], [address], [place] - [employer] 06/22/2025 10:24:01 06/24/2025 text/html ROS as noted in the HPI F/U Acute Respiratory Failure sec to CHF exacerbation & Pneumonia, MOHSEN, Hypotension, Urinary Retention, weakness/deconditioni ng, and chronic medical conditions.---05/24/20 Rylan has been a resident of [facility] since March 2022. SEE ABOVE regarding recent course, of which he is able to report as a good historian. He reports a resolution in all of his symptoms, that his cough and SOB has resolved, and he feels he is doing much better. He is looking forward to working with therapy so he can return to his [facility] apartment. He tells me he has not been able to walk for many years, since before his admission to [facility] in 2021, and thinks this may have been due to a small stroke he had. 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 VSS -- BPs are soft still. He is voiding without concerns at this point. Staff is without concerns today.---05/26/2025Mr. Bobo is sitting up in his W/C this am. He is pleasant and a fairly good historian. He continues to feel much improved from his hospitalization. No new complaints or concerns today - no nursing concerns. He reports he has still not had a BM since admission to - is taking miralax twice daily. He does not want to take additional meds at this time for symptoms.---05/28/25Di adeel is doing well today, seated in his w/c in his room, without complaints of pain. He thinks his therapy session this morning went well. He remains mildly confused with questionable insight. He does report he has not been sleeping well, that he falls asleep for a 1-2 hours and then is up off and on for the rest of the night. He reports he does not usually have this issue and that he has never taken any medications to help with it. He is open to trialling Melatonin. VSS. Staff is without concerns at this time but do note that he does not appear to participate much in transfers and are encouraging him to do-so if he wants to return to [facility]. Per therapy notes = Pt completed standing activity, CGA for STS x 2 attempts with cueing to push through hands for full stand once up. Pt tolerated standing x 45 secs to hit balloon to therapist supported. Pt required increased rest breaks throughout therapy session this date and reports he hasn't been sleeping well. Pt demoed good motivation to participate in therapy.---05/30/25Di adeel is doing well today, seated in his w/c, reports he slept better last night with the addition of Melatonin but does report the mattress is likely the cause of his poor sleep. He remains mildly confused but without concerns or pain to report. VSS. Staff is without concerns at this time. Per therapy notes = Standing at FWW CGA with tolerance up to 2 minutes x 3 reps. pt instructed on BLE exercises all planes of motion for strengthtening and stability.--- 5Ddonna is seated in his recliner in his room, reports he does not feel well today. He tells me he thinks he is back in heart failure again and that he has worsening BAUER and edema. We discuss plan to escalate diuretics and update cardiology on his status. His lungs are CTA and he remains off oxygen supplementation. VSS. Staff is without concerns today beyond aforementioned. Per therapy notes = facilitated blocked STS practice with max cues for safe UE support and max cues to reach back to chair to lower self for improved eccentric control 2x5. facilitated pivot transfer training to/from WC and standard chair with max cues for sequencing, complete turn prior to sitting, and safe AD management but modx1 physical assist with 2nd person SBA for safety.---06/05/25Di adeel is seated in his motorized w/c in the common area, doing well today, tells me he feels much better than at my last visit. He tells me he feels like he can take a deep breath now, that he participated in therapy today with good results (he refused yesterday), and that he plans to go back to sleeping in his bed tonight as he thinks he will be able to breath lying flatter. He continues to deny productive cough. Weight today is down 2 lbs from my previous visit but he still remains up about 11 lbs from his arrival weight (accuracy is of course in question but no doubt there has been some weight gain). VSS. Staff is without concerns today, also feel he is looking better today.---06/07/25Major is resting in his w/c in his room, reports he continues to improve and is doing much better. He tells me he feels stronger and that his edema has improved a lot in the last few days. His respiratory status appears improved. He tells me he slept in bed last night for the first time in awhile and did not struggle. He tells me he slept 8 hours altogether. He thinks he is back to making better progress with therapy, in response to all the aforementioned improvements. VSS. Staff is without concerns today. Per therapy notes = Bed mobility supine to sit EOB with MIN, LB dressing with MAX, UB dressing with MOD, toileting with MAX, functional transfers with MAX.---06/10/25Major is seated in his room in his recliner, reports that he is doing well today but he thinks his edema has worsened. It had improved for a time when diuretics were escalated from Lasix 40 mg BID to Bumex 1.5 mg BID but edema/weight have worsened once again. VSS. Staff is without concerns Per therapy notes = sit/stand pulling up CGA cues for controlled descent.---06/12/25D donna is fairing well today, seated in his recliner in his room, reports his breathing is at baseline and he continues to feel that he is improved since his hospitalization in regards to fluid & respiratory status. He is hopeful to return back to his [facility] apartment soon. I discuss his fluid balance and lab results and plan to contact Dr. Jimenez for further adjustment recommendations in regimen (if any). VSS. Staff is without concerns at this time.---06/14/25Major is fairing well today, tells me he is doing better today. Denies respiratory concerns. Note that his edema and weight are unchanged since escalation of diuretics from Furosemide to Bumex on 06/03. Nursing have been updating Dr. Jimenez (cards) with weights, labs, and vitals. VSS. Staff is without concerns at this time. Per therapy notes = Worked on standing using the grab bars. Performed 5 reps of sit to stands with a seated break between. Had pt also work on pushing up from the chair---06/17/25Major is seated in his room in his w/c, sleeping initially. He awakens to my voice, without concerns or pain to report today. We discuss his edema/fluid status at length. Weight has improved a little with escalation of diuretics, edema appears unchanged. VSS. Staff is without concerns today. Per therapy notes = pt seen for ue strengthening with gamal arora and sophie ex. ti 20lbs 3x15 reps . sit to stand to // bars min to cga .. 10 reps... transfers min asst from wc and chair with //bar to pull up to---06/19/25Major is seated in his w/c in his room, reports he is doing fairly well but continues to report BLE edema which he thinks is impeding his ability to progress with therapy. We discuss the plan to escalate his diuretics further today and that staff are scheduling a f/u appt with Dr. Jimenez but it is not scheduled for 06/28 and that transportation is an issue for that date, so it might need to be moved. He denies any respiratory concerns. VSS. Staff is without concerns today. Per therapy notes = sit/stand pulling up at sidebar SBA Standing balance techniques at sidebar with tolerance 1 minute x 3---06/21/25Major is seated in his w/c, tells me he is fairing well, reports his only concern remains his BLE edema. 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 He does have an appt with Dr. Jimenez schedule and will continue to treat as best as we can, but I encourage him to discuss this with cards at his visit. He expresses understanding and is not overly upset by this conversation, only wants to have his edema improve so he can work better with therapy and become stronger. VSS except BPs are soft at times, resulting in nursing occasionally holding his Entresto -- have halved the dose due to this. May need to increase Midodrine if persists. Staff is without concerns otherwise. Per therapy notes = pt instructed on BLE exercises all planes of motion for strengthening and stability. 20 reps x 2 sets with 2.5#cw sit/stand at sidebar CGA to SBA cues for safety. Standing tolerance at sidebar up to 1 minute Shanta Layton, ANDREA [address] [facility], [place], [address], [facility] 06/24/2025 18:30:38 06/26/2025 text/html ROS as noted in the HPI F/U Acute Respiratory Failure sec to CHF exacerbation & Pneumonia, MOHSEN, Hypotension, Urinary Retention, weakness/deconditioni ng, and chronic medical conditions.---05/24/20 Rylna has been a resident of [facility] since March 2022. SEE ABOVE regarding recent course, of which he is able to report as a good historian. He reports a resolution in all of his symptoms, that his cough and SOB has resolved, and he feels he is doing much better. He is looking forward to working with therapy so he can return to his [facility] apartment. He tells me he has not been able to walk for many years, since before his admission to [facility] in 2021, and thinks this may have been due to a small stroke he had. 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 VSS -- BPs are soft still. He is voiding without concerns at this point. Staff is without concerns today.---05/26/2025Mr. Bobo is sitting up in his W/C this am. He is pleasant and a fairly good historian. He continues to feel much improved from his hospitalization. No new complaints or concerns today - no nursing concerns. He reports he has still not had a BM since admission to - is taking miralax twice daily. He does not want to take additional meds at this time for symptoms.---05/28/25Di adeel is doing well today, seated in his w/c in his room, without complaints of pain. He thinks his therapy session this morning went well. He remains mildly confused with questionable insight. He does report he has not been sleeping well, that he falls asleep for a 1-2 hours and then is up off and on for the rest of the night. He reports he does not usually have this issue and that he has never taken any medications to help with it. He is open to trialling Melatonin. VSS. Staff is without concerns at this time but do note that he does not appear to participate much in transfers and are encouraging him to do-so if he wants to return to [facility]. Per therapy notes = Pt completed standing activity, CGA for STS x 2 attempts with cueing to push through hands for full stand once up. Pt tolerated standing x 45 secs to hit balloon to therapist supported. Pt required increased rest breaks throughout therapy session this date and reports he hasn't been sleeping well. Pt demoed good motivation to participate in therapy.---05/30/25Di adeel is doing well today, seated in his w/c, reports he slept better last night with the addition of Melatonin but does report the mattress is likely the cause of his poor sleep. He remains mildly confused but without concerns or pain to report. VSS. Staff is without concerns at this time. Per therapy notes = Standing at FWW CGA with tolerance up to 2 minutes x 3 reps. pt instructed on BLE exercises all planes of motion for strengthtening and stability.--- Latoya is seated in his recliner in his room, reports he does not feel well today. He tells me he thinks he is back in heart failure again and that he has worsening BAUER and edema. We discuss plan to escalate diuretics and update cardiology on his status. His lungs are CTA and he remains off oxygen supplementation. VSS. Staff is without concerns today beyond aforementioned. Per therapy notes = facilitated blocked STS practice with max cues for safe UE support and max cues to reach back to chair to lower self for improved eccentric control 2x5. facilitated pivot transfer training to/from and standard chair with max cues for sequencing, complete turn prior to sitting, and safe AD management but modx1 physical assist with 2nd person SBA for safety.---06/05/25Di adeel is seated in his motorized w/c in the common area, doing well today, tells me he feels much better than at my last visit. He tells me he feels like he can take a deep breath now, that he participated in therapy today with good results (he refused yesterday), and that he plans to go back to sleeping in his bed tonight as he thinks he will be able to breath lying flatter. He continues to deny productive cough. Weight today is down 2 lbs from my previous visit but he still remains up about 11 lbs from his arrival weight (accuracy is of course in question but no doubt there has been some weight gain). VSS. Staff is without concerns today, also feel he is looking better today.---06/07/25Major is resting in his w/c in his room, reports he continues to improve and is doing much better. He tells me he feels stronger and that his edema has improved a lot in the last few days. His respiratory status appears improved. He tells me he slept in bed last night for the first time in awhile and did not struggle. He tells me he slept 8 hours altogether. He thinks he is back to making better progress with therapy, in response to all the aforementioned improvements. VSS. Staff is without concerns today. Per therapy notes = Bed mobility supine to sit EOB with MIN, LB dressing with MAX, UB dressing with MOD, toileting with MAX, functional transfers with MAX.---06/10/25Major is seated in his room in his recliner, reports that he is doing well today but he thinks his edema has worsened. It had improved for a time when diuretics were escalated from Lasix 40 mg BID to Bumex 1.5 mg BID but edema/weight have worsened once again. VSS. Staff is without concerns Per therapy notes = sit/stand pulling up CGA cues for controlled descent.---06/12/25 donna is fairing well today, seated in his recliner in his room, reports his breathing is at baseline and he continues to feel that he is improved since his hospitalization in regards to fluid & respiratory status. He is hopeful to return back to his [facility] apartment soon. I discuss his fluid balance and lab results and plan to contact Dr. Jimenez for further adjustment recommendations in regimen (if any). VSS. Staff is without concerns at this time.---06/14/25Major is fairing well today, tells me he is doing better today. Denies respiratory concerns. Note that his edema and weight are unchanged since escalation of diuretics from Furosemide to Bumex on 06/03. Nursing have been updating Dr. Jimenez (cards) with weights, labs, and vitals. VSS. Staff is without concerns at this time. Per therapy notes = Worked on standing using the grab bars. Performed 5 reps of sit to stands with a seated break between. Had pt also work on pushing up from the chair---06/17/25Major is seated in his room in his w/c, sleeping initially. He awakens to my voice, without concerns or pain to report today. We discuss his edema/fluid status at length. Weight has improved a little with escalation of diuretics, edema appears unchanged. VSS. Staff is without concerns today. Per therapy notes = pt seen for ue strengthening with gamal arora and sophie ex. ti 20lbs 3x15 reps . sit to stand to // bars min to cga .. 10 reps... transfers min asst from wc and chair with //bar to pull up to---06/19/25Major is seated in his w/c in his room, reports he is doing fairly well but continues to report BLE edema which he thinks is impeding his ability to progress with therapy. We discuss the plan to escalate his diuretics further today and that staff are scheduling a f/u appt with Dr. Jimenez but it is not scheduled for 06/28 and that transportation is an issue for that date, so it might need to be moved. He denies any respiratory concerns. VSS. Staff is without concerns today. Per therapy notes = sit/stand pulling up at sidebar SBA Standing balance techniques at sidebar with tolerance 1 minute x 3---06/21/25Major is seated in his w/c, tells me he is fairing well, reports his only concern remains his BLE edema. 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 He does have an appt with Dr. Jimenez schedule and will continue to treat as best as we can, but I encourage him to discuss this with cards at his visit. He expresses understanding and is not overly upset by this conversation, only wants to have his edema improve so he can work better with therapy and become stronger. VSS except BPs are soft at times, resulting in nursing occasionally holding his Entresto -- have halved the dose due to this. May need to increase Midodrine if persists. Staff is without concerns otherwise. Per therapy notes = pt instructed on BLE exercises all planes of motion for strengthening and stability. 20 reps x 2 sets with 2.5#cw sit/stand at sidebar CGA to SBA cues for safety. Standing tolerance at sidebar up to 1 minute---06/26/25Dick is seated in his w/c in his room, without concerns beyond his continuing concerns with edema/weight gain. He will f/u with Dr. Jimenez tomorrow to discuss what options he has moving forward, as I have shared with him his labs over the last few weeks, recently with concerns for hyponatremia. He is aware of concerns and what appears to be advancing/end-stage CHF. VSS. Staff is without concerns today beyond aforementioned concerns. Per therapy notes = Pt attempted STS from w/c to 2ww with max x 2 and unsuccessful STS. Pt educated on appropriate technique with inability to complete. Pt CGA STS from w/c to parallel bars x 2 trials tolerating x 45 secs on first attempt and 30 secs on second attempt with encouragement to continue balloon activity. Pt required seated rest between stands. Shanta Layton, ANDREA [address] [facility], [place], [address], [facility] - [facility] 06/26/2025 15:12:51
[2025-06-28 15:26] LABS: Hematocrit 31.2 % (42.0-52.0); Hemoglobin 9.4 g/dL (14.0-18.0); Immature Granulocyte Percent A 0.6 % (0-0.5); Lymphocytes Absolute Auto 0.88 K/mm3 (0.9-3.2); Mean Corpuscular HGB Conc 30.1 g/dl (32-36); Mean Corpuscular Hemoglobin 36.4 pg (26-34); Mean Corpuscular Volume 120.9 fl (80-100); Nucleated Red Blood Cells Absolute Auto 0.000 K/mm3 (0.0-0.012); Nucleated Red Blood Cells Perc 0.0 % (0.0-0.2); Platelet Count Result 221 k/mm3 (150-375); Red Blood Count 2.58 M/mm3 (4.6-6.20); White Blood Count 5.3 K/mm3 (4.5-10.0)
[2025-06-28 15:27] LABS: INR 1.2; Prothrombin Time 15.5 Seconds (11.1-14.7)
[2025-06-28 15:28] LABS: Partial Thromboplastin Time 33.0 Seconds (22.3-36.8)
[2025-06-28 15:49] VITALS: O2SAT 100
[2025-06-28 15:58] LABS: Macrocytosis 2+ (NORMAL); Ovalocytes 1+; Schistocytes None Seen
[2025-06-28 16:10] LABS: Alanine Aminotransferase 21 U/L (6-50); Albumin Level 4.2 g/dL (3.5-5.1); Alkaline Phosphatase 82 U/L (38-126); Anion Gap 10 mmol/L (4-12); Aspartate Amino Transferase 32 U/L (17-59); Bilirubin,Total 0.7 mg/dL (0.2-1.3); Blood Urea Nitrogen 60 mg/dL (9-20); Calcium 8.7 mg/dL (8.4-10.2); Carbon Dioxide 25 mmol/L (22-30); Chloride 97 mmol/L (98-107); Estimated CRCL calculation 48 ml/min; Estimated Glomerular Filt Rate 50; Glucose 129 mg/dL (65-110); Potassium 4.9 mmol/L (3.4-5.0); Sodium 132 mmol/L (137-145); Total Protein 8.3 g/dL (6.3-8.2)
[2025-06-28 16:29] LABS: NT Pro B Type Natriuretic Pept 19700 pg/mL (19.9-100); Troponin I 0.109 ng/mL (0.000-0.034)
--- NOTE | 2025-06-28 17:29 | ED.SOB ---
HPI - SOB/Dyspnea General Chief Complaint: Shortness of Breath/Dyspnea Stated Complaint: SOB, BLE swelling Time Seen by Provider: 06/28/25 15:07 Source: patient and family Mode of arrival: wheelchair Limitations: no limitations History of Present Illness HPI Narrative: 85-year-old with a history of hypertension, CHF, EF of 25-30%, CKD presents to the ER with a complains of agree shortness of breath for past 1 week. Patient family reports that he saw Dr. Bowens yesterday in the office. However since this afternoon and has been having more shortness of breath. Denies any chest pain. No history of cough or fever or chills. He also complains of increased swelling of both legs MD elicited complaint: shortness of breath Pertinent past history: congestive heart failure Onset (ago): week(s) (1) Timing: constant Severity: moderate Exacerbating factors: lying flat and exertion Relieving factors: upright position Known history of: congestive heart failure Associated symptoms: denies other symptoms Treatment prior to arrival: oxygen Related Data Home oxygen amount: 2 liters Home Medications ?Medication ?Instructions ?Recorded ?Confirmed ?Last Taken ?Type B6 35 mg-B9 3 mg-B12 2 mg-D3 62.5 2 cap PO DAILY 02/03/22 05/18/25 03/15/22 07:00 History mcg-ALA 300 mg capsule,delay release (EB-N5 NELLIE Smith See Rx Instructions .Route .COMPLEX 02/03/22 05/18/25 03/12/22 History acetaminophen 500 mg tablet 500 mg PO .q12hr Pain 02/03/22 05/18/25 05/18/25 10:00 History 500 mg amino ac-protein hydro-whey 1 ea PO DAILY 02/03/22 05/18/25 03/12/22 History protein 10 gram-100 kcal/30 mL oral liquid (ProSource) ferrous sulfate 325 mg (65 mg 325 tablet PO DAILY 02/03/22 05/18/25 05/18/25 10:00 History iron) tablet (FeroSul) 1 tablet furosemide 20 mg tablet 40 mg PO DAILY 02/03/22 05/18/25 03/14/22 07:00 History gabapentin 100 mg capsule 100 mg PO Q12H 02/03/22 05/18/25 05/18/25 10:00 History 100 mg metformin 500 mg tablet 500 tablet PO DAILY 02/03/22 05/18/25 05/18/25 10:00 History 1 tablet sertraline 25 mg tablet 25 tablet PO DAILY 02/03/22 05/18/25 05/18/25 10:00 History 1 tablet Lactobacillus acidophilus 1 cap PO BID 05/18/25 05/18/25 05/18/25 10:00 History 1 capsule mecobalamin-levomefolate 2 tablet PO DAILY 05/18/25 05/18/25 05/18/25 10:00 History calcium-pyridoxal phos 2 mg-3 2 tabs mg-35 mg tablet (Foltanx) multivitamin (Daily Multi-Vitamin 1 tablet PO DAILY 05/18/25 05/18/25 05/18/25 10:00 History tablet) 1 tablet peg 400-propylene glycol 0.4 %-0.3 1 drp EACH EYE BID 05/18/25 05/18/25 05/18/25 08:00 History % eye drops 1 drp tacrolimus 0.1 % topical ointment 1 applic topical .COMPLEX 05/18/25 05/18/25 Unknown History (Protopic) Allergies Allergy/AdvReac Type Severity Reaction Status Date / Time No Known Drug Allergies Allergy Other Verified 05/18/25 14:54 Review of Systems Review of Systems: All systems reviewed & are unremarkable except as noted in HPI and below Constitutional: Constitutional: Reports no additional constitutional complaints Eyes: Eyes: Reports no additional eye complaints ENT: Reports system reviewed and no additional complaints, except as documented Cardiovascular: Cardiovascular: Reports no additional cardiovascular complaints Respiratory: Respiratory: Reports as per HPI Musculoskeletal: Musculoskeletal: Reports as per HPI Neurologic: Reports system reviewed and no additional complaints, except as documented [facility] Past Medical History Medical History Hypertension Diabetes Surgical History Surgical History Fingertip amputation Family History Family History Father Heart disease Social History Social History Social History: Lives in [place]. Second hand tobacco smoke exposure: No Alcohol intake: never Substance use: current Substance use type: does not use Lack of Transportation: No Lack of Food: Never True Current Housing: I Have Housing Concerned About Future Housing: No Difficulty Paying Gas/Electric Bills: No Difficulty Paying for Meds: No Currently Unemployed: No Education: Decline to Answer Difficulty w/ Childcare or Family Care: No Living arrangements: long-term Spiritual care concerns: No Exam Narrative: GENERAL: Well-appearing, well-nourished, and in no acute distress. HEAD: Normocephalic, atraumatic. EYES: PERRLA and EOMI. ENT: Nares clear, no rhinorrhea or epistaxis. Mucous membranes moist. NECK: Supple. CHEST: Poor air entry, tachypnea, few crackles HEART: Regular rate and rhythm. No murmur heard. Normal peripheral pulses. ABDOMEN: Soft, nontender, nondistended, normal active bowel sounds. EXTREMITIES: Normal range of motion. 3+ edema SKIN: Warm, dry, no rash. NEURO: No focal deficits. Alert and oriented x3. PSYCH: Normal mood and affect. Course Course Emergency Course: 85-year-old with a history of CHF his BNP is elevated is mildly tachypneic will give IV Lasix, he is comfortable on 2 L oxygen. Admit him to the hospital for diuresis. And cardiology consult Vital Signs Vital signs: Vital Signs Temperature 36.4 C 06/28/25 15:00 Pulse Rate 87 06/28/25 15:00 Respiratory Rate 30 H 06/28/25 15:00 Blood Pressure 118/78 06/28/25 15:00 Pulse Oximetry 100 06/28/25 15:00 Oxygen Delivery Room Air 06/28/25 15:00 Temperature 36.4 C 06/28/25 15:00 Pulse Rate 87 06/28/25 15:00 Respiratory Rate 30 H 06/28/25 15:00 Blood Pressure 118/78 06/28/25 15:00 Pulse Oximetry 100 06/28/25 15:49 Oxygen Delivery Nasal Cannula 06/28/25 15:49 Oxygen Flow Rate 2 06/28/25 15:49 MDM - SOB/Dyspnea MDM Narrative Medical decision making narrative: 85-year-old with a history of CHF now having increasing shortness of breath and swelling in his legs appears to be in CHF exacerbation I did review his chart he has EF of 25-30% will give additional IV Lasix here in the ER. Differential Diagnosis Differential diagnosis: Likely congestive heart failure Medical Records Attestation: I reviewed the patient's medical records. Lab Data Attestation: I reviewed the patient's lab results. 06/28/25 15:08 06/28/25 15:47 Labs: Lab Results 06/28/25 06/28/25 Range/Units 15:08 15:47 WBC 5.3 (4.5-10.0) K/mm3 RBC 2.58 L (4.6-6.20) M/mm3 Hgb 9.4 L (14.0-18.0) g/dL Hct 31.2 L (42.0-52.0) % MCV 120.9 H (80-100) fl MCH 36.4 H (26-34) pg MCHC 30.1 L (32-36) g/dl RDW 15.4 H (11.5-14.5) % Plt Count 221 (150-375) k/mm3 MPV 10.3 (7.4-10.4) fl Immature Gran % (Auto) 0.6 H (0-0.5) % Neut % (Auto) 75.0 H (45.5-73.1) % Lymph % (Auto) 16.7 L (18.3-44.2) % [place] % (Auto) 6.7 (2.6-8.5) % Eos % (Auto) 0.8 (0-4.4) % Baso % (Auto) 0.2 (0.2-1.2) % Lymph # (Auto) 0.88 L (0.9-3.2) K/mm3 [place] # (Auto) 0.4 (0.1-0.6) K/mm3 Eos # (Auto) 0.0 (0-0.3) K/mm3 Baso # (Auto) 0.0 (0.0-0.1) K/mm3 Abs Immat Gran (auto) 0.03 (0.00-0.031) K/mm3 Absolute Neuts (auto) 4.0 (1.3-6.7) K/mm3 Absolute Nucleated RBC 0.000 (0.0-0.012) K/mm3 Band Neutrophils % Not Reportable Nucleated RBC % 0.0 (0.0-0.2) % Platelet Estimate Adequate (Adequate) Macrocytosis 2+ (NORMAL) Ovalocytes 1+ Schistocytes None seen PT 15.5 H (11.1-14.7) Seconds INR 1.2 APTT 33.0 (22.3-36.8) Seconds Sodium 132 L (137-145) mmol/L Potassium 4.9 (3.4-5.0) mmol/L Chloride 97 L (98-107) mmol/L Carbon Dioxide 25 (22-30) mmol/L Anion Gap 10 (4-12) mmol/L BUN 60 H D (9-20) mg/dL Creatinine 1.35 H (0.7-1.3) mg/dL Estim Creat Clear Calc 48 ml/min Estimated GFR 50 L (59 - ) Glucose 129 H (65-110) mg/dL Calcium 8.7 (8.4-10.2) mg/dL Total Bilirubin 0.7 (0.2-1.3) mg/dL AST 32 (17-59) U/L ALT 21 (6-50) U/L Alkaline Phosphatase 82 (38-126) U/L Troponin I 0.109 H* (0.000-0.034) ng/mL NT-Pro-B Natriuret Pep 11425 H (19.9-100) pg/mL Total Protein 8.3 H (6.3-8.2) g/dL Albumin 4.2 (3.5-5.1) g/dL Imaging Data Radiologist's impression: ITS Impressions Chest X-Ray 06/28/25 15:33 Impression: CHF. Superimposed probable pneumonia ECG Data EKG #1: ECG completion date: 06/28/25 ECG completion time: 15:05 EKG Interpretation: normal rate (85), sinus rhythm, no ectopy, normal QRS and normal QT Discharge Plan Discharge Clinical Impression: CHF (congestive heart failure) Qualifiers: Heart failure type: diastolic Heart failure chronicity: acute on chronic Qualified Code(s): I50.33 - Acute on chronic diastolic (congestive) heart failure Patient Disposition: Home Condition: Stable Instructions: Antibiotic Form Patient Language: Albanian Prescriptions: No Action metformin 500 mg tablet 500 tablet PO DAILY ferrous sulfate [FeroSul] 325 mg (65 mg iron) tablet 325 tablet PO DAILY sertraline 25 mg tablet 25 tablet PO DAILY furosemide 20 mg tablet 40 mg PO DAILY gabapentin 100 mg capsule 100 mg PO Q12H acetaminophen 500 mg Tablet 500 mg PO .q12hr ProSource 10-100 gram-kcal/30 mL Liquid 1 ea PO DAILY EB-N5 DR 35 mg-3 mg- 2 mg-62.5 mcg Capsule,Delayed Release(Dr/Ec) 2 cap PO DAILY Eucerin See Rx Instructions .ROUTE .COMPLEX Rx Instructions: Apply two times daily multivitamin [Daily Multi-Vitamin] Tablet 1 tablet PO DAILY mecobal-levomefolat Ca-B6 phos [Foltanx] 2-3-35 mg tablet 2 tablet PO DAILY peg 400-propylene glycol 0.4-0.3 % drops 1 drp EACH EYE BID tacrolimus [Protopic] 0.1 % ointment 1 applic topical .COMPLEX Rx Instructions: 1 applic topically BID 2-3 x week; Lactobacillus acidophilus [Acidophilus] 1 cap PO BID aspirin [Children's Aspirin] 81 mg Tablet,Chewable 81 mg PO DAILY@0800 Qty: 30 0RF cefuroxime axetil 500 mg tablet 500 mg PO Q12HR 3 Days Qty: 6 0RF midodrine 2.5 mg Tablet 5 mg PO TID Qty: 90 0RF doxycycline hyclate 100 mg Tablet 100 mg PO Q12HR 3 Days Qty: 6 0RF sacubitril-valsartan [Entresto] 24-26 mg Tablet 1 tab PO Q12HR Qty: 60 0RF tramadol 50 mg tablet 50 mg PO Q6H PRN (Reason: pain) Qty: 10 0RF Follow-up/Referrals: Nick Guajardo MD [Primary Care Provider, Family Practice]
[2025-06-28] MEDS: FUROSEMIDE INJ 40 MG/4 ML VIAL IV PUSH ×2 (17:54→21:03)
--- NOTE | 2025-06-28 18:18 | P.HP_ITS ---
H&P: HPI History of Present Illness Date/Time: 06/28/25 18:18 Chief Complaint: shortness of breath Narrative: 85-year-old male past medical history of CHF EF 25-30%, pacemaker, hypertension, CAD presents the hospital with shortness of breath. 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 However he states that he is more short of breath today than he was yesterday. Patient complains of increased edema in his hands and legs. Patient has no other complaints at this time. Lab work in the ED shows anemia at 9.4, sodium 132, BUN of 60, creatinine 1.35, GFR 50, glucose 123, troponin of 0.109, [place] [address], in the emergency room the patient was given 40 of Lasix. Review of Systems Review of Systems: 12 systems were reviewed and are negativ e except for as per HPI. [facility] Past Medical History Medical History Hypertension Diabetes Surgical History Surgical History Fingertip amputation Family History Family History Father Heart disease Social History Social History Social History: Lives in [place]. Second hand tobacco smoke exposure: No Alcohol intake: never Substance use: current Substance use type: does not use Lack of Transportation: No Lack of Food: Never True Current Housing: I Have Housing Concerned About Future Housing: No Difficulty Paying Gas/Electric Bills: No Difficulty Paying for Meds: No Currently Unemployed: No Education: Decline to Answer Difficulty w/ Childcare or Family Care: No Living arrangements: group home Spiritual care concerns: No Meds Home Medications and Allergies Home Medications ?Medication ?Instructions ?Recorded ?Confirmed ?Type B6 35 mg-B9 3 mg-B12 2 mg-D3 62.5 2 cap PO DAILY 02/0306/28/25 History mcg-ALA 300 mg capsule,delay release (EB-N5 ) Eucerin See Rx Instructions .Route . COMPLEX 02/03/22 06/28/25 History acetaminophen 500 mg tablet 500 mg PO .q12hr Pain 01/2006/28/25 History amino ac-protein hydro-whey 1 ea PO DAILY 02/03/2203/15 History protein 10 gram-100 kcal/30 mL oral liquid (ProSource) ferrous sulfate 325 mg (65 mg 325 tablet PO DAILY 01/2006/28/25 History iron) tablet (FeroSul) gabapentin 100 mg capsule 100 mg PO Q12H 02/03/22/03/15 History metformin 500 mg tablet 500 tablet PO DAILY 02/03/22 06/28/25 History Lactobacillus acidophilus 1 cap PO BID 05/18/25 History mecobalamin-levomefolate 2 tablet PO DAILY 05/18/25 1 08/28/24 History calcium-pyridoxal phos 2 mg-3 mg-35 mg tablet (Foltanx) multivitamin (Daily Multi-Vitamin 1 tablet PO DAILY 06/28/25 History tablet) peg 400-propylene glycol 0.4 %-0.3 1 drp EACH EYE BID 05/18/25 06/28/25 History % eye drops aspirin 81 mg chewable tablet 81 mg PO DAILY@0800 #30 tabs 05/23/25 06/28/25 Rx (Children's Aspirin) midodrine 2.5 mg tablet 5 mg (2 x 2.5 mg) PO TID #90 tabs 05/23/25 06/28/25 Rx sacubitril 24 mg-valsartan 26 mg 1 tab PO Q12HR #60 ta bs 05/23/25 06/28/25 Rx tablet (Entresto) tramadol 50 mg tablet 50 mg PO Q6H PRN pain #10 ta bs 05/23/25 06/28/25 Rx bumetanide 2 mg tablet 2 mg PO BID 06/28/25 5 History ipratropium 0.5 mg-albuterol 3 mg 3 ml inhalation Q4H PRN shortness 06/28/25 06/28/25 History (2.5 mg base)/3 mL nebulization of breath soln melatonin 5 mg capsule 5 mg PO HS 06/28/25 06/28/25 History metolazone 5 mg tablet 5 mg PO DAILY 06/28/2506/28 History polyethylene glycol 3350 17 17 g PO PRN 06/28/2506/28 History gram/dose oral powder (Miralax) Allergies Allergy/AdvReac Type Severity Reaction Status Date / Time No Known Drug Allergies Allergy Other Verified 06/28/25 19:58 Vital Signs Vital Signs - 24 hr 06/28/25 15:00 06/28/25 15:15 06/28/25 15:49 Temperature 97.6 F Pulse Rate 87 Respiratory Rate 30 H Blood Pressure 118/78 Pulse Oximetry 100 98 100 Oxygen Delivery Room Air Room Air Nasal Cannula Oxygen Flow Rate 2 Exam Narrative: General: well appearing, appears stated age. HEENT: normocephalic, atraumatic. Mucous membranes moist. EOMI, PERRLA, bilateral sclera anicteric, no conjunctival injection. Neck supple without JVD, lymphadenopathy, or bruit. Respiratory: clear bilaterally. No rales/rhonic/wheezes. Cardiovascular: Regular rate and rhythm, normal S1-S2. No murmurs, rubs, or clicks. PMI is nondisplaced, capillary refill less than 3 second. Abdomen: Soft, round, no pulsatile masses, nondistended and nontender. No rebound, no guarding. Bowel sounds present to all four quadrants. No high pitch or tinkling sounds, resonant to percussion. Extremities: No cyanosis, clubbing,. Pulses are palpable 2/2. Active ROM to all four extremities. 4+ edema up into the thighs, 2+ edema in the hands Neuro: Alert and orientated x 4. PERRLA. Cranial nerves 2-12 intact without focal deficit. Skin: Warm, dry, and intact, without rash, erythema, or lesion. Psych: pleasant, cooperative, normal speech, normal affect, no hallucinations, no dysarthia H&P: Results Labs Labs: Short CBC 06/28/25 Range/Units 15:08 WBC 5.3 (4.5-10.0) K/mm3 Hgb 9.4 L (14.0-18.0) g/dL Hct 31.2 L (42.0-52.0) % Plt Count 221 (150-375) k/mm3 BMP 06/28/25 15:47 Sodium 132 L Potassium 4.9 Chloride 97 L Carbon Dioxide 25 BUN 60 H D Creatinine 1.35 H Glucose 129 H Calcium 8.7 Cardiac Enzymes 06/28/25 Range/Units 15:47 Troponin I 0.109 H* (0.000-0.034) ng/mL Liver Function 06/28/25 Range/Units 15:47 Total Bilirubin 0.7 (0.2-1.3) mg/dL AST 32 (17-59) U/L ALT 21 (6-50) U/L Alkaline Phosphatase 82 (38-126) U/L Albumin 4.2 (3.5-5.1) g/dL Assessment and Plan Assessment and plan (1) CHF (congestive heart failure): Qualifiers: Heart failure chronicity: acute on chronic Heart failure type: diastolic Qualified Code(s): I50.33 - Acute on chronic diastolic (congestive) heart failure Code(s): I50.9 - Heart failure, unspecified Status: Acute Assessment and Plan: IV Lasix given in ED IV Lasix b.i.d. Cardiology consulted Fluid restriction Daily weight (2) Hypertension: Code(s): I10 - Essential (primary) hypertension Status: Acute Assessment and Plan: Hold antihypertensives while aggressively diuresing patient (3) MOHSEN (acute kidney injury): Code(s): N17.9 - Acute kidney failure, unspecified Status: Acute Assessment and Plan: Monitor kidney function wall aggressive diuresis Hold other nephrotoxic medications BMP in the morning (4) Diabetes: Code(s): E11.9 - Type 2 diabetes mellitus without complications Status: Acute Assessment and Plan: Diabetic diet Inga jones HS SSI Quality VTE Prophylaxis VTE prophylaxis: mechanical ordered and pharmacologic ordered Hospitalist MIPS Advance Care Plan I have confirmed that the patient's Advanced Care Plan is present, code status is documented, or surrogate decision maker is listed in patient medical record.: Yes Medication Reconciliation I have utilized all available resources to obtain, update and review the patients current medications (includes all prescriptions, OTC, herbals, cannabis, and nutritional supplements).: Yes
[2025-06-28 19:24] VITALS: BMI 37.4
[2025-06-28 19:48] VITALS: BP 117/73; PULSE 79; RESP 16; TEMP 35.8; O2SAT 100
--- NOTE | 2025-06-28 19:54 | ADMGEN ---
This patient, Dick Bobo, was admitted to Medical Room 244-. Patient/family oriented to hospital policies and general routines including ID bracelet, bed and alarms, visiting hours, pain management, procedures, bathroom and other care routines, personal items, smoking policy, room service/diet, and visiting hours. Information on how to activate the Rapid Response Team has been discussed. Patient/Family are encouraged to report perceived risks to care and to ask questions if they do not understand what they are told or what they should do.
[2025-06-28 20:00] VITALS: PULSE 74; O2SAT 100
[2025-06-28] MEDS: ARTIFICIAL TEARS OPHTH SOLN 15 ML BOTTLE 1 DROP EACH EYE (21:03)
[2025-06-28] MEDS: SACUBITRIL/VALSARTAN 24-26 MG TABLET 1 TAB PO (21:03)
[2025-06-28] MEDS: GABAPENTIN 100 MG CAPSULE PO (21:03)
[2025-06-29] VITALS (15 sets, daily range): BP systolic 99–113; BP diastolic 45–59; PULSE 56–76; RESP 16–20; TEMP 36.1–36.2; O2SAT 92–100
[2025-06-29 01:36] LABS: Troponin I 0.104 ng/mL (0.000-0.034)
[2025-06-29 05:30] LABS: Hematocrit 26.7 % (42.0-52.0); Hemoglobin 8.1 g/dL (14.0-18.0); Immature Granulocyte Percent A 0.5 % (0-0.5); Immature Platelet Fraction Pct 3.3 % (0.9-11.2); Lymphocytes Absolute Auto 1.09 K/mm3 (0.9-3.2); Mean Corpuscular HGB Conc 30.3 g/dl (32-36); Mean Corpuscular Hemoglobin 36.5 pg (26-34); Mean Corpuscular Volume 120.3 fl (80-100); Nucleated Red Blood Cells Absolute Auto 0.000 K/mm3 (0.0-0.012); Nucleated Red Blood Cells Perc 0.0 % (0.0-0.2); Platelet Count Result 206 k/mm3 (150-375); Red Blood Count 2.22 M/mm3 (4.6-6.20); White Blood Count 4.4 K/mm3 (4.5-10.0)
[2025-06-29 05:50] LABS: Hypochromasia 1+
[2025-06-29 05:51] LABS: Anisocytosis 1+; Burr Cells Occasional; Macrocytosis 1+ (NORMAL); Schistocytes Rare
[2025-06-29 05:52] LABS: Blood Urea Nitrogen 61 mg/dL (9-20); Calcium 8.4 mg/dL (8.4-10.2); Carbon Dioxide 27 mmol/L (22-30); Estimated CRCL calculation 47 ml/min; Estimated Glomerular Filt Rate 50; Glucose 110 mg/dL (65-110); Potassium 4.7 mmol/L (3.4-5.0); Sodium 132 mmol/L (137-145)
[2025-06-29 05:59] LABS: Anion Gap 8 mmol/L (4-12); Chloride 97 mmol/L (98-107)
--- NOTE | 2025-06-29 07:11 | P.PNIM_ITS ---
Progress Note: A&P Assessment and Plan (1) Heart failure with reduced ejection fraction: Code(s): I50.20 - Unspecified systolic (congestive) heart failure Status: Acute Assessment and Plan: Patient recently diagnosed with CHF with reduced ejection fraction last echo EF of 25-30%, CXR personally reviewed CHF * cardiology consulted * IV Bumex 1mg BID * monitor renal function during diuresis mild bump in Cr 1.36 was 1.10 last year but likely related to diuretic use and anemia * Daily weight. * fluid restriction * elevate/Germain wrap legs if needed * continued Entresto * Optimize blood pressure less than 130/80. (2) Elevated troponin: Code(s): R79.89 - Other specified abnormal findings of blood chemistry Status: Acute Assessment and Plan: Troponins trending flat likely secondary to ischemic demand from CHF, No CP * Cardiology following * resumed Entresto and Bumex * EKG reviewed 85 sinus rhythm with first-degree AV block no ST/T elevation (3) Hypertension: Code(s): I10 - Essential (primary) hypertension Status: Acute Assessment and Plan: BP soft on admission likely secondary to initiation of Entresto * Resume Entresto may need to reduce dose if patient's BP cannot tolerate * Continue to monitor BP per unit protocol (4) MOHSEN (acute kidney injury): Code(s): N17.9 - Acute kidney failure, unspecified Status: Acute Assessment and Plan: Patient with acute kidney injury likely acute on chronic stage III since initiating diuretics for heart failure chronic anemia * Avoid nephrotoxic drugs. * Monitor antihypertensive drug therapy. * Monitor closely to with IV diuretics * Avoid NSAIDs. * Routine CMP monitoring GFR. * Monitor electrolytes especially potassium. * Routine follow-up with Nephrology as an outpatient. (5) Diabetes: Code(s): E11.9 - Type 2 diabetes mellitus without complications Status: Acute Assessment and Plan: * Accu-Cheks a.c. HS * SSI * Hold metformin * Diabetic diet * Hypoglycemic protocol Plan Code status: DNR DVT prophylaxis: SCD's Stress ulcer prophylaxis: Protonix 40 daily PT/OT notes: Eval pending Disposition: Patient admitted again on acute exacerbation congestive heart with reduced ejection fraction cardiology has been consulted patient will continue with IV diuresis at this time. PT evaluation pending return discharge. Time Spent With Patient Time with patient: 25 - 35 minutes Subjective Date/time seen: 06/29/25 07:11 Interval history: Patient is 85-year-old male admitted for further evaluation and treatment acute on chronic CHF exacerbation. 06/29/2025: Assumed care Patient reporting increased SOB and worsening BLE edema after recent discharge. Patient denied any CP, N/V , fever of chills. Currently on supplemental oxygen for comfort. Review of Systems Review of Systems: 12 systems were reviewed and are negativ e except for as per HPI. All systems reviewed & are unremarkable except as noted in HPI and below Exam Const: General: no acute distress Other: Pleasant male with visualized increased respiratory work during assessment on supplemental oxygen for comfort HENMT: Face/Nose/Sinus: Normal nares present Mouth: Yes moist mucous membranes Eyes: General: appearance normal, both eyes and all related structures Sclera: sclerae normal Neck: Neck: supple and no JVD Resp: Effort & Inspection: Actively coughing, labored, tachypneic, uses accessory muscles and symmetric chest movement Auscultation: diminished lung sounds bilateral Cardio: Rate: regular rate Other: SR with 1st degree block on EKG GI: GI Palp: Yes Soft to palpation Auscultation: normal bowel sounds Urinary Catheter: Urinary Catheter: other (male purwick) Skin: General skin exam: no rashes or lesions noted Wounds: no wounds Neuro: Speech: normal speech Other: Unable to assess gait Extrem: General: edema bilateral (3+) Psych: Mental Status: mental status grossly normal Affect: normal affect Objective Data Vital Signs Vital Signs: Vital Signs - 24 hr 06/28/25 15:00 06/28/25 15:15 06/28/25 15:49 Temperature 97.6 F Pulse Rate 87 Respiratory Rate 30 H Blood Pressure 118/78 Pulse Oximetry 100 98 100 Oxygen Delivery Room Air Room Air Nasal Cannula Oxygen Flow Rate 2 06/28/25 19:48 06/28/25 20:00 06/28/25 20:00 Temperature 96.5 F L Pulse Rate 79 74 Respiratory Rate 16 Blood Pressure 117/73 Pulse Oximetry 100 100 Oxygen Delivery Nasal Cannula Oxygen Flow Rate 3 06/29/25 00:00 06/29/25 04:00 06/29/25 06:00 Temperature 97.1 F L Pulse Rate 75 71 69 Respiratory Rate 16 Blood Pressure 113/59 L Pulse Oximetry 97 Oxygen Delivery Oxygen Flow Rate Intake/Output Intake/Output: Intake & Output 06/26/25 06/27/25 06/28/25 06/29/25 23:59 23:59 23:59 23:59 Intake Total 550 Output Total 600 Balance -50 Meds/Results Medications: Active Medications Generic Name Dose Route Start Last Admin Trade Name Freq PRN Reason Stop Dose Admin Acetaminophen 650 mg 06/28/25 17:55 Acetaminophen 325 Mg Tablet PO Q4H PRN Mild Pain (1-3) or Fever Albuterol/Ipratropium 3 ml 06/28/25 21:49 Ipratropium 0.5 Mg/Albuterol Sulfate 2.5 Mg (Base) Ampul.Neb 3 Ml INHALATION Q4H PRN Shortness Of Breath Artificial Tears 1 drop 06/28/25 20:40 06/28/25 21:03 Artificial Tears Ophth Soln 15 Ml Bottle EACH EYE 1 drop BID [place] Administration Aspirin 81 mg 06/29/25 08:00 Aspirin 81 Mg Chewable Tablet PO DAILY@0800 [facility] Dextrose 12.5 gm 06/28/25 18:43 Dextrose 50% 25 Gm/50 Ml Syringe IV PUSH PRN PRN Hypoglycemia Protocol Docusate Sodium 100 mg 06/28/25 18:41 Docusate Sodium 100 Mg Capsule PO BID PRN Constipation Enoxaparin Sodium 40 mg 06/29/25 09:00 Enoxaparin 40 Mg/0.4 Ml Syringe SUB-Q DAILY [facility] Furosemide 40 mg 06/28/25 21:00 06/28/25 21:03 Furosemide Inj 40 Mg/4 Ml Vial IV PUSH 40 mg Q12HR [facility] Administration Gabapentin 100 mg 06/28/25 21:00 06/28/25 21:03 Gabapentin 100 Mg Capsule PO 100 mg Q12H [place] Administration Glucagon 1 mg 06/28/25 18:43 Glucagon For Inj 1 Mg Vial IM PRN PRN Hypoglycemia Protocol Glucose 15 gm 06/28/25 18:43 Glucose Oral Gel 15 Gm Of Glucse In 37.5 Gm Tube PO PRN PRN Hypoglycemia Protocol Dextrose 1,000 mls @ 100 mls/hr 06/28/25 18:43 Dextrose 5% 1,000 Ml IVPB PRN PRN Hypoglycemia Protocol Insulin Aspart 2 - 5 units 06/29/25 08:00 Insulin Aspart (*Bkc) 100 Units/Ml SUB-Q TIDWM [facility] Protocol Metolazone 5 mg 06/29/25 09:00 Metolazone 5 Mg Tablet PO DAILY [facility] Midodrine 5 mg 06/29/25 09:00 Midodrine Hcl 2.5 Mg Tablet PO TID [facility] Ondansetron HCl 4 mg 06/28/25 17:55 Ondansetron Inj 4 Mg/2 Ml Vial IV PUSH Q4H PRN Nausea Sacubitril/Valsartan 1 tab 06/28/25 21:00 06/28/25 21:03 Sacubitril/Valsartan 24-26 Mg Tablet PO 1 tab Q12HR [place] Administration Tramadol HCl 50 mg 06/28/25 20:30 Tramadol Hcl (*Crx) 50 Mg Tablet PO Q6H PRN PAIN RATED 4-6 Radiology Results: ITS Impressions Chest X-Ray 06/28/25 15:33 Impression: CHF. Superimposed probable pneumonia Labs Labs: Laboratory Results - last 24 hr 06/28/25 06/28/25 06/28/25 15:08 15:47 19:47 WBC 5.3 RBC 2.58 L Hgb 9.4 L Hct 31.2 L MCV 120.9 H MCH 36.4 H MCHC 30.1 L RDW 15.4 H Plt Count 221 MPV 10.3 Immature Gran % (Auto) 0.6 H Neut % (Auto) 75.0 H Lymph % (Auto) 16.7 L [place] % (Auto) 6.7 Eos % (Auto) 0.8 Baso % (Auto) 0.2 Lymph # (Auto) 0.88 L [place] # (Auto) 0.4 Eos # (Auto) 0.0 Baso # (Auto) 0.0 Abs Immat Gran (auto) 0.03 Absolute Neuts (auto) 4.0 Absolute Nucleated RBC 0.000 Band Neutrophils % Not Reportable Nucleated RBC % 0.0 Platelet Estimate Adequate % Immature Plt Fraction Hypochromasia Anisocytosis Macrocytosis 2+ Ovalocytes 1+ [place] Cells Schistocytes None seen PT 15.5 H INR 1.2 APTT 33.0 Sodium 132 L Potassium 4.9 Chloride 97 L Carbon Dioxide 25 Anion Gap 10 BUN 60 H D Creatinine 1.35 H Estim Creat Clear Calc 48 Estimated GFR 50 L Glucose 129 H POC Capillary Glucose 124 H Calcium 8.7 Total Bilirubin 0.7 AST 32 ALT 21 Alkaline Phosphatase 82 Troponin I 0.109 H* NT-Pro-B Natriuret Pep 04318 H Total Protein 8.3 H Albumin 4.2 06/28/25 06/29/25 23:56 04:45 WBC 4.4 L RBC 2.22 L Hgb 8.1 L Hct 26.7 L MCV 120.3 H MCH 36.5 H MCHC 30.3 L RDW 15.2 H Plt Count 206 MPV 10.1 Immature Gran % (Auto) 0.5 Neut % (Auto) 67.2 Lymph % (Auto) 24.8 [place] % (Auto) 5.9 Eos % (Auto) 1.4 Baso % (Auto) 0.2 Lymph # (Auto) 1.09 [place] # (Auto) 0.3 Eos # (Auto) 0.1 Baso # (Auto) 0.0 Abs Immat Gran (auto) 0.02 Absolute Neuts (auto) 3.0 Absolute Nucleated RBC 0.000 Band Neutrophils % Not Reportable Nucleated RBC % 0.0 Platelet Estimate Adequate % Immature Plt Fraction 3.3 Hypochromasia 1+ Anisocytosis 1+ Macrocytosis 1+ Ovalocytes [place] Cells Occasional Schistocytes Rare PT INR APTT Sodium 132 L Potassium 4.7 Chloride 97 L Carbon Dioxide 27 Anion Gap 8 BUN 61 H Creatinine 1.36 H Estim Creat Clear Calc 47 Estimated GFR 50 L Glucose 110 POC Capillary Glucose Calcium 8.4 Total Bilirubin AST ALT Alkaline Phosphatase Troponin I 0.104 H* NT-Pro-B Natriuret Pep Total Protein Albumin Imaging Radiologist's impression: EXAMINATION: XR chest 2V, 06/28/2025 15:20 CARTRIDGE MAKER HISTORY: SOB COMPARISON: No comparisons available. Technique: 2 views obtained. Findings: Moderate pulmonary venous congestion. Small basilar infiltrates and effusions. No pneumothorax. Moderate cardiomegaly. Mediastinal and hilar contours are within normal limits. Bony thorax no acute abnormality. Left pacemaker. Impression: CHF. Superimposed probable pneumonia Quality VTE Prophylaxis VTE prophylaxis: mechanical ordered and pharmacologic ordered -Patient's previous records reviewed on admission -ER notes reviewed in detail on admission -discussed all findings and current treatment plan with patient/Family/POA -Consultations reviewed for recommendations -Patient's disposition for safe discharge discussed with casework manager -radiology imaging, EKG and test results I have personally reviewed and interpreted unless otherwise specified Dictation performed by [employer] ([employer]) direct speech recognition software, t herefore damaged freight inspector variants and typographical errors may occur. Hospitalist MIPS Advance Care Plan I have confirmed that the patient's Advanced Care Plan is present, code status is documented, or surrogate decision maker is listed in patient medical record.: Yes Medication Reconciliation I have utilized all available resources to obtain, update and review the patients current medications (includes all prescriptions, OTC, herbals, cannabis, and nutritional supplements).: Yes The patient is not eligible for med reconciliation; the patient is in a emergent medical situation where delaying treatment would jeopardize the patients health.: No
[2025-06-29] MEDS: BUMETANIDE INJ 1 MG/4 ML VIAL IV PUSH ×2 (08:22→11:17)
[2025-06-29] MEDS: MIDODRINE HCL 2.5 MG TABLET 5 MG PO ×2 (08:23→16:31)
[2025-06-29] MEDS: ASPIRIN 81 MG CHEWABLE TABLET PO (08:23)
[2025-06-29] MEDS: SACUBITRIL/VALSARTAN 24-26 MG TABLET 1 TAB PO ×2 (08:23→20:31)
[2025-06-29] MEDS: ARTIFICIAL TEARS OPHTH SOLN 15 ML BOTTLE 1 DROP EACH EYE ×2 (08:26→16:31)
[2025-06-29] MEDS: FERROUS SULFATE 325 MG TABLET BY MOUTH (08:26)
[2025-06-29] MEDS: MULTIVITAMINS THERAPEUTIC TAB (*BKC) 1 TABLET PO (08:26)
[2025-06-29] MEDS: ACIDOPHILUS/BULGARICUS CHEWABLE TABLET 1 TABLET PO ×2 (08:26→16:31)
[2025-06-29] MEDS: GABAPENTIN 100 MG CAPSULE PO ×2 (08:28→20:31)
--- NOTE | 2025-06-29 10:22 | ECG_ITS ---
Test Date: 2025-06-29 10:33:23 Measurements Intervals [place] Rate: 60 P: 142 [place]: 85 QRS: -41 QRSD: 97 T: 116 QT: 412 QTc: 412 Interpretive Statements ELECTRONIC ATRIAL AND VENTRICULAR PACEMAKER ATYPICAL ECG Electronically Signed On 06-29-2025 16:19:53 AIR LIAISON AND SPECIAL STAFF by Dean Walters M.D.
[2025-06-29] MEDS: ASPIRIN 81 MG CHEWABLE TABLET 243 MG PO (11:16)
[2025-06-29 12:03] LABS: Troponin I 0.089 ng/mL (0.000-0.034)
--- NOTE | 2025-06-29 14:30 | PCOTNOTE ---
Pt unable to be seen this date for evaluation. Per RN, not doing well this date. Would prefer to hold for today for activity due to labored breathing at rest. Will continue to follow.
--- NOTE | 2025-06-29 14:33 | PCPTNOTE ---
HOLD PT: discussed pt with NMIA Duff: pt sleeping and has labored breathing. Forensic Toxicologist just recently saw pt.
--- NOTE | 2025-06-29 15:04 | PM.CNCAR ---
Assessment and Plan Assessment and plan (1) Heart failure with reduced ejection fraction: Code(s): I50.20 - Unspecified systolic (congestive) heart failure Status: Acute Assessment and Plan: ACUTE ON CHRONIC SYSTOLIC CONGESTIVE HEART FAILURE. CONTINUE ENTRESTO. WILL TRY A SMALL DOSE OF CARVEDILOL TO SEE IF HE WILL TOLERATE. START CARVEDILOL 3.125 MG P.O. B.I.D.. ADD TO HIS REGIMEN ABLE OR BP WILL ALLOW. HE IS BEING AGGRESSIVELY DIURESED AT THIS POINT WITH 2 MG OF IV BUMEX Q.12 HOURS WELL METOLAZONE. FOLLOW ELECTROLYTES (2) Elevated troponin: Code(s): R79.89 - Other specified abnormal findings of blood chemistry Status: Acute Assessment and Plan: UNLIKELY RELATED ACUTE PLAQUE RUPTURE (3) Hypertension: Code(s): I10 - Essential (primary) hypertension Status: Acute Assessment and Plan: CONTROLLED (4) Pacemaker: Code(s): Z95.0 - Presence of cardiac pacemaker Status: Acute Assessment and Plan: FUNCTIONING NORMALLY History of Present Illness History of Present Illness Consult date/time: 06/29/25 15:04 Requesting physician: Jm Ortiz MD Consult reason: congestive heart failure Reason For Visit: CHF Narrative: DATE OF SERVICE: 06/29/2025 REASON FOR CONSULTATION: CHF REQUESTING PROVIDER: DR. Ortiz HISTORY PATIENT IS AN 85-YEAR-OLD MALE RECENTLY ADMITTED TO THE HOSPITAL. FOUND TO HAVE ACUTE DECOMPENSATED SYSTOLIC CHF DURING THAT ADMISSION. WAS STARTED ON ENTRESTO BUT DID NOT TOLERATE OTHER THERAPY. TRIAL OF JARDIANCE BUT PATIENT BECAME MORE SHORT OF BREATH AND SEVERELY EDEMATOUS AND CAME TO HOSPITAL FOR FURTHER EVALUATION AND TREATMENT. PATIENT IS RECEIVING IV DIURETICS AND HIS OUTPUT IS COPIOUS. HE HAS HAD INTERMITTENT CHEST PAIN BUT NONE PRESENTLY. NO SYNCOPE, PRESYNCOPE. HE DOES HAVE SOME PAROXYSMAL NOCTURNAL DYSPNEA. SHORTNESS OF BREATH AT REST. SEVERE LOWER EXTREMITY SWELLING. Review of Systems Review of Systems: All systems reviewed & are unremarkable except as noted in HPI and below Constitutional: Constitutional: Denies difficulty sleeping Eyes: Eyes: Denies blurry vision ENT: Reports Normal hearing present Cardiovascular: Cardiovascular: Reports chest pain, Reports leg edema and Denies palpitations Respiratory: Respiratory: Reports dyspnea Gastrointestinal: Gastrointestinal: Denies abdominal pain Genitourinary: Genitourinary: Denies hematuria Musculoskeletal: Musculoskeletal: Denies joint swelling Integumentary/Breasts: Skin/Breast: Denies pruritus Neurologic: Denies Abnormal speech present Psychiatric: Psychiatric: Denies anxiety Endocrine: Endocrine: Denies excessive sweating Hematologic/Lymphatic: Hematologic/Lymphatic: Denies easy bleeding Allergic/Immunologic: Allergic/Immunologic: Denies GI upset with certain foods PMFSH Past Medical History Medical History (Updated 06/29/25 @ 15:10 by Dean Walters MD) Pacemaker Hypertension Diabetes Surgical History Surgical History Fingertip amputation Family History Family History Father Heart disease Social History Social History Social History: Lives in [place]. Second hand tobacco smoke exposure: No Alcohol intake: never Substance use: current Substance use type: does not use Lack of Transportation: No Lack of Food: Never True Current Housing: I Have Housing Concerned About Future Housing: No Difficulty Paying Gas/Electric Bills: No Difficulty Paying for Meds: No Currently Unemployed: No Education: Decline to Answer Difficulty w/ Childcare or Family Care: No Living arrangements: detention Spiritual care concerns: No Meds Home Medications and Allergies Home Medications ?Medication ?Instructions ?Recorded ?Confirmed ?Type B6 35 mg-B9 3 mg-B12 2 mg-D3 62.5 2 cap PO DAILY 02/03/22 06/28/25 History mcg-ALA 300 mg capsule,delay release (EB-N5 ) Eucerin See Rx Instructions .Route .COMPLEX 02/03/22 06/28/25 History acetaminophen 500 mg tablet 500 mg PO .q12hr Pain 02/03/22 06/28/25 History amino ac-protein hydro-whey 1 ea PO DAILY 02/03/22 06/28/25 History protein 10 gram-100 kcal/30 mL oral liquid (ProSource) ferrous sulfate 325 mg (65 mg 325 tablet PO DAILY 02/03/22 06/28/25 History iron) tablet (FeroSul) gabapentin 100 mg capsule 100 mg PO Q12H 02/03/22 06/28/25 History metformin 500 mg tablet 500 tablet PO DAILY 02/03/22 06/28/25 History Lactobacillus acidophilus 1 cap PO BID 05/18/25 06/28/25 History mecobalamin-levomefolate 2 tablet PO DAILY 05/18/25 06/28/25 History calcium-pyridoxal phos 2 mg-3 mg-35 mg tablet (Foltanx) multivitamin (Daily Multi-Vitamin 1 tablet PO DAILY 05/18/25 06/28/25 History tablet) peg 400-propylene glycol 0.4 %-0.3 1 drp EACH EYE BID 05/18/25 06/28/25 History % eye drops aspirin 81 mg chewable tablet 81 mg PO DAILY@0800 #30 tabs 05/23/25 06/28/25 Rx (Children's Aspirin) midodrine 2.5 mg tablet 5 mg (2 x 2.5 mg) PO TID #90 tabs 05/23/25 06/28/25 Rx sacubitril 24 mg-valsartan 26 mg 1 tab PO Q12HR #60 tabs 05/23/25 06/28/25 Rx tablet (Entresto) tramadol 50 mg tablet 50 mg PO Q6H PRN pain #10 tabs 05/23/25 06/28/25 Rx bumetanide 2 mg tablet 2 mg PO BID 06/28/25 06/28/25 History ipratropium 0.5 mg-albuterol 3 mg 3 ml inhalation Q4H PRN shortness 06/28/25 06/28/25 History (2.5 mg base)/3 mL nebulization of breath soln melatonin 5 mg capsule 5 mg PO HS 06/28/25 06/28/25 History metolazone 5 mg tablet 5 mg PO DAILY 06/28/25 06/28/25 History polyethylene glycol 3350 17 17 g PO PRN 06/28/25 06/28/25 History gram/dose oral powder (Miralax) Allergies Allergy/AdvReac Type Severity Reaction Status Date / Time No Known Drug Allergies Allergy Other Verified 06/28/25 19:58 Vital Signs Vital Signs - 24 hr 06/28/25 15:15 06/28/25 15:49 06/28/25 19:48 Temperature 35.8 C L Pulse Rate 79 Respiratory Rate 16 Blood Pressure 117/73 Pulse Oximetry 98 100 100 Oxygen Delivery Room Air Nasal Cannula Oxygen Flow Rate 2 Fraction of Inspired Oxygen 06/28/25 20:00 11/07/25 20:00 06/29/25 00:00 Temperature Pulse Rate 74 75 Respiratory Rate Blood Pressure Pulse Oximetry 100 Oxygen Delivery Nasal Cannula Oxygen Flow Rate 3 Fraction of Inspired Oxygen 06/29/25 04:00 06/29/25 06:00 06/29/25 08:00 Temperature 36.2 C L Pulse Rate 71 69 Respiratory Rate 16 Blood Pressure 113/59 L Pulse Oximetry 97 93 Oxygen Delivery Nasal Cannula Oxygen Flow Rate 2 Fraction of Inspired Oxygen 06/29/25 09:30 06/29/25 09:58 06/29/25 11:41 Temperature Pulse Rate 67 Respiratory Rate 20 Blood Pressure Pulse Oximetry 100 100 99 Oxygen Delivery Nasal Cannula Room Air Nasal Cannula Oxygen Flow Rate 2 1 Fraction of Inspired Oxygen 28 21 Exam Narrative: SLEEPING BUT AROUSABLE. APPEARS STATED AGE Const: General: comfortable and no acute distress HENMT: Face/Nose/Sinus: Normal nares present Mouth: Yes moist mucous membranes Eyes: Sclera: sclerae normal Neck: Neck: supple and no JVD Chest: Other: NO REPRODUCIBLE CHEST WALL PAIN TO PALPATION Resp: Effort & Inspection: normal respiratory effort Auscultation: crackles and diminished lung sounds Cardio: Rate: regular rate Other: PACED RHYTHM GI: Inspection: non-distended GI Palp: Yes Soft to palpation Auscultation: normal bowel sounds Skin: General skin exam: normal color Neuro: Speech: normal speech Sensory Exam: normal sensation Extrem: General: edema Other: SEVERE LOWER EXTREMITY EDEMA Psych: Affect: normal affect Results Labs and Meds 06/29/25 04:45 06/29/25 04:45 Lab results: Cardiac Enzymes 06/28/25 06/28/25 06/29/25 Range/Units 15:47 23:56 10:49 AST 32 (17-59) U/L Troponin I 0.109 H* 0.104 H* 0.089 H* (0.000-0.034) ng/mL Coagulation 06/28/25 Range/Units 15:08 PT 15.5 H (11.1-14.7) Seconds APTT 33.0 (22.3-36.8) Seconds CBC 06/28/25 06/29/25 Range/Units 15:08 04:45 WBC 5.3 4.4 L (4.5-10.0) K/mm3 RBC 2.58 L 2.22 L (4.6-6.20) M/mm3 Hgb 9.4 L 8.1 L (14.0-18.0) g/dL Hct 31.2 L 26.7 L (42.0-52.0) % Plt Count 221 206 (150-375) k/mm3 Lymph # (Auto) 0.88 L 1.09 (0.9-3.2) K/mm3 [place] # (Auto) 0.4 0.3 (0.1-0.6) K/mm3 Eos # (Auto) 0.0 0.1 (0-0.3) K/mm3 Baso # (Auto) 0.0 0.0 (0.0-0.1) K/mm3 Comprehensive Metabolic Panel 06/28/25 06/29/25 Range/Units 15:47 04:45 Sodium 132 L 132 L (137-145) mmol/L Potassium 4.9 4.7 (3.4-5.0) mmol/L Chloride 97 L 97 L (98-107) mmol/L Carbon Dioxide 25 27 (22-30) mmol/L BUN 60 H D 61 H (9-20) mg/dL Creatinine 1.35 H 1.36 H (0.7-1.3) mg/dL Glucose 129 H 110 (65-110) mg/dL Calcium 8.7 8.4 (8.4-10.2) mg/dL AST 32 (17-59) U/L ALT 21 (6-50) U/L Alkaline Phosphatase 82 (38-126) U/L Total Protein 8.3 H (6.3-8.2) g/dL Albumin 4.2 (3.5-5.1) g/dL Intake and Output 06/28/25 06/29/25 06/29/25 23:59 07:59 15:59 Intake Total 550 0 Output Total 600 Balance -50 0 Intake: Oral 550 0 Output: Catheter Urine 600 External/Condom 600 Patient Weight 06/29/25 23:59 Weight 113.1 kg EKG PERSONALLY REVIEWED AND INDEPENDENTLY INTERPRETED SHOWING AV PACING. PREVIOUS ECHOCARDIOGRAM SHOWED EJECTION FRACTION 25-30%.
[2025-06-29] MEDS: BUMETANIDE INJ 1 MG/4 ML VIAL 2 MG IV PUSH (16:34)
[2025-06-29] MEDS: MELATONIN 5 MG TABLET PO (20:31)
[2025-06-29] MEDS: IPRATROPIUM 0.5 MG/ALBUTEROL SULFATE 2.5 MG (BASE) AMPUL.NEB 3 ML INHALATION (22:46)
--- NOTE | 2025-06-29 23:15 | P.PNCROSS_ITS ---
Event Note Event Note Event Note: Patient complaining of worsening shortness of breaths to the bedside RN. RN e valuated patient's O2 saturation, hovering at 90% on 2L nasal cannula. Patient's oxygen increased to 4 L nasal cannula, has not resolved patient's subjective shortness of breath. Reviewed CXR, in favor of CHF with superimposed pneumonia. Will start patient on oral doxycycline and IV ceftriaxone. Check viral PCR.
[2025-06-29] MEDS: cefTRIAXone 1 GM in SODIUM CHLORIDE 0.9% IV 50 ML 100 ML IVPB (23:35)
[2025-06-29] MEDS: DOXYCYCLINE HYCLATE 100 MG TABLET PO (23:35)
[2025-06-30] VITALS (42 sets, daily range): BP systolic 82–113; BP diastolic 36–80; PULSE 60–108; RESP 11–27; TEMP 35.6–36.8; O2SAT 92–100
[2025-06-30 00:21] LABS: Influenza A QL RT-PCR Negative (Negative); Influenza B QL RT-PCR Negative (Negative); RSV RNA, RT-PCR Negative (Negative); SARS-CoV-2 RNA PCR Negative (Negative)
[2025-06-30] MEDS: traMADol HCL (*CRX) 50 MG TABLET PO ×2 (02:07→16:05)
[2025-06-30 05:31] LABS: Hematocrit 27.0 % (42.0-52.0); Hemoglobin 8.1 g/dL (14.0-18.0); Mean Corpuscular HGB Conc 30.0 g/dl (32-36); Mean Corpuscular Hemoglobin 35.8 pg (26-34); Mean Corpuscular Volume 119.5 fl (80-100); Platelet Count Result 208 k/mm3 (150-375); Red Blood Count 2.26 M/mm3 (4.6-6.20); White Blood Count 4.8 K/mm3 (4.5-10.0)
[2025-06-30 05:56] LABS: Alanine Aminotransferase 17 U/L (6-50); Albumin Level 3.6 g/dL (3.5-5.1); Alkaline Phosphatase 74 U/L (38-126); Anion Gap 7 mmol/L (4-12); Aspartate Amino Transferase 23 U/L (17-59); Bilirubin,Total 0.7 mg/dL (0.2-1.3); Blood Urea Nitrogen 65 mg/dL (9-20); Calcium 8.3 mg/dL (8.4-10.2); Carbon Dioxide 29 mmol/L (22-30); Chloride 96 mmol/L (98-107); Estimated CRCL calculation 36 ml/min; Estimated Glomerular Filt Rate 38; Glucose 98 mg/dL (65-110); Magnesium 2.5 mg/dL (1.6-2.3); Potassium 5.5 mmol/L (3.4-5.0); Sodium 132 mmol/L (137-145); Total Protein 7.3 g/dL (6.3-8.2)
--- NOTE | 2025-06-30 06:59 | P.PNIM_ITS ---
Progress Note: A&P Assessment and Plan (1) Heart failure with reduced ejection fraction: Code(s): I50.20 - Unspecified systolic (congestive) heart failure Status: Acute Assessment and Plan: Patient recently diagnosed with CHF with reduced ejection fraction last echo EF of 25-30%, CXR personally reviewed CHF minimal output even with aggressive diuresis and worsening renal function. Transfer to IMU * cardiology consulted * IV Bumex 1mg BID * monitor renal function during diuresis continues to elevate 1.70 nephrology consulted appreciate further recommendation * Daily weight. * fluid restriction * elevate/Germain wrap legs * continued Entresto * Cardiology added carvedilol 25mg BID as BP tolerates * minimal diuresis transferring to IMU * Started on a dobutamine drip * Place Villegas catheter for strict I&Os (2) MOHSEN (acute kidney injury): Code(s): N17.9 - Acute kidney failure, unspecified Status: Acute Assessment and Plan: Patient with acute kidney injury likely acute on chronic stage III since initiating diuretics for heart failure chronic anemia * worsening renal function nephrology consulted likely Cardiorenal syndrome * Avoid nephrotoxic drugs. * Monitor antihypertensive drug therapy. * Monitor closely to with IV diuretics * Avoid NSAIDs. * Routine CMP monitoring GFR. * Monitor electrolytes especially potassium. * Routine follow-up with Nephrology as an outpatient. (3) Cardiorenal syndrome: Code(s): I13.10 - Hypertensive heart and chronic kidney disease without heart failure, with stage 1 through stage 4 chronic kidney disease, or unspecified chronic kidney disease Status: Acute Assessment and Plan: SEE Above (4) Pneumonia: Code(s): J18.9 - Pneumonia, unspecified organism Status: Acute Assessment and Plan: CXR showing possible pneumonia patient with productive cough and worsening SOB, influenza/COVID/RSV negative * IV ceftriaxone and oral oral doxy * Bronchodilators. * incentive spirometry while awake. * supplemental oxygen therapy to maintain oxygen 92% (5) Hyperkalemia: Code(s): E87.5 - Hyperkalemia Status: Acute Assessment and Plan: Potassium 5.5 today * Lokelma 10mg BID * F/U potassium 1500 * cardiac monitoring (6) Elevated troponin: Code(s): R79.89 - Other specified abnormal findings of blood chemistry Status: Acute Assessment and Plan: Troponins trending flat likely secondary to ischemic demand from CHF, No CP * Cardiology following * resumed Entresto and IV Bumex * EKG reviewed 85 sinus rhythm with first-degree AV block no ST/T elevation (7) Hypertension: Code(s): I10 - Essential (primary) hypertension Status: Acute Assessment and Plan: BP soft on admission likely secondary to initiation of Entresto * Resume Entresto may need to reduce dose if patient's BP cannot tolerate * Continue to monitor BP per unit protocol (8) Diabetes: Code(s): E11.9 - Type 2 diabetes mellitus without complications Status: Acute Assessment and Plan: * Accu-Cheks a.cLeigh HS * SSI * Hold metformin * Diabetic diet * Hypoglycemic protocol Plan Code status: DNR DVT prophylaxis: SCD's Stress ulcer prophylaxis: Protonix 40 daily PT/OT notes: Eval pending Disposition: Patient transferred to IMU for acute exacerbation congestive heart with reduced ejection fraction cardiology has been consulted will start dobutamine gtt and consult med nephrology patient will continue with IV diuresis at this time. Time Spent With Patient Time with patient: 25 - 35 minutes Subjective Date/time seen: 06/30/25 06:59 Interval history: Patient is 85-year-old male admitted for further evaluation and treatment acute on chronic CHF exacerbation. 06/30/2025: Patient with severe BLE edema and overnight still having complaints of SOB intermittent chest painand requiring supplemental oxygen. CXR showing possible pneumonia. Minimal urinary output overnight will need more aggressive diuresis. Spoke with Cardiology and both agree to move to IMU and start a dobutamine GTT. Patient still reporting intermittent chest pain and significant shortness of breath. Review of Systems 2 Review of Systems: 12 systems were reviewed and are negativ e except for as per HPI. All systems reviewed & are unremarkable except as noted in HPI and below Exam Const: General: no acute distress Other: Pleasant male with visualized increased respiratory work during assessment on supplemental oxygen for comfort HENMT: Face/Nose/Sinus: Normal nares present Mouth: Yes moist mucous membranes Eyes: General: appearance normal, both eyes and all related structures Sclera: sclerae normal Neck: Neck: supple and no JVD Resp: Effort & Inspection: Actively coughing, labored, tachypneic, uses accessory muscles and symmetric chest movement Auscultation: wheezes scattered wheezes and diminished lung sounds bilateral Cardio: Rate: regular rate Other: SR with 1st degree block on EKG GI: Auscultation: normal bowel sounds Urinary Catheter: Urinary Catheter: other (male purwick) Skin: General skin exam: no rashes or lesions noted Wounds: no wounds Neuro: Speech: normal speech Other: Unable to assess gait Extrem: General: edema (3+ ) bilateral (3+) Psych: Mental Status: mental status grossly normal Affect: normal affect Objective Data Vital Signs Vital Signs: Vital Signs - 24 hr 06/29/25 08:00 06/29/25 08:00 06/29/25 09:30 Temperature Pulse Rate 60 67 Respiratory Rate 20 Blood Pressure Pulse Oximetry 93 100 Oxygen Delivery Nasal Cannula Nasal Cannula Oxygen Flow Rate 2 2 Fraction of Inspired Oxygen 28 06/29/25 09:58 06/29/25 11:41 06/29/25 12:00 Temperature Pulse Rate 71 Respiratory Rate Blood Pressure Pulse Oximetry 100 99 Oxygen Delivery Room Air Nasal Cannula Oxygen Flow Rate 1 Fraction of Inspired Oxygen 21 06/29/25 14:00 06/29/25 16:00 06/29/25 20:00 Temperature 97 F L Pulse Rate 76 60 63 Respiratory Rate 18 Blood Pressure 104/58 L Pulse Oximetry 100 Oxygen Delivery Oxygen Flow Rate Fraction of Inspired Oxygen 06/29/25 20:00 06/29/25 20:30 06/29/25 22:00 Temperature 97.2 F L Pulse Rate 60 64 Respiratory Rate 18 Blood Pressure 99/45 L Pulse Oximetry 100 100 Oxygen Delivery Nasal Cannula Oxygen Flow Rate 2 Fraction of Inspired Oxygen 06/29/25 22:48 06/29/25 22:54 06/30/25 00:00 Temperature Pulse Rate 56 L 64 Respiratory Rate 20 Blood Pressure Pulse Oximetry 92 Oxygen Delivery Nasal Cannula Oxygen Flow Rate 4 Fraction of Inspired Oxygen 06/30/25 04:00 06/30/25 06:00 Temperature 97.7 F Pulse Rate 60 61 Respiratory Rate 18 Blood Pressure 93/47 L Pulse Oximetry 100 Oxygen Delivery Oxygen Flow Rate Fraction of Inspired Oxygen Intake/Output Intake/Output: Intake & Output 06/27/25 06/28/25 06/29/25 06/30/25 23:59 23:59 23:59 23:59 Intake Total 550 Output Total 1000 550 Balance -450 -550 Meds/Results Medications: Active Medications Generic Name Dose Route Start Last Admin Trade Name Freq PRN Reason Stop Dose Admin Acetaminophen 650 mg 06/28/25 17:55 Acetaminophen 325 Mg Tablet PO Q4H PRN Mild Pain (1-3) or Fever Albuterol/Ipratropium 3 ml 06/30/25 12:00 Ipratropium 0.5 Mg/Albuterol Sulfate 2.5 Mg (Base) Ampul.Neb 3 Ml INHALATION Q6HR [facility] Artificial Tears 1 drop 06/28/25 20:40 06/29/25 16:31 Artificial Tears Ophth Soln 15 Ml Bottle EACH EYE 1 drop BID [facility] Administration Aspirin 81 mg 06/29/25 08:00 06/29/25 08:23 Aspirin 81 Mg Chewable Tablet PO 81 mg DAILY@0800 [facility] Administration Bumetanide 1 mg 06/30/25 09:00 Bumetanide Inj 1 Mg/4 Ml Vial IV PUSH BID [facility] Carvedilol 3.125 mg 06/29/25 21:00 06/29/25 20:30 Carvedilol 3.125 Mg Tablet PO 3.125 mg Q12HR [facility] Administration Dextrose 12.5 gm 06/28/25 18:43 Dextrose 50% 25 Gm/50 Ml Syringe IV PUSH PRN PRN Hypoglycemia Protocol Docusate Sodium 100 mg 06/28/25 18:41 Docusate Sodium 100 Mg Capsule PO BID PRN Constipation Doxycycline Hyclate 100 mg 06/29/25 23:15 06/29/25 23:35 Doxycycline Hyclate 100 Mg Tablet PO 100 mg Q12HR [facility] Administration Ferrous Sulfate 325 mg 06/29/25 09:00 06/29/25 08:26 Ferrous Sulfate 325 Mg Tablet BY MOUTH 325 mg DAILY [facility] Administration Gabapentin 100 mg 06/28/25 21:00 06/29/25 20:31 Gabapentin 100 Mg Capsule PO 100 mg Q12H [facility] Administration Glucagon 1 mg 06/28/25 18:43 Glucagon For Inj 1 Mg Vial IM PRN PRN Hypoglycemia Protocol Glucose 15 gm 06/28/25 18:43 Glucose Oral Gel 15 Gm Of Glucse In 37.5 Gm Tube PO PRN PRN Hypoglycemia Protocol Guaifenesin 1,200 mg 06/30/25 09:00 Guaifenesin 12 Hr 600 Mg Tabcr PO Q12HR [facility] Dextrose 1,000 mls @ 100 mls/hr 06/28/25 18:43 Dextrose 5% 1,000 Ml IVPB PRN PRN Hypoglycemia Protocol Ceftriaxone Sodium 1 gm/ 50 mls @ 100 mls/hr 06/29/25 23:15 06/29/25 23:35 Sodium Chloride IVPB 100 mls/hr HS [facility] Administration Insulin Aspart 2 - 5 units 06/29/25 08:00 06/29/25 16:31 Insulin Aspart (*Bkc) 100 Units/Ml SUB-Q Not Given TIDWM [facility] Protocol Lactobacillus Acidophilus 1 tablet 06/29/25 09:00 06/29/25 16:31 Acidophilus/Bulgaricus Chewable Tablet PO 07/29/25 08:59 1 tablet BID [facility] Administration Melatonin 5 mg 06/29/25 21:00 06/29/25 20:31 Melatonin 5 Mg Tablet PO 5 mg HS [facility] Administration Metolazone 5 mg 06/29/25 09:00 06/29/25 08:23 Metolazone 5 Mg Tablet PO 5 mg DAILY [facility] Administration Midodrine 5 mg 06/29/25 09:00 06/29/25 16:31 Midodrine Hcl 2.5 Mg Tablet PO 5 mg TID [facility] Administration Multivitamins Therapeutic 1 tablet 06/29/25 09:00 06/29/25 08:26 Multivitamins Therapeutic Tab (*Bkc) PO 1 tablet DAILY [facility] Administration Ondansetron HCl 4 mg 06/28/25 17:55 Ondansetron Inj 4 Mg/2 Ml Vial IV PUSH Q4H PRN Nausea Polyethylene Glycol 17 gm 06/29/25 07:18 Polyethylene Glycol 3350 17 Gm Powd.Pack PO DAILY PRN constipation Sacubitril/Valsartan 1 tab 06/28/25 21:00 06/29/25 20:31 Sacubitril/Valsartan 24-26 Mg Tablet PO 1 tab Q12HR [facility] Administration Sodium Zirconium Cyclosilicate 10 gm 06/30/25 10:00 Sodium Zirconium Cyclosilicate 10 Gm Powd.Pack PO BID@1000,1800 [facility] Tramadol HCl 50 mg 06/28/25 20:30 06/30/25 02:07 Tramadol Hcl (*Crx) 50 Mg Tablet PO 50 mg Q6H PRN Administration PAIN RATED 4-6 Radiology Results: ITS Impressions Chest X-Ray 06/28/25 15:33 Impression: CHF. Superimposed probable pneumonia Labs Labs: Laboratory Results - last 24 hr 06/29/25 06/29/25 06/29/25 07:41 10:49 11:12 WBC RBC Hgb Hct MCV MCH MCHC RDW Plt Count MPV Sodium Potassium Chloride Carbon Dioxide Anion Gap BUN Creatinine Estim Creat Clear Calc Estimated GFR Glucose POC Capillary Glucose 164 H 131 H Calcium Magnesium Total Bilirubin AST ALT Alkaline Phosphatase Troponin I 0.089 H* Total Protein Albumin Influenza A (RT-PCR) Influenza B (RT-PCR) RSV (RT-PCR) SARS-CoV-2 RNA (RT-PCR) 06/29/25 06/29/25 06/29/25 16:31 19:50 23:39 WBC RBC Hgb Hct MCV MCH MCHC RDW Plt Count MPV Sodium Potassium Chloride Carbon Dioxide Anion Gap BUN Creatinine Estim Creat Clear Calc Estimated GFR Glucose POC Capillary Glucose 145 H 166 H Calcium Magnesium Total Bilirubin AST ALT Alkaline Phosphatase Troponin I Total Protein Albumin Influenza A (RT-PCR) Negative Influenza B (RT-PCR) Negative RSV (RT-PCR) Negative SARS-CoV-2 RNA (RT-PCR) Negative 06/30/25 04:42 WBC 4.8 RBC 2.26 L Hgb 8.1 L Hct 27.0 L MCV 119.5 H MCH 35.8 H MCHC 30.0 L RDW 15.0 H Plt Count 208 MPV 9.7 Sodium 132 L Potassium 5.5 H Chloride 96 L Carbon Dioxide 29 Anion Gap 7 BUN 65 H Creatinine 1.70 H Estim Creat Clear Calc 36 Estimated GFR 38 L Glucose 98 POC Capillary Glucose Calcium 8.3 L Magnesium 2.5 H Total Bilirubin 0.7 AST 23 ALT 17 Alkaline Phosphatase 74 Troponin I Total Protein 7.3 Albumin 3.6 Influenza A (RT-PCR) Influenza B (RT-PCR) RSV (RT-PCR) SARS-CoV-2 RNA (RT-PCR) Quality VTE Prophylaxis VTE prophylaxis: mechanical ordered and pharmacologic ordered -Patient's previous records reviewed on admission -ER notes reviewed in detail on admission -discussed all findings and current treatment plan with patient/Family/POA -Consultations reviewed for recommendations -Patient's disposition for safe discharge discussed with case reviewer -radiology imaging, EKG and test results I have personally reviewed and interpreted unless otherwise specified Dictation performed by [employer] direct speech recognition software, therefore candy catcher variants and typographical errors may occur. Hospitalist MIPS Advance Care Plan I have confirmed that the patient's Advanced Care Plan is present, code status is documented, or surrogate decision maker is listed in patient medical record.: Yes Medication Reconciliation I have utilized all available resources to obtain, update and review the patients current medications (includes all prescriptions, OTC, herbals, cannabis, and nutritional supplements).: Yes The patient is not eligible for med reconciliation; the patient is in a emergent medical situation where delaying treatment would jeopardize the patients healt h.: No
[2025-06-30] MEDS: IPRATROPIUM 0.5 MG/ALBUTEROL SULFATE 2.5 MG (BASE) AMPUL.NEB 3 ML INHALATION ×3 (07:44→20:42)
--- NOTE | 2025-06-30 08:36 | PCPTNOTE ---
HOLD PT per NIMA Duff, declining medical status of pt.
--- NOTE | 2025-06-30 09:36 | PM.PNCARD ---
Progress Note: A&P Assessment and Plan (1) Heart failure with reduced ejection fraction: Code(s): I50.20 - Unspecified systolic (congestive) heart failure Status: Acute Assessment and Plan: ACUTE ON CHRONIC SYSTOLIC CONGESTIVE HEART FAILURE. CONTINUE ENTRESTO and carvedilol. He is not diuresing no despite high-dose aggressive diuresis. Renal function is worsening. Transfer to IMU or ICU. Will start him on dobutamine mcg per kg per minute. Continue IV Bumex and metolazone. Follow electrolytes (2) Elevated troponin: Code(s): R79.89 - Other specified abnormal findings of blood chemistry Status: Acute Assessment and Plan: UNLIKELY RELATED ACUTE PLAQUE RUPTURE (3) Hypertension: Code(s): I10 - Essential (primary) hypertension Status: Acute Assessment and Plan: CONTROLLED (4) Pacemaker: Code(s): Z95.0 - Presence of cardiac pacemaker Status: Acute Assessment and Plan: FUNCTIONING NORMALLY (5) Cardiomyopathy: Code(s): I42.9 - Cardiomyopathy, unspecified Status: Acute Assessment and Plan: Severe Subjective Date/time seen: 06/30/25 09:36 Interval history: Patient is 85-year-old male admitted for further evaluation and treatment acute on chronic CHF exacerbation. Date of service 06/30/25: He continues to be very edematous. Not diuresing well despite high-dose diuretics. No chest pain at present Review of Systems Review of Systems: All systems reviewed & are unremarkable except as noted in HPI and below Constitutional: Constitutional: Denies difficulty sleeping and Denies excessive sweating Eyes: Eyes: Denies blurry vision ENT: Reports Normal hearing present Cardiovascular: Cardiovascular: Reports chest pain, Reports leg edema, Denies palpitations and Reports dyspnea Respiratory: Respiratory: Reports dyspnea Gastrointestinal: Gastrointestinal: Denies abdominal pain Genitourinary: Genitourinary: Denies hematuria Musculoskeletal: Musculoskeletal: Denies joint swelling Integumentary/Breasts: Skin/Breast: Denies pruritus Neurologic: Reports Normal hearing present and Denies Abnormal speech present Psychiatric: Psychiatric: Denies anxiety Endocrine: Endocrine: Denies excessive sweating and Denies palpitations Hematologic/Lymphatic: Hematologic/Lymphatic: Denies easy bleeding Allergic/Immunologic: Allergic/Immunologic: Denies GI upset with certain foods Exam Narrative: SLEEPING BUT AROUSABLE. APPEARS STATED AGE Const: General: comfortable and no acute distress HENMT: Face/Nose/Sinus: Normal nares present Mouth: Yes moist mucous membranes Eyes: Sclera: sclerae normal Neck: Neck: supple and no JVD Chest: Other: NO REPRODUCIBLE CHEST WALL PAIN TO PALPATION Resp: Effort & Inspection: normal respiratory effort Auscultation: crackles and diminished lung sounds Cardio: Rate: regular rate Other: PACED RHYTHM GI: Inspection: non-distended Auscultation: normal bowel sounds Skin: General skin exam: normal color Neuro: Cranial nerves: Yes Normal hearing present Speech: normal speech and No Abnormal speech present Sensory Exam: normal sensation Extrem: General: edema Other: SEVERE LOWER EXTREMITY EDEMA Psych: Affect: normal affect Objective Data Vital Signs Vital Signs: Vital Signs - 24 hr 06/29/25 09:58 06/29/25 11:41 06/29/25 12:00 Temperature Pulse Rate 71 Respiratory Rate Blood Pressure Pulse Oximetry 100 99 Oxygen Delivery Room Air Nasal Cannula Oxygen Flow Rate 1 Fraction of Inspired Oxygen 21 06/29/25 14:00 06/29/25 16:00 06/29/25 20:00 Temperature 36.1 C L Pulse Rate 76 60 63 Respiratory Rate 18 Blood Pressure 104/58 L Pulse Oximetry 100 Oxygen Delivery Oxygen Flow Rate Fraction of Inspired Oxygen 06/29/25 20:00 06/29/25 20:30 06/29/25 22:00 Temperature 36.2 C L Pulse Rate 60 64 Respiratory Rate 18 Blood Pressure 99/45 L Pulse Oximetry 100 100 Oxygen Delivery Nasal Cannula Oxygen Flow Rate 2 Fraction of Inspired Oxygen 06/29/25 22:48 06/29/25 22:54 06/30/25 00:00 Temperature Pulse Rate 56 L 64 Respiratory Rate 20 Blood Pressure Pulse Oximetry 92 Oxygen Delivery Nasal Cannula Oxygen Flow Rate 4 Fraction of Inspired Oxygen 06/30/25 04:00 06/30/25 06:00 06/30/25 07:40 Temperature 36.5 C Pulse Rate 60 61 62 Respiratory Rate 18 20 Blood Pressure 93/47 L Pulse Oximetry 100 Oxygen Delivery Oxygen Flow Rate Fraction of Inspired Oxygen 06/30/25 07:40 06/30/25 07:48 Temperature Pulse Rate 60 Respiratory Rate 20 Blood Pressure Pulse Oximetry 93 Oxygen Delivery Room Air Oxygen Flow Rate Fraction of Inspired Oxygen 21 Intake/Output Intake/Output: Intake & Output 06/27/25 06/28/25 06/29/25 06/30/25 23:59 23:59 23:59 23:59 Intake Total 550 0 Output Total 1000 550 Balance -450 -550 Meds/Results Medications: Active Medications Generic Name Dose Route Start Last Admin Trade Name Enriqueta PRN Reason Stop Dose Admin Acetaminophen 650 mg 06/28/25 17:55 Acetaminophen 325 Mg Tablet PO Q4H PRN Mild Pain (1-3) or Fever Albuterol/Ipratropium 3 ml 06/30/25 12:00 06/30/25 07:44 Ipratropium 0.5 Mg/Albuterol Sulfate 2.5 Mg (Base) Ampul.Neb 3 Ml INHALATION 3 ml Q6HR [facility] Administration Artificial Tears 1 drop 06/28/25 20:40 06/29/25 16:31 Artificial Tears Ophth Soln 15 Ml Bottle EACH EYE 1 drop BID [facility] Administration Aspirin 81 mg 06/29/25 08:00 06/29/25 08:23 Aspirin 81 Mg Chewable Tablet PO 81 mg DAILY@0800 [facility] Administration Bumetanide 1 mg 06/30/25 09:00 Bumetanide Inj 1 Mg/4 Ml Vial IV PUSH BID [facility] Carvedilol 3.125 mg 06/29/25 21:00 06/29/25 20:30 Carvedilol 3.125 Mg Tablet PO 3.125 mg Q12HR [facility] Administration Dextrose 12.5 gm 06/28/25 18:43 Dextrose 50% 25 Gm/50 Ml Syringe IV PUSH PRN PRN Hypoglycemia Protocol Docusate Sodium 100 mg 06/28/25 18:41 Docusate Sodium 100 Mg Capsule PO BID PRN Constipation Doxycycline Hyclate 100 mg 06/29/25 23:15 06/29/25 23:35 Doxycycline Hyclate 100 Mg Tablet PO 100 mg Q12HR [facility] Administration Ferrous Sulfate 325 mg 06/29/25 09:00 06/29/25 08:26 Ferrous Sulfate 325 Mg Tablet BY MOUTH 325 mg DAILY [facility] Administration Gabapentin 100 mg 06/28/25 21:00 06/29/25 20:31 Gabapentin 100 Mg Capsule PO 100 mg Q12H [facility] Administration Glucagon 1 mg 06/28/25 18:43 Glucagon For Inj 1 Mg Vial IM PRN PRN Hypoglycemia Protocol Glucose 15 gm 06/28/25 18:43 Glucose Oral Gel 15 Gm Of Glucse In 37.5 Gm Tube PO PRN PRN Hypoglycemia Protocol Guaifenesin 1,200 mg 06/30/25 09:00 Guaifenesin 12 Hr 600 Mg Tabcr PO Q12HR [facility] Dextrose 1,000 mls @ 100 mls/hr 06/28/25 18:43 Dextrose 5% 1,000 Ml IVPB PRN PRN Hypoglycemia Protocol Ceftriaxone Sodium 1 gm/ 50 mls @ 100 mls/hr 06/29/25 23:15 06/29/25 23:35 Sodium Chloride IVPB 100 mls/hr HS [facility] Administration Insulin Aspart 2 - 5 units 06/29/25 08:00 06/29/25 16:31 Insulin Aspart (*Bkc) 100 Units/Ml SUB-Q Not Given TIDWM [facility] Protocol Lactobacillus Acidophilus 1 tablet 06/29/25 09:00 06/29/25 16:31 Acidophilus/Bulgaricus Chewable Tablet PO 07/29/25 08:59 1 tablet BID [facility] Administration Melatonin 5 mg 06/29/25 21:00 06/29/25 20:31 Melatonin 5 Mg Tablet PO 5 mg HS [facility] Administration Metolazone 5 mg 06/29/25 09:00 06/29/25 08:23 Metolazone 5 Mg Tablet PO 5 mg DAILY [facility] Administration Midodrine 5 mg 06/29/25 09:00 06/29/25 16:31 Midodrine Hcl 2.5 Mg Tablet PO 5 mg TID [facility] Administration Multivitamins Therapeutic 1 tablet 06/29/25 09:00 06/29/25 08:26 Multivitamins Therapeutic Tab (*Bkc) PO 1 tablet DAILY [facility] Administration Ondansetron HCl 4 mg 06/28/25 17:55 Ondansetron Inj 4 Mg/2 Ml Vial IV PUSH Q4H PRN Nausea Polyethylene Glycol 17 gm 06/29/25 07:18 Polyethylene Glycol 3350 17 Gm Powd.Pack PO DAILY PRN constipation Sacubitril/Valsartan 1 tab 06/28/25 21:00 06/29/25 20:31 Sacubitril/Valsartan 24-26 Mg Tablet PO 1 tab Q12HR [facility] Administration Sodium Zirconium Cyclosilicate 10 gm 06/30/25 10:00 Sodium Zirconium Cyclosilicate 10 Gm Powd.Pack PO BID@1000,1800 [facility] Tramadol HCl 50 mg 06/28/25 20:30 06/30/25 02:07 Tramadol Hcl (*Crx) 50 Mg Tablet PO 50 mg Q6H PRN Administration PAIN RATED 4-6 Radiology Results: ITS Impressions Chest X-Ray 06/28/25 15:33 Impression: CHF. Superimposed probable pneumonia Labs Labs: Laboratory Results - last 24 hr 06/29/25 06/29/25 06/29/25 10:49 11:12 16:31 WBC RBC Hgb Hct MCV MCH MCHC RDW Plt Count MPV Sodium Potassium Chloride Carbon Dioxide Anion Gap BUN Creatinine Estim Creat Clear Calc Estimated GFR Glucose POC Capillary Glucose 131 H 145 H Calcium Magnesium Total Bilirubin AST ALT Alkaline Phosphatase Troponin I 0.089 H* Total Protein Albumin Influenza A (RT-PCR) Influenza B (RT-PCR) RSV (RT-PCR) SARS-CoV-2 RNA (RT-PCR) 06/29/25 06/29/25 06/30/25 19:50 23:39 04:42 WBC 4.8 RBC 2.26 L Hgb 8.1 L Hct 27.0 L MCV 119.5 H MCH 35.8 H MCHC 30.0 L RDW 15.0 H Plt Count 208 MPV 9.7 Sodium 132 L Potassium 5.5 H Chloride 96 L Carbon Dioxide 29 Anion Gap 7 BUN 65 H Creatinine 1.70 H Estim Creat Clear Calc 36 Estimated GFR 38 L Glucose 98 POC Capillary Glucose 166 H Calcium 8.3 L Magnesium 2.5 H Total Bilirubin 0.7 AST 23 ALT 17 Alkaline Phosphatase 74 Troponin I Total Protein 7.3 Albumin 3.6 Influenza A (RT-PCR) Negative Influenza B (RT-PCR) Negative RSV (RT-PCR) Negative SARS-CoV-2 RNA (RT-PCR) Negative 06/30/25 07:30 WBC RBC Hgb Hct MCV MCH MCHC RDW Plt Count MPV Sodium Potassium Chloride Carbon Dioxide Anion Gap BUN Creatinine Estim Creat Clear Calc Estimated GFR Glucose POC Capillary Glucose 112 H Calcium Magnesium Total Bilirubin AST ALT Alkaline Phosphatase Troponin I Total Protein Albumin Influenza A (RT-PCR) Influenza B (RT-PCR) RSV (RT-PCR) SARS-CoV-2 RNA (RT-PCR)
--- NOTE | 2025-06-30 09:44 | PM.CNNEP ---
Assessment and Plan Assessment and plan (1) MOHSEN (acute kidney injury): Code(s): N17.9 - Acute kidney failure, unspecified Status: Acute Assessment and Plan: The patient has acute kidney injury.e. It looks like his kidney function was normal until he was admitted with heart failure in April. Even then, after treatment of the heart failure his creatinine improved to 1.19, near his baseline. Now his creatinine was 1.35 on admission and 1.7 today. Certainly the patient's poor ejection fraction leads to chronic pre renal azotemia contributing to the elevated creatinine. Renal venous hypertension can make the creatinine higher as well and he does have significant pulmonary hypertension. The patient has hypertension and diabetes which can contribute to renal insufficiency. The patient snore so could have sleep apnea which might explain his very high pulmonary artery pressure. He says he never smoked. There are other causes such as glomerulonephritis, interstitial nephritis, which would be less likely. Obstruction could be a possibility as well so will get a renal ultrasound. Rhabdomyolysis is always possible as well. At this point will check a renal ultrasound, urinalysis, urine protein to creatinine ratio, fractional excretion of urea, CPK. Both also get serology in immunofixation case or something else going on causing both heart and kidney disease. Will get an apnea link as well. I agree with continued diuretics. The creatinine may get worse before it gets better. If this is renal venous hypertension or pre renal azotemia from worsened heart, then diuretics might help either situation (2) Cardiomyopathy: Code(s): I42.9 - Cardiomyopathy, unspecified Status: Acute Assessment and Plan: the patient has cardiomyopathy. This was very recently diagnosed. Evaluation is underway. Necktie Maker are on the case. (3) Hyperkalemia: Code(s): E87.5 - Hyperkalemia Status: Acute Assessment and Plan: Patient has a high potassium. This could be from the valsartan or from his renal insufficiency. He is on [facility] for this. Will keep an eye on things (4) Pacemaker: Code(s): Z95.0 - Presence of cardiac pacemaker Status: Acute (5) Pneumonia: Code(s): J18.9 - Pneumonia, unspecified organism Status: Acute Assessment and Plan: the patient has pneumonia by chest x-ray. He is on antibiotics (6) Hypertension: Code(s): I10 - Essential (primary) hypertension Status: Acute Assessment and Plan: the patient has a history of hypertension. His blood pressure is okay now (7) Diabetes: Code(s): E11.9 - Type 2 diabetes mellitus without complications Status: Acute Assessment and Plan: he is on insulin sliding scale. hospitalists are managing this. History of Present Illness Reason for Consult Consult date: 06/30/25 Chief Complaint Chief complaint: CHF History of Present Illness Narrative: Dick is a very pleasant 85-year-old gentleman who has recent onset congestive heart failure with an EF of 25-30%, diabetes, hypertension, and depression. his troubles started in April when he presented to the hospital with gradual onset edema. He had shortness of breath as well. He was seen in the ER and admitted. He was diagnosed with congestive heart failure. He was given Entresto but did not tolerate either Jardiance or metoprolol. He was given diuretics. He was discharged. His swelling gradually improved over the next couple of weeks, however over the last couple of weeks the patient's swelling has come back quite a bit and he has become more short of breath. He came back to the ER and was evaluated. He was found to have volume overload as far as swelling goes and also a wet chest x-ray. He was also found to have pneumonia. His creatinine had been pretty good but was elevated on admission and milan today so renal consultation was requested. The patient does not have bloody urine, foamy urine, kidney stones, or bladder infections. There is no mention of nonsteroidal anti-inflammatory agents. He has not received any contrast lately. He is getting significant doses of diuretics to get him out of heart failure this admission. The patient mentions that he has been told that he snores. Review of Systems Constitutional: Constitutional: Reports no additional constitutional complaints Eyes: Eyes: Reports no additional eye complaints ENT: Reports system reviewed and no additional complaints, except as documented Cardiovascular: Cardiovascular: Reports no additional cardiovascular complaints Respiratory: Respiratory: Reports no additional respiratory complaints Gastrointestinal: Gastrointestinal: Reports no additional gastrointestinal complaints Genitourinary: Genitourinary: Reports no additional male genitourinary complaints Musculoskeletal: Musculoskeletal: Reports no additional musculoskeletal complaints Integumentary/Breasts: Skin/Breast: Reports system reviewed and no additional complaints, except as docu Neurologic: Reports system reviewed and no additional complaints, except as documented Psychiatric: Psychiatric: Reports no additional psychiatric complaints Endocrine: Endocrine: Reports no additional endocrine complaints [facility] Past Medical History Medical History Pacemaker Hypertension Diabetes Surgical History Surgical History Fingertip amputation Family History Family History Father Heart disease Social History Social History Social History: Lives in [place]. Second hand tobacco smoke exposure: No Alcohol intake: never Substance use: current Substance use type: does not use Lack of Transportation: No Lack of Food: Never True Current Housing: I Have Housing Concerned About Future Housing: No Difficulty Paying Gas/Electric Bills: No Difficulty Paying for Meds: No Currently Unemployed: No Education: Decline to Answer Difficulty w/ Childcare or Family Care: No Living arrangements: senior care Spiritual care concerns: No Meds Home Medications and Allergies Home Medications ?Medication ?Instructions ?Recorded ?Confirmed ?Type B6 35 mg-B9 3 mg-B12 2 mg-D3 62.5 2 cap PO DAILY 02/03/22 06/28/25 History mcg-ALA 300 mg capsule,delay release (EB-N5 ) Garetherin See Rx Instructions .Route .COMPLEX 02/03/22 06/28/25 History acetaminophen 500 mg tablet 500 mg PO .q12hr Pain 02/03/22 06/28/25 History amino ac-protein hydro-whey 1 ea PO DAILY 02/03/22 06/28/25 History protein 10 gram-100 kcal/30 mL oral liquid ([employer]) ferrous sulfate 325 mg (65 mg 325 tablet PO DAILY 02/03/22 06/28/25 History iron) tablet (FeroSul) gabapentin 100 mg capsule 100 mg PO Q12H 02/03/22 06/28/25 History metformin 500 mg tablet 500 tablet PO DAILY 02/03/22 06/28/25 History Lactobacillus acidophilus 1 cap PO BID 05/18/25 06/28/25 History mecobalamin-levomefolate 2 tablet PO DAILY 05/18/25 06/28/25 History calcium-pyridoxal phos 2 mg-3 mg-35 mg tablet (Foltanx) multivitamin (Daily Multi-Vitamin 1 tablet PO DAILY 05/18/25 06/28/25 History tablet) peg 400-propylene glycol 0.4 %-0.3 1 drp EACH EYE BID 05/18/25 06/28/25 History % eye drops aspirin 81 mg chewable tablet 81 mg PO DAILY@0800 #30 tabs 05/23/25 06/28/25 Rx (Children's Aspirin) midodrine 2.5 mg tablet 5 mg (2 x 2.5 mg) PO TID #90 tabs 05/23/25 06/28/25 Rx sacubitril 24 mg-valsartan 26 mg 1 tab PO Q12HR #60 tabs 05/23/25 06/28/25 Rx tablet (Entresto) tramadol 50 mg tablet 50 mg PO Q6H PRN pain #10 tabs 05/23/25 06/28/25 Rx bumetanide 2 mg tablet 2 mg PO BID 06/28/25 06/28/25 History ipratropium 0.5 mg-albuterol 3 mg 3 ml inhalation Q4H PRN shortness 06/28/25 06/28/25 History (2.5 mg base)/3 mL nebulization of breath soln melatonin 5 mg capsule 5 mg PO HS 06/28/25 06/28/25 History metolazone 5 mg tablet 5 mg PO DAILY 06/28/25 06/28/25 History polyethylene glycol 3350 17 17 g PO PRN 06/28/25 06/28/25 History gram/dose oral powder (Miralax) Allergies Allergy/AdvReac Type Severity Reaction Status Date / Time No Known Drug Allergies Allergy Other Verified 06/28/25 19:58 Vital Signs Vital Signs - 24 hr 06/29/25 09:58 06/29/25 11:41 06/29/25 12:00 Temperature Pulse Rate 71 Respiratory Rate Blood Pressure Pulse Oximetry 100 99 Oxygen Delivery Room Air Nasal Cannula Oxygen Flow Rate 1 Fraction of Inspired Oxygen 21 06/29/25 14:00 06/29/25 16:00 06/29/25 20:00 Temperature 97 F L Pulse Rate 76 60 63 Respiratory Rate 18 Blood Pressure 104/58 L Pulse Oximetry 100 Oxygen Delivery Oxygen Flow Rate Fraction of Inspired Oxygen 06/29/25 20:00 06/29/25 20:30 06/29/25 22:00 Temperature 97.2 F L Pulse Rate 60 64 Respiratory Rate 18 Blood Pressure 99/45 L Pulse Oximetry 100 100 Oxygen Delivery Nasal Cannula Oxygen Flow Rate 2 Fraction of Inspired Oxygen 06/29/25 22:48 06/29/25 22:54 06/30/25 00:00 Temperature Pulse Rate 56 L 64 Respiratory Rate 20 Blood Pressure Pulse Oximetry 92 Oxygen Delivery Nasal Cannula Oxygen Flow Rate 4 Fraction of Inspired Oxygen 06/30/25 04:00 06/30/25 06:00 06/30/25 07:40 Temperature 97.7 F Pulse Rate 60 61 62 Respiratory Rate 18 20 Blood Pressure 93/47 L Pulse Oximetry 100 Oxygen Delivery Oxygen Flow Rate Fraction of Inspired Oxygen 06/30/25 07:40 06/30/25 07:48 Temperature Pulse Rate 60 Respiratory Rate 20 Blood Pressure Pulse Oximetry 93 Oxygen Delivery Room Air Oxygen Flow Rate Fraction of Inspired Oxygen 21 Exam Narrative: Exam Narrative: Well developed well-nourished fairly weak male in no acute distress Skin is warm and dry without rash Head normocephalic atraumatic Eyes normal sclerae and conjunctivae Mouth normal lips teeth and gums Neck no nodes no thyromegaly no carotid bruits Axillae no nodes Back no CVA tenderness Lungs symmetric and clear to auscultation and percussion Heart regular rate with frequent early beats without rub or gallop Abdomen bowel sounds positive soft nontender, no HSM, masses, or bruits. Extremities no cyanosis, clubbing, an 2+ bilateral edema Pulses 2+ equal in radial arteries Psychological not anxious or depressed Neuro alert and oriented x3 motor 5/5 cranial nerves 2-12 intact reflexes 2+ and equal in the biceps and patellar tendons cerebellar normal rapid alternating movements Results Lab Results 06/30/25 04:42 06/30/25 04:42 Lab results: Most recent lab results Calcium 8.3 mg/dL (8.4-10.2) L 06/30/25 04:42 Magnesium 2.5 mg/dL (1.6-2.3) H 06/30/25 04:42
[2025-06-30] MEDS: GABAPENTIN 100 MG CAPSULE PO ×2 (09:53→21:08)
[2025-06-30] MEDS: FERROUS SULFATE 325 MG TABLET BY MOUTH (09:54)
[2025-06-30] MEDS: SACUBITRIL/VALSARTAN 24-26 MG TABLET 1 TAB PO (09:54)
[2025-06-30] MEDS: MULTIVITAMINS THERAPEUTIC TAB (*BKC) 1 TABLET PO (09:54)
[2025-06-30] MEDS: DOXYCYCLINE HYCLATE 100 MG TABLET PO ×2 (09:54→21:07)
[2025-06-30] MEDS: MIDODRINE HCL 2.5 MG TABLET 5 MG PO (09:56)
[2025-06-30] MEDS: ACIDOPHILUS/BULGARICUS CHEWABLE TABLET 1 TABLET PO ×2 (09:56→18:12)
[2025-06-30] MEDS: ASPIRIN 81 MG CHEWABLE TABLET PO (09:56)
[2025-06-30] MEDS: ACETAMINOPHEN 325 MG TABLET 650 MG PO (09:56)
[2025-06-30] MEDS: guaiFENesin 12 HR 600 MG TABCR 1200 MG PO ×2 (09:56→21:08)
[2025-06-30] MEDS: ARTIFICIAL TEARS OPHTH SOLN 15 ML BOTTLE 1 DROP EACH EYE (09:57)
--- NOTE | 2025-06-30 10:20 | PCOTNOTE ---
Attempted OT evaluation; Per RN hold for today as pt. has a declining medical status. Will continue to follow.
[2025-06-30 10:59] LABS: Creatine Kinase < 20 U/L (55-170)
[2025-06-30] MEDS: SODIUM ZIRCONIUM CYCLOSILICATE 10 GM POWD.PACK PO ×2 (11:06→18:12)
[2025-06-30 11:07] LABS: Urea Random Urine 255 MG/DL
[2025-06-30 11:17] LABS: Total Protein Urine Random 63 mg/dL; Ur Ttl Prot Creatinine Ratio 0.54 mg/mg (0-0.20)
[2025-06-30 11:23] LABS: Add Urine Microscopic? YES; Appearance Urine Clear (Clear); Glucose Urine UA Negative (Negative); Leukocyte Esterase Ur Trace LEU/UL (Negative); Need Manual Microscopic Reviewed; Nitrate Urine Negative (Negative); Specific Grav Ur 1.013 (1.001-1.035)
[2025-06-30] MEDS: DOBUTamine 250 MG/D5W 250 ML 250 MG/250 ML BAG 17.12 MG IV CONT (11:31)
--- NOTE | 2025-06-30 12:31 | PC.NURSE ---
This patient, Dick Bobo, was received from IMU room 232 on 06/30/25 at 1220 Patient/family oriented to unit policies and routines
[2025-06-30] MEDS: NOREPINEPHRINE 8 MG/D5W 250 ML 8 MG/250 ML BAG 9.38 MG IV CONT (13:01)
--- NOTE | 2025-06-30 13:04 | WPDCNINT ---
Assessment and Plan Assessment and plan (1) Cardiogenic shock: Code(s): R57.0 - Cardiogenic shock Status: Acute Assessment and Plan: 06/28: Patient presented with increasing bilateral lower extremity edema and shortness of breath, was found to have ischemic cardiomyopathy with EF of 25-30%, RVSP 71 mmHg with severe pulmonary hypertension on echocardiogram done on 05/20/2025 -patient was admitted to the medical floor and was being diuresed, was started on Entresto and carvedilol -06/30: Transferred to IMU for dobutamine infusion, was found to be hypotensive in with SBP in the 60s to 80s, -06/30: Transferred to ICU, for cardiogenic shock, bilateral upper and lower extremity edema, worsening congestive heart failure, acute kidney injury. Central line was inserted upon arrival to the ICU, patient was started on Levophed and dobutamine -since patient has severe pulmonary hypertension, will switch dobutamine to Milrinone for where better pulmonary artery vasodilation, discussed it with cardiology who is in agreement with this -patient currently will be on Milrinone, Levophed and Lasix infusion (2) Cardiomyopathy: Code(s): I42.9 - Cardiomyopathy, unspecified Status: Acute Assessment and Plan: Hold Entresto and carvedilol since patient in cardiogenic shock -treatment as above 05/20/2025: Echocardiogram Summary 1. Left ventricular chamber dimension is moderately enlarged. 2. Left ventricular systolic function is normal, estimated at 25-30. 3. Right ventricular chamber dimension is mildly enlarged. 4. Right ventricular systolic function is normal. 5. Linear artifact in right ventricle suggestive of catheter(s), pacemaker lead(s), or ICD lead(s). 6. Left atrial chamber dimension is mildly enlarged. 7. There is mild to moderate mitral valve regurgitation. 8. There is mild tricuspid valve regurgitation. 9. Severe pulmonary hypertension, estimated pulmonary arterial systolic pressure is 71 mmHg. 10. There is mild pulmonic regurgitation. 11. Pleural effusion. (3) Acute respiratory failure: Code(s): J96.00 - Acute respiratory failure, unspecified whether with hypoxia or hypercapnia Status: Acute Assessment and Plan: Pulmonary edema, CHF exacerbation, possible left-sided pneumonia -will place patient on Vapotherm/Airvo -starting Lasix infusion -continue bronchodilators (4) MOHSEN (acute kidney injury): Code(s): N17.9 - Acute kidney failure, unspecified Status: Acute Assessment and Plan: Acute kidney injury likely related to ischemic cardiomyopathy, CHF exacerbation, cardiogenic shock, hypotension -nephrology has been consulted and appreciate their evaluation and recommendations -patient has been receiving Bumex b.i.d. on the medical floor, will discontinue Bumex for now -will start Lasix infusion after discussion with Nephrology -UA not reflective of a UTI, urine electrolytes revealed a non prerenal picture -started patient on Milrinone, Levophed, Lasix infusion -continue to monitor urine output, renal function and electrolytes (5) CHF (congestive heart failure): Qualifiers: Heart failure chronicity: acute on chronic Heart failure type: diastolic Qualified Code(s): I50.33 - Acute on chronic diastolic (congestive) heart failure Code(s): I50.9 - Heart failure, unspecified Status: Acute Assessment and Plan: Patient with ischemic cardiomyopathy, cardiology following the patient -continue treatment as above (6) Hyperkalemia: Code(s): E87.5 - Hyperkalemia Status: Acute Assessment and Plan: Patient with acute kidney injury, hyperkalemia -potassium of 5.5, patient was given Lokelma, repeat BMP pending (7) Pneumonia: Code(s): J18.9 - Pneumonia, unspecified organism Status: Acute Assessment and Plan: Chest x-ray shows pneumonia -likely congestive heart failure with possible super imposed pneumonia -patient was started on ceftriaxone and doxycycline (06/29) will continue for now Plan DVT prophylaxis: Heparin SQ Stress ulcer prophylaxis: Not indicated Nutrition: Diabetic and heart healthy diet with fluid restriction Code Status: DNR Critical Care Time Spent: 55 minutes Discussed with patient and patient's daughter, Fadumo Almaraz, all is his POA. Updated them regarding patient's condition and plan of care. They are aware that I will be taking him to the ICU, placing a central line in the neck, starting him on blood pressure medications, ionotropic medication to increase squeeze of the heart and Lasix infusions so that we could mobilize the fluid out of his system. Both of them agreeable and consented to the central line. Due to a high probability of clinically significant, life threatening deterioration, the patient required my highest level of preparedness to intervene emergently and I personally spent this critical care time directly and personally managing the patient. This critical care time included obtaining a history; examining the patient; pulse oximetry; ordering and review of studies; arranging urgent treatment with development of a management plan; evaluation of patient's response to treatment; frequent reassessment; and discussions with other providers. It was exclusive of separately billable procedures and treating other patients and teaching time. Please see Assessment and Plan section and the rest of the note for further information on patient assessment and treatment This dictation may have been done utilizing a voice recognition system. Attempts have been made to correct errors. However, there may be uncorrected grammatical, spelling, and recognitions errors present. Foundry Manager Consult Note Consult date: 06/30/25 Reason for consult: Cardiogenic shock, ischemic cardiomyopathy with EF of 25-30%, hypotension, peripheral edema HPI: Dick Bobo is a 85 year old male with significant past medical history of hypertension, diabetes, ischemic cardiomyopathy EF of 25-30%, AICD, severe pulmonary hypertension with RVSP of 71 mmHg, [id number] mitral valve regurg presented the ED on 05/28/2025 with complains of shortness of breath, bilateral lower extremity swelling which has been worsening for the past week prior to admission. Patient did see his water resource specialist Dr. Jimenez on 06/27/2025 and was started on Entresto. Patient was admitted to the medical floor where he was being diuresed aggressively with Bumex 1 or 2 mg IV b.i.d. along with carvedilol and Entresto. Despite these efforts patient remained edematous and not responding well to the diuresis. On 06/30/2025: Patient dropped was hypotensive with systolic in the 60s to 80s, remains edematous, was started on dobutamine in the intermediate Unit and I was consulted for possible-cardiogenic shock. Firstly I discontinue the Entresto and carvedilol because that is probably 1 of the reasons he was hypotensive. Placed a central line as soon as patient arrived in the ICU, discussed with Cardiology, will start norepinephrine, continue dobutamine and will add Lasix infusion. I discussed at length with the daughter, Fadumo Almaraz who is the POA all agreed to the above-mentioned interventions. Patient is a do not intubate and do not resuscitate. Patient was awake, alert, able to answer questions, complains of shortness of breath along with cough. But no pain. SBP in this 80s, bilateral upper and lower extremity edema noted. Patient also complains of cough, nonproductive. Afebrile with low urine output. Patient currently on norepinephrine and dobutamine infusion Review of Systems Review of Systems: All systems reviewed & are unremarkable except as noted in HPI and below PMFSH Past Medical History Medical History Pacemaker Hypertension Diabetes Surgical History Surgical History Fingertip amputation Family History Family History Father Heart disease Social History Social History Social History: Lives in [place]. Second hand tobacco smoke exposure: No Alcohol intake: never Substance use: current Substance use type: does not use Lack of Transportation: No Lack of Food: Never True Current Housing: I Have Housing Concerned About Future Housing: No Difficulty Paying Gas/Electric Bills: No Difficulty Paying for Meds: No Currently Unemployed: No Education: Decline to Answer Difficulty w/ Childcare or Family Care: No Living arrangements: prison Spiritual care concerns: No Meds Home Medications and Allergies Home Medications ?Medication ?Instructions ?Recorded ?Confirmed ?Type B6 35 mg-B9 3 mg-B12 2 mg-D3 62.5 2 cap PO DAILY 02/03/22 06/28/25 History mcg-ALA 300 mg capsule,delay release (EB-N5 ) Sarah See Rx Instructions .Route .COMPLEX 02/03/22 06/28/25 History acetaminophen 500 mg tablet 500 mg PO .q12hr Pain 02/03/22 06/28/25 History amino ac-protein hydro-whey 1 ea PO DAILY 02/03/22 06/28/25 History protein 10 gram-100 kcal/30 mL oral liquid ([employer]Source) ferrous sulfate 325 mg (65 mg 325 tablet PO DAILY 02/03/22 06/28/25 History iron) tablet (FeroSul) gabapentin 100 mg capsule 100 mg PO Q12H 02/03/22 06/28/25 History metformin 500 mg tablet 500 tablet PO DAILY 02/03/22 06/28/25 History Lactobacillus acidophilus 1 cap PO BID 05/18/25 06/28/25 History mecobalamin-levomefolate 2 tablet PO DAILY 05/18/25 06/28/25 History calcium-pyridoxal phos 2 mg-3 mg-35 mg tablet (Foltanx) multivitamin (Daily Multi-Vitamin 1 tablet PO DAILY 05/18/25 06/28/25 History tablet) peg 400-propylene glycol 0.4 %-0.3 1 drp EACH EYE BID 05/18/25 06/28/25 History % eye drops aspirin 81 mg chewable tablet 81 mg PO DAILY@0800 #30 tabs 05/23/25 06/28/25 Rx (Children's Aspirin) midodrine 2.5 mg tablet 5 mg (2 x 2.5 mg) PO TID #90 tabs 05/23/25 06/28/25 Rx sacubitril 24 mg-valsartan 26 mg 1 tab PO Q12HR #60 tabs 05/23/25 06/28/25 Rx tablet (Entresto) tramadol 50 mg tablet 50 mg PO Q6H PRN pain #10 tabs 05/23/25 06/28/25 Rx bumetanide 2 mg tablet 2 mg PO BID 06/28/25 06/28/25 History ipratropium 0.5 mg-albuterol 3 mg 3 ml inhalation Q4H PRN shortness 06/28/25 06/28/25 History (2.5 mg base)/3 mL nebulization of breath soln melatonin 5 mg capsule 5 mg PO HS 06/28/25 06/28/25 History metolazone 5 mg tablet 5 mg PO DAILY 06/28/25 06/28/25 History polyethylene glycol 3350 17 17 g PO PRN 06/28/25 06/28/25 History gram/dose oral powder (Miralax) Allergies Allergy/AdvReac Type Severity Reaction Status Date / Time No Known Drug Allergies Allergy Other Verified 06/28/25 19:58 Vital Signs Vital Signs - 24 hr 06/29/25 14:00 06/29/25 16:00 06/29/25 20:00 Temperature 97 F L Pulse Rate 76 60 63 Respiratory Rate 18 Blood Pressure 104/58 L Pulse Oximetry 100 Oxygen Delivery Oxygen Flow Rate Fraction of Inspired Oxygen 06/29/25 20:00 06/29/25 20:30 06/29/25 22:00 Temperature 97.2 F L Pulse Rate 60 64 Respiratory Rate 18 Blood Pressure 99/45 L Pulse Oximetry 100 100 Oxygen Delivery Nasal Cannula Oxygen Flow Rate 2 Fraction of Inspired Oxygen 06/29/25 22:48 06/29/25 22:54 06/30/25 00:00 Temperature Pulse Rate 56 L 64 Respiratory Rate 20 Blood Pressure Pulse Oximetry 92 Oxygen Delivery Nasal Cannula Oxygen Flow Rate 4 Fraction of Inspired Oxygen 06/30/25 04:00 06/30/25 06:00 06/30/25 07:40 Temperature 97.7 F Pulse Rate 60 61 62 Respiratory Rate 18 20 Blood Pressure 93/47 L Pulse Oximetry 100 Oxygen Delivery Oxygen Flow Rate Fraction of Inspired Oxygen 06/30/25 07:40 06/30/25 07:48 06/30/25 08:00 Temperature Pulse Rate 60 Respiratory Rate 20 Blood Pressure Pulse Oximetry 93 93 Oxygen Delivery Room Air Nasal Cannula Oxygen Flow Rate 3 Fraction of Inspired Oxygen 21 06/30/25 08:00 06/30/25 09:54 06/30/25 11:31 Temperature Pulse Rate 60 65 60 Respiratory Rate Blood Pressure 91/43 L Pulse Oximetry Oxygen Delivery Oxygen Flow Rate Fraction of Inspired Oxygen 06/30/25 11:45 06/30/25 11:51 06/30/25 12:10 Temperature Pulse Rate Respiratory Rate Blood Pressure 91/43 L 87/40 L 82/36 L Pulse Oximetry Oxygen Delivery Oxygen Flow Rate Fraction of Inspired Oxygen 06/30/25 12:15 06/30/25 12:38 06/30/25 13:01 Temperature 96.4 F L Pulse Rate 60 60 Respiratory Rate 14 Blood Pressure 87/37 L 89/48 L 84/52 L Pulse Oximetry 100 Oxygen Delivery Oxygen Flow Rate Fraction of Inspired Oxygen Exam Narrative: General: Pleasant gentleman in no acute distress at this time HEENT:? Pupils equal and reactive, sclera is clear, moist oral mucosa Neck:? Supple Respiratory:? Coarse breath sounds bilaterally, decreased at bases, rales on left > right, adequate air entry Cardiac:? Paced rhythm, regular Abdomen:? Soft, nontender, nondistended, normoactive bowel sounds Extremities:? Bilateral upper and lower extremity edema pitting in nature, significant bilateral pitting pedal edema Neuro:? Patient is awake, alert, able to answer questions appropriately, follows simple commands in all extremities Skin:? Upper extremity bruising noted Psych:? Normal mentation, depressed affect Results Labs 06/30/25 04:42 06/30/25 04:42 Labs: Short CBC 06/30/25 Range/Units 04:42 WBC 4.8 (4.5-10.0) K/mm3 Hgb 8.1 L (14.0-18.0) g/dL Hct 27.0 L (42.0-52.0) % Plt Count 208 (150-375) k/mm3 BMP 06/30/25 04:42 Sodium 132 L Potassium 5.5 H Chloride 96 L Carbon Dioxide 29 BUN 65 H Creatinine 1.70 H Glucose 98 Calcium 8.3 L Cardiac Enzymes 06/30/25 Range/Units 10:20 Total Creatine Kinase < 20 L (55-170) U/L Liver Function 06/30/25 Range/Units 04:42 Total Bilirubin 0.7 (0.2-1.3) mg/dL AST 23 (17-59) U/L ALT 17 (6-50) U/L Alkaline Phosphatase 74 (38-126) U/L Albumin 3.6 (3.5-5.1) g/dL Urine 06/30/25 Range/Units 10:52 Urine Color Dark yellow (Yellow) Urine Appearance Clear (Clear) Urine pH 5.0 (5.0-9.0) Ur Specific [place] 1.013 (1.001-1.035) Urine Protein 1+ H (Negative) mg/dL Urine Glucose (UA) Negative (Negative) mg/dL Quality VTE Prophylaxis VTE prophylaxis: pharmacologic ordered Hospitalist MIPS Advance Care Plan I have confirmed that the patient's Advanced Care Plan is present, code status is documented, or surrogate decision maker is listed in patient medical record.: Yes Medication Reconciliation I have utilized all available resources to obtain, update and review the patients current medications (includes all prescriptions, OTC, herbals, cannabis, and nutritional supplements).: Yes
--- NOTE | 2025-06-30 13:15 | P.PCNBED_ITS ---
Procedures Central Line Placement Right IJ: Central Line Date: 06/30/25 Central Line Time: 13:16 Discussed w/ the patient/family/POA,the placement of a central venous catheter, including its clinical necessity/indication & associated potential risks, benifits and alternatives.: Yes The patient/family/POA understand(s) and acknowledge(s) the need to proceed with central venous catheter insertion as an important element of the patient's clinical management.: Yes Consent: I have discussed with the patient and/or surrogate, the non-emergent placement of a central venous catheter, including its clinical necessity/indication and associated potential risks and complications. The patient and/or surrogate understand(s) and acknowledge(s) the need to proceed with central venous catheter insertion as an important element of the patient's clinical management. Time Out Performed: Yes Patient Position: supine Patient placed on monitor/pulse ox: Yes Provider Prep: mask, sterile gown, sterile gloves, Max. sterile barrier precautions, cap and hand hygiene with conventional soap/water or alcohol based hand rub Central line prep: 2% Chlorhexidine scrub Local anesthesia used: lidocaine 1% Amount of anesthesia used (ml): 3 Sterile US Technique with sterile gel/sterile probe covers: Yes Central line lumen inserted: triple Spanish: 7 Length (cm): 16 Depth of Insertion (cm): 16 Post Procedure: sutured in place, good blood return, all ports aspirated, flushed, capped, transparent dressing, hemostatic product, antimicrobial product, securement product and aseptic technique maintained throughout procedure Post procedure x-ray: tip of catheter in good position and no pneumothorax seen Patient tolerated procedure: well and no complications
[2025-06-30] MEDS: FUROSEMIDE INJ 100 MG in SODIUM CHLORIDE 0.9% IV 90 ML 5.71 MG IV CONT (14:02)
[2025-06-30] MEDS: MILRINONE LACTATE 20 MG in DEXTROSE 5% 80 ML 4.28 MG IV CONT (14:12)
[2025-06-30 14:15] LABS: MRSA (PCR) NOT DETECTED (NOT DETECTE)
[2025-06-30 14:47] LABS: Potassium 5.4 mmol/L (3.4-5.0)
[2025-06-30 14:53] LABS: INR 1.2; Partial Thromboplastin Time 34.6 Seconds (22.3-36.8); Prothrombin Time 15.3 Seconds (11.1-14.7)
--- NOTE | 2025-06-30 16:56 | ECG_ITS ---
Test Date: 2025-06-30 17:01:34 Measurements Intervals [place] Rate: 79 P: 0 [place]: 0 QRS: -41 QRSD: 125 T: 119 QT: 380 QTc: 437 Interpretive Statements ATRIAL FIBRILLATION MARKED LEFT AXIS DEVIATION [QRS AXIS < -30] LEFT BUNDLE BRANCH BLOCK [120+ ms QRS DURATION, 80+ ms Q/S IN V1/V2, 85+ ms R IN I/aVL/V5/V6] Electronically Signed On 07-01-2025 18:27:02 JAVA SOFTWARE ARCHITECT by Jayleen Abrams M.D.
--- NOTE | 2025-06-30 18:53 | PCRCNOTE ---
Unable to perform apnea link procedure due to increased O2 needs
--- NOTE | 2025-06-30 19:29 | PC.NURSE ---
Immediately following patient family members leaving this evening, patient began calling out for help repeatedly and not using call light despite being fully alert and oriented and instructed on the use of the call light. He has had multiple vague complaints of discomfort in left shoulder, then left bicep, then stated he was not able to feed himself which is apparently baseline. The left shoulder pain was treated with PRNs (see mar) and heat/ice rotations. Near the time of complaint his electrodes were changed and appeared to have ST elevation. EKG obtained, see report. Completed multiple neuro assessments, all of which were negative for any changes in condition aside from subjective complaints.
[2025-06-30] MEDS: cefTRIAXone 1 GM in SODIUM CHLORIDE 0.9% IV 50 ML 100 ML IVPB (21:07)
[2025-06-30] MEDS: MELATONIN 5 MG TABLET PO (21:08)
[2025-06-30] MEDS: CENTRAL LINE FLUSH 10 ML IV PUSH (21:21)
[2025-06-30] MEDS: NOREPINEPHRINE 8 MG/D5W 250 ML 8 MG/250 ML BAG 33.75 MG IV CONT (22:27)
[2025-07-01] VITALS (45 sets, daily range): BP systolic 51–144; BP diastolic 17–118; PULSE 69–109; RESP 12–28; TEMP 36.4–36.9; O2SAT 85–100
[2025-07-01] MEDS: IPRATROPIUM 0.5 MG/ALBUTEROL SULFATE 2.5 MG (BASE) AMPUL.NEB 3 ML INHALATION ×3 (01:44→14:21)
[2025-07-01] MEDS: traMADol HCL (*CRX) 50 MG TABLET PO (01:58)
[2025-07-01] MEDS: CENTRAL LINE FLUSH 10 ML IV PUSH (05:26)
[2025-07-01 05:34] LABS: Hematocrit 27.7 % (42.0-52.0); Hemoglobin 8.3 g/dL (14.0-18.0); Immature Granulocyte Percent A 0.6 % (0-0.5); Lymphocytes Absolute Auto 0.79 K/mm3 (0.9-3.2); Mean Corpuscular HGB Conc 30.0 g/dl (32-36); Mean Corpuscular Hemoglobin 35.3 pg (26-34); Mean Corpuscular Volume 117.9 fl (80-100); Nucleated Red Blood Cells Absolute Auto 0.030 K/mm3 (0.0-0.012); Nucleated Red Blood Cells Perc 0.3 % (0.0-0.2); Platelet Count Result 305 k/mm3 (150-375); Red Blood Count 2.35 M/mm3 (4.6-6.20); White Blood Count 10.5 K/mm3 (4.5-10.0)
[2025-07-01 05:45] LABS: INR 1.2; Prothrombin Time 15.5 Seconds (11.1-14.7)
[2025-07-01 05:46] LABS: Partial Thromboplastin Time 36.1 Seconds (22.3-36.8)
[2025-07-01 05:51] LABS: Alanine Aminotransferase 17 U/L (6-50); Albumin Level 3.7 g/dL (3.5-5.1); Alkaline Phosphatase 84 U/L (38-126); Anion Gap 10 mmol/L (4-12); Aspartate Amino Transferase 26 U/L (17-59); Bilirubin,Total 1.0 mg/dL (0.2-1.3); Blood Urea Nitrogen 74 mg/dL (9-20); Calcium 8.3 mg/dL (8.4-10.2); Carbon Dioxide 25 mmol/L (22-30); Chloride 94 mmol/L (98-107); Estimated CRCL calculation 28 ml/min; Estimated Glomerular Filt Rate 28; Glucose 166 mg/dL (65-110); Magnesium 2.4 mg/dL (1.6-2.3); Potassium 5.2 mmol/L (3.4-5.0); Sodium 129 mmol/L (137-145); Total Protein 7.4 g/dL (6.3-8.2)
[2025-07-01] MEDS: NOREPINEPHRINE 8 MG/D5W 250 ML 8 MG/250 ML BAG 35.63 MG IV CONT (06:00)
[2025-07-01 06:02] LABS: Iron 67 ug/dL (49-181)
[2025-07-01 06:11] LABS: Percent Iron Saturation 25 % (20-50)
[2025-07-01 07:00] LABS: Thyroid Stimulating Hormone 1.590 uIU/mL (0.465-4.680); Vitamin B12 > 1000.0 pg/mL (239-931)
[2025-07-01] MEDS: ALBUTEROL SULFATE NEB 2.5 MG/3 ML INH 10 MG INHALATION (07:58)
[2025-07-01] MEDS: FUROSEMIDE INJ 100 MG in SODIUM CHLORIDE 0.9% IV 90 ML 11.41 MG IV CONT (08:00)
[2025-07-01] MEDS: DOBUTamine 250 MG/D5W 250 ML 250 MG/250 ML BAG 17.12 MG IV CONT (08:27)
[2025-07-01] MEDS: DEXTROSE 50% 25 GM/50 ML SYRINGE IV PUSH (08:28)
[2025-07-01] MEDS: ARTIFICIAL TEARS OPHTH SOLN 15 ML BOTTLE 1 DROP EACH EYE (08:29)
--- NOTE | 2025-07-01 08:34 | WPDINTPN ---
Progress Note: A&P Assessment and Plan (1) Cardiogenic shock: Code(s): R57.0 - Cardiogenic shock Status: Acute Assessment and Plan: 06/28: Patient presented with increasing bilateral lower extremity edema and shortness of breath, was found to have ischemic cardiomyopathy with EF of 25-30%, RVSP 71 mmHg with severe pulmonary hypertension on echocardiogram done on 05/20/2025 -patient was admitted to the medical floor and was being diuresed, was started on Entresto and carvedilol -06/30: Transferred to IMU for dobutamine infusion, was found to be hypotensive in with SBP in the 60s to 80s, -06/30: Transferred to ICU, for cardiogenic shock, bilateral upper and lower extremity edema, worsening congestive heart failure, acute kidney injury. Central line was inserted upon arrival to the ICU, patient was started on Levophed and dobutamine -06/30: since patient has severe pulmonary hypertension, will switch dobutamine to Milrinone for where better pulmonary artery vasodilation, discussed it with cardiology who is in agreement with this -patient currently will be on Milrinone, Levophed and Lasix infusion -07/01: Worsening renal function and no improvement with milrinione, Will switch to Dobutamine infusion, contnue Levophed and Lasix infusion (2) Cardiomyopathy: Code(s): I42.9 - Cardiomyopathy, unspecified Status: Acute Assessment and Plan: Hold Entresto and carvedilol since patient in cardiogenic shock -treatment as above 05/20/2025: Echocardiogram Summary 1. Left ventricular chamber dimension is moderately enlarged. 2. Left ventricular systolic function is normal, estimated at 25-30. 3. Right ventricular chamber dimension is mildly enlarged. 4. Right ventricular systolic function is normal. 5. Linear artifact in right ventricle suggestive of catheter(s), pacemaker lead(s), or ICD lead(s). 6. Left atrial chamber dimension is mildly enlarged. 7. There is mild to moderate mitral valve regurgitation. 8. There is mild tricuspid valve regurgitation. 9. Severe pulmonary hypertension, estimated pulmonary arterial systolic pressure is 71 mmHg. 10. There is mild pulmonic regurgitation. 11. Pleural effusion. (3) Acute respiratory failure: Code(s): J96.00 - Acute respiratory failure, unspecified whether with hypoxia or hypercapnia Status: Acute Assessment and Plan: Pulmonary edema, CHF exacerbation, possible left-sided pneumonia -will place patient on Vapotherm/Airvo -continue bronchodilators -chest x-ray this morning showed near complete whiteout of left hemithorax likely related to worsening pleural effusion, atelectasis, airspace disease. Mild worsening is test this tissue edema -patient started on Mucomyst, Pulmozyme nebulizers, chest physical therapy. Will place the good lung down (4) MOHSEN (acute kidney injury): Code(s): N17.9 - Acute kidney failure, unspecified Status: Acute Assessment and Plan: Acute kidney injury likely related to ischemic cardiomyopathy, CHF exacerbation, cardiogenic shock, hypotension -nephrology has been consulted and appreciate their evaluation and recommendations -patient has been receiving Bumex b.i.d. on the medical floor, will discontinue Bumex for now -will start Lasix infusion after discussion with Nephrology -UA not reflective of a UTI, urine electrolytes revealed a non prerenal picture -with switch Milrinone to dobutamine and continue Levophed, Lasix infusion -continue to monitor urine output, renal function and electrolytes -patient may require renal replacement therapy, will discuss with nephron (5) CHF (congestive heart failure): Qualifiers: Heart failure chronicity: acute on chronic Heart failure type: diastolic Qualified Code(s): I50.33 - Acute on chronic diastolic (congestive) heart failure Code(s): I50.9 - Heart failure, unspecified Status: Acute Assessment and Plan: Patient with ischemic cardiomyopathy, cardiology following the patient -continue treatment as above (6) Hyperkalemia: Code(s): E87.5 - Hyperkalemia Status: Acute Assessment and Plan: Patient with acute kidney injury, hyperkalemia -potassium of 5.5, patient was given Lokelma (06/30) -will give insulin and D50 and will repeat Lokelma (7) Pneumonia: Code(s): J18.9 - Pneumonia, unspecified organism Status: Acute Assessment and Plan: Chest x-ray shows pneumonia -likely congestive heart failure with possible super imposed pneumonia -patient was started on ceftriaxone and doxycycline (06/29) will continue for now Plan DVT prophylaxis: Heparin SQ Stress ulcer prophylaxis: Not indicated Nutrition: Diabetic and heart healthy diet with fluid restriction Code Status: DNR Critical Care Time Spent: 41 minutes 07/01: Discussed at length with Fadumo who is the POA and Helena another daughter, along with patient's sister and patient's son-in-law was in the conference room. Had updated them with patient's condition and plan of care. They are aware that he is on maximum doses of 2 blood pressure support medications, on dobutamine for ionotropic support, on Lasix infusion to mobilize fluid side of his body. Patient has been not been responding to Lasix, creatinine is trending up, urine output has low. I did update them regarding the recommendations from Cardiology and Nephrology both of home think that any aggressive offered the care would do more harm to the patient. All questions answered, they have requested more family members to come to see him. Will make a decision on comfort measures after discussing with family 06/30: Discussed with patient and patient's daughter, Fadumo Almaraz, all is his POA. Updated them regarding patient's condition and plan of care. They are aware that I will be taking him to the ICU, placing a central line in the neck, starting him on blood pressure medications, ionotropic medication to increase squeeze of the heart and Lasix infusions so that we could mobilize the fluid out of his system. Both of them agreeable and consented to the central line. Due to a high probability of clinically significant, life threatening deterioration, the patient required my highest level of preparedness to intervene emergently and I personally spent this critical care time directly and personally managing the patient. This critical care time included obtaining a history; examining the patient; pulse oximetry; ordering and review of studies; arranging urgent treatment with development of a management plan; evaluation of patient's response to treatment; frequent reassessment; and discussions with other providers. It was exclusive of separately billable procedures and treating other patients and teaching time. Please see Assessment and Plan section and the rest of the note for further information on patient assessment and treatment This dictation may have been done utilizing a voice recognition system. Attempts have been made to correct errors. However, there may be uncorrected grammatical, spelling, and recognitions errors present. Subjective Date/time seen: 07/01/25 08:34 Interval history: Reason for consult: Cardiogenic shock, ischemic cardiomyopathy with EF of 25-30%, hypotension, peripheral edema, acute kidney injury, hypoxic respiratory failure 07/01/2025: Patient seen and examined the ICU, remains on Milrinone, Levophed, Lasix infusion. Patient has not responded much to the Lasix infusion, worsening renal function. Remains on Vapotherm 45 L flow rate and 70% FiO2. Chest x-ray shows near complete whiteout of left hemithorax likely worsening pleural effusion, atelectasis or airspace disease. Mildly worsening interstitial pulmonary edema. Patient is afebrile, increasing levophed requirements. Denies any pain, but complains of shortness of breath Review of Systems Review of Systems: All systems reviewed & are unremarkable except as noted in HPI and below Exam Narrative: General: Pleasant gentleman in no acute distress at this time HEENT:? Pupils equal and reactive, sclera is clear, moist oral mucosa Neck:? Supple Respiratory:? Coarse breath sounds bilaterally, decreased at bases, decreased air entry on the left Cardiac:? Paced rhythm, regular Abdomen:? Soft, nontender, nondistended, normoactive bowel sounds Extremities:? Bilateral upper and lower extremity edema pitting in nature, significant bilateral pitting pedal edema Neuro:? Patient is awake, alert, able to answer questions appropriately, follows simple commands in all extremities Skin:? Upper extremity bruising noted Psych:? Normal mentation, depressed affect Objective Data Vital Signs Vital Signs: Vital Signs - 24 hr 06/30/25 09:54 06/30/25 11:31 06/30/25 11:45 Temperature Pulse Rate 65 60 Respiratory Rate Blood Pressure 91/43 L 91/43 L Pulse Oximetry Oxygen Delivery Oxygen Flow Rate Fraction of Inspired Oxygen 06/30/25 11:51 06/30/25 12:00 06/30/25 12:10 Temperature Pulse Rate 60 Respiratory Rate Blood Pressure 87/40 L 82/36 L Pulse Oximetry Oxygen Delivery Oxygen Flow Rate Fraction of Inspired Oxygen 06/30/25 12:15 06/30/25 12:38 06/30/25 13:00 Temperature 96.4 F L Pulse Rate 60 60 Respiratory Rate 14 11 L Blood Pressure 87/37 L 89/48 L 84/52 L Pulse Oximetry 100 100 Oxygen Delivery Oxygen Flow Rate Fraction of Inspired Oxygen 06/30/25 13:01 06/30/25 13:51 06/30/25 14:00 Temperature 96.0 F L Pulse Rate 60 73 74 Respiratory Rate 20 Blood Pressure 84/52 L 109/56 L Pulse Oximetry 93 Oxygen Delivery Oxygen Flow Rate Fraction of Inspired Oxygen 06/30/25 14:00 06/30/25 14:00 06/30/25 14:00 Temperature Pulse Rate 75 93 64 Respiratory Rate 20 Blood Pressure 109/56 L Pulse Oximetry Oxygen Delivery Oxygen Flow Rate Fraction of Inspired Oxygen 06/30/25 14:02 06/30/25 14:12 06/30/25 14:12 Temperature Pulse Rate 78 78 Respiratory Rate Blood Pressure 109/56 L 109/56 L 109/56 L Pulse Oximetry Oxygen Delivery Oxygen Flow Rate Fraction of Inspired Oxygen 06/30/25 14:23 06/30/25 14:30 06/30/25 14:41 Temperature Pulse Rate 86 88 85 Respiratory Rate 20 Blood Pressure 90/43 L 82/39 L Pulse Oximetry 92 Oxygen Delivery High Flow Therapy with Na Oxygen Flow Rate 45 Fraction of Inspired Oxygen 70 06/30/25 14:44 06/30/25 15:00 06/30/25 15:34 Temperature Pulse Rate 70 89 93 Respiratory Rate 20 Blood Pressure 82/39 L 93/46 L 94/52 L Pulse Oximetry 93 Oxygen Delivery Oxygen Flow Rate Fraction of Inspired Oxygen 06/30/25 16:00 06/30/25 16:00 06/30/25 16:00 Temperature Pulse Rate 97 93 97 Respiratory Rate 19 Blood Pressure 106/70 94/59 L Pulse Oximetry 93 Oxygen Delivery Oxygen Flow Rate Fraction of Inspired Oxygen 06/30/25 16:00 06/30/25 16:00 06/30/25 16:20 Temperature Pulse Rate 90 108 H Respiratory Rate Blood Pressure 94/59 L 94/59 L 83/49 L Pulse Oximetry Oxygen Delivery Oxygen Flow Rate Fraction of Inspired Oxygen 06/30/25 17:00 06/30/25 17:04 06/30/25 18:00 Temperature Pulse Rate 108 H 97 94 Respiratory Rate 20 Blood Pressure 113/50 L 113/50 L Pulse Oximetry 92 Oxygen Delivery Oxygen Flow Rate Fraction of Inspired Oxygen 06/30/25 18:00 06/30/25 18:00 06/30/25 18:00 Temperature Pulse Rate 99 90 Respiratory Rate 22 H Blood Pressure 110/62 107/60 107/60 Pulse Oximetry 93 Oxygen Delivery Oxygen Flow Rate Fraction of Inspired Oxygen 06/30/25 18:00 06/30/25 19:00 06/30/25 19:51 Temperature 98.3 F Pulse Rate 98 99 93 Respiratory Rate 27 H 27 H Blood Pressure 107/60 109/63 Pulse Oximetry 94 94 Oxygen Delivery High Flow Therapy with Na Oxygen Flow Rate 40 Fraction of Inspired Oxygen 70 06/30/25 19:58 06/30/25 20:00 06/30/25 20:00 Temperature Pulse Rate 93 97 Respiratory Rate Blood Pressure 110/59 L 110/59 L Pulse Oximetry Oxygen Delivery Oxygen Flow Rate Fraction of Inspired Oxygen 06/30/25 20:00 06/30/25 20:00 06/30/25 20:43 Temperature Pulse Rate 97 97 100 Respiratory Rate 27 H 19 Blood Pressure 110/59 L 110/59 L Pulse Oximetry 94 Oxygen Delivery Oxygen Flow Rate Fraction of Inspired Oxygen 06/30/25 20:49 06/30/25 20:52 06/30/25 21:00 Temperature Pulse Rate 100 95 88 Respiratory Rate 19 19 18 Blood Pressure 102/80 Pulse Oximetry 95 94 Oxygen Delivery High Flow Therapy with Na Oxygen Flow Rate 45 Fraction of Inspired Oxygen 70 06/30/25 22:00 06/30/25 22:00 06/30/25 22:00 Temperature Pulse Rate 92 92 92 Respiratory Rate 22 H Blood Pressure 106/49 L 106/49 L Pulse Oximetry 93 Oxygen Delivery Oxygen Flow Rate Fraction of Inspired Oxygen 06/30/25 22:00 06/30/25 22:27 06/30/25 22:27 Temperature Pulse Rate 92 78 78 Respiratory Rate Blood Pressure 106/49 L 94/50 L 94/50 L Pulse Oximetry Oxygen Delivery Oxygen Flow Rate Fraction of Inspired Oxygen 06/30/25 23:00 07/01/25 00:00 07/01/25 00:00 Temperature 98.2 F Pulse Rate 98 83 83 Respiratory Rate 20 24 H Blood Pressure 82/59 L 103/54 L Pulse Oximetry 93 95 Oxygen Delivery Oxygen Flow Rate Fraction of Inspired Oxygen 07/01/25 00:00 07/01/25 00:00 07/01/25 00:00 Temperature Pulse Rate 83 83 Respiratory Rate Blood Pressure 103/54 L 114/48 L Pulse Oximetry Oxygen Delivery Oxygen Flow Rate Fraction of Inspired Oxygen 07/01/25 01:00 07/01/25 01:44 07/01/25 01:51 Temperature 98.3 F Pulse Rate 93 96 95 Respiratory Rate 17 18 20 Blood Pressure 102/49 L Pulse Oximetry 94 Oxygen Delivery Oxygen Flow Rate Fraction of Inspired Oxygen 07/01/25 02:00 07/01/25 02:00 07/01/25 02:00 Temperature Pulse Rate 87 81 Respiratory Rate Blood Pressure 90/50 L 89/50 L 98/50 L Pulse Oximetry Oxygen Delivery Oxygen Flow Rate Fraction of Inspired Oxygen 07/01/25 02:00 07/01/25 02:00 07/01/25 03:00 Temperature Pulse Rate 85 85 87 Respiratory Rate 18 15 Blood Pressure 98/50 L 101/59 L Pulse Oximetry 96 96 Oxygen Delivery Oxygen Flow Rate Fraction of Inspired Oxygen 07/01/25 04:00 07/01/25 04:00 07/01/25 04:00 Temperature 98.5 F Pulse Rate 87 88 Respiratory Rate 18 Blood Pressure 101/54 L 101/54 L Pulse Oximetry 96 Oxygen Delivery Oxygen Flow Rate Fraction of Inspired Oxygen 07/01/25 04:00 07/01/25 04:00 07/01/25 05:00 Temperature 98.4 F Pulse Rate 84 88 93 Respiratory Rate 24 H Blood Pressure 101/54 L 101/54 L 131/118 H Pulse Oximetry 93 Oxygen Delivery Oxygen Flow Rate Fraction of Inspired Oxygen 07/01/25 05:20 07/01/25 05:33 07/01/25 06:00 Temperature Pulse Rate 93 77 96 Respiratory Rate Blood Pressure 99/55 L 99/55 L Pulse Oximetry Oxygen Delivery Oxygen Flow Rate Fraction of Inspired Oxygen 07/01/25 06:00 07/01/25 06:00 07/01/25 06:00 Temperature 98.4 F Pulse Rate 77 77 Respiratory Rate 14 Blood Pressure 99/55 L 99/55 L 99/55 L Pulse Oximetry 97 Oxygen Delivery Oxygen Flow Rate Fraction of Inspired Oxygen 07/01/25 07:59 07/01/25 07:59 Temperature Pulse Rate 78 78 Respiratory Rate 21 H 21 H Blood Pressure Pulse Oximetry 96 Oxygen Delivery High Flow Therapy with Na Oxygen Flow Rate 45 Fraction of Inspired Oxygen 70 Intake/Output Intake/Output: Intake & Output 06/28/25 06/29/25 06/30/25 07/01/25 23:59 23:59 23:59 23:59 Intake Total 550 811.9 671.1 Output Total 1000 850 350 Balance -450 -38.1 321.1 Meds/Results Medications: Active Medications Generic Name Dose Route Start Last Admin Trade Name Freq PRN Reason Stop Dose Admin Acetaminophen 650 mg 06/28/25 17:55 06/30/25 09:56 Acetaminophen 325 Mg Tablet PO 650 mg Q4H PRN Administration Mild Pain (1-3) or Fever Acetylcysteine 200 mg 07/01/25 08:00 Acetylcysteine 20% Inhal Soln 800 Mg/4 Ml Vial INHALATION Q6HRT [facility] Albuterol/Ipratropium 3 ml 06/30/25 14:00 07/01/25 01:44 Ipratropium 0.5 Mg/Albuterol Sulfate 2.5 Mg (Base) Ampul.Neb 3 Ml INHALATION 3 ml Q6HRT [facility] Administration Artificial Tears 1 drop 06/28/25 20:40 06/30/25 17:27 Artificial Tears Ophth Soln 15 Ml Bottle EACH EYE Not Given BID [facility] Aspirin 81 mg 06/29/25 08:00 06/30/25 09:56 Aspirin 81 Mg Chewable Tablet PO 81 mg DAILY@0800 [facility] Administration Carvedilol 3.125 mg 06/29/25 21:00 06/30/25 09:54 Carvedilol 3.125 Mg Tablet PO 3.125 mg On Hold: 06/30/25 13:03 Q12HR [facility] Administration Dextrose 12.5 gm 06/28/25 18:43 Dextrose 50% 25 Gm/50 Ml Syringe IV PUSH PRN PRN Hypoglycemia Protocol Docusate Sodium 100 mg 06/28/25 18:41 Docusate Sodium 100 Mg Capsule PO BID PRN Constipation Dornase Khang 2.5 mg 07/01/25 08:00 Dornase Khang Inh Soln 1 Mg/Ml 2.5 Ml Amp INHALATION Q12HRT [facility] Doxycycline Hyclate 100 mg 06/29/25 23:15 06/30/25 21:07 Doxycycline Hyclate 100 Mg Tablet PO 100 mg Q12HR [facility] Administration Ferrous Sulfate 325 mg 06/29/25 09:00 06/30/25 09:54 Ferrous Sulfate 325 Mg Tablet BY MOUTH 325 mg On Hold: 07/01/25 07:27 DAILY [facility] Administration Gabapentin 100 mg 06/28/25 21:00 06/30/25 21:08 Gabapentin 100 Mg Capsule PO 100 mg Q12H [facility] Administration Glucagon 1 mg 06/28/25 18:43 Glucagon For Inj 1 Mg Vial IM PRN PRN Hypoglycemia Protocol Glucose 15 gm 06/28/25 18:43 Glucose Oral Gel 15 Gm Of Glucse In 37.5 Gm Tube PO PRN PRN Hypoglycemia Protocol Guaifenesin 1,200 mg 06/30/25 09:00 06/30/25 21:08 Guaifenesin 12 Hr 600 Mg Tabcr PO 1,200 mg Q12HR [facility] Administration Heparin Sodium (Porcine) 5,000 units 06/30/25 14:00 07/01/25 06:49 Heparin Sodium 5,000 Units/Ml Vial SUB-Q 5,000 units Q8HR [facility] Administration Dextrose 1,000 mls @ 100 mls/hr 06/28/25 18:43 Dextrose 5% 1,000 Ml IVPB PRN PRN Hypoglycemia Protocol Ceftriaxone Sodium 1 gm/ 50 mls @ 100 mls/hr 06/29/25 23:15 06/30/25 22:16 Sodium Chloride IVPB Infused HS [facility] Infusion Norepinephrine Bitartrate 8 mg in 250 mls @ 35.625 mls/hr 06/30/25 12:45 07/01/25 06:00 Levophed 8 Mg/D5w 250 Ml IV CONT 19 mcg/min .Q7H2M [facility] 35.63 mls/hr Protocol Administration 19 MCG/MIN Furosemide 100 mg/ Sodium 100 mls @ 11.41 mls/hr 06/30/25 13:00 07/01/25 06:00 Chloride IV CONT Infused .Q8H46M [facility] Infusion 0.1 MG/KG/HR Dobutamine HCl/Dextrose 250 mg in 250 mls @ 17.115 mls/hr 07/01/25 07:30 Dobutamine 250 Mg/D5w 250 Ml IV CONT .[id number] [facility] Protocol 2.5 MCG/KG/MIN Insulin Aspart 2 - 5 units 06/29/25 08:00 06/30/25 17:27 Insulin Aspart (*Bkc) 100 Units/Ml SUB-Q Not Given TIDWM [facility] Protocol Lactobacillus Acidophilus 1 tablet 06/29/25 09:00 06/30/25 18:12 Acidophilus/Bulgaricus Chewable Tablet PO 07/29/25 08:59 1 tablet On Hold: 07/01/25 07:27 BID [facility] Administration Melatonin 5 mg 06/29/25 21:00 06/30/25 21:08 Melatonin 5 Mg Tablet PO 5 mg HS [facility] Administration Metolazone 5 mg 06/29/25 09:00 06/30/25 09:57 Metolazone 5 Mg Tablet PO 5 mg On Hold: 07/01/25 07:29 DAILY [facility] Administration Midodrine 5 mg 06/29/25 09:00 06/30/25 11:56 Midodrine Hcl 2.5 Mg Tablet PO Not Given On Hold: 06/30/25 13:03 TID [facility] Multivitamins Therapeutic 1 tablet 06/29/25 09:00 06/30/25 09:54 Multivitamins Therapeutic Tab (*Bkc) PO 1 tablet On Hold: 07/01/25 07:30 DAILY [facility] Administration Ondansetron HCl 4 mg 06/28/25 17:55 Ondansetron Inj 4 Mg/2 Ml Vial IV PUSH Q4H PRN Nausea Polyethylene Glycol 17 gm 06/29/25 07:18 Polyethylene Glycol 3350 17 Gm Powd.Pack PO DAILY PRN constipation Sacubitril/Valsartan 1 tab 06/28/25 21:00 06/30/25 09:54 Sacubitril/Valsartan 24-26 Mg Tablet PO 1 tab On Hold: 06/30/25 13:04 Q12HR [facility] Administration Sodium Chloride 10 ml 06/30/25 14:00 07/01/25 05:26 Central Line Flush IV PUSH 10 ml Q8HR [facility] Administration Sodium Chloride 20 ml 06/30/25 12:42 Central Line Flush IV PUSH PRN PRN after blood draws Sodium Zirconium Cyclosilicate 10 gm 07/01/25 10:00 Sodium Zirconium Cyclosilicate 10 Gm Powd.Pack PO 07/01/25 18:01 BID@1000,1800 [facility] Tramadol HCl 50 mg 06/28/25 20:30 07/01/25 01:58 Tramadol Hcl (*Crx) 50 Mg Tablet PO 50 mg On Hold: 07/01/25 07:30 Q6H PRN Administration PAIN RATED 4-6 Radiology Results: ITS Impressions Renal Ultrasound 06/30/25 14:43 Impression: Medical renal disease. No obstruction Chest X-Ray 07/01/25 08:12 IMPRESSION: 1. Right neck central line catheter tip actually at cavoatrial junction, not upper SVC as previously reported. 2. Near complete whiteout of left hemithorax likely further worsening of pleural effusion, atelectasis, and airspace disease. 3. Mild worsening interstitial pulmonary edema. Labs Labs: Laboratory Results - last 24 hr 06/30/25 06/30/25 06/30/25 10:20 10:52 11:37 WBC RBC Hgb Hct MCV MCH MCHC RDW Plt Count MPV Immature Gran % (Auto) Neut % (Auto) Lymph % (Auto) [place] % (Auto) Eos % (Auto) Baso % (Auto) Lymph # (Auto) [place] # (Auto) Eos # (Auto) Baso # (Auto) Abs Immat Gran (auto) Absolute Neuts (auto) Absolute Nucleated RBC Nucleated RBC % ESR > 140 H PT INR APTT Sodium Potassium Chloride Carbon Dioxide Anion Gap BUN Creatinine Estim Creat Clear Calc Estimated GFR Glucose POC Capillary Glucose 130 H Calcium Phosphorus Magnesium Iron TIBC % Saturation Total Bilirubin AST ALT Alkaline Phosphatase Total Creatine Kinase < 20 L Total Protein Albumin Vitamin B12 Folate TSH Urine Color Dark yellow Urine Appearance Clear Urine pH 5.0 Ur Specific [place] 1.013 Urine Protein 1+ H Urine Glucose (UA) Negative Urine Ketones Negative Ur Blood (Man) 2+ H Urine Nitrate Negative Urine Bilirubin Negative Urine Urobilinogen 1.0 Ur Leukocyte Esterase Trace H Add Ur Microanalysis Reviewed Urine RBC 11-20 H Urine WBC 0-5 Ur Squamous Epith Cells None seen Urine Bacteria None seen Urine Casts 3-5 U Random Total Protein 63 Ur Random Sodium 45 Ur Random Urea 255 Urine Creatinine 116.6 Protein/Creat Ratio 2 0.54 H Nasal MRSA (PCR) DAVID Screen Cancelled DAVID Titer Cancelled DAVID Titer 2 Cancelled DAVID Titer 3 Cancelled DAVID Pattern Cancelled DAVID Pattern 2 Cancelled DAVID Pattern 3 Cancelled DAVID Comment Cancelled Complement C3 92 Complement C4 11.3 L 06/30/25 06/30/25 06/30/25 12:34 14:32 16:44 WBC RBC Hgb Hct MCV MCH MCHC RDW Plt Count MPV Immature Gran % (Auto) Neut % (Auto) Lymph % (Auto) [place] % (Auto) Eos % (Auto) Baso % (Auto) Lymph # (Auto) [place] # (Auto) Eos # (Auto) Baso # (Auto) Abs Immat Gran (auto) Absolute Neuts (auto) Absolute Nucleated RBC Nucleated RBC % ESR PT 15.3 H INR 1.2 APTT 34.6 Sodium Potassium 5.4 H Chloride Carbon Dioxide Anion Gap BUN Creatinine Estim Creat Clear Calc Estimated GFR Glucose POC Capillary Glucose 156 H Calcium Phosphorus Magnesium Iron TIBC % Saturation Total Bilirubin AST ALT Alkaline Phosphatase Total Creatine Kinase Total Protein Albumin Vitamin B12 Folate TSH Urine Color Urine Appearance Urine pH Ur Specific [place] Urine Protein Urine Glucose (UA) Urine Ketones Ur Blood (Man) Urine Nitrate Urine Bilirubin Urine Urobilinogen Ur Leukocyte Esterase Add Ur Microanalysis Urine RBC Urine WBC Ur Squamous Epith Cells Urine Bacteria Urine Casts U Random Total Protein Ur Random Sodium Ur Random Urea Urine Creatinine Protein/Creat Ratio 2 Nasal MRSA (PCR) Not detected DAVID Screen DAVID Titer DAVID Titer 2 DAVID Titer 3 DAVID Pattern DAVID Pattern 2 DAVID Pattern 3 DAVID Comment Complement C3 Complement C4 07/01/25 05:04 WBC 10.5 H RBC 2.35 L Hgb 8.3 L Hct 27.7 L MCV 117.9 H MCH 35.3 H MCHC 30.0 L RDW 14.9 H Plt Count 305 MPV 9.3 Immature Gran % (Auto) 0.6 H Neut % (Auto) 87.9 H Lymph % (Auto) 7.5 L [place] % (Auto) 3.8 Eos % (Auto) 0.1 Baso % (Auto) 0.1 L Lymph # (Auto) 0.79 L [place] # (Auto) 0.4 Eos # (Auto) 0.0 Baso # (Auto) 0.0 Abs Immat Gran (auto) 0.06 H Absolute Neuts (auto) 9.3 H Absolute Nucleated RBC 0.030 H Nucleated RBC % 0.3 H ESR PT 15.5 H INR 1.2 APTT 36.1 Sodium 129 L Potassium 5.2 H Chloride 94 L Carbon Dioxide 25 Anion Gap 10 BUN 74 H Creatinine 2.20 H Estim Creat Clear Calc 28 Estimated GFR 28 L Glucose 166 H POC Capillary Glucose Calcium 8.3 L Phosphorus 6.6 H Magnesium 2.4 H Iron 67 TIBC 269 % Saturation 25 Total Bilirubin 1.0 AST 26 ALT 17 Alkaline Phosphatase 84 Total Creatine Kinase Total Protein 7.4 Albumin 3.7 Vitamin B12 > 1000.0 H Folate > 20.0 H TSH 1.590 Urine Color Urine Appearance Urine pH Ur Specific [place] Urine Protein Urine Glucose (UA) Urine Ketones Ur Blood (Man) Urine Nitrate Urine Bilirubin Urine Urobilinogen Ur Leukocyte Esterase Add Ur Microanalysis Urine RBC Urine WBC Ur Squamous Epith Cells Urine Bacteria Urine Casts U Random Total Protein Ur Random Sodium Ur Random Urea Urine Creatinine Protein/Creat Ratio 2 Nasal MRSA (PCR) DAVID Screen DAVID Titer DAVID Titer 2 DAVID Titer 3 DAVID Pattern DAVID Pattern 2 DAVID Pattern 3 DAVID Comment Complement C3 Complement C4 Quality VTE Prophylaxis VTE prophylaxis: pharmacologic ordered
[2025-07-01] MEDS: INSULIN HUMAN REGULAR (*BKC) 100 UNITS/ML 10 UNITS IV PUSH (08:39)
[2025-07-01] MEDS: DOXYCYCLINE HYCLATE 100 MG TABLET PO (08:40)
[2025-07-01] MEDS: guaiFENesin 12 HR 600 MG TABCR 1200 MG PO (08:40)
[2025-07-01] MEDS: GABAPENTIN 100 MG CAPSULE PO (08:40)
[2025-07-01] MEDS: ASPIRIN 81 MG CHEWABLE TABLET PO (08:40)
--- NOTE | 2025-07-01 09:30 | PCRCNOTE ---
STAT ABG'S delayed due to patient getting a continuos breathing treatment results would not be accurate.
[2025-07-01 09:57] LABS: Alveolar/Arterial O2 Gradient 288.8 mmHg; Fractional Inspired Oxygen 60 %; HCO3 ABG 24.9 mEq/l (22.0-26.0); Oxygen Content ABG 12.6 %vol (16.0-22.0); Oxygen Saturation ABG 95.2 % (95.0-100.0); PCO2 ABG 50.6 mmHg (35.0-45.0); PO2 ABG 83.3 mmHg (80.0-100.0); PO2 FiO2 Ratio Arterial Blood 1.39 %
[2025-07-01 09:58] LABS: Liters per Minute 45.0 LPM; Modified Allen's Test Pass; Site Drawn LEFT RADIAL
--- NOTE | 2025-07-01 09:58 | PM.PNCARD ---
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 defining his coronary anatomy to determine if his systolic heart failure is secondary to ischemic events -at that visit, he did not want to proceed for with any procedures and this has been discussed with him once again which once again he does not want to proceed forward with procedures -given his advanced age in his condition especially in light of multi organ failure, advanced cardiac support is unlikely to alter his poor prognosis -continue medical management with IV diuretics and inotropic support -obtain ABG and lactate; continue to trend his labs -recommend palliative consultation Paroxysmal atrial fibrillation -rates are controlled at this time Severe pulmonary hypertension -on supplemental oxygen -unable to tolerate Milrinone due to severe hypotension requiring Levophed Subjective Date/time seen: 07/01/25 09:58 Interval history: He is feeling short of breath. He also really wants to eat his breakfast. We had a detailed discussion on his overall health condition and overall poor prognosis. We discussed invasive therapies including procedures and mechanical therapy however he does not want to proceed for with any invasive procedures at this time which is in alignment with his wishes during his outpatient followups Review of Systems Cardiovascular: Cardiovascular: Reports as per HPI Respiratory: Respiratory: Reports as per HPI Exam Const: Other: Ill-appearing HENMT: Mouth: Yes moist mucous membranes Eyes: EOM: EOMs intact bilaterally Neck: Other: JVD 15 cm Resp: Auscultation: rales Other: Tachypneic Cardio: Rate: regular rate Rhythm: abnormal rhythm Extrem: General: edema Objective Data Vital Signs Vital Signs: Vital Signs - 24 hr 06/30/25 11:31 06/30/25 11:45 06/30/25 11:51 Temperature Pulse Rate 60 Respiratory Rate Blood Pressure 91/43 L 91/43 L 87/40 L Pulse Oximetry Oxygen Delivery Oxygen Flow Rate Fraction of Inspired Oxygen 06/30/25 12:00 06/30/25 12:10 06/30/25 12:15 Temperature Pulse Rate 60 Respiratory Rate Blood Pressure 82/36 L 87/37 L Pulse Oximetry Oxygen Delivery Oxygen Flow Rate Fraction of Inspired Oxygen 06/30/25 12:38 06/30/25 13:00 06/30/25 13:01 Temperature 35.8 C L Pulse Rate 60 60 60 Respiratory Rate 14 11 L Blood Pressure 89/48 L 84/52 L 84/52 L Pulse Oximetry 100 100 Oxygen Delivery Oxygen Flow Rate Fraction of Inspired Oxygen 06/30/25 13:51 06/30/25 14:00 06/30/25 14:00 Temperature 35.6 C L Pulse Rate 73 74 75 Respiratory Rate 20 20 Blood Pressure 109/56 L Pulse Oximetry 93 Oxygen Delivery Oxygen Flow Rate Fraction of Inspired Oxygen 06/30/25 14:00 06/30/25 14:00 06/30/25 14:02 Temperature Pulse Rate 93 64 Respiratory Rate Blood Pressure 109/56 L 109/56 L Pulse Oximetry Oxygen Delivery Oxygen Flow Rate Fraction of Inspired Oxygen 06/30/25 14:12 06/30/25 14:12 06/30/25 14:23 Temperature Pulse Rate 78 78 86 Respiratory Rate Blood Pressure 109/56 L 109/56 L 90/43 L Pulse Oximetry Oxygen Delivery Oxygen Flow Rate Fraction of Inspired Oxygen 06/30/25 14:30 06/30/25 14:41 06/30/25 14:44 Temperature Pulse Rate 88 85 70 Respiratory Rate 20 Blood Pressure 82/39 L 82/39 L Pulse Oximetry 92 Oxygen Delivery High Flow Therapy with Na Oxygen Flow Rate 45 Fraction of Inspired Oxygen 70 06/30/25 15:00 06/30/25 15:34 06/30/25 16:00 Temperature Pulse Rate 89 93 97 Respiratory Rate 20 19 Blood Pressure 93/46 L 94/52 L 106/70 Pulse Oximetry 93 93 Oxygen Delivery Oxygen Flow Rate Fraction of Inspired Oxygen 06/30/25 16:00 06/30/25 16:00 06/30/25 16:00 Temperature Pulse Rate 93 97 Respiratory Rate Blood Pressure 94/59 L 94/59 L Pulse Oximetry Oxygen Delivery Oxygen Flow Rate Fraction of Inspired Oxygen 06/30/25 16:00 06/30/25 16:20 06/30/25 17:00 Temperature Pulse Rate 90 108 H 108 H Respiratory Rate 20 Blood Pressure 94/59 L 83/49 L 113/50 L Pulse Oximetry 92 Oxygen Delivery Oxygen Flow Rate Fraction of Inspired Oxygen 06/30/25 17:04 06/30/25 18:00 06/30/25 18:00 Temperature Pulse Rate 97 94 99 Respiratory Rate 22 H Blood Pressure 113/50 L 110/62 Pulse Oximetry 93 Oxygen Delivery Oxygen Flow Rate Fraction of Inspired Oxygen 06/30/25 18:00 06/30/25 18:00 06/30/25 18:00 Temperature Pulse Rate 90 98 Respiratory Rate Blood Pressure 107/60 107/60 107/60 Pulse Oximetry Oxygen Delivery Oxygen Flow Rate Fraction of Inspired Oxygen 06/30/25 19:00 06/30/25 19:51 06/30/25 19:58 Temperature 36.8 C Pulse Rate 99 93 93 Respiratory Rate 27 H 27 H Blood Pressure 109/63 Pulse Oximetry 94 94 Oxygen Delivery High Flow Therapy with Na Oxygen Flow Rate 40 Fraction of Inspired Oxygen 70 06/30/25 20:00 06/30/25 20:00 06/30/25 20:00 Temperature Pulse Rate 97 97 Respiratory Rate Blood Pressure 110/59 L 110/59 L 110/59 L Pulse Oximetry Oxygen Delivery Oxygen Flow Rate Fraction of Inspired Oxygen 06/30/25 20:00 06/30/25 20:43 06/30/25 20:49 Temperature Pulse Rate 97 100 100 Respiratory Rate 27 H 19 19 Blood Pressure 110/59 L Pulse Oximetry 94 95 Oxygen Delivery High Flow Therapy with Na Oxygen Flow Rate 45 Fraction of Inspired Oxygen 70 06/30/25 20:52 06/30/25 21:00 06/30/25 22:00 Temperature Pulse Rate 95 88 92 Respiratory Rate 19 18 Blood Pressure 102/80 Pulse Oximetry 94 Oxygen Delivery Oxygen Flow Rate Fraction of Inspired Oxygen 06/30/25 22:00 06/30/25 22:00 06/30/25 22:00 Temperature Pulse Rate 92 92 92 Respiratory Rate 22 H Blood Pressure 106/49 L 106/49 L 106/49 L Pulse Oximetry 93 Oxygen Delivery Oxygen Flow Rate Fraction of Inspired Oxygen 06/30/25 22:27 06/30/25 22:27 06/30/25 23:00 Temperature Pulse Rate 78 78 98 Respiratory Rate 20 Blood Pressure 94/50 L 94/50 L 82/59 L Pulse Oximetry 93 Oxygen Delivery Oxygen Flow Rate Fraction of Inspired Oxygen 07/01/25 00:00 07/01/25 00:00 07/01/25 00:00 Temperature 36.8 C Pulse Rate 83 83 Respiratory Rate 24 H Blood Pressure 103/54 L 103/54 L Pulse Oximetry 95 Oxygen Delivery Oxygen Flow Rate Fraction of Inspired Oxygen 07/01/25 00:00 07/01/25 00:00 07/01/25 01:00 Temperature 36.8 C Pulse Rate 83 83 93 Respiratory Rate 17 Blood Pressure 114/48 L 102/49 L Pulse Oximetry 94 Oxygen Delivery Oxygen Flow Rate Fraction of Inspired Oxygen 07/01/25 01:44 07/01/25 01:51 07/01/25 02:00 Temperature Pulse Rate 96 95 Respiratory Rate 18 20 Blood Pressure 90/50 L Pulse Oximetry Oxygen Delivery Oxygen Flow Rate Fraction of Inspired Oxygen 07/01/25 02:00 07/01/25 02:00 07/01/25 02:00 Temperature Pulse Rate 87 81 85 Respiratory Rate Blood Pressure 89/50 L 98/50 L Pulse Oximetry Oxygen Delivery Oxygen Flow Rate Fraction of Inspired Oxygen 07/01/25 02:00 07/01/25 03:00 07/01/25 04:00 Temperature Pulse Rate 85 87 87 Respiratory Rate 18 15 Blood Pressure 98/50 L 101/59 L Pulse Oximetry 96 96 Oxygen Delivery Oxygen Flow Rate Fraction of Inspired Oxygen 07/01/25 04:00 07/01/25 04:00 07/01/25 04:00 Temperature 36.9 C Pulse Rate 88 84 Respiratory Rate 18 Blood Pressure 101/54 L 101/54 L 101/54 L Pulse Oximetry 96 Oxygen Delivery Oxygen Flow Rate Fraction of Inspired Oxygen 07/01/25 04:00 07/01/25 05:00 07/01/25 05:20 Temperature 36.9 C Pulse Rate 88 93 93 Respiratory Rate 24 H Blood Pressure 101/54 L 131/118 H Pulse Oximetry 93 Oxygen Delivery Oxygen Flow Rate Fraction of Inspired Oxygen 07/01/25 05:33 07/01/25 06:00 07/01/25 06:00 Temperature Pulse Rate 77 96 77 Respiratory Rate Blood Pressure 99/55 L 99/55 L 99/55 L Pulse Oximetry Oxygen Delivery Oxygen Flow Rate Fraction of Inspired Oxygen 07/01/25 06:00 07/01/25 06:00 07/01/25 07:59 Temperature 36.9 C Pulse Rate 77 78 Respiratory Rate 14 21 H Blood Pressure 99/55 L 99/55 L Pulse Oximetry 97 96 Oxygen Delivery High Flow Therapy with Na Oxygen Flow Rate 45 Fraction of Inspired Oxygen 70 07/01/25 07:59 07/01/25 08:27 07/01/25 08:52 Temperature Pulse Rate 78 87 89 Respiratory Rate 21 H 20 Blood Pressure 84/71 L Pulse Oximetry Oxygen Delivery Oxygen Flow Rate Fraction of Inspired Oxygen 07/01/25 09:25 Temperature Pulse Rate 90 Respiratory Rate Blood Pressure 85/45 L Pulse Oximetry Oxygen Delivery Oxygen Flow Rate Fraction of Inspired Oxygen Intake/Output Intake/Output: Intake & Output 06/28/25 06/29/25 06/30/25 07/01/25 23:59 23:59 23:59 23:59 Intake Total 550 811.9 792.8 Output Total 1000 850 350 Balance -450 -38.1 442.8 Meds/Results Medications: Active Medications Generic Name Dose Route Start Last Admin Trade Name Freq PRN Reason Stop Dose Admin Acetaminophen 650 mg 06/28/25 17:55 06/30/25 09:56 Acetaminophen 325 Mg Tablet PO 650 mg Q4H PRN Administration Mild Pain (1-3) or Fever Acetylcysteine 200 mg 07/01/25 08:00 Acetylcysteine 20% Inhal Soln 800 Mg/4 Ml Vial INHALATION Q6HRT ENID Albuterol/Ipratropium 3 ml 06/30/25 14:00 07/01/25 01:44 Ipratropium 0.5 Mg/Albuterol Sulfate 2.5 Mg (Base) Ampul.Neb 3 Ml INHALATION 3 ml Q6HRT ENID Administration Artificial Tears 1 drop 06/28/25 20:40 07/01/25 08:29 Artificial Tears Ophth Soln 15 Ml Bottle EACH EYE 1 drop BID ENID Administration Aspirin 81 mg 06/29/25 08:00 07/01/25 08:40 Aspirin 81 Mg Chewable Tablet PO 81 mg DAILY@0800 ENID Administration Carvedilol 3.125 mg 06/29/25 21:00 06/30/25 09:54 Carvedilol 3.125 Mg Tablet PO 3.125 mg On Hold: 06/30/25 13:03 Q12HR ENID Administration Dextrose 12.5 gm 06/28/25 18:43 Dextrose 50% 25 Gm/50 Ml Syringe IV PUSH PRN PRN Hypoglycemia Protocol Docusate Sodium 100 mg 06/28/25 18:41 Docusate Sodium 100 Mg Capsule PO BID PRN Constipation Dornase Khang 2.5 mg 07/01/25 08:00 Dornase Khang Inh Soln 1 Mg/Ml 2.5 Ml Amp INHALATION Q12HRT ENID Doxycycline Hyclate 100 mg 06/29/25 23:15 07/01/25 08:40 Doxycycline Hyclate 100 Mg Tablet PO 100 mg Q12HR ENID Administration Ferrous Sulfate 325 mg 06/29/25 09:00 06/30/25 09:54 Ferrous Sulfate 325 Mg Tablet BY MOUTH 325 mg On Hold: 07/01/25 07:27 DAILY ENID Administration Gabapentin 100 mg 06/28/25 21:00 07/01/25 08:40 Gabapentin 100 Mg Capsule PO 100 mg Q12H ENID Administration Glucagon 1 mg 06/28/25 18:43 Glucagon For Inj 1 Mg Vial IM PRN PRN Hypoglycemia Protocol Glucose 15 gm 06/28/25 18:43 Glucose Oral Gel 15 Gm Of Glucse In 37.5 Gm Tube PO PRN PRN Hypoglycemia Protocol Guaifenesin 1,200 mg 06/30/25 09:00 07/01/25 08:40 Guaifenesin 12 Hr 600 Mg Tabcr PO 1,200 mg Q12HR ENID Administration Heparin Sodium (Porcine) 5,000 units 06/30/25 14:00 07/01/25 06:49 Heparin Sodium 5,000 Units/Ml Vial SUB-Q 5,000 units Q8HR EIND Administration Dextrose 1,000 mls @ 100 mls/hr 06/28/25 18:43 Dextrose 5% 1,000 Ml IVPB PRN PRN Hypoglycemia Protocol Ceftriaxone Sodium 1 gm/ 50 mls @ 100 mls/hr 06/29/25 23:15 06/30/25 22:16 Sodium Chloride IVPB Infused HS ENID Infusion Norepinephrine Bitartrate 8 mg in 250 mls @ 45 mls/hr 06/30/25 12:45 07/01/25 09:25 Levophed 8 Mg/D5w 250 Ml IV CONT 24 mcg/min .Q5H34M ENID 45 mls/hr Protocol Titration 24 MCG/MIN Furosemide 100 mg/ Sodium 100 mls @ 11.41 mls/hr 06/30/25 13:00 07/01/25 06:00 Chloride IV CONT Infused .Q8H46M ENID Infusion 0.1 MG/KG/HR Dobutamine HCl/Dextrose 250 mg in 250 mls @ 17.115 mls/hr 07/01/25 07:30 07/01/25 08:27 Dobutamine 250 Mg/D5w 250 Ml IV CONT 2.5 mcg/kg/min .[id number] ENID 17.12 mls/hr Protocol Administration 2.5 MCG/KG/MIN Vasopressin 100 units/ 100 mls @ 1.2 mls/hr 07/01/25 10:00 Dextrose IV CONT .Q72H PENDING SALE TO [facility] Protocol 0.02 UNITS/MIN Insulin Aspart 2 - 5 units 06/29/25 08:00 07/01/25 08:35 Insulin Aspart (*Bkc) 100 Units/Ml SUB-Q Not Given TIDWM PENDING SALE TO [facility] Protocol Lactobacillus Acidophilus 1 tablet 06/29/25 09:00 06/30/25 18:12 Acidophilus/Bulgaricus Chewable Tablet PO 07/29/25 08:59 1 tablet On Hold: 07/01/25 07:27 BID ENID Administration Melatonin 5 mg 06/29/25 21:00 06/30/25 21:08 Melatonin 5 Mg Tablet PO 5 mg HS ENID Administration Metolazone 5 mg 06/29/25 09:00 06/30/25 09:57 Metolazone 5 Mg Tablet PO 5 mg On Hold: 07/01/25 07:29 DAILY ENID Administration Midodrine 5 mg 06/29/25 09:00 06/30/25 11:56 Midodrine Hcl 2.5 Mg Tablet PO Not Given On Hold: 06/30/25 13:03 TID ENID Multivitamins Therapeutic 1 tablet 06/29/25 09:00 06/30/25 09:54 Multivitamins Therapeutic Tab (*Bkc) PO 1 tablet On Hold: 07/01/25 07:30 DAILY ENID Administration Ondansetron HCl 4 mg 06/28/25 17:55 Ondansetron Inj 4 Mg/2 Ml Vial IV PUSH Q4H PRN Nausea Polyethylene Glycol 17 gm 06/29/25 07:18 Polyethylene Glycol 3350 17 Gm Powd.Pack PO DAILY PRN constipation Sacubitril/Valsartan 1 tab 06/28/25 21:00 06/30/25 09:54 Sacubitril/Valsartan 24-26 Mg Tablet PO 1 tab On Hold: 06/30/25 13:04 Q12HR ENID Administration Sodium Chloride 10 ml 06/30/25 14:00 07/01/25 05:26 Central Line Flush IV PUSH 10 ml Q8HR ENID Administration Sodium Chloride 20 ml 06/30/25 12:42 Central Line Flush IV PUSH PRN PRN after blood draws Sodium Zirconium Cyclosilicate 10 gm 07/01/25 10:00 Sodium Zirconium Cyclosilicate 10 Gm Powd.Pack PO 07/01/25 18:01 BID@1000,1800 ENID Tramadol HCl 50 mg 06/28/25 20:30 07/01/25 01:58 Tramadol Hcl (*Crx) 50 Mg Tablet PO 50 mg On Hold: 07/01/25 07:30 Q6H PRN Administration PAIN RATED 4-6 Radiology Results: ITS Impressions Renal Ultrasound 06/30/25 14:43 Impression: Medical renal disease. No obstruction Chest X-Ray 07/01/25 08:12 IMPRESSION: 1. Right neck central line catheter tip actually at cavoatrial junction, not upper SVC as previously reported. 2. Near complete whiteout of left hemithorax likely further worsening of pleural effusion, atelectasis, and airspace disease. 3. Mild worsening interstitial pulmonary edema. Labs Labs: Laboratory Results - last 24 hr 06/30/25 06/30/25 06/30/25 10:20 10:52 11:37 WBC RBC Hgb Hct MCV MCH MCHC RDW Plt Count MPV Immature Gran % (Auto) Neut % (Auto) Lymph % (Auto) [place] % (Auto) Eos % (Auto) Baso % (Auto) Lymph # (Auto) [place] # (Auto) Eos # (Auto) Baso # (Auto) Abs Immat Gran (auto) Absolute Neuts (auto) Absolute Nucleated RBC Nucleated RBC % ESR > 140 H PT INR APTT ABG pH ABG pCO2 ABG pO2 ABG PO2/FiO2 Ratio ABG HCO3 ABG O2 Saturation ABG O2 Content ABG Base Excess A-a Gradient Oxyhemoglobin Total Hemoglobin FiO2 Sodium Potassium Chloride Carbon Dioxide Anion Gap BUN Creatinine Estim Creat Clear Calc Estimated GFR Glucose POC Capillary Glucose 130 H Calcium Phosphorus Magnesium Iron TIBC % Saturation Total Bilirubin AST ALT Alkaline Phosphatase Total Creatine Kinase < 20 L Total Protein Albumin Vitamin B12 Folate TSH Urine Color Dark yellow Urine Appearance Clear Urine pH 5.0 Ur Specific [place] 1.013 Urine Protein 1+ H Urine Glucose (UA) Negative Urine Ketones Negative Ur Blood (Man) 2+ H Urine Nitrate Negative Urine Bilirubin Negative Urine Urobilinogen 1.0 Ur Leukocyte Esterase Trace H Add Ur Microanalysis Reviewed Urine RBC 11-20 H Urine WBC 0-5 Ur Squamous Epith Cells None seen Urine Bacteria None seen Urine Casts 3-5 U Random Total Protein 63 Ur Random Sodium 45 Ur Random Urea 255 Urine Creatinine 116.6 Protein/Creat Ratio 2 0.54 H Nasal MRSA (PCR) DAVID Screen Cancelled DAVID Titer Cancelled DAVID Titer 2 Cancelled DAVID Titer 3 Cancelled DAVID Pattern Cancelled DAVID Pattern 2 Cancelled DAVID Pattern 3 Cancelled DAVID Comment Cancelled Complement C3 92 Complement C4 11.3 L 06/30/25 06/30/25 06/30/25 12:34 14:32 16:44 WBC RBC Hgb Hct MCV MCH MCHC RDW Plt Count MPV Immature Gran % (Auto) Neut % (Auto) Lymph % (Auto) [place] % (Auto) Eos % (Auto) Baso % (Auto) Lymph # (Auto) [place] # (Auto) Eos # (Auto) Baso # (Auto) Abs Immat Gran (auto) Absolute Neuts (auto) Absolute Nucleated RBC Nucleated RBC % ESR PT 15.3 H INR 1.2 APTT 34.6 ABG pH ABG pCO2 ABG pO2 ABG PO2/FiO2 Ratio ABG HCO3 ABG O2 Saturation ABG O2 Content ABG Base Excess A-a Gradient Oxyhemoglobin Total Hemoglobin FiO2 Sodium Potassium 5.4 H Chloride Carbon Dioxide Anion Gap BUN Creatinine Estim Creat Clear Calc Estimated GFR Glucose POC Capillary Glucose 156 H Calcium Phosphorus Magnesium Iron TIBC % Saturation Total Bilirubin AST ALT Alkaline Phosphatase Total Creatine Kinase Total Protein Albumin Vitamin B12 Folate TSH Urine Color Urine Appearance Urine pH Ur Specific [place] Urine Protein Urine Glucose (UA) Urine Ketones Ur Blood (Man) Urine Nitrate Urine Bilirubin Urine Urobilinogen Ur Leukocyte Esterase Add Ur Microanalysis Urine RBC Urine WBC Ur Squamous Epith Cells Urine Bacteria Urine Casts U Random Total Protein Ur Random Sodium Ur Random Urea Urine Creatinine Protein/Creat Ratio 2 Nasal MRSA (PCR) Not detected DAVID Screen DAVID Titer DAVID Titer 2 DAVID Titer 3 DAVID Pattern DAVID Pattern 2 DAVID Pattern 3 DAVID Comment Complement C3 Complement C4 07/01/25 07/01/25 07/01/25 05:04 08:35 09:53 WBC 10.5 H RBC 2.35 L Hgb 8.3 L Hct 27.7 L MCV 117.9 H MCH 35.3 H MCHC 30.0 L RDW 14.9 H Plt Count 305 MPV 9.3 Immature Gran % (Auto) 0.6 H Neut % (Auto) 87.9 H Lymph % (Auto) 7.5 L [place] % (Auto) 3.8 Eos % (Auto) 0.1 Baso % (Auto) 0.1 L Lymph # (Auto) 0.79 L [place] # (Auto) 0.4 Eos # (Auto) 0.0 Baso # (Auto) 0.0 Abs Immat Gran (auto) 0.06 H Absolute Neuts (auto) 9.3 H Absolute Nucleated RBC 0.030 H Nucleated RBC % 0.3 H ESR PT 15.5 H INR 1.2 APTT 36.1 ABG pH 7.310 L ABG pCO2 50.6 H ABG pO2 83.3 ABG PO2/FiO2 Ratio 1.39 ABG HCO3 24.9 ABG O2 Saturation 95.2 ABG O2 Content 12.6 L ABG Base Excess -1.6 A-a Gradient 288.8 Oxyhemoglobin 94.2 Total Hemoglobin 9.4 L FiO2 60 Sodium 129 L Potassium 5.2 H Chloride 94 L Carbon Dioxide 25 Anion Gap 10 BUN 74 H Creatinine 2.20 H Estim Creat Clear Calc 28 Estimated GFR 28 L Glucose 166 H POC Capillary Glucose 176 H Calcium 8.3 L Phosphorus 6.6 H Magnesium 2.4 H Iron 67 TIBC 269 % Saturation 25 Total Bilirubin 1.0 AST 26 ALT 17 Alkaline Phosphatase 84 Total Creatine Kinase Total Protein 7.4 Albumin 3.7 Vitamin B12 > 1000.0 H Folate > 20.0 H TSH 1.590 Urine Color Urine Appearance Urine pH Ur Specific [place] Urine Protein Urine Glucose (UA) Urine Ketones Ur Blood (Man) Urine Nitrate Urine Bilirubin Urine Urobilinogen Ur Leukocyte Esterase Add Ur Microanalysis Urine RBC Urine WBC Ur Squamous Epith Cells Urine Bacteria Urine Casts U Random Total Protein Ur Random Sodium Ur Random Urea Urine Creatinine Protein/Creat Ratio 2 Nasal MRSA (PCR) DAVID Screen DAVID Titer DAVID Titer 2 DAVID Titer 3 DAVID Pattern DAVID Pattern 2 DAVID Pattern 3 DAVID Comment Complement C3 Complement C4
[2025-07-01] MEDS: ACETYLCYSTEINE 20% INHAL SOLN 800 MG/4 ML VIAL 200 MG INHALATION ×2 (10:05→14:20)
[2025-07-01] MEDS: DORNASE ALFA INH SOLN 1 MG/ML 2.5 ML AMP 2.5 MG INHALATION (10:06)
[2025-07-01] MEDS: VASOPRESSIN INJ 100 UNITS in DEXTROSE 5% 95 ML IV CONT (10:10)
[2025-07-01 10:48] LABS: Anion Gap 12 mmol/L (4-12); Blood Urea Nitrogen 72 mg/dL (9-20); Calcium 8.4 mg/dL (8.4-10.2); Carbon Dioxide 25 mmol/L (22-30); Chloride 94 mmol/L (98-107); Estimated CRCL calculation 25 ml/min; Estimated Glomerular Filt Rate 25; Glucose 121 mg/dL (65-110); Potassium 4.9 mmol/L (3.4-5.0); Sodium 131 mmol/L (137-145)
--- NOTE | 2025-07-01 11:18 | P.PNNP_ITS ---
Progress Note: A&P Assessment and Plan (1) MOHSEN (acute kidney injury): Code(s): N17.9 - Acute kidney failure, unspecified Status: Acute Assessment and Plan: * ongoing deterioration noted * suspect multifactorial: * hemodynamic instability/shock * cardiorenal syndrome * infection (pneumonia) * other(?) * evaluation to date noted: * renal ultrasound w/o obstruction * urine electrolytes prerenal * UA without signs of infection * CPl low * mild proteinuria * remains at risk for HE[employer] EQU[employer]MENT [employer]IC[employer]/dialysis (although patient not interested in invasive therapies) * continue to follow trend of repeat labs and UOP (2) Hyperkalemia: Code(s): E87.5 - Hyperkalemia Status: Acute Assessment and Plan: * likely due to a combo of #1 and valsartan * dong better * on lokelma (3) Cardiogenic shock: Code(s): R57.0 - Cardiogenic shock Status: Acute Assessment and Plan: * as noted by events since admission * Echo (05/20/25) noted: * EF of 25-30% * RVSP 71 mmHg with severe pulmonary hypertension * central line was inserted upon arrival to the ICU, patient was started on Levophed and dobutamine on 06/30 * switch dobutamine to Milrinone for where better pulmonary artery vasodilation * no real improvement to date... (4) Cardiomyopathy: Code(s): I42.9 - Cardiomyopathy, unspecified Status: Acute Assessment and Plan: * see #3 * Echo (on 05/20/25) noted: * left ventricular systolic function is normal, estimated at 25-30% * right ventricular systolic function is normal * mild to moderate mitral valve regurgitation * mild tricuspid valve regurgitation * evere pulmonary hypertension, estimated pulmonary arterial systolic pressure is 71 mmHg * mild pulmonic regurgitation. * Cardiology following * continue current therapy (5) Acute respiratory failure: Code(s): J96.00 - Acute respiratory failure, unspecified whether with hypoxia or hypercapnia Status: Acute Assessment and Plan: * likely due to pulmonary edema, CHF exacerbation, and possible left-sided pneumonia * on Vapotherm/Airvo * continue bronchodilators * chest x-ray this morning showed near complete whiteout of left hemithorax likely related to worsening pleural effusion, atelectasis, airspace disease. Mild worsening is test this tissue edema * on Mucomyst, Pulmozyme nebulizers, chest physical therapy (6) Pneumonia: Code(s): J18.9 - Pneumonia, unspecified organism Status: Acute Assessment and Plan: * as suggested by chest imaging * on antibiotis * follow culture data Will continue to follow. L Subjective Date/time seen: 07/01/25 11:18 Interval history: Follow-up for acute kidney injuyr/acute renal failure. Chart reviewed -- assuming care from Dr. Henry; remains on vasopressor therapy along with milrinone and lasix infusions but has not made very much urine output and his renal function/creatinine continues to deteriorate; vasopressor requirement have been increasing and he remains short of breath with worsening CXR findings as well. Exam 2 Narrative: General: elderly male in NAD Heart: normal S1 and S2; no rub Lungs: coarse and decreased on the left Abdomen: soft, nontender, nondistended, positive bowel sounds Extremities: no cyanosis or clubbing; 2+ edema in UEs and LEs (anasarca) Skin: warm and dry Objective Data Vital Signs Vital Signs: Vital Signs Temp Pulse Resp BP Pulse Ox O2 Del Method O2 Flow Rate 07/01/25 11:00 101 H 22 H 98/68 L 96 07/01/25 10:30 90 51/17 L 07/01/25 10:30 79 51/17 L 07/01/25 10:22 92 20 07/01/25 10:20 85 90/41 L 07/01/25 10:15 89 90/41 L 07/01/25 10:10 109 H 90/41 L 07/01/25 10:06 94 24 H 07/01/25 10:00 89/47 L 07/01/25 10:00 84 89/47 L 07/01/25 10:00 96 89/47 L 07/01/25 10:00 86 22 H 94/52 L 89 L 07/01/25 10:00 84 24 H 98 High Flow Therapy with Na 45 07/01/25 09:25 90 85/45 L 07/01/25 09:00 84 22 H 80/33 L 95 07/01/25 08:52 89 20 07/01/25 08:27 87 84/71 L 07/01/25 08:00 108/53 L 07/01/25 08:00 93 108/53 L 07/01/25 08:00 93 20 98/73 L 96 07/01/25 08:00 102 H 07/01/25 08:00 102 H 17 94 High Flow Therapy with Na 40 07/01/25 07:59 78 21 H 07/01/25 07:59 78 21 H 96 High Flow Therapy with Na 45 07/01/25 07:00 80 12 89/41 L 97 07/01/25 06:00 98.4 F 77 14 99/55 L 97 07/01/25 06:00 99/55 L 07/01/25 06:00 77 99/55 L 07/01/25 06:00 96 99/55 L 07/01/25 05:33 77 99/55 L 07/01/25 05:20 93 07/01/25 05:00 98.4 F 93 24 H 131/118 H 93 07/01/25 04:00 88 101/54 L 07/01/25 04:00 84 101/54 L 07/01/25 04:00 101/54 L 07/01/25 04:00 98.5 F 88 18 101/54 L 96 07/01/25 04:00 87 07/01/25 03:00 87 15 101/59 L 96 07/01/25 02:00 85 18 98/50 L 96 07/01/25 02:00 85 07/01/25 02:00 81 98/50 L 07/01/25 02:00 87 89/50 L 07/01/25 02:00 90/50 L 07/01/25 01:51 95 20 07/01/25 01:44 96 18 07/01/25 01:00 98.3 F 93 17 102/49 L 94 07/01/25 00:00 83 114/48 L 07/01/25 00:00 83 07/01/25 00:00 103/54 L 07/01/25 00:00 98.2 F 83 24 H 103/54 L 95 07/01/25 00:00 83 06/30/25 23:00 98 20 82/59 L 93 06/30/25 22:27 78 94/50 L 06/30/25 22:27 78 94/50 L 06/30/25 22:00 92 106/49 L 06/30/25 22:00 92 106/49 L 06/30/25 22:00 92 22 H 106/49 L 93 06/30/25 22:00 92 06/30/25 21:00 88 18 102/80 94 06/30/25 20:52 95 19 06/30/25 20:49 100 19 95 High Flow Therapy with Na 45 06/30/25 20:43 100 19 06/30/25 20:00 97 27 H 110/59 L 94 06/30/25 20:00 97 110/59 L 06/30/25 20:00 110/59 L 06/30/25 20:00 97 110/59 L 06/30/25 19:58 93 06/30/25 19:51 93 27 H 94 High Flow Therapy with Na 40 Intake/Output Intake/Output: Intake & Output 06/28/25 06/29/25 06/30/25 07/01/25 23:59 23:59 23:59 23:59 Intake Total 550 811.9 1583.3 Output Total 1000 850 425 Balance -450 -38.1 1158.3 Meds/Results Medications: Active Medications Generic Name Dose Route Start Last Admin Trade Name Freq PRN Reason Stop Dose Admin Acetaminophen 650 mg 06/28/25 17:55 06/30/25 09:56 Acetaminophen 325 Mg Tablet PO 650 mg Q4H PRN Administration Mild Pain (1-3) or Fever Acetylcysteine 200 mg 07/01/25 08:00 07/01/25 14:20 Acetylcysteine 20% Inhal Soln 800 Mg/4 Ml Vial INHALATION 200 mg Q6HRT ENID Administration Albuterol/Ipratropium 3 ml 06/30/25 14:00 07/01/25 14:21 Ipratropium 0.5 Mg/Albuterol Sulfate 2.5 Mg (Base) Ampul.Neb 3 Ml INHALATION 3 ml Q6HRT ENID Administration Artificial Tears 1 drop 06/28/25 20:40 07/01/25 15:59 Artificial Tears Ophth Soln 15 Ml Bottle EACH EYE Not Given BID ENID Aspirin 81 mg 06/29/25 08:00 07/01/25 08:40 Aspirin 81 Mg Chewable Tablet PO 81 mg DAILY@0800 ENID Administration Carvedilol 3.125 mg 06/29/25 21:00 06/30/25 09:54 Carvedilol 3.125 Mg Tablet PO 3.125 mg On Hold: 06/30/25 13:03 Q12HR ENID Administration Dextrose 12.5 gm 06/28/25 18:43 Dextrose 50% 25 Gm/50 Ml Syringe IV PUSH PRN PRN Hypoglycemia Protocol Docusate Sodium 100 mg 06/28/25 18:41 Docusate Sodium 100 Mg Capsule PO BID PRN Constipation Dornase Khang 2.5 mg 07/01/25 08:00 07/01/25 10:06 Dornase Khang Inh Soln 1 Mg/Ml 2.5 Ml Amp INHALATION 2.5 mg Q12HRT ENID Administration Doxycycline Hyclate 100 mg 06/29/25 23:15 07/01/25 08:40 Doxycycline Hyclate 100 Mg Tablet PO 100 mg Q12HR ENID Administration Ferrous Sulfate 325 mg 06/29/25 09:00 06/30/25 09:54 Ferrous Sulfate 325 Mg Tablet BY MOUTH 325 mg On Hold: 07/01/25 07:27 DAILY ENID Administration Gabapentin 100 mg 06/28/25 21:00 07/01/25 08:40 Gabapentin 100 Mg Capsule PO 100 mg Q12H ENID Administration Glucagon 1 mg 06/28/25 18:43 Glucagon For Inj 1 Mg Vial IM PRN PRN Hypoglycemia Protocol Glucose 15 gm 06/28/25 18:43 Glucose Oral Gel 15 Gm Of Glucse In 37.5 Gm Tube PO PRN PRN Hypoglycemia Protocol Guaifenesin 1,200 mg 06/30/25 09:00 07/01/25 08:40 Guaifenesin 12 Hr 600 Mg Tabcr PO 1,200 mg Q12HR ENID Administration Heparin Sodium (Porcine) 5,000 units 06/30/25 14:00 07/01/25 15:00 Heparin Sodium 5,000 Units/Ml Vial SUB-Q 5,000 units Q8HR ENID Administration Dextrose 1,000 mls @ 100 mls/hr 06/28/25 18:43 Dextrose 5% 1,000 Ml IVPB PRN PRN Hypoglycemia Protocol Norepinephrine Bitartrate 8 mg in 250 mls @ 56.25 mls/hr 06/30/25 12:45 07/01/25 16:34 Levophed 8 Mg/D5w 250 Ml IV CONT 30 mcg/min .Q4H27M ENID 56.25 mls/hr Protocol Administration 30 MCG/MIN Furosemide 100 mg/ Sodium 100 mls @ 11.41 mls/hr 06/30/25 13:00 07/01/25 14:00 Chloride IV CONT 0.1 mg/kg/hr .Q8H46M ENID 11.41 mls/hr 0.1 MG/KG/HR Infusion Dobutamine HCl/Dextrose 250 mg in 250 mls @ 17.115 mls/hr 07/01/25 07:30 07/01/25 14:00 Dobutamine 250 Mg/D5w 250 Ml IV CONT 2.5 mcg/kg/min .[id number] ENID 17.12 mls/hr Protocol Infusion 2.5 MCG/KG/MIN Vasopressin 100 units/ 100 mls @ 2.4 mls/hr 07/01/25 10:00 07/01/25 14:00 Dextrose IV CONT 0.04 units/min .[id number] ENID 2.4 mls/hr Protocol Titration 0.04 UNITS/MIN Cefepime HCl 1 gm/ Sodium 50 mls @ 100 mls/hr 07/01/25 11:00 07/01/25 12:04 Chloride IVPB 100 mls/hr Q12H ENID Administration Insulin Aspart 2 - 5 units 06/29/25 08:00 07/01/25 16:40 Insulin Aspart (*Bkc) 100 Units/Ml SUB-Q Not Given TIDWM ENID Protocol Lactobacillus Acidophilus 1 tablet 06/29/25 09:00 06/30/25 18:12 Acidophilus/Bulgaricus Chewable Tablet PO 07/29/25 08:59 1 tablet On Hold: 07/01/25 07:27 BID ENID Administration Melatonin 5 mg 06/29/25 21:00 06/30/25 21:08 Melatonin 5 Mg Tablet PO 5 mg HS ENID Administration Metolazone 5 mg 06/29/25 09:00 06/30/25 09:57 Metolazone 5 Mg Tablet PO 5 mg On Hold: 07/01/25 07:29 DAILY ENID Administration Midodrine 5 mg 06/29/25 09:00 06/30/25 11:56 Midodrine Hcl 2.5 Mg Tablet PO Not Given On Hold: 06/30/25 13:03 TID ENID Multivitamins Therapeutic 1 tablet 06/29/25 09:00 06/30/25 09:54 Multivitamins Therapeutic Tab (*Bkc) PO 1 tablet On Hold: 07/01/25 07:30 DAILY ENID Administration Ondansetron HCl 4 mg 06/28/25 17:55 Ondansetron Inj 4 Mg/2 Ml Vial IV PUSH Q4H PRN Nausea Polyethylene Glycol 17 gm 06/29/25 07:18 Polyethylene Glycol 3350 17 Gm Powd.Pack PO DAILY PRN constipation Sacubitril/Valsartan 1 tab 06/28/25 21:00 06/30/25 09:54 Sacubitril/Valsartan 24-26 Mg Tablet PO 1 tab On Hold: 06/30/25 13:04 Q12HR ENID Administration Sodium Chloride 10 ml 06/30/25 14:00 07/01/25 14:15 Central Line Flush IV PUSH Not Given Q8HR ENID Sodium Chloride 20 ml 06/30/25 12:42 Central Line Flush IV PUSH PRN PRN after blood draws Tramadol HCl 50 mg 06/28/25 20:30 07/01/25 01:58 Tramadol Hcl (*Crx) 50 Mg Tablet PO 50 mg On Hold: 07/01/25 07:30 Q6H PRN Administration PAIN RATED 4-6 Radiology Results: ITS Impressions Renal Ultrasound 06/30/25 14:43 Impression: Medical renal disease. No obstruction Chest X-Ray 07/01/25 08:12 IMPRESSION: 1. Right neck central line catheter tip actually at cavoatrial junction, not upper SVC as previously reported. 2. Near complete whiteout of left hemithorax likely further worsening of pleural effusion, atelectasis, and airspace disease. 3. Mild worsening interstitial pulmonary edema. Labs Labs: Laboratory Tests 07/01/25 05:04 07/01/25 10:27 07/01/25 05:04 PT 15.5 H INR 1.2 APTT 36.1 Sodium 129 L Potassium 5.2 H Chloride 94 L Carbon Dioxide 25 Anion Gap 10 BUN 74 H Creatinine 2.20 H Estim Creat Clear Calc 28 Estimated GFR 28 L Glucose 166 H Calcium 8.3 L Phosphorus 6.6 H Magnesium 2.4 H Iron 67 TIBC 269 % Saturation 25 Total Bilirubin 1.0 AST 26 ALT 17 Alkaline Phosphatase 84 Total Protein 7.4 Albumin 3.7 Vitamin B12 > 1000.0 H Folate > 20.0 H TSH 1.590
[2025-07-01] MEDS: NOREPINEPHRINE 8 MG/D5W 250 ML 8 MG/250 ML BAG 56.25 MG IV CONT ×2 (12:03→16:34)
[2025-07-01] MEDS: CEFEPIME 1 GM in SODIUM CHLORIDE 0.9% IV 50 ML 100 ML IVPB (12:04)
--- NOTE | 2025-07-01 18:00 | PC.NURSE ---
This RN had discussion with family regarding next steps in Major's plan of care as they are unsure of when the appropriate time would be to transition to comfort based care as the patient is still alert and mostly oriented. Encouraged family to take this opportunity to further discuss the patient's wishes with him now while he can have a discussion regarding his wishes and goals for plan of care.
--- NOTE | 2025-07-01 19:54 | PC.NURSE ---
family wants to engGE WITH COMFORT CARE DR MCKEON CALLED
[2025-07-01] MEDS: MORPHINE SULFATE INJ (*CRX) 10 MG/ML AMP 5 MG IV PUSH (20:38)
--- NOTE | 2025-07-02 00:27 | PC.NURSE ---
Spoke with Fadumo HERRING from [facility], patient is not a candidate and okay to release to home.
--- NOTE | 2025-07-02 00:30 | PC.NURSE ---
Notified Truong [facility] and [facility] via exchange okay to pick patient up as patient has been cleared from [facility]. slab lifting supervisor Lela HERRING notified as well as Security
--- NOTE | 2025-07-02 00:30 | PC.NURSE ---
Notified Charito Guerin
[2025-07-02 14:08] LABS: ANA by IFA Rfx Titer/Pattern Negative (.)
--- NOTE | 2025-07-03 11:37 | PM.DDS ---
Discharge Summary Date and Time Date of : 07/01/25 Time of : 21:13 Provider Pronounced By: 2 RNs Name of First RN That Pronounced: ENE Name of Second RN That Pronounced: ANTONY Probable Cause of Probable Cause of : Cardiopulmonary arrest, cardiogenic shock, acute kidney injury, uremia, palliative withdrawal of support Summary Hospital Course: Dick Bobo is a 85 year old male with significant past medical history of hypertension, diabetes, ischemic cardiomyopathy EF of 25-30%, AICD, severe pulmonary hypertension with RVSP of 71 mmHg, [id number] mitral valve regurg presented the ED on 05/28/2025 with complains of shortness of breath, bilateral lower extremity swelling which has been worsening for the past week prior to admission. Patient did see his supervisor beehive kiln Dr. Jimenez on 06/27/2025 and was started on Entresto. Patient was admitted to the medical floor where he was being diuresed aggressively with Bumex 1 or 2 mg IV b.i.d. along with carvedilol and Entresto. Despite these efforts patient remained edematous and not responding well to the diuresis. On 06/30/2025: Patient dropped was hypotensive with systolic in the 60s to 80s, remains edematous, was started on dobutamine in the intermediate Unit and I was consulted for possible-cardiogenic shock. Firstly I discontinue the Entresto and carvedilol because that is probably 1 of the reasons he was hypotensive. Placed a central line as soon as patient arrived in the ICU, discussed with Cardiology, will start norepinephrine, continue dobutamine and will add Lasix infusion. I discussed at length with the daughter, Fadumo Almaraz who is the POA all agreed to the above-mentioned interventions. Patient is a do not intubate and do not resuscitate. Over the course of stay in the hospital, patient was started on Levophed, vasopressin was added, both of them pressors were on maximum doses. Patient was also on Milrinone which was later switched to dobutamine due to renal dysfunction. Patient was also on Lasix infusion -did not respond to the inotrope, pressors and Lasix infusion. Renal function was worsening along with worsening of pulmonary and peripheral edema. I discussed at length with the supervisor beehive kiln who stated that the patient will probably require intra-aortic balloon pump, right and left heart catheterization. He had declined a left heart catheterization in the past. A cardiology stated that with given his advanced age, multiorgan failure and advance cardiac support he has poor prognosis any invasive procedures would likely not benefit him at this time. I discussed with Nephrology who stated that given patient declining renal function, multiorgan system failure, advanced age he would not be a candidate for hemodialysis. 07/01: Discussed at length with Fadumo who is the POA and Helena another daughter, along with patient's sister and patient's son-in-law was in the conference room. Had updated them with patient's condition and plan of care. They are aware that he is on maximum doses of 2 blood pressure support medications, on dobutamine for ionotropic support, on Lasix infusion to mobilize fluid side of his body. Patient has been not been responding to Lasix, creatinine is trending up, urine output has low. I did update them regarding the recommendations from Cardiology and Nephrology both of home think that any aggressive offered the care would do more harm to the patient. All questions answered, they have requested more family members to come to see him. They finally decided to make him comfort measures and or withdraw support. Patient was on comfort care, received medications per protocol. Date of : 07/01/2025 Time of : 2112 Additional Data Confirmation of as documented by pronouncing clinician: Pupillary Reflex and Palpable Pulses Name of Provider Notified: FAITH GARRETT Time Provider Notified: 21:34 Provider Requests Autopsy: No Family Requests Autopsy: No [facility] Notified: Yes Date [facility] Notified of : 07/01/25 Time [facility] Notified of : 21:47
[2025-07-03 14:09] LABS: Immunoglobulin A, Qn 110 mg/dL (61-437); Immunoglobulin G, Qn 1075 mg/dL (603-1613); Immunoglobulin M, Qn 1031 mg/dL (15-143)
== END 2025-07-01 22:15 | disposition expired | DRG 291 ==
LOC: ANHED 17:30 → ANH2MED 18:38 → ANHIMU 06-30 11:20 → ANHICU 06-30 12:15
PROVIDERS: Internal Medicine; Internal Medicine Nephrology; Nurse Practitioner Family; Nurse Practitioner Gerontology; Student in an Organized Health Care Education/Training Program; Admitting Provider Student in an Organized Health Care Education/Training Program; Emergency Provider Family Medicine; PCP Family Medicine; Visit Provider Student in an Organized Health Care Education/Training Program
DX: I13.0 Hypertensive heart and chronic kidney disease with heart failure and stage 1 through stage 4 chronic kidney disease, or unspecified chronic kidney disease (principal); I50.23 Acute on chronic systolic (congestive) heart failure; J18.9 Pneumonia, unspecified organism; J96.01 Acute respiratory failure with hypoxia; N17.9 Acute kidney failure, unspecified; N18.30 Chronic kidney disease, stage 3 unspecified; I25.10 Atherosclerotic heart disease of native coronary artery without angina pectoris; E11.22 Type 2 diabetes mellitus with diabetic chronic kidney disease; I25.5 Ischemic cardiomyopathy; D63.1 Anemia in chronic kidney disease; I95.9 Hypotension, unspecified; E87.5 Hyperkalemia; I48.0 Paroxysmal atrial fibrillation; R57.0 Cardiogenic shock; G47.30 Sleep apnea, unspecified; F32.A Depression, unspecified; I27.20 Pulmonary hypertension, unspecified; I34.0 Nonrheumatic mitral (valve) insufficiency; I49.5 Sick sinus syndrome; Z66 Do not resuscitate; Z20.822 Contact with and (suspected) exposure to COVID-19; Z51.5 Encounter for palliative care; Z95.0 Presence of cardiac pacemaker; Z79.84 Long term (current) use of oral hypoglycemic drugs; Z79.82 Long term (current) use of aspirin
CPT/HCPCS: 36415; 36600; 71045; 71046; 76770; 80048; 80053; 81001; 82550; 82570; 82607; 82746; 82784; 82805; 82948; 83540; 83550; 83605; 83735; 83880; 84100; 84132; 84156; 84300; 84443; 84484; 84540; 85018; 85025; 85027; 85055; 85610; 85652; 85730; 86038; 86160; 86162; 86334; 87637; 87641; 93005; 94640; 96374; 99285; A9270; J0692; J0696; J1250; J1644; J1815; J1938; J1939; J2260; J2270; J7639